=== PATIENT | male | born 1955 | race Caucasian/White ===

== ENCOUNTER 2018-02-22 15:00 | Emergency (ER) | payer SELFPAY ==
[~2018-02-22] VITALS: Ht 175.3 cm; Wt 57.8 kg
[~2018-02-22 15:00] MED LIST: ASPI-320 PO; FLV1 PO; HYDR25TA4 PO; PRVHFAIN INH; THM100 PO
[2018-02-22 15:06] VITALS: TEMP 36.3; Ht 175.3 cm; Wt 57.8 kg
--- NOTE | 2018-02-22 15:23 | EMERGENCY ROOM VISIT NOTE ---
History First contact with patient: 15:10 Chief Complaint: FACIAL PAIN/INJURY Stated Complaint: SWELLING L SIDE OF NECK History of Present Illness The patient is a 62 year old male who presents to the Emergency Room via private vehicle with complaints of "swelling left side of neck". The patient states that about half an hour ago he was at [employer] eating an egg and cheese muffin of which she has had numerous times before and notes sudden onset of swelling in left side of his face just posterior to the left angle of the mandible. He notes it feels like a pressure and not really painful. He notes he has no teeth therefore no problems with dentition. He denies any scratchy throat, trouble breathing, chest pain, shortness of breath, fevers or chills. He denies any numbness or tingling in the head, speech troubles or any neurologic condition. Review of Systems A complete 6-point Review of Systems was discussed with the patient, with pertinent positives and negatives listed in the History of Present Illness. All remaining Review of Systems questions can be considered negative unless otherwise specified. Past Medical/Surgical History Medical Problems: (1) Cachexia (2) Chest pain (3) Elevated LFTs (4) Hepatitis C antibody test positive (5) No pertinent past medical history Surgical Problems: (1) No pertinent past surgical history Family History No pertinent family history Social History Smoking Status: Never Smoker Alcohol Use: occasionally Drug Use: none Marital Status: Housing Status: lives with family Occupation Status: employed Current/Historical Medications Scheduled Amoxicillin & Pot Clavulanate (Augmentin 875-125 mg), 1 TAB PO BID Aspirin (Aspirin EC Low Dose), 81 MG PO QAM Folic Acid (Folic Acid), 1 MG PO QAM Hydrochlorothiazide (Hctz), 1 TAB PO DAILY Thiamine HCl (Vitamin B-1), 100 MG PO QAM Scheduled PRN Albuterol (Ventolin Hfa), 2 PUFFS INH Q4H PRN for SOB/Wheezing Physical Exam Vital Signs Date Time Temp Pulse Resp B/P (MAP) Pulse Ox O2 Delivery O2 Flow Rate FiO2 02/22/18 18:34 58 20 134/85 98 02/22/18 17:27 62 18 129/72 98 Room Air 02/22/18 15:06 36.3 76 20 136/75 94 Room Air Physical Exam VITAL SIGNS - Vital signs and nursing notes were reviewed. Stable. GENERAL -62-year-old male appearing his stated age who is in no acute distress. Communicates well with provider and answers questions appropriately. SKIN - Without rashes. No meningeal or petechial rash. There is edema noted and tenderness just posterior to the angle of the mandible in the soft tissues of the neck. HEAD - NC/AT. EYES - PERRL with EOMI bilaterally. Sclera anicteric. EARS - No deformities of external structures noted on gross examination bilaterally. NOSE - Midline and without cyanosis. No epistaxis or purulent drainage noted. MOUTH/OROPHARYNX - Without perioral cyanosis. Intraoral examination is unremarkable. There are no teeth. No evidence of infection. No swelling NECK - Neck with FROM. Supple to palpation. No lymphadenopathy noted. No nuchal rigidity. Palpable abnormality just posterior to the left angle of the mandible that is raised approximately 2 cm in diameter raised 2 cm. Minimal tenderness to this region. LUNGS - Chest wall symmetric without accessory muscle use, intercostals retractions, or central cyanosis. Normal vesicular breath sounds CTA B/L. No wheezes, rales, or rhonchi appreciated. CARDIAC - RRR with S1/S2. No murmur, rubs, or gallops appreciated. EXTREMITIES - No clubbing or peripheral cyanosis. No pretibial edema present. +5 /5 strength noted in UE/LE bilaterally. NEUROLOGIC - Cranial nerves II through XII grossly intact. Sensory intact to light touch throughout. PSYCH - A&O, and cooperates fully with examiner. Pt is very pleasant and interacts well with examiner. Medical Decision & Procedures ER Provider Diagnostic Interpretation: LEFT NECK/PAROTID ULTRASOUND CLINICAL HISTORY: Left neck edema COMPARISON STUDY: No previous studies for comparison. FINDINGS: No pathologic masses are visualized. There is subtle left parotid hyperemia. This may indicate a parotiditis. No focal parotid masses are visualized. IMPRESSION: 1. No focal masses identified 2. Subtle left parotid edema and hyperemia. This may indicate a parotiditis. Clinical follow-up is advocated Electronically signed by: Malcom Mccann M.D. 02/22/2018 3:56 PM Dictated Date/Time: 02/22/2018 3:53 PM SOFT TISSUE NECK WITH HISTORY: 62 years-old Male L parotid gland edema, tenderness acute left facial pain and edema, most pronounced within the region of the parotid gland. COMPARISON: None available TECHNIQUE: Multiple axial CT images of the soft tissues of the neck were obtained following the intravenous ministration of 95 mL Optiray 320 IV contrast. A dose lowering technique was used consistent with the principals of DANYEL. FINDINGS: There is asymmetric enlargement with interstitial and surrounding edema involving the left parotid gland. Mildly increased enhancement is also noted. No parotid ductal dilation or sialolith identified. Mild subcutaneous trace edema tracks along the platysma musculature on the left. No enhancing mass lesion or drainable fluid collection. The right parotid, bilateral submandibular and sublingual glands appear unremarkable. Note is made of disconjugate gaze. No pathologic adenopathy about the neck identified. Thyroid is homogeneous. Airway is patent. The glottis is unremarkable. Pleural parenchymal scarring of the lung apices with blebs and bulla formation. Atherosclerosis of the bilateral carotid bulbs, right greater than left results in 70% stenosis on the right. No acute process of the imaged intracranial structures. Bones appear intact. Multilevel facet arthrosis and spondylitic spurring about the cervical spine. Mild to moderate ethmoid sinus disease. Mild maxillary sinus disease also noted. IMPRESSION: 1. Asymmetric enlargement with interstitial and surrounding edema about the left parotid gland suggests acute parotiditis without associated ductal dilation or sialolith identified. 2. No pathologic adenopathy, drainable fluid collection or enhancing mass identified. 3. Additional findings as above including atherosclerotic plaquing of the bilateral carotid bulbs resulting in 70% luminal narrowing of the proximal right internal carotid artery. The above report was generated using voice recognition software. It may contain grammatical, syntax or spelling errors. Electronically signed by: Larry Dixon M.D. 02/22/2018 5:11 PM Dictated Date/Time: 02/22/2018 5:05 PM Laboratory Results 02/22/18 15:36 Red Blood Count 3.82, Mean Corpuscular Volume 100.8, Mean Corpuscular Hemoglobin 34.8, Mean Corpuscular Hemoglobin Concent 34.5, Mean Platelet Volume 9.4, Neutrophils (%) (Auto) 56.5, Lymphocytes (%) (Auto) 31.9, Monocytes (%) ( Auto) 8.8, Eosinophils (%) (Auto) 2.4, Basophils (%) (Auto) 0.4, Neutrophils # ( Auto) 1.42, Lymphocytes # (Auto) 0.80, Monocytes # (Auto) 0.22, Eosinophils # ( Auto) 0.06, Basophils # (Auto) 0.01 02/22/18 15:36 Test 02/22/18 15:36 02/22/18 17:13 White Blood Count 2.51 K/uL (4.8-10.8) Red Blood Count 3.82 M/uL (4.7-6.1) Hemoglobin 13.3 g/dL (14.0-18.0) Hematocrit 38.5 % (42-52) Mean Corpuscular Volume 100.8 fL (80-100) Mean Corpuscular Hemoglobin 34.8 pg (25-34) Mean Corpuscular Hemoglobin Concent 34.5 g/dl (32-36) Platelet Count 74 K/uL (130-400) Mean Platelet Volume 9.4 fL (7.4-10.4) Neutrophils (%) (Auto) 56.5 % Lymphocytes (%) (Auto) 31.9 % Monocytes (%) (Auto) 8.8 % Eosinophils (%) (Auto) 2.4 % Basophils (%) (Auto) 0.4 % Neutrophils # (Auto) 1.42 K/uL (1.4-6.5) Lymphocytes # (Auto) 0.80 K/uL (1.2-3.4) Monocytes # (Auto) 0.22 K/uL (0.11-0.59) Eosinophils # (Auto) 0.06 K/uL (0-0.5) Basophils # (Auto) 0.01 K/uL (0-0.2) RDW Standard Deviation 54.2 fL (36.4-46.3) RDW Coefficient of Variation 14.7 % (11.5-14.5) Immature Granulocyte % (Auto) 0.0 % Immature Granulocyte # (Auto) 0.00 K/uL (0.00-0.02) Platelet Estimate DECREASED Macrocytosis PRESENT Prothrombin Time 11.7 SECONDS (9.0-12.0) Prothromb Time International Ratio 1.1 (0.9-1.1) Activated Partial Thromboplast Time 27.7 SECONDS (21.0-31.0) Partial Thromboplastin Ratio 1.1 Anion Gap 5.0 mmol/L (3-11) Est Creatinine Clear Calc Drug Dose 89.2 ml/min Estimated GFR () 117.5 Estimated GFR (Non- 101.4 BUN/Creatinine Ratio 9.7 (10-20) Calcium Level 8.4 mg/dl (8.5-10.1) Lactic Acid Level 1.5 mmol/L (0.4-2.0) Medications Administered Medications (Trade) Dose Ordered Sig/Selvin Route Start Time Stop Time Status Last Admin Dose Admin Prednisone (PredniSONE TAB) 40 mg NOW STAT PO 02/22/18 15:17 02/22/18 15:21 DC 02/22/18 15:30 40 MG Cefazolin Sodium 1000 mg/Dextrose 57.5 ml @ 100 mls/hr NOW STAT IV 02/22/18 17:34 02/22/18 18:08 DC 02/22/18 17:34 100 MLS/HR Amoxicillin/ Clavulanate Potassium (Augmentin 875MG Home Pack) 1 homepack UD STAT PO 02/22/18 18:20 02/22/18 18:21 DC 02/22/18 18:20 1 HOMEPACK Medical Decision Patient was seen and evaluated as above in room D3. Review was performed of nursing notes and vital signs. After obtaining a thorough history and physical examination the above work up was performed. He presents to us today with unilateral neck swelling status post eating at [employer]. No other signs of reaction. CBC does reveal decreased white blood cell count and low platelet count. Metabolic panel reveals hypocalcemia. Ultrasound reveals parotitis. He has no other symptoms to suggest mumps. I did elect to obtain cultures, lactic and peripheral smear. He is nontoxic in appearance. The case was discussed with the attending physician. CT scan was obtained. Parotitis noted. No other emergent process. He was educated upon importance of follow- up. I did speak with Dr. Mooney, of infectious disease to discuss potential outpatient follow-up with Dr. Daigle. This appears to be reasonable. He will be given Ancef here and discharged with Augmentin. Again his only symptom is that of left-sided neck swelling and he is nontoxic, afebrile, and is well- appearing. He is also to follow with [facility]. The patient was educated upon management, had questions answered prior to discharge, and was discharged home in good condition. Case was discussed with the attending physician. I attest that I have personally reviewed the patient medication list. I attest that I have reviewed the patient's blood pressure and it was found to be elevated likely secondary to situation. In the evaluation and treatment of this patient the following differential diagnoses were entertained: Parotitis, sialoadenitis, mumps, viral process, bacterial etiology, sepsis, among others. Impression Primary Impression: Parotitis, acute Additional Impression: Anemia Departure Information Dispostion Home / Self-Care Condition GOOD Prescriptions Amoxicillin & Pot Clavulanate (Augmentin 875-125 mg) 1 Tab Tab 1 TAB PO BID for 10 Days, #20 TAB Prov: Edmar Jennings PA-C 02/22/18 Referrals [facility] (PCP) Lucas Daigle MD, Sean B., MD Patient Instructions My [facility] Additional Instructions You have been treated in the Emergency Department for left-sided neck swelling which is believed to be parotitis. CT scan of your neck also reveals some narrowing of your carotid arteries. Please follow with [facility] for this. For the parotitis/infection on the left side of her neck I do recommend following with Dr. Daigle. If you do not hear from his office tomorrow please give them a call. Please recommend follow-up as soon as possible. For the neck infection I recommend Augmentin, 1 tablet every 12 hours for 10 days. This is an antibiotic. All antibiotics have the potential to cause diarrhea. Stop this medication and contact a medical provider if you were to develop any significant adverse side effects including: wheezing, shortness of breath, passing out, vomiting, or a diffuse rash. Always take antibiotics as directed and COMPLETE the ENTIRE course regardless of the improvement of your symptoms. For your low platelet and white blood cell count I recommend follow up with Dr. Nobles. Please call his office as soon as possible to arrange follow up. For pain control, you can use the following [id number] medicines (if >12 yo): - Regular strength (325mg/tab) Tylenol (acetaminophen) 2 tabs every 4-6 hours as needed. Do not exceed 12 tablets in a 24 hour period. Avoid taking more than 3 grams (3000 mg) of Tylenol per day. This includes any other sources of acetaminophen you may take on a regular basis. - Regular strength (200 mg/tab) Advil (ibuprofen) 1-2 tabs every 4-6 hours as needed. Do not exceed a dose of 3200 mg per day. Please return with any new/concerning symptoms. Return to the emergency department if you develop the following symptoms despite treatment course outlined above: fever, intractable pain, increased redness, swelling, or purulent discharge. Problem Qualifiers
[2018-02-22 15:56] LABS: INR 1.1 (0.9-1.1); PTT PATIENT 27.7 SECONDS (21.0-31.0)
--- NOTE | 2018-02-22 15:57 | DIAGNOSTIC IMAGING REPORT ---
LEFT NECK/PAROTID ULTRASOUND CLINICAL HISTORY: Left neck edema COMPARISON STUDY: No previous studies for comparison. FINDINGS: No pathologic masses are visualized. There is subtle left parotid hyperemia. This may indicate a parotiditis. No focal parotid masses are visualized. IMPRESSION: 1. No focal masses identified 2. Subtle left parotid edema and hyperemia. This may indicate a parotiditis. Clinical follow-up is advocated Electronically signed by: Malcom Mccann M.D. 02/22/2018 3:56 PM Dictated Date/Time: 02/22/2018 3:53 PM
[2018-02-22 16:15] LABS: HEMATOCRIT 38.5 % (42-52); HEMOGLOBIN 13.3 g/dL (14.0-18.0); MEAN CELL VOLUME 100.8 fL (80-100); MEAN CORPUSCULAR HEMOGLOBIN 34.8 pg (25-34); MEAN CORPUSCULAR HGB CONC 34.5 g/dl (32-36); MEAN PLATELET VOLUME 9.4 fL (7.4-10.4); PLATELET COUNT 74 K/uL (130-400); RED CELL DISTRIBUTION WIDTH CV 14.7 % (11.5-14.5); RED CELL DISTRIBUTION WIDTH SD 54.2 fL (36.4-46.3); WHITE BLOOD COUNT 2.51 K/uL (4.8-10.8)
[2018-02-22 16:16] LABS: BASO % 0.4 %; BASO ABS # 0.01 K/uL (0-0.2); EOS % 2.4 %; EOS ABS # 0.06 K/uL (0-0.5); LYMPH % 31.9 %; MONO % 8.8 %; MONO ABS # 0.22 K/uL (0.11-0.59); NEUT % 56.5 %; NEUT ABS # 1.42 K/uL (1.4-6.5)
[2018-02-22 16:20] LABS: CALCIUM 8.4 mg/dl (8.5-10.1); CREATININE 0.72 mg/dl (0.60-1.40); POTASSIUM 3.6 mmol/L (3.5-5.1)
[2018-02-22] MEDS ORDERED: OPTIRAY 320 IV PRN (16:30)
--- NOTE | 2018-02-22 17:13 | DIAGNOSTIC IMAGING REPORT ---
SOFT TISSUE NECK WITH HISTORY: 62 years-old Male L parotid gland edema, tenderness acute left facial pain and edema, most pronounced within the region of the parotid gland. COMPARISON: None available TECHNIQUE: Multiple axial CT images of the soft tissues of the neck were obtained following the intravenous ministration of 95 mL Optiray 320 IV contrast. A dose lowering technique was used consistent with the principals of ALARA. FINDINGS: There is asymmetric enlargement with interstitial and surrounding edema involving the left parotid gland. Mildly increased enhancement is also noted. No parotid ductal dilation or sialolith identified. Mild subcutaneous trace edema tracks along the platysma musculature on the left. No enhancing mass lesion or drainable fluid collection. The right parotid, bilateral submandibular and sublingual glands appear unremarkable. Note is made of disconjugate gaze. No pathologic adenopathy about the neck identified. Thyroid is homogeneous. Airway is patent. The glottis is unremarkable. Pleural parenchymal scarring of the lung apices with blebs and bulla formation. Atherosclerosis of the bilateral carotid bulbs, right greater than left results in 70% stenosis on the right. No acute process of the imaged intracranial structures. Bones appear intact. Multilevel facet arthrosis and spondylitic spurring about the cervical spine. Mild to moderate ethmoid sinus disease. Mild maxillary sinus disease also noted. IMPRESSION: 1. Asymmetric enlargement with interstitial and surrounding edema about the left parotid gland suggests acute parotiditis without associated ductal dilation or sialolith identified. 2. No pathologic adenopathy, drainable fluid collection or enhancing mass identified. 3. Additional findings as above including atherosclerotic plaquing of the bilateral carotid bulbs resulting in 70% luminal narrowing of the proximal right internal carotid artery. The above report was generated using voice recognition software. It may contain grammatical, syntax or spelling errors. Electronically signed by: Larry Dixon M.D. 02/22/2018 5:11 PM Dictated Date/Time: 02/22/2018 5:05 PM
[2018-02-22] MEDS ORDERED: CEFAZOLIN IV 1,000 MG in DEXTROSE 5% 50ML 50 ML IV STA (17:34)
[2018-02-22] MEDS ORDERED: CEFAZOLIN SOD 1000MG/7.5 ML IV PUSH ONE (17:52)
[2018-02-22] MEDS ORDERED: AMOX875T PO (17:52)
[2018-02-22] MEDS ORDERED: AMOXICIL/CLAVU 875MG HOME PACK PO STA (18:20)
[2018-02-22 18:34] VITALS: BP 134/85; PULSE 58; O2SAT 98
== END 2018-02-22 18:35 | disposition home or self-care (01) ==
LOC: C.EDB 15:01 → C.EDD 18:35
DX: K11.21 Acute sialoadenitis (principal); D64.9 Anemia, unspecified; Z79.82 Long term (current) use of aspirin; Z79.899 Other long term (current) drug therapy

== ENCOUNTER 2018-12-20 19:32 | Inpatient (IN) ==
[2018-12-20] MEDS ORDERED: PANTOPRAZOLE BOLUS/DRIP 1 EA IV STA (19:56)
[2018-12-20] MEDS ORDERED: FAMOTIDINE 20MG/5ML IV PUSH IV STA (19:56)
[2018-12-20] MEDS ORDERED: PANTOprazole 80 MG in DEXTROSE 5% 100 ML IV ONE (19:56)
[2018-12-20] MEDS ORDERED: OCTREOTIDE ACETATE 500 MCG in 0.9 % SODIUM CHLORIDE 100 ML IV SCH (20:00)
[2018-12-20] MEDS ORDERED: SODIUM CHLORIDE 0.9% 1000ML 1,000 ML IV SCH ×2 (20:00→23:45)
[2018-12-20] MEDS ORDERED: PANTOprazole 40 MG in DEXTROSE 5% 100 ML IV SCH (20:00)
[2018-12-20] MEDS ORDERED: ONDANSETRON INJ 2 MG/ML 2 ML VIAL IV STA (20:02)
[2018-12-20 20:13] LABS: Hematocrit (blood only) 28.7 % (42-52); Hemoglobin 9.8 g/dL (14.0-18.0); Mean Corpuscular Hgb Conc 34.1 g/dL (32-36); Mean Corpuscular Volume 101.8 fL (80-100); RDW Standard Deviation 52.6 fL (36.4-46.3); Red Blood Count 2.82 M/uL (4.7-6.1); White Blood Count 5.11 K/uL (4.8-10.8)
[2018-12-20 20:26] LABS: INR 1.3 (0.9-1.1); Partial Thromboplastin Ratio 0.9; Partial Thromboplastin Time 24.7 Seconds (21.0-31.0)
--- NOTE | 2018-12-20 20:32 | Emergency Department Note ---
Entered by Geo Orourke acting as a scribe for History of Present Illness General Chief complaint: GI Assessment Stated complaint: BLOOD IN STOOL AND THROWING UP BLOOD Time Seen by Provider: 12/20/18 19:50 Source: patient History of Present Illness Provider complaint: GI assessment Onset (ago): hour(s) (This morning) Location: abdomen Pain Consistency: + intermittent Quality: + other (lightheaded) Associated symptoms: + nausea/vomiting and + other (Lightheadedness, dizzy, no abdominal pain) The patient is a 63 year old male who presents to the Emergency Room with complaints of episodic hematemesis that occurred today. The patient was here in the ED earlier today for lightheadedness and weakness after he thought he was g oing to lose consciousness at work. This episode of hematemesis occurred right after being discharged. The patient does drink about 4 beers per night since he was 16 years ago. He also smokes and has been taking 2 Naproxen when needed for pain. He currently does not have any abdominal pain. Home Medications Home Medications Medication Instructions Recorded Confirmed Type albuterol sulfate 2 puff INHALATION Q4H PRN 06/15/18 12/20/18 History aspirin 81 mg PO DAILY 06/15/18 12/20/18 History folic acid 1 mg PO DAILY 06/15/18 12/20/18 History hydrochlorothiazide 25 mg PO DAILY 06/15/18 12/20/18 History thiamine HCl (vitamin B1) 100 mg PO DAILY 06/15/18 12/20/18 History Allergies Allergy/AdvReac Type Severity Reaction Status Date / Time codeine Allergy Unknown Verified 09/11/18 17:50 Past Med/Surg History Medical History Parotiditis Alcohol abuse Hypertension Alcoholism (Acute) Hepatitis C antibody test positive Family History Other No significant family history Social History Preferred Language: French Beliefs That Will Affect Care: None Current Living Situation: Spouse Other Information That Helps Us Care for You: No Feels Safe at Home: Yes Safety Concerns: Feels Safe At This Time Smoking Status: Current every day smoker Hx Alcohol Use: Yes Hx Substance Use: No Review of Systems See HPI for pertinent positives & negatives. and A total of 10 systems reviewed and were otherwise negative Physical Exam Vital Signs Vital Signs - 24 hr 12/20/18 19:44 12/20/18 19:58 12/20/18 20:00 Temperature 36.7 C Temperature Source Oral Sepsis Recent Fever Within 48 Hours No Sepsis New/Unexplained Change in Mental Status No Sepsis Action Taken by Nursing No Action Required Pulse Rate 113 H 111 H 105 H Pulse Rate [Right Finger] Pulse Rate from SpO2 Sensor 109 H 105 H Respiratory Rate 20 20 17 Respiratory Effort / Characteristics Non-Labored Respiratory Depth Normal Respiratory Pattern Regular Blood Pressure 118/72 112/67 Blood Pressure [Right Arm] Blood Pressure Mean 87 82 Blood Pressure Mean [Right Arm] Blood Pressure Position [Right Arm] Pulse Oximetry 99 96 99 Oxygen Delivery Method 12/20/18 20:10 12/20/18 20:20 12/20/18 20:30 Temperature Temperature Source Sepsis Recent Fever Within 48 Hours Sepsis New/Unexplained Change in Mental Status Sepsis Action Taken by Nursing Pulse Rate 102 H 97 H 84 Pulse Rate [Right Finger] Pulse Rate from SpO2 Sensor 101 H 97 H 87 Respiratory Rate 15 15 16 Respiratory Effort / Characteristics Respiratory Depth Respiratory Pattern Blood Pressure Blood Pressure [Right Arm] Blood Pressure Mean Blood Pressure Mean [Right Arm] Blood Pressure Position [Right Arm] Pulse Oximetry 97 95 95 Oxygen Delivery Method 12/20/18 20:40 12/20/18 20:50 12/20/18 21:00 Temperature Temperature Source Sepsis Recent Fever Within 48 Hours Sepsis New/Unexplained Change in Mental Status Sepsis Action Taken by Nursing Pulse Rate 79 81 Pulse Rate [Right Finger] Pulse Rate from SpO2 Sensor 77 80 98 H Respiratory Rate 13 11 L 15 Respiratory Effort / Characteristics Respiratory Depth Respiratory Pattern Blood Pressure Blood Pressure [Right Arm] Blood Pressure Mean Blood Pressure Mean [Right Arm] Blood Pressure Position [Right Arm] Pulse Oximetry 95 97 95 Oxygen Delivery Method 12/20/18 21:10 12/20/18 21:20 12/20/18 21:30 Temperature Temperature Source Sepsis Recent Fever Within 48 Hours Sepsis New/Unexplained Change in Mental Status Sepsis Action Taken by Nursing Pulse Rate 93 H 93 H Pulse Rate [Right Finger] Pulse Rate from SpO2 Sensor 87 86 94 H Respiratory Rate 40 H 7 L 19 Respiratory Effort / Characteristics Respiratory Depth Respiratory Pattern Blood Pressure Blood Pressure [Right Arm] Blood Pressure Mean Blood Pressure Mean [Right Arm] Blood Pressure Position [Right Arm] Pulse Oximetry 97 100 98 Oxygen Delivery Method 12/20/18 21:40 12/20/18 21:51 12/20/18 22:50 Temperature 36.9 C Temperature Source Oral Sepsis Recent Fever Within 48 Hours Sepsis New/Unexplained Change in Mental Status Sepsis Action Taken by Nursing Pulse Rate 92 H Pulse Rate [Right Finger] 90 Pulse Rate from SpO2 Sensor 92 H 89 Respiratory Rate 14 18 Respiratory Effort / Characteristics Respiratory Depth Respiratory Pattern Blood Pressure Blood Pressure [Right Arm] 101/65 Blood Pressure Mean Blood Pressure Mean [Right Arm] 77 Blood Pressure Position [Right Arm] Lying Pulse Oximetry 100 100 96 Oxygen Delivery Method Room Air 12/20/18 23:30 Temperature 36.9 C Temperature Source Oral Sepsis Recent Fever Within 48 Hours Sepsis New/Unexplained Change in Mental Status Sepsis Action Taken by Nursing Pulse Rate Pulse Rate [Right Finger] 90 Pulse Rate from SpO2 Sensor Respiratory Rate 18 Respiratory Effort / Characteristics Non-Labored Respiratory Depth Normal Respiratory Pattern Regular Blood Pressure Blood Pressure [Right Arm] 101/65 Blood Pressure Mean Blood Pressure Mean [Right Arm] 77 Blood Pressure Position [Right Arm] Lying Pulse Oximetry 96 Oxygen Delivery Method Room Air GENERAL: The patient is awake and alert. He is pale and anxious appearing. EYES: The conjunctivae are clear. The pupils are round and reactive. EARS, NOSE, MOUTH AND THROAT: The nose is without any evidence of any deformity. Mucous membranes are moist tongue is midline. There is clotted blood noted around mouth. NECK: The neck is nontender and supple. RESPIRATORY: Diminished breath sounds were noted throughout. Scattered rhonchi were noted throughout. CARDIOVASCULAR: Tachycardic rate with regular rhythm was noted. There is no definite murmur. GASTROINTESTINAL: The abdomen is mildly distended but soft. There is no guarding or rigidity noted. Stable. No tenderness to palpation is noted. BACK: No midline tenderness or or step-off noted range of motion in flexion extension as well as rotation no signs of muscle spasm noted MUSCULOSKELETAL/EXTREMITIES: There is no evidence of gross deformity full range of motion is noted in the hips and shoulders SKIN: There is no obvious evidence of any rash. Skin is cool and mottled. Ther e is no significant pedal edema noted. NEUROLOGIC: Patient is awake alert and oriented x3. Course 3: Past medical records reviewed. The patient was evaluated in room C09, and a complete history and physical examination were performed. 2030: I spoke to Dr. Dusty [facility] Hospitalist about the patient's case and she is going to accept the patient for further evaluation. Consultations Consultation #1: I spoke to Dr. Dusty Bernard [facility] Hospitalist about the patient's case and she is going to accept the patient for further evaluation. Time: 20:30 Administered Medications Sodium Chloride (Nss 1000ml) 1,000 mls @ 80 mls/hr IV .[id number] JOCELYNN Stop: 12/21/18 12:14 Last Admin: 12/21/18 00:05 Dose: 80 mls/hr Documented by: [id number] Pantoprazole Sodium 40 mg/ (Dextrose) 100 mls @ 20 mls/hr IV Q5H JOCELYNN Stop: 01/20/19 01:29 Last Admin: 12/21/18 00:23 Dose: 8 mg/hr, 20 mls/hr Documented by: [id number] Discontinued Medications Famotidine (Pepcid 20mg Iv Push) 20 mg IV ONE STA Stop: 12/20/18 19:57 Last Admin: 12/20/18 20:27 Dose: 20 mg Documented by: [id number] Octreotide Acetate 500 mcg/ (Sodium Chloride) 105 mls @ 10.5 mls/hr IV .Q10H JOCELYNN Stop: 01/19/19 19:59 Last Admin: 12/20/18 20:27 Dose: 50 mcg/hr, 10.5 mls/hr Documented by: [id number] Pantoprazole Sodium (Protonix Bolus/Drip) 0 mls @ 1 mls/hr IV ONE STA Stop: 12/20/18 19:57 Last Admin: 12/20/18 20:27 Dose: 1 mls/hr Documented by: [id number] Pantoprazole Sodium 40 mg/ (Dextrose) 100 mls @ 20 mls/hr IV Q5H JOCELYNN Stop: 01/19/19 19:59 Last Admin: 12/20/18 20:51 Dose: 20 mls/hr Documented by: [id number] Sodium Chloride (Nss 1000ml) 1,000 mls @ 999 mls/hr IV .Q1H1M JOCELYNN Stop: 12/20/18 21:00 Last Infusion: 12/20/18 21:30 Dose: 0 mls/hr Documented by: [id number] Admin: 12/20/18 20:27 Dose: 999 mls/hr Documented by: [id number] Pantoprazole Sodium 80 mg/ (Dextrose) 120 mls @ 400 mls/hr IV NOW ONE Stop: 12/20/18 20:13 Last Infusion: 12/20/18 21:06 Dose: 0 mls/hr Documented by: [id number] Admin: 12/20/18 20:49 Dose: 400 mls/hr Documented by: [id number] Ondansetron HCl (Zofran) 4 mg IV NOW STA Stop: 12/20/18 20:03 Last Admin: 12/20/18 20:27 Dose: 4 mg Documented by: [id number] Medical Decision Making Differential Diagnosis Differential: Diverticulitis, AVM, Coagulopathy, Colitis, Malignancy, Upper GI bleed, Fissure, Hemorrhoids, amongst other pathologies entertained. Medical Records Attestation: I reviewed the patient's medical records. Home Medications Current Medication List: was personally reviewed by me Laboratory Data Attestation: I reviewed the patient's lab results. Result diagrams: 12/20/18 23:23 12/20/18 20:01 Lab Results 12/20/18 12/20/18 12/20/18 Range/Units 20:01 20:01 20:01 WBC 5.11 (4.8-10.8) K/uL RBC 2.82 L (4.7-6.1) M/uL Hgb 9.8 L (14.0-18.0) g/dL Hct 28.7 L (42-52) % MCV 101.8 H (80-100) fL MCH 34.8 H (25-34) pg MCHC 34.1 (32-36) g/dL RDW Std Deviation 52.6 H (36.4-46.3) fL RDW Coeff of Gaby 14.0 (11.5-14.5) % Plt Count 77 L (130-400) K/uL MPV 9.8 (7.4-10.4) fL Immature Gran % (Auto) 0.4 % Neut % (Auto) 70.1 % Lymph % (Auto) 21.7 % Runnels % (Auto) 7.2 % Eos % (Auto) 0.2 % Baso % (Auto) 0.4 % Immature Gran # (Auto) 0.02 (0.00-0.02) K/uL Neut # (Auto) 3.58 (1.4-6.5) K/uL Lymph # (Auto) 1.11 L (1.2-3.4) K/uL Runnels # (Auto) 0.37 (0.11-0.59) K/uL Eos # (Auto) 0.01 (0-0.5) K/uL Baso # (Auto) 0.02 (0-0.2) K/uL Platelet Estimate Decreased (Normal) Giant Platelets PT 13.0 H (9.0-12.0) Seconds INR 1.3 H (0.9-1.1) APTT 24.7 (21.0-31.0) Seconds PTT Ratio 0.9 Sodium 139 (136-145) mmol/L Potassium 4.7 (3.5-5.1) mmol/L Chloride 108 H (98-107) mmol/L Carbon Dioxide 27 (21-32) mmol/L Anion Gap 4.0 (3-11) BUN 29 H (7-18) mg/dl Creatinine 0.72 (0.6-1.4) mg/dl Est Cr Clr Drug Dosing 92.8 ml/min Est GFR ( Amer) 116.7 Est GFR (Non-Af Amer) 100.7 BUN/Creatinine Ratio 40.1 H (10-20) Glucose 149 H (70-99) mg/dl Calcium 7.8 L (8.5-10.1) mg/dl Phosphorus (2.5-4.9) mg/dl Magnesium (1.8-2.4) mg/dl Total Bilirubin 0.8 (0.2-1) mg/dl AST 99 H (15-37) U/L ALT 80 H (12-78) U/L Alkaline Phosphatase 100 (45-117) U/L Troponin I 0.018 (0-0.045) ng/ml Total Protein 6.0 L (6.4-8.2) gm/dl Albumin 2.3 L (3.4-5.0) gm/dl Globulin 3.7 (2.5-4.0) gm/dl Albumin/Globulin Ratio 0.6 L (0.9-2) Lipase 289 (73-393) U/L Urine Color Urine Appearance (Clear) Urine pH (4.5-7.5) Ur Specific [place] (1.000-1.030) Urine Protein (Negative) Urine Glucose (UA) (Negative) Urine Ketones (Negative) Urine Blood (Negative) Urine Nitrite (Negative) Urine Bilirubin (Negative) Urine Urobilinogen (Negative) Ur Leukocyte Esterase (Negative) Blood Type Antibody Screen 12/20/18 12/20/18 12/20/18 Range/Units 20:14 21:54 23:23 WBC (4.8-10.8) K/uL RBC (4.7-6.1) M/uL Hgb (14.0-18.0) g/dL Hct (42-52) % MCV (80-100) fL MCH (25-34) pg MCHC (32-36) g/dL RDW Std Deviation (36.4-46.3) fL RDW Coeff of Gaby (11.5-14.5) % Plt Count (130-400) K/uL MPV (7.4-10.4) fL Immature Gran % (Auto) % Neut % (Auto) % Lymph % (Auto) % Runnels % (Auto) % Eos % (Auto) % Baso % (Auto) % Immature Gran # (Auto) (0.00-0.02) K/uL Neut # (Auto) (1.4-6.5) K/uL Lymph # (Auto) (1.2-3.4) K/uL Runnels # (Auto) (0.11-0.59) K/uL Eos # (Auto) (0-0.5) K/uL Baso # (Auto) (0-0.2) K/uL Platelet Estimate (Normal) Giant Platelets PT (9.0-12.0) Seconds INR (0.9-1.1) APTT (21.0-31.0) Seconds PTT Ratio Sodium (136-145) mmol/L Potassium (3.5-5.1) mmol/L Chloride (98-107) mmol/L Carbon Dioxide (21-32) mmol/L Anion Gap (3-11) BUN (7-18) mg/dl Creatinine (0.6-1.4) mg/dl Est Cr Clr Drug Dosing ml/min Est GFR ( Amer) Est GFR (Non-Af Amer) BUN/Creatinine Ratio (10-20) Glucose (70-99) mg/dl Calcium (8.5-10.1) mg/dl Phosphorus 3.0 (2.5-4.9) mg/dl Magnesium 1.7 L (1.8-2.4) mg/dl Total Bilirubin (0.2-1) mg/dl AST (15-37) U/L ALT (12-78) U/L Alkaline Phosphatase (45-117) U/L Troponin I (0-0.045) ng/ml Total Protein (6.4-8.2) gm/dl Albumin (3.4-5.0) gm/dl Globulin (2.5-4.0) gm/dl Albumin/Globulin Ratio (0.9-2) Lipase (73-393) U/L Urine Color Yellow Urine Appearance Clear (Clear) Urine pH 5.5 (4.5-7.5) Ur Specific [place] 1.018 (1.000-1.030) Urine Protein Negative (Negative) Urine Glucose (UA) Negative (Negative) Urine Ketones Negative (Negative) Urine Blood Negative (Negative) Urine Nitrite Negative (Negative) Urine Bilirubin Negative (Negative) Urine Urobilinogen Negative (Negative) Ur Leukocyte Esterase Negative (Negative) Blood Type O Positive Antibody Screen NEGATIVE 12/20/18 Range/Units 23:23 WBC 4.00 L (4.8-10.8) K/uL RBC 2.54 L (4.7-6.1) M/uL Hgb 8.9 L (14.0-18.0) g/dL Hct 25.8 L (42-52) % MCV 101.6 H (80-100) fL MCH 35.0 H (25-34) pg MCHC 34.5 (32-36) g/dL RDW Std Deviation 51.2 H (36.4-46.3) fL RDW Coeff of Gaby 13.8 (11.5-14.5) % Plt Count 61 L (130-400) K/uL MPV 9.6 (7.4-10.4) fL Immature Gran % (Auto) 0.3 % Neut % (Auto) 71.7 % Lymph % (Auto) 22.5 % Runnels % (Auto) 5.0 % Eos % (Auto) 0.0 % Baso % (Auto) 0.5 % Immature Gran # (Auto) 0.01 (0.00-0.02) K/uL Neut # (Auto) 2.87 (1.4-6.5) K/uL Lymph # (Auto) 0.90 L (1.2-3.4) K/uL Runnels # (Auto) 0.20 (0.11-0.59) K/uL Eos # (Auto) 0.00 (0-0.5) K/uL Baso # (Auto) 0.02 (0-0.2) K/uL Platelet Estimate (Normal) Giant Platelets 1+ PT (9.0-12.0) Seconds INR (0.9-1.1) APTT (21.0-31.0) Seconds PTT Ratio Sodium (136-145) mmol/L Potassium (3.5-5.1) mmol/L Chloride (98-107) mmol/L Carbon Dioxide (21-32) mmol/L Anion Gap (3-11) BUN (7-18) mg/dl Creatinine (0.6-1.4) mg/dl Est Cr Clr Drug Dosing ml/min Est GFR ( Amer) Est GFR (Non-Af Amer) BUN/Creatinine Ratio (10-20) Glucose (70-99) mg/dl Calcium (8.5-10.1) mg/dl Phosphorus (2.5-4.9) mg/dl Magnesium (1.8-2.4) mg/dl Total Bilirubin (0.2-1) mg/dl AST (15-37) U/L ALT (12-78) U/L Alkaline Phosphatase (45-117) U/L Troponin I (0-0.045) ng/ml Total Protein (6.4-8.2) gm/dl Albumin (3.4-5.0) gm/dl Globulin (2.5-4.0) gm/dl Albumin/Globulin Ratio (0.9-2) Lipase (73-393) U/L Urine Color Urine Appearance (Clear) Urine pH (4.5-7.5) Ur Specific [place] (1.000-1.030) Urine Protein (Negative) Urine Glucose (UA) (Negative) Urine Ketones (Negative) Urine Blood (Negative) Urine Nitrite (Negative) Urine Bilirubin (Negative) Urine Urobilinogen (Negative) Ur Leukocyte Esterase (Negative) Blood Type Antibody Screen Imaging Data Radiologist's Impression: Radiology results as stated below per my review and the radiologist's interpretation: XR chest 1V portable CLINICAL HISTORY: 63 years-old Male presenting with GIB. TECHNIQUE: Portable upright AP view of the chest was obtained. COMPARISON: 12/20/2018 at 2:45 PM. FINDINGS: Atherosclerosis of the aortic arch. Cardiac silhouette normal in size. No focal opacity. No large effusion or pneumothorax. Osseous structures normal. Upper abdomen normal. IMPRESSION: 1. No acute cardiopulmonary disease. Electronically signed by: Arden Adrian M.D. 12/20/2018 8:34 PM XR KUB CLINICAL HISTORY: 63 years-old Male presenting with GIB. TECHNIQUE: Single supine view of the abdomen was obtained. COMPARISON: None. FINDINGS: Paucity of small bowel gas, nonspecific. Nonobstructive bowel gas pattern. No gross pneumoperitoneum allowing for supine technique. Allowing for bowel gas and stool, no calcifications to suggest nephrolithiasis. Atherosclerotic calcifications noted. Degenerative changes of the spine. Lung bases clear. IMPRESSION: 1. No acute intra-abdominal pathology. Electronically signed by: Arden Adrian M.D. 12/20/2018 8:39 PM ECG Data Attestation: I personally reviewed and interpreted this ECG as follows: Indication: weakness Rate (beats per minute): 102 Rhythm: sinus tachycardia Findings: no nonspecific-ST abn, no PAC and no PVC Comparison ECG Date: from (07/06/16) Change: no significant change Blood Pressure Blood Pressure Findings: Normal blood pressure Blood Pressure Disposition: further management by hospitalist ANT Lugo The patient is a 63-year-old male who presented to the emergency department for nausea and vomiting. The patient has a history of alcohol use. He was seen in our facility recently for a near syncopal episode. At that time he did not appear to have any acute abnormality but when he got home he started having emesis with coffee grounds. The patient does have a history of alcohol use. He was scoped in the past and found to have signs of gastritis but there is no definite mention of esophageal varices according to the patient. The patient was treated with IV fluids as well as IV Protonix drip as well as octreotide drip. He was also given Pepcid. He was further treated with Zofran. I discussed the patient's laboratory and radiographic studies with him. He was found to have a baseline anemia which appears to be changed from laboratory studies from last spring. I discussed this case with the on-call [facility] hospitalist group. They have agreed to evaluate patient in the emergency department for further management and disposition. Impression & Plan Acute upper gastrointestinal bleeding, Anemia Critical Care Time I have personally spent greater than 60 minutes of critical care time in the direct management of this patient. This includes bedside care, interpretation of diagnostic studies, and testing, discussion with consultants, patient, and family members, and other required patient management activities. This 60 minutes is in excess of all separately billable procedures. Critical Care Time: Yes Total Critical Care Time: 60 Discharge Plan Visit Data *Final* Discharge Date/Time: 12/20/18 22:28 Chief Complaint: GI Assessment Stated Complaint: BLOOD IN STOOL AND THROWING UP BLOOD ED Provider: David Moran Discharge Problem: Acute upper gastrointestinal bleeding, Anemia Patient Disposition: Admitted As Inpatient Discharge Instructions Interventions: ED Discharge Assessment Last Done: 12/20/18 22:28 Discharge Problem: Anemia Qualifiers: Anemia type: unspecified type Qualified Code(s): D64.9 - Anemia, unspecified The scribe's documentation has been prepared under my direction and personally reviewed by me in its entirety. I confirm that the note above accurately reflects all work, treatment, procedures, and medical decision making performed by me.
[2018-12-20 20:33] LABS: Albumin Globulin Ratio 0.6 (0.9-2); Albumin Level 2.3 gm/dl (3.4-5.0); BUN Creatinine Ratio 40.1 (10-20); Bilirubin,Total 0.8 mg/dl (0.2-1); Calcium 7.8 mg/dl (8.5-10.1); Creatinine Clr Calc Pharmacy 92.8 ml/min; Est GFR (African American) 116.7; Est GFR (Non-African American) 100.7; Globulin 3.7 gm/dl (2.5-4.0); Potassium 4.7 mmol/L (3.5-5.1)
[2018-12-20 20:34] LABS: Basophils # (auto) 0.02 K/uL (0-0.2); Basophils % (auto) 0.4 %; Eosinophils # (auto) 0.01 K/uL (0-0.5); Eosinophils % (auto) 0.2 %; Immature Granulocytes # (auto) 0.02 K/uL (0.00-0.02); Immature Granulocytes % (auto) 0.4 %; Lymphocytes # (auto) 1.11 K/uL (1.2-3.4); Lymphocytes % (auto) 21.7 %; Mean Platelet Volume 9.8 fL (7.4-10.4); Monocytes # (auto) 0.37 K/uL (0.11-0.59); Monocytes % (auto) 7.2 %; Neutrophils # (auto) 3.58 K/uL (1.4-6.5); Neutrophils % (auto) 70.1 %; Platelet Count 77 K/uL (130-400); Platelet Estimate Decreased (Normal)
--- NOTE | 2018-12-20 20:36 | XRay Report ---
XR chest 1V portable CLINICAL HISTORY: 63 years-old Male presenting with GIB. TECHNIQUE: Portable upright AP view of the chest was obtained. COMPARISON: 12/20/2018 at 2:45 PM. FINDINGS: Atherosclerosis of the aortic arch. Cardiac silhouette normal in size. No focal opacity. No large eff usion or pneumothorax. Osseous structures normal. Upper abdomen normal. IMPRESSION: 1. No acute cardiopulmonary disease. Electronically signed by: Ardne Adrian M.D. 12/20/2018 8:34 PM
[2018-12-20 20:38] LABS: Troponin I 0.018 ng/ml (0-0.045)
--- NOTE | 2018-12-20 20:41 | XRay Report ---
XR KUB CLINICAL HISTORY: 63 years-old Male presenting with GIB. TECHNIQUE: Single supine view of the abdomen was obtained. COMPARISON: None. FINDINGS: Paucity of small bowel gas, nonspecific. Nonobstructive bowel gas pattern. No gross pneumoperitoneum allowing for supine technique. Allowing for bowel gas and stool, no calcifications to suggest nephrolithiasis. Atherosclerotic calci fications noted. Degenerative changes of the spine. Lung bases clear. IMPRESSION: 1. No acute intra-abdominal pathology. Electronically signed by: Arden Adrian M.D. 12/20/2018 8:39 PM
[2018-12-20 22:11] LABS: Appearance Urine Clear (Clear); Bilirubin Urine Negative (Negative); Blood Urine Negative (Negative); Color Urine Yellow; Glucose Urine UA Negative (Negative); Ketones Urine Negative (Negative); Leukocyte Esterase Urine Negative (Negative); Nitrite Urine Negative (Negative); Protein Urine Negative (Negative); Specific Gravity Urine 1.018 (1.000-1.030); Urobilinogen Urine Negative (Negative); pH Urine 5.5 (4.5-7.5)
[2018-12-20] MEDS ORDERED: ALBUTEROL HFA 8 GM INHALER INH PRN (23:17)
[2018-12-20 23:39] LABS: Hematocrit (blood only) 25.8 % (42-52); Hemoglobin 8.9 g/dL (14.0-18.0); Mean Corpuscular Hgb Conc 34.5 g/dL (32-36); Mean Corpuscular Volume 101.6 fL (80-100); RDW Coefficient of Variation 13.8 % (11.5-14.5); RDW Standard Deviation 51.2 fL (36.4-46.3); Red Blood Count 2.54 M/uL (4.7-6.1)
[2018-12-20 23:42] LABS: Mean Platelet Volume 9.6 fL (7.4-10.4); Platelet Count 61 K/uL (130-400)
[2018-12-20 23:57] LABS: Magnesium 1.7 mg/dl (1.8-2.4)
[2018-12-21] MEDS: PANTOprazole 40 MG in DEXTROSE 5% 100 ML IV SCH ×5 (00:23→20:25)
[2018-12-21 00:41] LABS: Basophils # (auto) 0.02 K/uL (0-0.2); Basophils % (auto) 0.5 %; Giant Platelets 1+; Immature Granulocytes # (auto) 0.01 K/uL (0.00-0.02); Immature Granulocytes % (auto) 0.3 %; Lymphocytes % (auto) 22.5 %; Neutrophils # (auto) 2.87 K/uL (1.4-6.5); Neutrophils % (auto) 71.7 %
[2018-12-21] MEDS: MAGNESIUM SULFATE / D5W 1 GM/100 ML BAG IV SCH ×2 (02:35→05:40)
--- NOTE | 2018-12-21 03:06 | History & Physical Report ---
Date of Service December 20, 2018 Assessment & Plan (1) Acute upper gastrointestinal bleeding: Patient with three episodes of coffe ground emesis as well as dizziness/presyncope. Decrease in Hg from baseline of 13.3 to 8.9 now. Patient presently with no abdominal pain, nausea, no further CGE since arrival. He is hemodynamically stable. Two PIVs in place. Ddx to include esophagitis/gastritis, ulcer, ?presence of varices in patient with HCV and EtOH abuse. His laboratory results suggest possible cirrhosis with thromobocytopenia and elevated INR. -Admit to PCU -NPO -Maintain two large bore PIVs -Monitor CBC q 8hours, transfuse if active bleeding, symptomatic anemia or Hg < 7 -Protonix gtt -Octreotide gtt -GI consult - appreciate assistance with this case -Hold ASA, caution patient against use of NSAIDS (2) Hepatitis C antibody test positive: Patient is to see Dr. Daigle to discuss treatment options. -Will check RUQUS (3) Alcohol abuse: Patient with longstanding history of EtOH use. Presently reports drinking 4-6 beers/day. No history of withdrawal. He is on folic acid and thiamine at home. -[facility] protocol for EtOH withdrawal -Thiamine 100mg IV daily (4) Hypertension: Blood pressure presentlly stable -Hold HCTZ in setting of acute UGIB -Continue to monitor BP (5) Anemia: Patient with history of macrocytic anemia. Has history of EtOH abuse and liver disease. -Check B12 and Folate with AM labs -Continue to monitor CBC as above F/E/N- NSS at 100mL/hr x 1 liter, monitor electrolytes and replete as needed, NPO for now, Nicotine patch PPX - SCDs to bilateral LE Code - Full per discussion with patient Dispo - To PCU History of Present Illness Chief Complaint: UGIB Primary Care Provider: [facility] In Medicine Mr. Blackwood is a 63yo male with history of EtOH abuse, HCV presenting with UBIB. Patient had an episode of dizziness, weakness and presyncope which occurred earlier today while the patient was at work. The episode lasted a pproximately 10-15 minutes then resolved. He was seen in the ER with that complaint. Found to be anemic. He was discharged home. Upon return home he became nauseated and had 3 episodes of coffee ground emesis. He took some Pepto Bismol with improvement in nausea. He has no abdominal pain, no nausea at present, no diarrhea. Patient recently learned of his HCV status. Uncertain how he contracted HCV. He is scheduled to see Dr. Daigle to discuss treatment options. He drinks EtOH daily, approximately 4-6 beers/day. Last drink was 12/19/18 around 21:00. No history of withdrawal symptoms or seizures. He smokes cigarettes. Takes Naproxen occasionally for pain, typically 1-2 times per week. Has possible history of GIB when he was younger, details unclear. ER Course: Pepcid, Protonix bolus and gtt, octreotide gtt, Zofran Allergies Allergy/AdvReac Type Severity Reaction Status Date / Time codeine Allergy Unknown Verified 09/11/18 17:50 Home Medications Home Medications Medication Instructions Recorded Confirmed Type albuterol sulfate 2 puff INHALATION Q4H PRN 06/15/18 12/20/18 History aspirin 81 mg PO DAILY 06/15/18 12/20/18 History folic acid 1 mg PO DAILY 06/15/18 12/20/18 History hydrochlorothiazide 25 mg PO DAILY 06/15/18 12/20/18 History thiamine HCl (vitamin B1) 100 mg PO DAILY 06/15/18 12/20/18 History Past Med/Surg History Medical History Parotiditis Alcohol abuse Hypertension Alcoholism (Acute) Hepatitis C antibody test positive No significant past surgical history Family History Other Diabetes Hypertension Social History Preferred Language: Y[place] Beliefs That Will Affect Care: None Current Living Situation: Spouse Other Information That Helps Us Care for You: No Feels Safe at Home: Yes Safety Concerns: Feels Safe At This Time Smoking Status: Current every day smoker Hx Alcohol Use: Yes Hx Substance Use: No Review of Systems All systems reviewed & are unremarkable except as noted in HPI & below Physical Exam Vital Signs (Past 24 Hours): Last Vital Signs Temp 36.9 C 12/20/18 23:30 Pulse 90 12/20/18 23:30 Resp 18 12/20/18 23:30 BP 101/65 12/20/18 23:30 Pulse Ox 96 12/20/18 23:30 Physical Exam: General: patient resting comfortably, NAD, non-toxic in appearance, AA&O x 4, thin Skin: warm, dry, intact, no rashes or lesions, no jaundice HEENT: NC/AT, PERRL, EOMI, anicteric sclera, conjunctiva without injection, external ear normal to inspection and nontender, nares patent, moist mucus membranes, adentulous, no oropharyngeal lesions, neck supple, trachea midline, no LAD, no thyromegaly, no JVD, dried blood present in posterior pharynx Heart: +S1/S2, regular, no m/r/g Lungs: equal air entry bilaterally, no rales/rhonchi/wheezes Abd: +BS, soft, NT/ND, no masses/organomegaly/ascites Ext: warm, 2+ pulses in UE/LE bilaterally, no clubbing/cyanosis or edema Neuro: nonfocal, patient AA&O x 4, speech intact, no facial droop, moving all extremities on command with equal strength 5/5 Results & Data Laboratory Results Lab Results 12/20/18 12/20/18 12/20/18 Range/Units 20:01 20:01 20:01 WBC 5.11 (4.8-10.8) K/uL RBC 2.82 L (4.7-6.1) M/uL Hgb 9.8 L (14.0-18.0) g/dL Hct 28.7 L (42-52) % MCV 101.8 H (80-100) fL MCH 34.8 H (25-34) pg MCHC 34.1 (32-36) g/dL RDW Std Deviation 52.6 H (36.4-46.3) fL RDW Coeff of Gaby 14.0 (11.5-14.5) % Plt Count 77 L (130-400) K/uL MPV 9.8 (7.4-10.4) fL Immature Gran % (Auto) 0.4 % Neut % (Auto) 70.1 % Lymph % (Auto) 21.7 % [place] % (Auto) 7.2 % Eos % (Auto) 0.2 % Baso % (Auto) 0.4 % Immature Gran # (Auto) 0.02 (0.00-0.02) K/uL Neut # (Auto) 3.58 (1.4-6.5) K/uL Lymph # (Auto) 1.11 L (1.2-3.4) K/uL [place] # (Auto) 0.37 (0.11-0.59) K/uL Eos # (Auto) 0.01 (0-0.5) K/uL Baso # (Auto) 0.02 (0-0.2) K/uL Platelet Estimate Decreased (Normal) Giant Platelets PT 13.0 H (9.0-12.0) Seconds INR 1.3 H (0.9-1.1) APTT 24.7 (21.0-31.0) Seconds PTT Ratio 0.9 Sodium 139 (136-145) mmol/L Potassium 4.7 (3.5-5.1) mmol/L Chloride 108 H (98-107) mmol/L Carbon Dioxide 27 (21-32) mmol/L Anion Gap 4.0 (3-11) BUN 29 H (7-18) mg/dl Creatinine 0.72 (0.6-1.4) mg/dl Est Cr Clr Drug Dosing 92.8 ml/min Est GFR ( Amer) 116.7 Est GFR (Non-Af Amer) 100.7 BUN/Creatinine Ratio 40.1 H (10-20) Glucose 149 H (70-99) mg/dl Calcium 7.8 L (8.5-10.1) mg/dl Phosphorus (2.5-4.9) mg/dl Magnesium (1.8-2.4) mg/dl Total Bilirubin 0.8 (0.2-1) mg/dl AST 99 H (15-37) U/L ALT 80 H (12-78) U/L Alkaline Phosphatase 100 (45-117) U/L Troponin I 0.018 (0-0.045) ng/ml Total Protein 6.0 L (6.4-8.2) gm/dl Albumin 2.3 L (3.4-5.0) gm/dl Globulin 3.7 (2.5-4.0) gm/dl Albumin/Globulin Ratio 0.6 L (0.9-2) Lipase 289 (73-393) U/L Urine Color Urine Appearance (Clear) Urine pH (4.5-7.5) Ur Specific [place] (1.000-1.030) Urine Protein (Negative) Urine Glucose (UA) (Negative) Urine Ketones (Negative) Urine Blood (Negative) Urine Nitrite (Negative) Urine Bilirubin (Negative) Urine Urobilinogen (Negative) Ur Leukocyte Esterase (Negative) Blood Type Antibody Screen 12/20/18 12/20/18 12/20/18 Range/Units 20:14 21:54 23:23 WBC (4.8-10.8) K/uL RBC (4.7-6.1) M/uL Hgb (14.0-18.0) g/dL Hct (42-52) % MCV (80-100) fL MCH (25-34) pg MCHC (32-36) g/dL RDW Std Deviation (36.4-46.3) fL RDW Coeff of Gaby (11.5-14.5) % Plt Count (130-400) K/uL MPV (7.4-10.4) fL Immature Gran % (Auto) % Neut % (Auto) % Lymph % (Auto) % [place] % (Auto) % Eos % (Auto) % Baso % (Auto) % Immature Gran # (Auto) (0.00-0.02) K/uL Neut # (Auto) (1.4-6.5) K/uL Lymph # (Auto) (1.2-3.4) K/uL [place] # (Auto) (0.11-0.59) K/uL Eos # (Auto) (0-0.5) K/uL Baso # (Auto) (0-0.2) K/uL Platelet Estimate (Normal) Giant Platelets PT (9.0-12.0) Seconds INR (0.9-1.1) APTT (21.0-31.0) Seconds PTT Ratio Sodium (136-145) mmol/L Potassium (3.5-5.1) mmol/L Chloride (98-107) mmol/L Carbon Dioxide (21-32) mmol/L Anion Gap (3-11) BUN (7-18) mg/dl Creatinine (0.6-1.4) mg/dl Est Cr Clr Drug Dosing ml/min Est GFR ( Amer) Est GFR (Non-Af Amer) BUN/Creatinine Ratio (10-20) Glucose (70-99) mg/dl Calcium (8.5-10.1) mg/dl Phosphorus 3.0 (2.5-4.9) mg/dl Magnesium 1.7 L (1.8-2.4) mg/dl Total Bilirubin (0.2-1) mg/dl AST (15-37) U/L ALT (12-78) U/L Alkaline Phosphatase (45-117) U/L Troponin I (0-0.045) ng/ml Total Protein (6.4-8.2) gm/dl Albumin (3.4-5.0) gm/dl Globulin (2.5-4.0) gm/dl Albumin/Globulin Ratio (0.9-2) Lipase (73-393) U/L Urine Color Yellow Urine Appearance Clear (Clear) Urine pH 5.5 (4.5-7.5) Ur Specific [place] 1.018 (1.000-1.030) Urine Protein Negative (Negative) Urine Glucose (UA) Negative (Negative) Urine Ketones Negative (Negative) Urine Blood Negative (Negative) Urine Nitrite Negative (Negative) Urine Bilirubin Negative (Negative) Urine Urobilinogen Negative (Negative) Ur Leukocyte Esterase Negative (Negative) Blood Type O Positive Antibody Screen NEGATIVE 12/20/18 Range/Units 23:23 WBC 4.00 L (4.8-10.8) K/uL RBC 2.54 L (4.7-6.1) M/uL Hgb 8.9 L (14.0-18.0) g/dL Hct 25.8 L (42-52) % MCV 101.6 H (80-100) fL MCH 35.0 H (25-34) pg MCHC 34.5 (32-36) g/dL RDW Std Deviation 51.2 H (36.4-46.3) fL RDW Coeff of Gaby 13.8 (11.5-14.5) % Plt Count 61 L (130-400) K/uL MPV 9.6 (7.4-10.4) fL Immature Gran % (Auto) 0.3 % Neut % (Auto) 71.7 % Lymph % (Auto) 22.5 % [place] % (Auto) 5.0 % Eos % (Auto) 0.0 % Baso % (Auto) 0.5 % Immature Gran # (Auto) 0.01 (0.00-0.02) K/uL Neut # (Auto) 2.87 (1.4-6.5) K/uL Lymph # (Auto) 0.90 L (1.2-3.4) K/uL [place] # (Auto) 0.20 (0.11-0.59) K/uL Eos # (Auto) 0.00 (0-0.5) K/uL Baso # (Auto) 0.02 (0-0.2) K/uL Platelet Estimate (Normal) Giant Platelets 1+ PT (9.0-12.0) Seconds INR (0.9-1.1) APTT (21.0-31.0) Seconds PTT Ratio Sodium (136-145) mmol/L Potassium (3.5-5.1) mmol/L Chloride (98-107) mmol/L Carbon Dioxide (21-32) mmol/L Anion Gap (3-11) BUN (7-18) mg/dl Creatinine (0.6-1.4) mg/dl Est Cr Clr Drug Dosing ml/min Est GFR ( Amer) Est GFR (Non-Af Amer) BUN/Creatinine Ratio (10-20) Glucose (70-99) mg/dl Calcium (8.5-10.1) mg/dl Phosphorus (2.5-4.9) mg/dl Magnesium (1.8-2.4) mg/dl Total Bilirubin (0.2-1) mg/dl AST (15-37) U/L ALT (12-78) U/L Alkaline Phosphatase (45-117) U/L Troponin I (0-0.045) ng/ml Total Protein (6.4-8.2) gm/dl Albumin (3.4-5.0) gm/dl Globulin (2.5-4.0) gm/dl Albumin/Globulin Ratio (0.9-2) Lipase (73-393) U/L Urine Color Urine Appearance (Clear) Urine pH (4.5-7.5) Ur Specific [place] (1.000-1.030) Urine Protein (Negative) Urine Glucose (UA) (Negative) Urine Ketones (Negative) Urine Blood (Negative) Urine Nitrite (Negative) Urine Bilirubin (Negative) Urine Urobilinogen (Negative) Ur Leukocyte Esterase (Negative) Blood Type Antibody Screen Diagnostic Findings XR KUB CLINICAL HISTORY: 63 years-old Male presenting with GIB. TECHNIQUE: Single supine view of the abdomen was obtained. COMPARISON: None. FINDINGS: Paucity of small bowel gas, nonspecific. Nonobstructive bowel gas pattern. No gross pneumoperitoneum allowing for supine technique. Allowing for bowel gas and stool, no calcifications to suggest nephrolithiasis. Atherosclerotic calcifications noted. Degenerative changes of the spine. Lung bases clear. IMPRESSION: 1. No acute intra-abdominal pathology. Electronically signed by: Arden Adrian M.D. 12/20/2018 8:39 PM Dictated: 12/20/182037 Transcribed: 12/20/182037 -------- XR chest 1V portable CLINICAL HISTORY: 63 years-old Male presenting with GIB. TECHNIQUE: Portable upright AP view of the chest was obtained. COMPARISON: 12/20/2018 at 2:45 PM. FINDINGS: Atherosclerosis of the aortic arch. Cardiac silhouette normal in size. No focal opacity. No large effusion or pneumothorax. Osseous structures normal. Upper abdomen normal. IMPRESSION: 1. No acute cardiopulmonary disease. Electronically signed by: Arden Adrian M.D. 12/20/2018 8:34 PM Dictated: 12/20/182032 Transcribed: 12/20/182032 ECG Additional Comments: NSR at 89bpm, normal axis and intervals, no ischemic changes Code Status & VTE Plan Code Status FULL VTE Prophylaxis Plan VTE Prophylaxis will be ordered: Yes Critical Care Time Critical Care Time: No (1) Hypertension Hypertension type: essential hypertension Qualified Code(s): I10 - Essential (primary) hypertension (2) Anemia Anemia type: unspecified type Qualified Code(s): D64.9 - Anemia, unspecified
[2018-12-21] MEDS ORDERED: LORazepam 1 MG/2 ML VIAL IV PRN (03:29)
[2018-12-21] MEDS: OCTREOTIDE ACETATE 500 MCG in 0.9 % SODIUM CHLORIDE 100 ML IV SCH ×2 (05:41→15:41)
[2018-12-21 07:31] LABS: Hematocrit (blood only) 24.5 % (42-52); Hemoglobin 8.5 g/dL (14.0-18.0); Mean Corpuscular Hgb Conc 34.7 g/dL (32-36); Mean Corpuscular Volume 101.7 fL (80-100); RDW Standard Deviation 51.7 fL (36.4-46.3); Red Blood Count 2.41 M/uL (4.7-6.1); White Blood Count 6.71 K/uL (4.8-10.8)
[2018-12-21 07:40] LABS: BUN Creatinine Ratio 42.6 (10-20); Calcium 7.8 mg/dl (8.5-10.1); Creatinine Clr Calc Pharmacy 99.1 ml/min; Est GFR (African American) 120.2; Est GFR (Non-African American) 103.7; Potassium 4.2 mmol/L (3.5-5.1)
[2018-12-21 07:52] LABS: Mean Platelet Volume 10.1 fL (7.4-10.4); Platelet Count 68 K/uL (130-400)
[2018-12-21 07:53] LABS: Basophils # (auto) 0.03 K/uL (0-0.2); Basophils % (auto) 0.4 %; Eosinophils # (auto) 0.08 K/uL (0-0.5); Eosinophils % (auto) 1.2 %; Immature Granulocytes # (auto) 0.02 K/uL (0.00-0.02); Immature Granulocytes % (auto) 0.3 %; Lymphocytes # (auto) 1.88 K/uL (1.2-3.4); Monocytes # (auto) 0.59 K/uL (0.11-0.59); Monocytes % (auto) 8.8 %; Neutrophils # (auto) 4.11 K/uL (1.4-6.5); Neutrophils % (auto) 61.3 %; RBC Morphology Unremarkable
--- NOTE | 2018-12-21 08:09 | Ultrasound Report ---
ABDOMINAL ULTRASOUND, RIGHT UPPER QUADRANT HISTORY: ?cirrhosis. COMPARISON: Abdominal ultrasound 07/07/2016. FINDINGS: Pancreas: The pancreatic tail is obscured by overlying bowel gas. The remaining portions of the pancr eas are within normal limits. Liver: The liver is echogenic consistent with fatty change. Slight nodular contour to the liver consi stent with cirrhosis. A 1.2 cm hypoechoic area within the left hepatic lobe. This is indeterminate bu t may represent focal fatty sparing. Gallbladder: No gallstones. Small amount of sludge. Diffuse gallbladder wall thickening/edema with anaya rrounding pericholecystic fluid. The gallbladder wall measures up to 4 mm in thickness. The technolog ist reported a negative sonographic Campos's sign. CBD: 7 mm, unchanged. Right kidney: No hydronephrosis. IMPRESSION: 1. Nodular contour to the liver consistent with cirrhosis. 2. Mild hepatic steatosis. A 1.2 cm hypoechoic focus within the left hepatic lobe. This is indetermin ate but may represent focal fatty sparing. 3. Diffuse gallbladder wall thickening/edema with a small amount of pericholecystic fluid. There is a small amount of gallbladder sludge. No gallstones. This is indeterminate but could be due to the pat ient's underlying cirrhosis. Acute cholecystitis is considered less likely but not entirely excluded. Electronically signed by: Alvin Ramirez M.D. 12/21/2018 8:07 AM
[2018-12-21 08:10] LABS: Folate (Folic Acid) 13.04 ng/ml (>5.38)
--- NOTE | 2018-12-21 09:15 | Family Medicine Progress Note ---
Date of Service December 21, 2018 Assessment & Plan (1) Acute upper gastrointestinal bleedinyo gentleman with Hx of HCV and alcohol abuse presenting with dizziness, presyncope and bloody emesis. Acute GI Bleed -Currently no signs of active bleeding. Baseline Hgb of 13.3. Currently 8.5 with out tachycardia or symptoms of dizziness or syncope especially when up ambulating. -Continue Protonix and octreotide drip -q8h CBC checks -GI consult- EGD done. Showed grade 1 esophageal varices that are not bleeding, nonbleeding gastric ulcers, no active bleeding elsewhere. HCV+ -f/u with Dr. Daigle -RUQ abdominal US- showed evidence of hepatic steatosis, cirrhosis and sludge in gallbladder with no evidence of cholecystitis. Alcohol Abuse -Currently doing well with no signs of withdrawal. Last drink 3 days ago. -On CIWA protocol. -Vit B12 and folate levels normal. HTN -BP adequately controlled currently. -cont to hold HCTZ in setting of GI bleed -will continue to monitor. Anemia -Likely combination of acute blood loss and macrocytic anemia from alcohol abuse (has history of it) -Folate and B12 levels adequate currently. -will continue to monitor F/E/N -On IV fluids -Electrolytes within normal limits -NPO until GI Endoscopy, heart healthy diet afterwards DVT Proph: SCDs Code: Full Dispo: Discharge pending bleeding resolution. Supervising Physician Co-Signing Physician Notes Resident Physician Supervision Note: I independently interviewed and examined the patient and verified the dunn history and physical, reviewed labs and image studies, discussed the case with the resident Dr. Blanco and agree with the findings and care plan. Subjective Mr. Blackwood states he has had no additional episodes of coffee ground emesis, no N/V, dizziness or syncope. States he is just hungry and would like to eat. States his last drink was 3 days ago and that he typically drinks 4 drinks a day. Denies feeling anxious, palpitations. Review of Systems All systems reviewed & are unremarkable except as noted in HPI & below Physical Exam Vital Signs (Past 24 Hours): Last Vital Signs Temp 36.6 C 12/21/18 07:28 Pulse 88 12/21/18 07:28 Resp 18 12/21/18 07:28 BP 135/83 12/21/18 07:28 Pulse Ox 97 12/21/18 07:28 General: Resting comfortably in bed. Thin, gaunt. HEENT: NC/AT, Sclera anicteric, PERRLA, EOMI, oropharynx moist with missing teeth. Chest: Nontender to palpation. CV: RRR, Normal s1, s2. No murmurs appreciated Resp: Breath sounds clear bilaterally, no increased effort of breathing. Abdomen: BS+. Soft, nontender, nondistended. No guarding. No spider angiomata noted. Extremities: No edema. Results & Data Laboratory Results Laboratory Results - last 24 hr 12/20/18 12/20/18 12/20/18 20:01 20:01 20:01 WBC 5.11 RBC 2.82 L Hgb 9.8 L Hct 28.7 L MCV 101.8 H MCH 34.8 H MCHC 34.1 RDW Std Deviation 52.6 H RDW Coeff of Gaby 14.0 Plt Count 77 L MPV 9.8 Immature Gran % (Auto) 0.4 Neut % (Auto) 70.1 Lymph % (Auto) 21.7 [place] % (Auto) 7.2 Eos % (Auto) 0.2 Baso % (Auto) 0.4 Immature Gran # (Auto) 0.02 Neut # (Auto) 3.58 Lymph # (Auto) 1.11 L [place] # (Auto) 0.37 Eos # (Auto) 0.01 Baso # (Auto) 0.02 Platelet Estimate Decreased Giant Platelets RBC Morphology PT 13.0 H INR 1.3 H APTT 24.7 PTT Ratio 0.9 Sodium 139 Potassium 4.7 Chloride 108 H Carbon Dioxide 27 Anion Gap 4.0 BUN 29 H Creatinine 0.72 Est Cr Clr Drug Dosing 92.8 Est GFR ( Amer) 116.7 Est GFR (Non-Af Amer) 100.7 BUN/Creatinine Ratio 40.1 H Glucose 149 H Calcium 7.8 L Phosphorus Magnesium Total Bilirubin 0.8 AST 99 H ALT 80 H Alkaline Phosphatase 100 Troponin I 0.018 Total Protein 6.0 L Albumin 2.3 L Globulin 3.7 Albumin/Globulin Ratio 0.6 L Lipase 289 Vitamin B12 Folate Urine Color Urine Appearance Urine pH Ur Specific [place] Urine Protein Urine Glucose (UA) Urine Ketones Urine Blood Urine Nitrite Urine Bilirubin Urine Urobilinogen Ur Leukocyte Esterase Blood Type Antibody Screen 03/13/19 03/13/19 03/13/19 20:14 21:54 23:23 WBC RBC Hgb Hct MCV MCH MCHC RDW Std Deviation RDW Coeff of Gaby Plt Count MPV Immature Gran % (Auto) Neut % (Auto) Lymph % (Auto) [place] % (Auto) Eos % (Auto) Baso % (Auto) Immature Gran # (Auto) Neut # (Auto) Lymph # (Auto) [place] # (Auto) Eos # (Auto) Baso # (Auto) Platelet Estimate Giant Platelets RBC Morphology PT INR APTT PTT Ratio Sodium Potassium Chloride Carbon Dioxide Anion Gap BUN Creatinine Est Cr Clr Drug Dosing Est GFR ( Amer) Est GFR (Non-Af Amer) BUN/Creatinine Ratio Glucose Calcium Phosphorus 3.0 Magnesium 1.7 L Total Bilirubin AST ALT Alkaline Phosphatase Troponin I Total Protein Albumin Globulin Albumin/Globulin Ratio Lipase Vitamin B12 Folate Urine Color Yellow Urine Appearance Clear Urine pH 5.5 Ur Specific [place] 1.018 Urine Protein Negative Urine Glucose (UA) Negative Urine Ketones Negative Urine Blood Negative Urine Nitrite Negative Urine Bilirubin Negative Urine Urobilinogen Negative Ur Leukocyte Esterase Negative Blood Type O Positive Antibody Screen NEGATIVE 12/20/18 12/21/18 12/21/18 23:23 07:09 07:09 WBC 4.00 L 6.71 RBC 2.54 L 2.41 L Hgb 8.9 L 8.5 L Hct 25.8 L 24.5 L MCV 101.6 H 101.7 H MCH 35.0 H 35.3 H MCHC 34.5 34.7 RDW Std Deviation 51.2 H 51.7 H RDW Coeff of Gaby 13.8 14.0 Plt Count 61 L 68 L MPV 9.6 10.1 Immature Gran % (Auto) 0.3 0.3 Neut % (Auto) 71.7 61.3 Lymph % (Auto) 22.5 28.0 [place] % (Auto) 5.0 8.8 Eos % (Auto) 0.0 1.2 Baso % (Auto) 0.5 0.4 Immature Gran # (Auto) 0.01 0.02 Neut # (Auto) 2.87 4.11 Lymph # (Auto) 0.90 L 1.88 [place] # (Auto) 0.20 0.59 Eos # (Auto) 0.00 0.08 Baso # (Auto) 0.02 0.03 Platelet Estimate Giant Platelets 1+ RBC Morphology Unremarkable PT INR APTT PTT Ratio Sodium 143 Potassium 4.2 Chloride 112 H Carbon Dioxide 26 Anion Gap 5.0 BUN 28 H Creatinine 0.67 Est Cr Clr Drug Dosing 99.1 Est GFR ( Amer) 120.2 Est GFR (Non-Af Amer) 103.7 BUN/Creatinine Ratio 42.6 H Glucose 116 H Calcium 7.8 L Phosphorus Magnesium Total Bilirubin AST ALT Alkaline Phosphatase Troponin I Total Protein Albumin Globulin Albumin/Globulin Ratio Lipase Vitamin B12 Folate Urine Color Urine Appearance Urine pH Ur Specific [place] Urine Protein Urine Glucose (UA) Urine Ketones Urine Blood Urine Nitrite Urine Bilirubin Urine Urobilinogen Ur Leukocyte Esterase Blood Type Antibody Screen 12/21/18 07:09 WBC RBC Hgb Hct MCV MCH MCHC RDW Std Deviation RDW Coeff of Gaby Plt Count MPV Immature Gran % (Auto) Neut % (Auto) Lymph % (Auto) [place] % (Auto) Eos % (Auto) Baso % (Auto) Immature Gran # (Auto) Neut # (Auto) Lymph # (Auto) [place] # (Auto) Eos # (Auto) Baso # (Auto) Platelet Estimate Giant Platelets RBC Morphology PT INR APTT PTT Ratio Sodium Potassium Chloride Carbon Dioxide Anion Gap BUN Creatinine Est Cr Clr Drug Dosing Est GFR ( Amer) Est GFR (Non-Af Amer) BUN/Creatinine Ratio Glucose Calcium Phosphorus Magnesium Total Bilirubin AST ALT Alkaline Phosphatase Troponin I Total Protein Albumin Globulin Albumin/Globulin Ratio Lipase Vitamin B12 455 Folate 13.04 Urine Color Urine Appearance Urine pH Ur Specific [place] Urine Protein Urine Glucose (UA) Urine Ketones Urine Blood Urine Nitrite Urine Bilirubin Urine Urobilinogen Ur Leukocyte Esterase Blood Type Antibody Screen Medications Administered Home Medications albuterol sulfate 2 puff INHALATION Q4H PRN 06/15/18 [History Confirmed 12/20/18] aspirin 81 mg PO DAILY 06/15/18 [History Confirmed 12/20/18] folic acid 1 mg PO DAILY 06/15/18 [History Confirmed 12/20/18] hydrochlorothiazide 25 mg PO DAILY 06/15/18 [History Confirmed 12/20/18] thiamine HCl (vitamin B1) 100 mg PO DAILY 06/15/18 [History Confirmed 12/20/18] Active Medications Albuterol (Ventolin Hfa) 2 puffs INH Q4H PRN PRN Reason: Wheezing Stop: 01/19/19 23:16 Sodium Chloride (Nss 1000ml) 1,000 mls @ 80 mls/hr IV .[id number] JOCELYNN Stop: 12/21/18 12:14 Last Infusion: 12/21/18 07:40 Dose: 80 mls/hr Documented by: Octreotide Acetate 500 mcg/ (Sodium Chloride) 105 mls @ 10.5 mls/hr IV .Q10H JOCELYNN Stop: 01/20/19 06:14 Last Admin: 12/21/18 05:41 Dose: 50 mcg/hr, 10.5 mls/hr Documented by: Pantoprazole Sodium 40 mg/ (Dextrose) 100 mls @ 20 mls/hr IV Q5H JOCELYNN Stop: 01/20/19 01:29 Last Admin: 12/21/18 05:41 Dose: 8 mg/hr, 20 mls/hr Documented by: Lorazepam (Ativan) 1 mg in 2 mls @ 2 mls/min IV ONE PRN; Protocol PRN Reason: EtoH Withdrawal AWSS 6-10 Stop: 01/20/19 03:28 Thiamine HCl 100 mg/ Syringe 10 mls @ 2 mls/hr IV DAILY JOCELYNN Stop: 01/20/19 08:59 Miscellaneous (Remove Nicoderm Patch) 1 ea N/A HS JOCELYNN Stop: 01/20/19 20:59 Nicotine (Nicoderm Cq) 21 mg TD QAM JOCELYNN Stop: 01/20/19 08:59
[2018-12-21] MEDS: THIAMINE HCL 100 MG in SYRINGE 9 ML IV SCH (10:09)
[2018-12-21] MEDS: NICOTINE 21 MG/24 HR TDSY TD SCH ×2 (10:09→10:23)
--- NOTE | 2018-12-21 10:38 | Gastrointestinal Consultation ---
Date of Consultation December 21, 2018 Assessment & Plan (1) Coffee ground emesis: Pt is a 63 y/o male admitted w symptomatic anemia, coffee ground emesis. He has hx of ETOH abuse, HCV, cirrhosis. Follows w [facility], and already referred to see Dr. Daigle ([place]) for HCV management. Hx of EGDs in 2009, 2014 for food boluses, found to have esophagitis. No signs of varices in the past. He has been taking Aleve for back pain. Suspect may have PUD. - Keep PPI gtt - NPO for EGD eval today; GI will give further recs after EGD is completed - May DC Octreotide if no signs of variceal bleed (less likely) - He should have f/u for his cirrhosis and HCV managements w [facility] and can be referred to our clinic if needed - ETOH cessation; NSAIDs avoidance advised. (2) Anemia: (3) Hepatitis C antibody test positive: (4) Cirrhosis of liver: Supervising Physician Co-Signing Physician Notes I have personally seen and examined the patient with JORGE Polk. Her note reflects my exam and findings. I agree with her impression and plan. Given his presentation and ETOH history, an upper endoscopy will look for high risk bleed source. Cont to follow H/H. Ravinder Rodriguez M.D. History of Present Illness Reason for Consultation: UGI bleed Requesting Physician: Dr. Marcy Montano Attending Physician: Dr. Ravinder Rodriguez History of Present Illness Pt is a 63 y/o male w hx of ETOH abuse (last intake 4 days ago), HCV, who presented to ED w c/o dizziness, weakness, presyncope while a work. He also c/o N/V, and reported 3 episodes of coffee round emesis. Denies any dark or tarry stools. He was found to be anemic on prsentation. Hgb usually mid teens, now 9- >8. He isn't on any anticoagulant, INR 1.3. He does smoke tobacco, denies any illicit drugs. He admits to take Aleve for back pain. Overnight he's been started on PPI bolus and gtt, Octreotide gtt (for possible variceal bleed), made NPO. He hasn't had any more N/V, or BMs overnight. Regarding his HCV, cirrhosis, he follows w [facility] ([facility]). Going to see Dr. Daigle ([place]) to discuss HCV treatment. KUB, CXR unremarkable. He does have liver u/s: 1. Nodular contour to the liver consistent with cirrhosis. 2. Mild hepatic steatosis. A 1.2 cm hypoechoic focus within the left hepatic lobe. This is indeterminate but may represent focal fatty sparing. 3. Diffuse gallbladder wall thickening/edema with a small amount of pericholecystic fluid. There is a small amount of gallbladder sludge. No gallstones. This is indeterminate but could be due to the patient's underlying cirrhosis. Acute cholecystitis is considered less likely but not entirely excluded. Hx of EGDs in 2009, 2014 for food bolus removal, + esophagitis. Allergies Allergy/AdvReac Type Severity Reaction Status Date / Time codeine Allergy Unknown Verified 09/11/18 17:50 Home Medications Home Medications Medication Instructions Recorded Confirmed Type albuterol sulfate 2 puff INHALATION Q4H PRN 06/15/18 12/20/18 History aspirin 81 mg PO DAILY 06/15/18 12/20/18 History folic acid 1 mg PO DAILY 06/15/18 12/20/18 History hydrochlorothiazide 25 mg PO DAILY 06/15/18 12/20/18 History thiamine HCl (vitamin B1) 100 mg PO DAILY 06/15/18 12/20/18 History Patient History Medical History Coffee ground emesis Cirrhosis of liver Anemia (Acute) Parotiditis Alcohol abuse Hypertension Alcoholism (Acute) Hepatitis C antibody test positive No significant past surgical history Surgical History H/O endoscopy Loss of teeth due to extraction Family History Other Diabetes Hypertension Social History Communication Ability: Effective Beliefs That Will Affect Care: None Current Living Situation: Spouse Other Information That Helps Us Care for You: No Feels Safe at Home: Yes Safety Concerns: Feels Safe At This Time Smoking Status: Current every day smoker Hx Alcohol Use: Yes Hx Substance Use: No Review of Systems Respiratory: + cough; no dyspnea on exertion Cardiovascular: no chest pain Gastrointestinal: as per Subjective / HPI Physical Exam Vital Signs (Past 24 Hours): Last Vital Signs Temp 36.6 C 12/21/18 07:28 Pulse 88 12/21/18 07:28 Resp 18 03/14/19 07:28 BP 135/83 12/21/18 07:28 Pulse Ox 97 12/21/18 07:28 Constitutional: + thin, + disheveled, cooperative and comfortable Eyes: PERRL, conjunctivae normal, anicteric sclerae ENMT: external ear and nose normal, oropharynx normal Respiratory: normal respiratory effort, lungs clear to auscultation Cardiovascular: RRR, no murmur, no edema Gastrointestinal (Abdomen): Inspection/Auscultation: + abdomen distended (mild) and normal bowel sounds Percussion/Palpation: abdomen nontender and no guarding Skin: no rashes, warm and dry no jaundice Neurologic: Motor/Sensory: no asterixis Psychiatric: A+Ox3, euthymic affect Lymphatic: no lymphedema Results & Data Laboratory Results Laboratory Results - last 72 hr 12/20/18 12/20/18 12/20/18 20:01 20:01 20:01 WBC 5.11 RBC 2.82 L Hgb 9.8 L Hct 28.7 L MCV 101.8 H MCH 34.8 H MCHC 34.1 RDW Std Deviation 52.6 H RDW Coeff of Gaby 14.0 Plt Count 77 L MPV 9.8 Immature Gran % (Auto) 0.4 Neut % (Auto) 70.1 Lymph % (Auto) 21.7 [place] % (Auto) 7.2 Eos % (Auto) 0.2 Baso % (Auto) 0.4 Immature Gran # (Auto) 0.02 Neut # (Auto) 3.58 Lymph # (Auto) 1.11 L [place] # (Auto) 0.37 Eos # (Auto) 0.01 Baso # (Auto) 0.02 Platelet Estimate Decreased Giant Platelets RBC Morphology PT 13.0 H INR 1.3 H APTT 24.7 PTT Ratio 0.9 Sodium 139 Potassium 4.7 Chloride 108 H Carbon Dioxide 27 Anion Gap 4.0 BUN 29 H Creatinine 0.72 Est Cr Clr Drug Dosing 92.8 Est GFR ( Amer) 116.7 Est GFR (Non-Af Amer) 100.7 BUN/Creatinine Ratio 40.1 H Glucose 149 H Calcium 7.8 L Phosphorus Magnesium Total Bilirubin 0.8 AST 99 H ALT 80 H Alkaline Phosphatase 100 Troponin I 0.018 Total Protein 6.0 L Albumin 2.3 L Globulin 3.7 Albumin/Globulin Ratio 0.6 L Lipase 289 Vitamin B12 Folate Urine Color Urine Appearance Urine pH Ur Specific [place] Urine Protein Urine Glucose (UA) Urine Ketones Urine Blood Urine Nitrite Urine Bilirubin Urine Urobilinogen Ur Leukocyte Esterase Blood Type Antibody Screen 12/20/18 12/20/18 12/20/18 20:14 21:54 23:23 WBC RBC Hgb Hct MCV MCH MCHC RDW Std Deviation RDW Coeff of Gaby Plt Count MPV Immature Gran % (Auto) Neut % (Auto) Lymph % (Auto) [place] % (Auto) Eos % (Auto) Baso % (Auto) Immature Gran # (Auto) Neut # (Auto) Lymph # (Auto) [place] # (Auto) Eos # (Auto) Baso # (Auto) Platelet Estimate Giant Platelets RBC Morphology PT INR APTT PTT Ratio Sodium Potassium Chloride Carbon Dioxide Anion Gap BUN Creatinine Est Cr Clr Drug Dosing Est GFR ( Amer) Est GFR (Non-Af Amer) BUN/Creatinine Ratio Glucose Calcium Phosphorus 3.0 Magnesium 1.7 L Total Bilirubin AST ALT Alkaline Phosphatase Troponin I Total Protein Albumin Globulin Albumin/Globulin Ratio Lipase Vitamin B12 Folate Urine Color Yellow Urine Appearance Clear Urine pH 5.5 Ur Specific [place] 1.018 Urine Protein Negative Urine Glucose (UA) Negative Urine Ketones Negative Urine Blood Negative Urine Nitrite Negative Urine Bilirubin Negative Urine Urobilinogen Negative Ur Leukocyte Esterase Negative Blood Type O Positive Antibody Screen NEGATIVE 12/20/18 12/21/18 12/21/18 23:23 07:09 07:09 WBC 4.00 L 6.71 RBC 2.54 L 2.41 L Hgb 8.9 L 8.5 L Hct 25.8 L 24.5 L MCV 101.6 H 101.7 H MCH 35.0 H 35.3 H MCHC 34.5 34.7 RDW Std Deviation 51.2 H 51.7 H RDW Coeff of Gaby 13.8 14.0 Plt Count 61 L 68 L MPV 9.6 10.1 Immature Gran % (Auto) 0.3 0.3 Neut % (Auto) 71.7 61.3 Lymph % (Auto) 22.5 28.0 [place] % (Auto) 5.0 8.8 Eos % (Auto) 0.0 1.2 Baso % (Auto) 0.5 0.4 Immature Gran # (Auto) 0.01 0.02 Neut # (Auto) 2.87 4.11 Lymph # (Auto) 0.90 L 1.88 [place] # (Auto) 0.20 0.59 Eos # (Auto) 0.00 0.08 Baso # (Auto) 0.02 0.03 Platelet Estimate Giant Platelets 1+ RBC Morphology Unremarkable PT INR APTT PTT Ratio Sodium 143 Potassium 4.2 Chloride 112 H Carbon Dioxide 26 Anion Gap 5.0 BUN 28 H Creatinine 0.67 Est Cr Clr Drug Dosing 99.1 Est GFR ( Amer) 120.2 Est GFR (Non-Af Amer) 103.7 BUN/Creatinine Ratio 42.6 H Glucose 116 H Calcium 7.8 L Phosphorus Magnesium Total Bilirubin AST ALT Alkaline Phosphatase Troponin I Total Protein Albumin Globulin Albumin/Globulin Ratio Lipase Vitamin B12 Folate Urine Color Urine Appearance Urine pH Ur Specific [place] Urine Protein Urine Glucose (UA) Urine Ketones Urine Blood Urine Nitrite Urine Bilirubin Urine Urobilinogen Ur Leukocyte Esterase Blood Type Antibody Screen 12/21/18 07:09 WBC RBC Hgb Hct MCV MCH MCHC RDW Std Deviation RDW Coeff of Gaby Plt Count MPV Immature Gran % (Auto) Neut % (Auto) Lymph % (Auto) [place] % (Auto) Eos % (Auto) Baso % (Auto) Immature Gran # (Auto) Neut # (Auto) Lymph # (Auto) [place] # (Auto) Eos # (Auto) Baso # (Auto) Platelet Estimate Giant Platelets RBC Morphology PT INR APTT PTT Ratio Sodium Potassium Chloride Carbon Dioxide Anion Gap BUN Creatinine Est Cr Clr Drug Dosing Est GFR ( Amer) Est GFR (Non-Af Amer) BUN/Creatinine Ratio Glucose Calcium Phosphorus Magnesium Total Bilirubin AST ALT Alkaline Phosphatase Troponin I Total Protein Albumin Globulin Albumin/Globulin Ratio Lipase Vitamin B12 455 Folate 13.04 Urine Color Urine Appearance Urine pH Ur Specific [place] Urine Protein Urine Glucose (UA) Urine Ketones Urine Blood Urine Nitrite Urine Bilirubin Urine Urobilinogen Ur Leukocyte Esterase Blood Type Antibody Screen (1) Anemia Anemia type: unspecified type Qualified Code(s): D64.9 - Anemia, unspecified
--- NOTE | 2018-12-21 10:59 | Anesthesiology Consultation ---
Date of Service December 21, 2018 Assessment & Plan (1) Encounter for pre-operative examination: Chart Review Chart Review: Acceptable Risk for Surgery and Patient NOT seen in Pre Admission Testing Consults Requested none ASA ASA4 Proposed Anesthesia Anesthesia Type: MAC Risk / Benefits Reviewed With: PT / POA / Parent / Guardian, Accepts Plan and Informed Consent Obtained NPO Date Last Intake of Fluids: 12/20/18 Last Intake of Fluids Comment: Prior to mn Date Last Intake of Solids: 12/20/18 Last Intake of Solids Comment: Prior to mn History Surgery Operation Date: 12/21/18 10:00 Proposed Procedures p Esophagogastroduodenoscopy Dr Michael Rodriguez Height/Weight Height: 5 ft 9.5 in Weight: 60.5 kg Allergies Allergy/AdvReac Type Severity Reaction Status Date / Time codeine Allergy Unknown Verified 09/11/18 17:50 Medications Home Medications Medication Instructions Recorded Confirmed Last Taken albuterol sulfate 2 puff INHALATION Q4H PRN 06/15/18 12/20/18 09/11/18 aspirin 81 mg PO DAILY 06/15/18 12/20/18 06/15/18 folic acid 1 mg PO DAILY 06/15/18 12/20/18 09/11/18 hydrochlorothiazide 25 mg PO DAILY 06/15/18 12/20/18 09/11/18 thiamine HCl (vitamin B1) 100 mg PO DAILY 06/15/18 12/20/18 09/11/18 Active Medications Generic Name Dose Route Start Last Admin Trade Name Freq PRN Reason Stop Dose Admin Sodium Chloride 1,000 mls @ 80 mls/hr 12/20/18 23:45 12/21/18 07:40 Nss 1000ml IV 12/21/18 12:14 80 mls/hr .[id number] JOCELYNN Infusion Octreotide Acetate 500 mcg/ 105 mls @ 10.5 mls/hr 12/21/18 06:15 12/21/18 05:41 Sodium Chloride IV 01/20/19 06:14 50 mcg/hr .Q10H JOCELYNN 10.5 mls/hr Administration 50 MCG/HR Pantoprazole Sodium 40 mg/ 100 mls @ 20 mls/hr 12/21/18 01:30 12/21/18 10:22 Dextrose IV 01/20/19 01:29 8 mg/hr Q5H JOCELYNN 20 mls/hr Administration 8 MG/HR Thiamine HCl 100 mg/ Syringe 10 mls @ 2 mls/hr 12/21/18 09:00 12/21/18 10:09 IV 01/20/19 08:59 2 mls/hr DAILY JOCELYNN Administration Nicotine 21 mg 12/21/18 09:00 12/21/18 10:23 Nicoderm Cq TD 01/20/19 08:59 21 mg QAM JOCELYNN Administration Past Medical History Medical History Coffee ground emesis Cirrhosis of liver Anemia (Acute) Parotiditis Alcohol abuse Hypertension Alcoholism (Acute) Hepatitis C antibody test positive No significant past surgical history Past Family History Family History Other Diabetes Hypertension Past Surgical History Surgical History H/O endoscopy Loss of teeth due to extraction Past Anesthesia History No Hx of Anesthesia Complications History of PONV No Motion Sickness Screening History of Motion Sickness: No Social History Smoking Status: Current every day smoker tobacco type: cigarettes Smoking cigarettes per day: 1/2 ppd Do You Dip or Chew Tobacco: No Hx Alcohol Use: Yes Alcohol type: beer alcohol intake frequency: 3 or more drinks per day Alcohol Intake Frequency Comment: 4 beers per day Hx Substance Use: No substance use type: does not use Exercise / Class Metabolic Activity III < 4 Walking/Shop/Light housework Negative for chest pain or shortness of breath. Patient denies active symptoms of GERD. Physical Exam Vital Signs Last Vital Signs Temp 36.6 C 12/21/18 07:28 Pulse 88 12/21/18 07:28 Resp 18 12/21/18 07:28 BP 135/83 12/21/18 07:28 Pulse Ox 97 12/21/18 07:28 Constitutional not obese ENMT Mouth: + edentulous; no TMJ abnormality and oral opening not small Thyromental Distance: < 3.5 Finger Breadths Mallampati Class: II Neck normal visual inspection; neck extension not limited Respiratory normal respiratory effort Auscultation: lungs clear to auscultation bilaterally Cardiovascular Rate/Rhythm: regular rate and regular rhythm Heart Sounds: no murmur Psychiatric A+Ox3, euthymic affect Orientation: alert and oriented x 3 Testing Electrocardiogram Date: 12/20/18 Findings: + NSR @ (89) Normal ECG. When compared with ECG of 06-JUL-2016 09:34, T wave amplitude has decreased in Lateral leads Laboratory Results 12/21/18 07:09 12/21/18 07:09 Blood Type O Positive 12/20/18 20:14 Antibody Screen NEGATIVE 12/20/18 20:14 PT 13.0 Seconds (9.0-12.0) H 12/20/18 20:01 INR 1.3 (0.9-1.1) H 12/20/18 20:01 APTT 24.7 Seconds (21.0-31.0) 12/20/18 20:01 Urine Color Yellow 12/20/18 21:54 Urine Appearance Clear (Clear) 12/20/18 21:54 Urine pH 5.5 (4.5-7.5) 12/20/18 21:54 Ur Specific [place] 1.018 (1.000-1.030) 12/20/18 21:54 Urine Protein Negative (Negative) 12/20/18 21:54 Urine Glucose (UA) Negative (Negative) 12/20/18 21:54 Urine Ketones Negative (Negative) 12/20/18 21:54 Urine Nitrite Negative (Negative) 12/20/18 21:54 Ur Leukocyte Esterase Negative (Negative) 12/20/18 21:54
[2018-12-21] MEDS ORDERED: fentaNYL citrate 100 MCG/2 ML VIAL ONE (11:49)
--- NOTE | 2018-12-21 12:09 | History & Physical Report ---
Date of Service December 21, 2018 History of Present Illness Chief Complaint: anemia and GI bleed Primary Care Provider: [facility] pt with post GI bleed anemia for EGD Allergies Allergy/AdvReac Type Severity Reaction Status Date / Time codeine Allergy Unknown Verified 09/11/18 17:50 Home Medications Home Medications Medication Instructions Recorded Confirmed Type albuterol sulfate 2 puff INHALATION Q4H PRN 06/15/18 12/20/18 History aspirin 81 mg PO DAILY 06/15/18 12/20/18 History folic acid 1 mg PO DAILY 06/15/18 12/20/18 History hydrochlorothiazide 25 mg PO DAILY 06/15/18 12/20/18 History thiamine HCl (vitamin B1) 100 mg PO DAILY 06/15/18 12/20/18 History Past Med/Surg History Medical History Coffee ground emesis Cirrhosis of liver Anemia (Acute) Parotiditis Alcohol abuse Hypertension Alcoholism (Acute) Hepatitis C antibody test positive No significant past surgical history Surgical History H/O endoscopy Loss of teeth due to extraction Family History Other Diabetes Hypertension Social History Preferred Language: Greenlandic Beliefs That Will Affect Care: None Current Living Situation: Spouse Other Information That Helps Us Care for You: No Feels Safe at Home: Yes Safety Concerns: Feels Safe At This Time Smoking Status: Current every day smoker Hx Alcohol Use: Yes Hx Substance Use: No Physical Exam Vital Signs (Past 24 Hours): Last Vital Signs Temp 36.9 C 12/21/18 11:39 Pulse 81 12/21/18 11:39 Resp 20 12/21/18 11:39 BP 110/73 12/21/18 11:39 Pulse Ox 97 12/21/18 11:39 Constitutional: WD/WN, vitals as above Respiratory: normal respiratory effort, lungs clear to auscultation Cardiovascular: RRR, no murmur, no edema Gastrointestinal (Abdomen): normal bowel sounds, soft, nontender, no hepatosplenomegaly Code Status & VTE Plan VTE Prophylaxis Plan VTE Prophylaxis will be ordered: Yes
[2018-12-21] MEDS ORDERED: KETAMINE HCL INJ 50 MG/ML 10 ML VIAL ONE (12:15)
[2018-12-21] MEDS ORDERED: LIDOCAINE HCL 2% 2 ML VIAL/AMP(20MG/ML) INFIL ONE (12:24)
[2018-12-21] MEDS ORDERED: PROPOFOL IV EMULSION 10 MG/ML 20 ML VIAL IV ONE (12:24)
--- NOTE | 2018-12-21 13:03 | GI REPORT ---
Patient Name: Brent Blackwood Procedure Date: 12/21/2018 12:12 PM Date of : 1955 Admit Type: Inpatient Age: 63 Gender: Male Attending MD: Ravinder Rodriguez MD Procedure: Upper GI endoscopy Providers: Ravinder Rodriguez MD Referring MD: Kayy Becerra Indications: Acute post hemorrhagic anemia, Melena Medicines: See the Anesthesia note for documentation of the administered medications Complications: No immediate complications. Estimated Blood Loss: Estimated blood loss: none. Procedure: Pre-Anesthesia Assessment: - Prior to the procedure, a History and Physical was performed, and patient medications, allergies and sensitivities were reviewed. The patient's tolerance of previous anesthesia was reviewed. - The risks and benefits of the procedure and the sedation options and risks were discussed with the patient. All questions were answered and informed consent was obtained. - Patient identification and proposed procedure were verified prior to the procedure by the physician and the nurse. The procedure was verified in the pre-procedure area. - Pre-procedure physical examination revealed no contraindications to sedation. - After reviewing the risks and benefits, the patient was deemed in satisfactory condition to undergo the procedure. After obtaining informed consent, the endoscope was passed under direct vision. Throughout the procedure, the patient's blood pressure, pulse, and oxygen saturations were monitored continuously. The Endoscope was introduced through the mouth, and advanced to the third part of duodenum. The upper GI endoscopy was accomplished without difficulty. The patient tolerated the procedure well. Findings: Grade I varices were found in the lower third of the esophagus. Many non-bleeding linear gastric ulcers with no stigmata of bleeding were found in the gastric antrum. The examined duodenum was normal. The cardia and gastric fundus were normal on retroflexion. Impression: - Grade I esophageal varices. - Non-bleeding gastric ulcers with no stigmata of bleeding. - No active bleeding. - Normal examined duodenum. - No specimens collected. Recommendation: - [facility]. - Cont IV PPI and Octreotide. Ravinder Rodriguez M.D. Ravinder Rodriguez MD 12/21/2018 1:02:35 PM This report has been signed electronically. Note Initiated On: 12/21/2018 12:12 PM Number of Addenda: 0 I attest to the content of the Intraoperative Record and orders documented therein, exceptions below {[id number]}
--- NOTE | 2018-12-21 13:16 | Anesthesiology Progress Note ---
Date of Service December 21, 2018 Anesthesia Post Procedure Vital Signs Vital Signs: Temp Pulse Pulse Resp BP BP BP 12/21/18 12:57 79 16 130/69 12/21/18 12:42 84 16 125/70 12/21/18 12:27 114 H 16 133/86 12/21/18 11:39 36.9 C 81 20 110/73 12/21/18 07:28 36.6 C 88 18 135/83 12/21/18 07:15 68 12/21/18 03:00 36.8 C 99 H 18 105/76 12/20/18 23:30 36.9 C 90 18 101/65 12/20/18 22:50 36.9 C 90 18 101/65 12/20/18 21:51 12/20/18 21:40 92 H 14 12/20/18 21:30 93 H 19 12/20/18 21:20 93 H 7 L 12/20/18 21:10 40 H 12/20/18 21:00 15 12/20/18 20:50 81 11 L 12/20/18 20:40 79 13 12/20/18 20:30 84 16 12/20/18 20:20 97 H 15 12/20/18 20:10 102 H 15 12/20/18 20:00 105 H 17 12/20/18 19:58 111 H 20 112/67 12/20/18 19:44 36.7 C 113 H 20 118/72 Pulse Ox 12/21/18 12:57 99 12/21/18 12:42 98 12/21/18 12:27 98 12/21/18 11:39 97 12/21/18 07:28 97 12/21/18 07:15 12/21/18 03:00 96 12/20/18 23:30 96 12/20/18 22:50 96 12/20/18 21:51 100 12/20/18 21:40 100 12/20/18 21:30 98 12/20/18 21:20 100 12/20/18 21:10 97 12/20/18 21:00 95 12/20/18 20:50 97 12/20/18 20:40 95 12/20/18 20:30 95 12/20/18 20:20 95 12/20/18 20:10 97 03/13/19 20:00 99 12/20/18 19:58 96 12/20/18 19:44 99 Notes Mental Status: alert / awake / arousable and participated in evaluation Nausea / Vomiting: adequately controlled Pain: adequately controlled Airway Patency, RR, SpO2: stable & adequate BP & HR: stable & adequate Hydration State: stable & adequate Anesthetic Complications: no major complications apparent and Pt Satisfied with anesthetic care
[2018-12-21 15:44] LABS: Hematocrit (blood only) 24.7 % (42-52); Hemoglobin 8.5 g/dL (14.0-18.0); Mean Corpuscular Hgb Conc 34.4 g/dL (32-36); Mean Corpuscular Volume 101.6 fL (80-100); RDW Coefficient of Variation 14.3 % (11.5-14.5); RDW Standard Deviation 53.1 fL (36.4-46.3); Red Blood Count 2.43 M/uL (4.7-6.1); White Blood Count 5.09 K/uL (4.8-10.8)
[2018-12-21 15:51] LABS: Mean Platelet Volume 9.6 fL (7.4-10.4); Platelet Count 68 K/uL (130-400)
[2018-12-21 16:11] LABS: Basophils # (auto) 0.03 K/uL (0-0.2); Basophils % (auto) 0.6 %; Eosinophils # (auto) 0.08 K/uL (0-0.5); Eosinophils % (auto) 1.6 %; Immature Granulocytes # (auto) 0.01 K/uL (0.00-0.02); Immature Granulocytes % (auto) 0.2 %; Lymphocytes # (auto) 1.39 K/uL (1.2-3.4); Lymphocytes % (auto) 27.3 %; Monocytes # (auto) 0.38 K/uL (0.11-0.59); Monocytes % (auto) 7.5 %; Neutrophils % (auto) 62.8 %
[2018-12-21 23:08] LABS: Hematocrit (blood only) 23.9 % (42-52); Hemoglobin 8.1 g/dL (14.0-18.0); Mean Corpuscular Hgb Conc 33.9 g/dL (32-36); Mean Corpuscular Volume 101.7 fL (80-100); RDW Coefficient of Variation 14.6 % (11.5-14.5); RDW Standard Deviation 53.6 fL (36.4-46.3); Red Blood Count 2.35 M/uL (4.7-6.1)
[2018-12-21 23:09] LABS: Mean Platelet Volume 9.9 fL (7.4-10.4); Platelet Count 66 K/uL (130-400)
[2018-12-21 23:46] LABS: Basophils # (auto) 0.02 K/uL (0-0.2); Basophils % (auto) 0.4 %; Eosinophils % (auto) 1.9 %; Immature Granulocytes # (auto) 0.01 K/uL (0.00-0.02); Immature Granulocytes % (auto) 0.2 %; Lymphocytes # (auto) 1.11 K/uL (1.2-3.4); Lymphocytes % (auto) 20.9 %; Monocytes # (auto) 0.36 K/uL (0.11-0.59); Monocytes % (auto) 6.8 %; Neutrophils % (auto) 69.8 %; RBC Morphology Unremarkable
[2018-12-22] MEDS: PANTOprazole 40 MG in DEXTROSE 5% 100 ML IV SCH ×3 (01:34→11:13)
[2018-12-22] MEDS: OCTREOTIDE ACETATE 500 MCG in 0.9 % SODIUM CHLORIDE 100 ML IV SCH ×2 (02:04→11:13)
[2018-12-22 07:01] LABS: Hematocrit (blood only) 23.9 % (42-52); Hemoglobin 8.3 g/dL (14.0-18.0); Mean Corpuscular Hgb Conc 34.7 g/dL (32-36); Mean Corpuscular Volume 101.3 fL (80-100); RDW Coefficient of Variation 14.6 % (11.5-14.5); Red Blood Count 2.36 M/uL (4.7-6.1); White Blood Count 4.95 K/uL (4.8-10.8)
[2018-12-22 07:07] LABS: Platelet Count 74 K/uL (130-400)
[2018-12-22 07:29] LABS: Albumin Level 2.2 gm/dl (3.4-5.0); BUN Creatinine Ratio 25.4 (10-20); Calcium 7.6 mg/dl (8.5-10.1); Creatinine Clr Calc Pharmacy 85.1 ml/min; Est GFR (African American) 113.5; Est GFR (Non-African American) 97.9; Potassium 3.9 mmol/L (3.5-5.1)
[2018-12-22 07:31] LABS: Basophils # (auto) 0.03 K/uL (0-0.2); Basophils % (auto) 0.6 %; Immature Granulocytes # (auto) 0.01 K/uL (0.00-0.02); Immature Granulocytes % (auto) 0.2 %; Lymphocytes # (auto) 1.25 K/uL (1.2-3.4); Lymphocytes % (auto) 25.3 %; Monocytes # (auto) 0.38 K/uL (0.11-0.59); Monocytes % (auto) 7.7 %; Neutrophils # (auto) 3.08 K/uL (1.4-6.5); Neutrophils % (auto) 62.2 %; RBC Morphology Unremarkable
[2018-12-22 07:41] LABS: Albumin Globulin Ratio 0.7 (0.9-2); Bilirubin,Total 1.3 mg/dl (0.2-1); Globulin 3.3 gm/dl (2.5-4.0); Total Protein 5.5 gm/dl (6.4-8.2)
[2018-12-22] MEDS: THIAMINE HCL 100 MG in SYRINGE 9 ML IV SCH (08:11)
[2018-12-22] MEDS: NICOTINE 21 MG/24 HR TDSY TD SCH (08:11)
--- NOTE | 2018-12-22 09:49 | Gastroenterology Progress Note ---
Date of Service December 22, 2018 Assessment & Plan (1) Coffee ground emesis: Pt is a 63 y/o male with HCV/ETOH cirrhosis, admitted w symptomatic anemia, coffee ground emesis. 1. Reviewed ETOH cessation; NSAIDs avoidance advised. 2. Was referred to Dr. Daigle for HCV tx. 3. Consider low dose non cardioselective beta phoenix for prevention of EV bleeding. 4. If abstains from alcohol then will benefit from OP GI f/u for cirrhosis but would defer to [facility] to coordinate/arrange. (2) Anemia: (3) Hepatitis C antibody test positive: (4) Cirrhosis of liver: Supervising Physician Co-Signing Physician Notes I have personally seen and examined the patient with JORGE Lozada. Her note reflects my exam and findings. I agree with her impression and plan. Patient should remain on PPI daily. He needs out patient follow up in GI to consider adding Beta phoenix given portal HTN and varices. Ravinder Rodriguez M.D. Subjective is a 63 yr old male with HCV/ETOH cirrhosis who underwent EGD yesterday for symptomatic anemia, coffee grounds emesis. Hb 9.9 on arrival on 12/20, decreased to 8.1 yesterday today 8.3. EGD with Grade I EV On octreotide and PPI drip. Respiratory: + cough; no dyspnea on exertion Gastrointestinal: as per Subjective / HPI Physical Exam Vital Signs (Past 24 Hours): Last Vital Signs Temp 36.6 C 12/22/18 07:13 Pulse 83 12/22/18 07:13 Resp 18 12/22/18 07:13 BP 118/68 12/22/18 07:13 Pulse Ox 95 12/22/18 07:13 Constitutional: well developed, + ill appearing, + thin and cooperative Eyes: PERRL, conjunctivae normal, anicteric sclerae Respiratory: normal respiratory effort, lungs clear to auscultation normal respiratory effort and able to speak in complete sentences; no respiratory distress, no labored breathing, does not use accessory muscles and no cough Cardiovascular: RRR, no murmur, no edema Gastrointestinal (Abdomen): normal bowel sounds, soft, nontender, no hepatosplenomegaly Inspection/Auscultation: abdomen normal to inspection and normal bowel sounds; abdomen not distended and no abdominal edema Percussion/Palpation: abdomen soft; abdomen nontender (Mild diffuse adbdominal msk tenderness. No signs of acute abdomen.) Skin: no rashes, warm and dry normal turgor and + pallor Neurologic: PERRL, EOMI, accommodation nl, no face palsy, no dysarthria awake; not confused Psychiatric: A+Ox3, euthymic affect Orientation: alert, oriented x 3 and cooperative Lymphatic: no cervical or axillary lymphadenopathy (1) Anemia Anemia type: unspecified type Qualified Code(s): D64.9 - Anemia, unspecified
--- NOTE | 2018-12-22 11:13 | Family Medicine Progress Note ---
Date of Service December 22, 2018 Assessment & Plan (1) Coffee ground emesis: 63yo gentleman with Hx of HCV and alcohol abuse presenting with dizziness, presyncope and bloody emesis, and found to have nonbleeding esophageal varices and stomach ulcers on EGD. Currently on Octreotide and Protonix drips for treatment. Acute GI Bleed -Currently no signs of active bleeding based on results of EGD. - Baseline Hgb of 13.3. Currently stable around 8.3 without tachycardia or symptoms of dizziness or syncope especially when up ambulating. -Continue Protonix and octreotide drip -q8h CBC checks -GI consult- EGD done. Showed grade 1 esophageal varices that are not bleeding, nonbleeding gastric ulcers, no active bleeding elsewhere. Advised to continue protonix drip and stop octreotide if no signs of active bleeding. HCV+ -f/u with Dr. Daigle -RUQ abdominal US- showed evidence of hepatic steatosis, cirrhosis and sludge in gallbladder with no evidence of cholecystitis. Alcohol Abuse -Currently doing well with no signs of withdrawal. Last drink 3 days ago. -On CIWA protocol. -Vit B12 and folate levels normal. HTN -BP adequately controlled currently. -cont to hold HCTZ in setting of GI bleed -will continue to monitor. Anemia-stable -Likely combination of acute blood loss and macrocytic anemia from alcohol abuse (has history of it) -Folate and B12 levels adequate currently. -will continue to monitor F/E/N -On IV fluids -Electrolytes within normal limits -thick liquids diet DVT Proph: SCDs Code: Full Dispo: Discharge pending bleeding resolution. Subjective Pt states that he has no signs of dizziness or SOB with exertion. Would like to eat and go home. Review of Systems All systems reviewed & are unremarkable except as noted in HPI & below Physical Exam 2 Vital Signs (Past 24 Hours): Last Vital Signs Temp 36.6 C 12/22/18 07:13 Pulse 83 12/22/18 07:13 Resp 18 12/22/18 07:13 BP 118/68 12/22/18 07:13 Pulse Ox 95 12/22/18 07:13 General: Resting comfortably in bed. Thin, gaunt. HEENT: NC/AT, Sclera anicteric, PERRLA, EOMI, oropharynx moist with missing teeth. Chest: Nontender to palpation. CV: RRR, Normal s1, s2. No murmurs appreciated Resp: Breath sounds clear bilaterally, no increased effort of breathing. Abdomen: BS+. Soft, nontender, nondistended. No guarding. No spider angiomata noted. Extremities: No edema. Results & Data Laboratory Results Laboratory Results - last 24 hr 12/21/18 12/21/18 12/22/18 15:22 22:55 06:46 WBC 5.09 5.30 4.95 RBC 2.43 L 2.35 L 2.36 L Hgb 8.5 L 8.1 L 8.3 L Hct 24.7 L 23.9 L 23.9 L MCV 101.6 H 101.7 H 101.3 H MCH 35.0 H 34.5 H 35.2 H MCHC 34.4 33.9 34.7 RDW Std Deviation 53.1 H 53.6 H 53.0 H RDW Coeff of Gaby 14.3 14.6 H 14.6 H Plt Count 68 L 66 L 74 L MPV 9.6 9.9 10.0 Immature Gran % (Auto) 0.2 0.2 0.2 Neut % (Auto) 62.8 69.8 62.2 Lymph % (Auto) 27.3 20.9 25.3 Robeson % (Auto) 7.5 6.8 7.7 Eos % (Auto) 1.6 1.9 4.0 Baso % (Auto) 0.6 0.4 0.6 Immature Gran # (Auto) 0.01 0.01 0.01 Neut # (Auto) 3.20 3.70 3.08 Lymph # (Auto) 1.39 1.11 L 1.25 Robeson # (Auto) 0.38 0.36 0.38 Eos # (Auto) 0.08 0.10 0.20 Baso # (Auto) 0.03 0.02 0.03 RBC Morphology Unremarkable Unremarkable Sodium Potassium Chloride Carbon Dioxide Anion Gap BUN Creatinine Est Cr Clr Drug Dosing Est GFR ( Amer) Est GFR (Non-Af Amer) BUN/Creatinine Ratio Glucose Calcium Total Bilirubin AST ALT Alkaline Phosphatase Total Protein Albumin Globulin Albumin/Globulin Ratio 12/22/18 06:46 WBC RBC Hgb Hct MCV MCH MCHC RDW Std Deviation RDW Coeff of Gaby Plt Count MPV Immature Gran % (Auto) Neut % (Auto) Lymph % (Auto) Robeson % (Auto) Eos % (Auto) Baso % (Auto) Immature Gran # (Auto) Neut # (Auto) Lymph # (Auto) Robeson # (Auto) Eos # (Auto) Baso # (Auto) RBC Morphology Sodium 138 Potassium 3.9 Chloride 109 H Carbon Dioxide 25 Anion Gap 4.0 BUN 19 H Creatinine 0.77 Est Cr Clr Drug Dosing 85.1 Est GFR ( Amer) 113.5 Est GFR (Non-Af Amer) 97.9 BUN/Creatinine Ratio 25.4 H Glucose 103 H Calcium 7.6 L Total Bilirubin 1.3 H D AST 118 H ALT 87 H Alkaline Phosphatase 91 Total Protein 5.5 L Albumin 2.2 L Globulin 3.3 Albumin/Globulin Ratio 0.7 L Medications Administered Home Medications albuterol sulfate 2 puff INHALATION Q4H PRN 06/15/18 [History Confirmed 12/20/18] aspirin 81 mg PO DAILY 06/15/18 [History Confirmed 12/20/18] folic acid 1 mg PO DAILY 06/15/18 [History Confirmed 12/20/18] hydrochlorothiazide 25 mg PO DAILY 06/15/18 [History Confirmed 12/20/18] thiamine HCl (vitamin B1) 100 mg PO DAILY 06/15/18 [History Confirmed 12/20/18] Active Medications Albuterol (Ventolin Hfa) 2 puffs INH Q4H PRN PRN Reason: Wheezing Stop: 01/19/19 23:16 Octreotide Acetate 500 mcg/ (Sodium Chloride) 105 mls @ 10.5 mls/hr IV .Q10H JOCELYNN Stop: 01/20/19 06:14 Last Infusion: 12/22/18 11:13 Dose: Infused Documented by: Pantoprazole Sodium 40 mg/ (Dextrose) 100 mls @ 20 mls/hr IV Q5H JOCELYNN Stop: 01/20/19 01:29 Last Infusion: 12/22/18 11:13 Dose: Infused Documented by: Lorazepam (Ativan) 1 mg in 2 mls @ 2 mls/min IV ONE PRN; Protocol PRN Reason: EtoH Withdrawal AWSS 6-10 Stop: 01/20/19 03:28 Thiamine HCl 100 mg/ Syringe 10 mls @ 2 mls/hr IV DAILY JOCELYNN Stop: 01/20/19 08:59 Last Admin: 12/22/18 08:11 Dose: 2 mls/hr Documented by: Miscellaneous (Remove Nicoderm Patch) 1 ea N/A HS [facility] Stop: 01/20/19 20:59 Last Admin: 12/21/18 20:28 Dose: 1 ea Documented by: Nicotine (Nicoderm Cq) 21 mg TD QAM [facility] Stop: 01/20/19 08:59 Last Admin: 12/22/18 08:11 Dose: 21 mg Documented by: Resident Activity Tracking Resident Involvement: Resident Care Provided Care Provided: Adult Hospital Medicine
--- NOTE | 2018-12-22 16:38 | Discharge Summary ---
Date of Service December 22, 2018 Admission HPI Per Admitting Provider Mr. Blackwood is a 63yo male with history of EtOH abuse, HCV presenting with UBIB. Patient had an episode of dizziness, weakness and presyncope which occurred earlier today while the patient was at work. The episode lasted approximately 10-15 minutes then resolved. He was seen in the ER with that complaint. Found to be anemic. He was discharged home. Upon return home he became nauseated and had 3 episodes of coffee ground emesis. He took some Pepto Bismol with improvement in nausea. He has no abdominal pain, no nausea at present, no diarrhea. Patient recently learned of his HCV status. Uncertain how he contracted HCV. He is scheduled to see Dr. Daigle to discuss treatment options. He drinks EtOH daily, approximately 4-6 beers/day. Last drink was 12/19/18 around 21:00. No history of withdrawal symptoms or seizures. He smokes cigarettes. Takes Naproxen occasionally for pain, typically 1-2 times per week. Has possible history of GIB when he was younger, details unclear. ER Course: Pepcid, Protonix bolus and gtt, octreotide gtt, Zofran Admission Exam Per Admitting Provider General: patient resting comfortably, NAD, non-toxic in appearance, AA&O x 4, thin Skin: warm, dry, intact, no rashes or lesions, no jaundice HEENT: NC/AT, PERRL, EOMI, anicteric sclera, conjunctiva without injection, external ear normal to inspection and nontender, nares patent, moist mucus membranes, adentulous, no oropharyngeal lesions, neck supple, trachea midline, no LAD, no thyromegaly, no JVD, dried blood present in posterior pharynx Heart: +S1/S2, regular, no m/r/g Lungs: equal air entry bilaterally, no rales/rhonchi/wheezes Abd: +BS, soft, NT/ND, no masses/organomegaly/ascites Ext: warm, 2+ pulses in UE/LE bilaterally, no clubbing/cyanosis or edema Neuro: nonfocal, patient AA&O x 4, speech intact, no facial droop, moving all extremities on command with equal strength 5/5 Principal Diagnosis Acute upper GI Bleed Discharge Exam General: Resting comfortably in bed. Thin, gaunt. HEENT: NC/AT, Sclera anicteric, PERRLA, EOMI, oropharynx moist with missing teeth. Chest: Nontender to palpation. CV: RRR, Normal s1, s2. No murmurs appreciated Resp: Breath sounds clear bilaterally, no increased effort of breathing. Abdomen: BS+. Soft, nontender, nondistended. No guarding. No spider angiomata noted. Extremities: No edema. Discharge Data Allergies Allergy/AdvReac Type Severity Reaction Status Date / Time codeine Allergy Unknown Verified 09/11/18 17:50 Consultations 12/20/18 23:17 Consult Gastroenterology Routine Procedures Performed Operation Date: 12/21/18 10:00 Actual Procedures p Esophagogastroduodenoscopy - Ravinder Rodriguez Ordered Studies 12/21/18 03:29 US liver Routine Hospital Course (1) Coffee ground emesis: 63yo gentleman with Hx of HCV and alcohol abuse who presented with dizziness, presyncope and bloody emesis. Acute GI Bleed from ?ulcer/varices -treated with Protonix and octreotide drip. -GI consult placed- EGD done. Showed grade 1 esophageal varices that are not bleeding, nonbleeding gastric ulcers, no active bleeding elsewhere particularly in the duodenum. -Baseline Hgb of 13.3. Currently 8.3 on discharge without tachycardia or symptoms of dizziness or syncope especially when up ambulating. -Discharged with Protonix 20mg BID only for 30 days. -ETOH cessation; NSAIDs avoidance advised. -To Consider low dose non cardioselective beta phoenix for prevention of EV bleeding as outpatient. didn't start on discharge since BP was low. HCV+ -f/u with Dr. Daigle upon discharge. -RUQ abdominal US done showed evidence of hepatic steatosis, cirrhosis and sludge in gallbladder with no evidence of cholecystitis. Cirrhosis -Per GI - if abstained from alcohol then will benefit from OP GI f/u for cirrhosis but would defer to [facility] to coordinate/arrange. Alcohol Abuse -Was on CIWA protocol with minimal signs of withdrawal. Last drink 3 days before admission. -Vit B12 and folate levels normal. Treated with multivitamin and thiamine. HTN -BP adequately controlled currently upon discharge after holding HZT. Cont to hold HCTZ in setting of GI bleed even upon discharge. F/U with PCP for reassessment and restart. Anemia - ?acute blood loss -Likely combination of acute blood loss and macrocytic anemia from alcohol abuse (has history of it). Folate and B12 levels adequate currently. Total Time Total Time Spent Total Time Spent (In Minutes): 60 Discharge Plan Discharge Items Patient Disposition: Home - Self-Care Reason For Visit: UGIB Discharge Diagnosis: Upper GI Bleed Discharge Goals: Decrease discomfort, Improve disease control and Improve function Activity: Per 'Additional Instructions' section Non-emergency contact: Primary Care Provider Call non-emergency contact if: your symptoms worsen and you have a fever [facility] - 12/26/18 8:30 am (post hospital follow up with [facility] for possible referral to [facility]) Diet: Heart Healthy Addtl Provider Instructions: You were admitted to the hospital because of a suspected bleed that occurred in your gastrointestinal tract. We placed a scope down your gastrointestinal tract to see where exactly the bleeding was coming from. It was noted that you had esophageal varices and stomach ulcers that were NOT bleeding. You were treated with IV protonix and another medicine called Octreotide that helped to prevent bleeding of your esophageal varices. Your symptoms are related to your chronic use of alcohol. Please cut down on y our alcohol intake as it can have further detrimental effects to your health. Your blood pressure medication was stopped while you were in the hospital. Please STOP taking it until you see your primary care physician for followup. Your blood pressure has been low while off the medication and in the case of a bleed, should you use it again, it can make your blood pressure too low. You are being discharged with a prescription for Protonix and a beta phoenix. Please take those medications as directed as they can help prevent further bleeding in your gastrointestinal tract. Please STOP using medications such as aspirin, advil or motrin or any nonsteroidal antiinflammatory drugs as these can cause you to bleed more. If you need something for pain, you can use tylenol (acetaminophen). Please followup with your primary care provider at [facility] as scheduled. Please go to the nearest emergency room should your symptoms return or you notice that you are vomiting, coughing or pooping blood. Prescriptions: New pantoprazole [Protonix] 20 mg tablet,delayed release (DR/EC) 20 mg PO BID 30 Days Qty: 60 RF: 0 Continued thiamine HCl (vitamin B1) 100 mg Tablet 100 mg PO DAILY RF: 0 folic acid 1 mg Tablet 1 mg PO DAILY RF: 0 albuterol sulfate 90 mcg/actuation Hfa Aerosol Inhaler 2 puff Inhalation Q4H PRN (Reason: Wheezing) RF: 0 Discontinued aspirin 81 mg Tablet,Delayed Release (Dr/Ec) 81 mg PO DAILY RF: 0 hydrochlorothiazide 25 mg Tablet 25 mg PO DAILY RF: 0 Stand-Alone Forms: My [facility], Work/School Release (Inpt) Krames/Other Patient Handouts: Bleeding Gastrointestinal Discharge Orders: Discharge Order (Routine); Ordered 12/22/18 Ordered By: Sadia Blanco Admission Data Admit Date/Time: 12/20/18 21:54 Attending Provider: Kayy Becerra Admit Provider: Marcy Montano Primary Care Provider: [facility] Other Providers: Godfrey Doherty ; Aure Gordillo ; Ivonne Strickland ; Marcy Montano Service: Telemetry Other Interventions: Discharge Summary Assessment (RN) Last Done: 12/22/18 16:01 DC Date/Time DO NOT enter until pt leaves facility: 12/22/18 18:08 Supervising Physician Co-Signing Physician Notes Resident Physician Supervision Note: I independently interviewed and examined the patient and verified the dunn history and physical, reviewed labs and image studies, discussed the case with the resident Dr. Blanco and agree with the findings and care plan. Time spent in discharge 40min Resident Activity Tracking Resident Involvement: Resident Care Provided Care Provided: Adult Hospital Medicine
== END 2018-12-22 18:08 | disposition home or self-care (01) | DRG 378 ==
LOC: ED 19:32 → SUATTDRO 21:54 → 2E 21:54

== ENCOUNTER 2019-03-10 10:33 | Inpatient (IN) ==
[2019-03-10] MEDS ORDERED: HYDROCODONE/ACETAMOPHEN 5/325MG TAB PO STA (11:37)
[2019-03-10] MEDS ORDERED: ACETAMINOPHEN 325 MG TAB PO STA (11:37)
[2019-03-10 12:02] LABS: INR 1.2 (0.9-1.1); Prothrombin Time 11.9 Seconds (9.0-12.0)
[2019-03-10 12:15] LABS: Alanine Aminotransferase 98 U/L (12-78); Albumin Level 2.7 gm/dl (3.4-5.0); Aspartate Aminotransferase 136 U/L (15-37); BUN Creatinine Ratio 8.3 (10-20); Blood Urea Nitrogen 6 mg/dl (7-18); Calcium 9.2 mg/dl (8.5-10.1); Carbon Dioxide 24 mmol/L (21-32); Chloride 106 mmol/L (98-107); Est GFR (African American) 113.5; Est GFR (Non-African American) 97.9; Glucose 155 mg/dl (70-99); Potassium 4.2 mmol/L (3.5-5.1); Sodium 137 mmol/L (136-145)
[2019-03-10 12:18] LABS: Albumin Globulin Ratio 0.5 (0.9-2); Alkaline Phosphatase 218 U/L (45-117); Bilirubin,Total 1.3 mg/dl (0.2-1); Globulin 5.1 gm/dl (2.5-4.0); Total Protein 7.9 gm/dl (6.4-8.2)
--- NOTE | 2019-03-10 12:27 | XRay Report ---
XR hip RT min 2V CLINICAL HISTORY: Right hip pain COMPARISON: None. DISCUSSION: No fractures are visualized. There are no destructive lesions. The joint space appears we ll-preserved for age. There are vascular calcifications. IMPRESSION: 1. No acute fractures 2. No destructive lesions are visualized Electronically signed by: Malcom Mccann M.D. 03/10/2019 12:26 PM
--- NOTE | 2019-03-10 12:27 | XRay Report ---
XR hip LT min 2V CLINICAL HISTORY: Left hip pain COMPARISON: None. DISCUSSION: No acute fractures are visualized. There are no erosive or destructive changes. The joint space appears relatively well preserved for age. IMPRESSION: 1. No fractures identified 2. No destructive lesions are visualized Electronically signed by: Malcom Mccann M.D. 03/10/2019 12:26 PM
[2019-03-10 12:30] LABS: Basophils # (auto) 0.04 K/uL (0-0.2); Basophils % (auto) 5.3 %; Eosinophils # (auto) 0.03 K/uL (0-0.5); Hemoglobin 11.8 g/dL (14.0-18.0); Lymphocytes # (auto) 0.52 K/uL (1.2-3.4); Lymphocytes % (auto) 69.4 %; Mean Corpuscular Hgb Conc 34.7 g/dL (32-36); Mean Corpuscular Volume 85.4 fL (80-100); Mean Platelet Volume 8.6 fL (7.4-10.4); Monocytes # (auto) 0.16 K/uL (0.11-0.59); Monocytes % (auto) 21.3 %; Platelet Count 94 K/uL (130-400); Red Blood Count 3.98 M/uL (4.7-6.1); White Blood Count 0.75 K/uL (4.8-10.8)
--- NOTE | 2019-03-10 12:30 | XRay Report ---
XR chest 2V routine CLINICAL HISTORY: Right-sided pain COMPARISON STUDY: 02/08/2019 FINDINGS: The cardiac and mediastinal contours remain stable. There is no failure. There is no focal pulmonary consolidation. There are no pleural effusions. There is no pneumothorax. 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 Electronically signed by: Malcom Mccann M.D. 03/10/2019 12:28 PM
[2019-03-10 12:52] LABS: Platelet Estimate Decreased (Normal)
[2019-03-10] MEDS ORDERED: PIPERACILLIN/TAZOBACTAM 4.5 GM/120 ML BAG IV ONE (12:54)
[2019-03-10] MEDS ORDERED: PIPERACILL/TAZOBAC CONSULT ACTIVE PRN (12:54)
[2019-03-10] MEDS ORDERED: SODIUM CHLORIDE 0.9% 1000ML 1,000 ML IV ONE (12:55)
[2019-03-10 12:58] LABS: Lyme Ab IgG w/WB Rflx Negative (Negative); Lyme Ab IgM w/WB Rflx Negative (Negative)
[2019-03-10] MEDS ORDERED: IOVERSOL 100ml IV PRN (13:41)
--- NOTE | 2019-03-10 14:00 | CT Scan Report ---
CT abd pelvis IV con only CLINICAL HISTORY: abd distension, fever, neutropenia COMPARISON STUDY: CT scan performed March 2009 TECHNIQUE: The patient was scanned in a dynamic helical fashion during intravenous administration of 94 cc of Optiray 3 A dose lowering technique was utilized adhering to the principles of ALARA. CT DOSE: 483.75 mGy.cm FINDINGS: Lower chest: The heart is normal in size and configuration, without pericardial effusion. The lung ba ses and pleural spaces are clear. Liver: Hepatic cirrhosis is suspected. No focal hepatic masses are visualized. The portal vein appear s patent. 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 There are perigastric varices. Gallbladder: No gallstones are visualized. There is pericholecystic fluid likely secondary to general ized ascites. Spleen: The spleen is mildly enlarged. Pancreas: Unremarkable. Adrenal glands: Unremarkable. Kidneys: There is symmetric renal cortical enhancement. The kidneys are normal in size without hydron ephrosis. Bowel: There are no transition zones indicate bowel obstruction. There is no evidence of acute divert iculitis. There is mild diffuse colonic wall thickening. While this may be secondary to the patient's cirrhotic state, a colitis cannot be excluded. Peritoneum: There is low volume ascites. There is no free intraperitoneal air. Vasculature: The abdominal aorta is normal in course and caliber. Adenopathy: Prominent periportal lymph nodes are likely secondary to hepatocellular disease. There ar e borderline enlarged aortocaval lymph nodes, likely reactive. Pelvic viscera: The bladder, and pelvic viscera are unremarkable. Skeletal structures: No destructive osseous lesions are seen. IMPRESSION: 1. Suspected hepatic cirrhosis with mild splenomegaly, low volume ascites, and perigastric and peries ophageal varices 2. No evidence of bowel obstruction. No evidence of free air 3. Mild colonic wall thickening. While likely secondary to hepatocellular disease, a colitis could ap pear similar 4. Prominent periportal and retroperitoneal lymph nodes, likely reactive Electronically signed by: Malcom Mccann M.D. 03/10/2019 1:58 PM
[2019-03-10 14:28] LABS: Appearance Urine Clear (Clear); Bacteria Urine Automated 2+ (Negative); Bilirubin Urine Negative (Negative); Blood Urine Negative (Negative); Cast Urine Automated 0 /lpf (0-5); Color Urine Yellow; Glucose Urine UA Negative (Negative); Ketones Urine Negative (Negative); Leukocyte Esterase Urine Negative (Negative); Nitrite Urine Positive (Negative); Protein Urine Negative (Negative); RBC Urine Automated 0-4 /hpf (0-4); Specific Gravity Urine 1.033 (1.000-1.030); Urobilinogen Urine Negative (Negative)
[2019-03-10] MEDS ORDERED: VANCOMYCIN HCL 1,500 MG in SODIUM CHLORIDE 0.9% 500 ML IV ONE (14:39)
[2019-03-10] MEDS ORDERED: VANCOMYCIN CONSULT ACTIVE PRN (14:39)
--- NOTE | 2019-03-10 14:59 | Ultrasound Report ---
BILIARY ULTRASOUND CLINICAL HISTORY: cirrhosis, neutropenia, elevated LFT COMPARISON STUDY: CT scan dated 03/10/2019 FINDINGS: The liver has a cirrhotic appearance. No focal masses are visualized. The liver measures 17 .4 cm. There is perihepatic ascites. No gallstones are visualized. There is trace fluid surrounding the gallbladder. The gallbladder wall measures 3 mm. The common bile duct measures 7 mm. No pancreatic masses are visualized. There is no right-sided hydronephrosis IMPRESSION: 1. Suspected hepatic cirrhosis with mild perihepatic ascites 2. No gallstones identified 3. 7 mm common bile duct Electronically signed by: Malcom Mccann M.D. 03/10/2019 2:58 PM
--- NOTE | 2019-03-10 15:13 | Emergency Department Note ---
Entered by Sera Wheatley acting as a scribe for Herlinda Dash MD History of Present Illness General Chief complaint: Pain (Generalized) Stated complaint: NOT SLEEPING,PAIN ALL OVER Source: patient History of Present Illness Provider complaint: generalized pain Onset (ago): month(s) (over the last several months) Location: left and right Maximum Pain Intensity: 10 Quality: + other (pain) Associated symptoms: + cough and + other (knee pain, hip pain, and pain under his right arm) The patient is a 63 year old male who presents to the Emergency Department with complaints of generalized pain over the last several months. He rates his pain at a 10/10 and states that his pain worsened at 0200 this morning. The patient states that he has been unable to sleep secondary to the pain. He reports having knee pain, hip pain, and pain under his right arm. He states that he has had a little bit of a cough but has inhalers. The patient reports a history of 2 ulcers and liver problems. He states that he last drank December 20. The patient states that he smokes 4 cigarettes per day and that he is trying to quit. 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) Neutropenic fever (Acute) Coffee ground emesis Cirrhosis of liver (Chronic) Anemia (Acute) Parotiditis Alcohol abuse (Chronic) Hypertension Alcoholism (Acute) Hepatitis C antibody test positive No significant past surgical history Surgical History H/O endoscopy Loss of teeth due to extraction Family History Other Diabetes Hypertension Social History Preferred Language: [place] Communication Ability: Effective Beliefs That Will Affect Care: None Current Living Situation: Spouse Feels Safe at Home: Yes Safety Concerns: Feels Safe At This Time Smoking Status: Current every day smoker Tobacco Type: cigarettes Cigarettes Per Day: used to smoke 1 1/2ppd now smokes only 1/2 pack a day Tobacco Cessation Education Requested by Patient: No Hx Alcohol Use: Yes Alcohol type: beer Hx Substance Use: No Review of Systems See HPI for pertinent positives & negatives. and A total of 10 systems reviewed and were otherwise negative Physical Exam Vital Signs Vital Signs - 24 hr 03/10/19 10:49 03/10/19 13:22 03/10/19 13:30 Temperature 37.8 C H Temperature Source Oral Sepsis Recent Fever Within 48 Hours No Sepsis New/Unexplained Change in Mental Status No Sepsis Action Taken by Nursing No Action Required Pulse Rate 102 H 97 H 107 H Pulse Rate [Apical] 105 H Pulse Rate from SpO2 Sensor 98 H Respiratory Rate 20 12 Blood Pressure 148/72 H 161/96 H 165/82 H Blood Pressure [Right Arm] 161/96 H Blood Pressure Mean 97 117 109 Blood Pressure Mean [Right Arm] 117 Pulse Oximetry 97 92 Oxygen Delivery Method Room Air Room Air 03/10/19 14:18 03/10/19 14:19 Temperature Temperature Source Sepsis Recent Fever Within 48 Hours Sepsis New/Unexplained Change in Mental Status Sepsis Action Taken by Nursing Pulse Rate Pulse Rate [Apical] Pulse Rate from SpO2 Sensor 115 H Respiratory Rate 13 25 H Blood Pressure 150/90 H Blood Pressure [Right Arm] Blood Pressure Mean 110 Blood Pressure Mean [Right Arm] Pulse Oximetry 90 Oxygen Delivery Method Vital signs reviewed. General: Chronically-ill appearing male, cachectic, in no significant distress. HEENT: No scleral icterus, PERRLA, neck supple. Atraumatic. Cardiovascular: Regular rate and rhythm, no extra sounds. Pulmonary: Clear to auscultation bilaterally, normal work of breathing. Abdomen: Slightly distended abdomen. Mild diffuse tenderness. No rebound or guarding. Musculoskeletal: Atraumatic, no peripheral edema. Neurologic: Patient awake alert and oriented x 3, full strength in all 4 extremities. Cranial nerves 2 through 12 grossly intact. Skin: Warm, dry, no rash Course 1133: The patient was evaluated in room B2. A history and physical were perfo rmed. 1416: I updated the patient who verbalized agreement and understanding of the treatment plan. 1430: I discussed the mariluz's case with Dr. Laura Jordan who will evaluate the patient for further management. Consultations Consultation #1: Dr. Laura Jordan Time: 14:30 Administered Medications Acetaminophen (Tylenol) 650 mg PO Q4H PRN PRN Reason: pain/fever Stop: 04/09/19 16:38 Last Admin: 03/13/19 00:00 Dose: 650 mg Documented by: [id number] Admin: 03/12/19 15:59 Dose: 650 mg Documented by: [id number] Admin: 03/12/19 00:13 Dose: 650 mg Documented by: [id number] Admin: 03/11/19 15:35 Dose: 650 mg Documented by: [id number] Admin: 03/11/19 08:41 Dose: 650 mg Documented by: [id number] Admin: 03/11/19 01:22 Dose: 650 mg Documented by: [id number] Admin: 03/10/19 21:02 Dose: 650 mg Documented by: [id number] Admin: 03/10/19 17:12 Dose: 650 mg Documented by: [id number] Doxycycline Hyclate (Vibramycin) 100 mg PO BID [facility] Stop: 03/21/19 08:59 Last Admin: 03/13/19 09:14 Dose: 100 mg Documented by: [id number] Admin: 03/12/19 20:53 Dose: 100 mg Documented by: [id number] Admin: 03/12/19 08:28 Dose: 100 mg Documented by: [id number] Admin: 03/11/19 20:41 Dose: 100 mg Documented by: [id number] Admin: 03/11/19 08:41 Dose: 100 mg Documented by: [id number] Folic Acid (Folvite) 1 mg PO DAILY [facility] Stop: 04/10/19 08:59 Last Admin: 03/13/19 09:15 Dose: 1 mg Documented by: [id number] Admin: 03/12/19 08:28 Dose: 1 mg Documented by: [id number] Admin: 03/11/19 08:41 Dose: 1 mg Documented by: [id number] Hydromorphone HCl (Dilaudid) 0.5 mg IV Q4 PRN PRN Reason: Pain Stop: 03/25/19 02:07 Last Admin: 03/13/19 02:30 Dose: 0.5 mg Documented by: [id number] Admin: 03/12/19 02:57 Dose: 0.5 mg Documented by: [id number] Admin: 03/11/19 02:22 Dose: 0.5 mg Documented by: [id number] Ioversol (Optiray 320 100ml) 94 ml IV ONCE PRN PRN Reason: Interaction Checking Stop: 03/14/19 13:40 Last Admin: 03/10/19 13:41 Dose: 94 ml Documented by: [id number] Pantoprazole Sodium (Protonix) 40 mg PO BID JOCELYNN; Protocol Stop: 04/09/19 20:59 Last Admin: 03/13/19 09:15 Dose: 40 mg Documented by: [id number] Admin: 03/12/19 20:53 Dose: 40 mg Documented by: [id number] Admin: 03/12/19 08:28 Dose: 40 mg Documented by: [id number] Admin: 03/11/19 20:40 Dose: 40 mg Documented by: [id number] Admin: 03/11/19 08:41 Dose: 40 mg Documented by: [id number] Admin: 03/10/19 21:03 Dose: 40 mg Documented by: [id number] Thiamine HCl (Vitamin B-1) 100 mg PO DAILY JOCELYNN Stop: 04/10/19 08:59 Last Admin: 03/13/19 09:15 Dose: 100 mg Documented by: [id number] Admin: 03/12/19 08:28 Dose: 100 mg Documented by: [id number] Admin: 03/11/19 08:41 Dose: 100 mg Documented by: [id number] Trazodone HCl (Desyrel) 50 mg PO HS JOCELYNN Stop: 04/09/19 20:59 Last Admin: 03/12/19 20:53 Dose: 50 mg Documented by: [id number] Admin: 03/11/19 20:41 Dose: 50 mg Documented by: [id number] Admin: 03/10/19 21:04 Dose: 50 mg Documented by: [id number] Discontinued Medications Acetaminophen (Tylenol) 650 mg PO NOW STA Stop: 03/10/19 11:38 Last Admin: 03/10/19 11:51 Dose: Not Given Documented by: [id number] Hydrocodone Bitart/Acetaminophen ([place] 5/325) 1 tab PO NOW STA Stop: 03/10/19 11:38 Last Admin: 03/10/19 11:51 Dose: 1 tab Documented by: [id number] Hydroxyzine HCl (Vistaril) 25 mg PO NOW STA Stop: 03/10/19 11:35 Last Admin: 03/10/19 11:51 Dose: 25 mg Documented by: [id number] Piperacillin Sod/Tazobactam Sod (Zosyn) 4.5 gm in 120 mls @ 240 mls/hr IV NOW ONE Stop: 03/10/19 13:23 Last Infusion: 03/10/19 14:01 Dose: 0 mls/hr Documented by: [id number] Admin: 03/10/19 13:25 Dose: 240 mls/hr Documented by: [id number] Sodium Chloride (Nss 1000ml) 1,000 mls @ 999 mls/hr IV .Q1H1M ONE Stop: 03/10/19 13:55 Last Infusion: 03/10/19 14:33 Dose: 0 mls/hr Documented by: [id number] Admin: 03/10/19 13:23 Dose: 999 mls/hr Documented by: [id number] Vancomycin HCl 1,500 mg/ (Sodium Chloride) 530 mls @ 200 mls/hr IV NOW ONE; Protocol Stop: 03/10/19 17:17 Last Infusion: 03/10/19 19:27 Dose: 0 mls/hr Documented by: [id number] Admin: 03/10/19 15:17 Dose: 200 mls/hr Documented by: [id number] Cefepime HCl 1,000 mg/ Syringe 11.3 mls @ 5.5 mls/min IV Q8H JOCELYNN; Protocol Stop: 03/17/19 17:29 Last Admin: 03/12/19 08:28 Dose: 5.5 mls/min Documented by: [id number] Admin: 03/12/19 01:36 Dose: 5.5 mls/min Documented by: [id number] Admin: 03/11/19 17:36 Dose: 5.5 mls/min Documented by: [id number] Admin: 03/11/19 08:42 Dose: 5.5 mls/min Documented by: [id number] Admin: 03/11/19 01:22 Dose: 5.5 mls/min Documented by: [id number] Admin: 03/10/19 19:48 Dose: 5.5 mls/min Documented by: [id number] Piperacillin Sod/Tazobactam (Sod 3.375 gm/ Dextrose) 115 mls @ 28.75 mls/hr IV Q8H JOCELYNN; Protocol Stop: 03/12/19 19:14 Last Infusion: 03/11/19 16:03 Dose: 0 mls/hr Documented by: [id number] Admin: 03/11/19 11:31 Dose: 28.8 mls/hr Documented by: [id number] Infusion: 03/11/19 07:34 Dose: 0 mls/hr Documented by: [id number] Admin: 03/11/19 03:34 Dose: 28.8 mls/hr Documented by: [id number] Infusion: 03/11/19 00:00 Dose: 0 mls/hr Documented by: [id number] Admin: 03/10/19 19:49 Dose: 28.8 mls/hr Documented by: [id number] Vancomycin HCl 1,000 mg/ (Sodium Chloride) 270 mls @ 125 mls/hr IV Q12H JOCELYNN; Protocol Stop: 03/25/19 02:59 Last Infusion: 03/12/19 19:12 Dose: 0 mls/hr Documented by: [id number] Admin: 03/12/19 15:40 Dose: 125 mls/hr Documented by: [id number] Infusion: 03/12/19 05:07 Dose: 0 mls/hr Documented by: [id number] Admin: 03/12/19 02:57 Dose: 125 mls/hr Documented by: [id number] Infusion: 03/11/19 16:35 Dose: 0 mls/hr Documented by: [id number] Admin: 03/11/19 14:21 Dose: 125 mls/hr Documented by: [id number] Infusion: 03/11/19 05:56 Dose: 0 mls/hr Documented by: [id number] Admin: 03/11/19 03:33 Dose: 125 mls/hr Documented by: [id number] Vancomycin HCl 1,000 mg/ (Sodium Chloride) 270 mls @ 125 mls/hr IV Q8H JOCELYNN; Protocol Stop: 03/25/19 02:59 Last Admin: 03/13/19 09:14 Dose: 125 mls/hr Documented by: [id number] Infusion: 03/13/19 02:28 Dose: 0 mls/hr Documented by: [id number] Admin: 03/13/19 00:04 Dose: 125 mls/hr Documented by: [id number] Medical Decision Making Differential Diagnosis Etiologies such as metabolic, infection, hypo/hyperglycemia, electrolyte abnormalities, cardiac sources, intracerebral event, toxicologic, neurologic, as well as others were entertained. Medical Records Attestation: I reviewed the patient's medical records. Home Medications Current Medication List: was personally reviewed by wi Laboratory Data Attestation: I reviewed the patient's lab results. Result diagrams: 03/13/19 07:11 03/13/19 07:11 Lab Results 03/10/19 03/10/19 03/10/19 Range/Units 11:47 11:47 11:47 WBC 0.75 L* (4.8-10.8) K/uL RBC 3.98 L (4.7-6.1) M/uL Hgb 11.8 L (14.0-18.0) g/dL Hct 34.0 L (42-52) % MCV 85.4 (80-100) fL MCH 29.6 (25-34) pg MCHC 34.7 (32-36) g/dL RDW Std Deviation 60.0 H (36.4-46.3) fL RDW Coeff of Gaby 19.0 H (11.5-14.5) % Plt Count 94 L (130-400) K/uL MPV 8.6 (7.4-10.4) fL Immature Gran % (Auto) 0.0 % Neut % (Auto) 0.0 % Lymph % (Auto) 69.4 % [place] % (Auto) 21.3 % Eos % (Auto) 4.0 % Baso % (Auto) 5.3 % Immature Gran # (Auto) 0.00 (0.00-0.02) K/uL Neut # (Auto) 0.00 L* (1.4-6.5) K/uL Lymph # (Auto) 0.52 L (1.2-3.4) K/uL [place] # (Auto) 0.16 (0.11-0.59) K/uL Eos # (Auto) 0.03 (0-0.5) K/uL Baso # (Auto) 0.04 (0-0.2) K/uL Platelet Estimate Decreased L (Normal) PT 11.9 (9.0-12.0) Seconds INR 1.2 H (0.9-1.1) Sodium 137 (136-145) mmol/L Potassium 4.2 (3.5-5.1) mmol/L Chloride 106 (98-107) mmol/L Carbon Dioxide 24 (21-32) mmol/L Anion Gap 7.0 (3-11) BUN 6 L (7-18) mg/dl Creatinine 0.77 (0.6-1.4) mg/dl Est Cr Clr Drug Dosing Not Reportable Est GFR ( Amer) 113.5 Est GFR (Non-Af Amer) 97.9 BUN/Creatinine Ratio 8.3 L (10-20) Glucose 155 H (70-99) mg/dl Calcium 9.2 (8.5-10.1) mg/dl Total Bilirubin 1.3 H (0.2-1) mg/dl AST 136 H (15-37) U/L ALT 98 H (12-78) U/L Alkaline Phosphatase 218 H (45-117) U/L Total Protein 7.9 (6.4-8.2) gm/dl Albumin 2.7 L (3.4-5.0) gm/dl Globulin 5.1 H (2.5-4.0) gm/dl Albumin/Globulin Ratio 0.5 L (0.9-2) Lipase 702 H (73-393) U/L Urine Color Urine Appearance (Clear) Urine pH (4.5-7.5) Ur Specific [place] (1.000-1.030) Urine Protein (Negative) Urine Glucose (UA) (Negative) Urine Ketones (Negative) Urine Blood (Negative) Urine Nitrite (Negative) Urine Bilirubin (Negative) Urine Urobilinogen (Negative) Ur Leukocyte Esterase (Negative) Urine WBC (Auto) (0-5) /hpf Urine RBC (Auto) (0-4) /hpf U Hyaline Cast (Auto) (0-5) /lpf U Epithel Cells (Auto) (0-5) /lpf Urine Bacteria (Auto) (Negative) Lyme Disease IgG Ab (Negative) Lyme Disease IgM Ab (Negative) Bld Cult Staph aureus PCR (Negative) Blood Culture MRSA PCR (Negative) 03/10/19 03/10/19 03/10/19 Range/Units 11:47 13:25 14:00 WBC (4.8-10.8) K/uL RBC (4.7-6.1) M/uL Hgb (14.0-18.0) g/dL Hct (42-52) % MCV (80-100) fL MCH (25-34) pg MCHC (32-36) g/dL RDW Std Deviation (36.4-46.3) fL RDW Coeff of Gaby (11.5-14.5) % Plt Count (130-400) K/uL MPV (7.4-10.4) fL Immature Gran % (Auto) % Neut % (Auto) % Lymph % (Auto) % [place] % (Auto) % Eos % (Auto) % Baso % (Auto) % Immature Gran # (Auto) (0.00-0.02) K/uL Neut # (Auto) (1.4-6.5) K/uL Lymph # (Auto) (1.2-3.4) K/uL [place] # (Auto) (0.11-0.59) K/uL Eos # (Auto) (0-0.5) K/uL Baso # (Auto) (0-0.2) K/uL Platelet Estimate (Normal) PT (9.0-12.0) Seconds INR (0.9-1.1) Sodium (136-145) mmol/L Potassium (3.5-5.1) mmol/L Chloride (98-107) mmol/L Carbon Dioxide (21-32) mmol/L Anion Gap (3-11) BUN (7-18) mg/dl Creatinine (0.6-1.4) mg/dl Est Cr Clr Drug Dosing Est GFR ( Amer) Est GFR (Non-Af Amer) BUN/Creatinine Ratio (10-20) Glucose (70-99) mg/dl Calcium (8.5-10.1) mg/dl Total Bilirubin (0.2-1) mg/dl AST (15-37) U/L ALT (12-78) U/L Alkaline Phosphatase (45-117) U/L Total Protein (6.4-8.2) gm/dl Albumin (3.4-5.0) gm/dl Globulin (2.5-4.0) gm/dl Albumin/Globulin Ratio (0.9-2) Lipase (73-393) U/L Urine Color Yellow Urine Appearance Clear (Clear) Urine pH 7.0 (4.5-7.5) Ur Specific [place] 1.033 H (1.000-1.030) Urine Protein Negative (Negative) Urine Glucose (UA) Negative (Negative) Urine Ketones Negative (Negative) Urine Blood Negative (Negative) Urine Nitrite Positive A (Negative) Urine Bilirubin Negative (Negative) Urine Urobilinogen Negative (Negative) Ur Leukocyte Esterase Negative (Negative) Urine WBC (Auto) 1-5 (0-5) /hpf Urine RBC (Auto) 0-4 (0-4) /hpf U Hyaline Cast (Auto) 0 (0-5) /lpf U Epithel Cells (Auto) 10-20 H (0-5) /lpf Urine Bacteria (Auto) 2+ H (Negative) Lyme Disease IgG Ab Negative (Negative) Lyme Disease IgM Ab Negative (Negative) Bld Cult Staph aureus PCR Positive A (Negative) Blood Culture MRSA PCR Positive A (Negative) Imaging Data Radiologist's Impression: Radiology results as stated below per my review and the radiologist's interpretation: XR hip RT min 2V CLINICAL HISTORY: Right hip pain COMPARISON: None. DISCUSSION: No fractures are visualized. There are no destructive lesions. The joint space appears well-preserved for age. There are vascular calcifications. IMPRESSION: 1. No acute fractures 2. No destructive lesions are visualized Electronically signed by: Malcom Mccann M.D. 03/10/2019 12:26 PM XR hip LT min 2V CLINICAL HISTORY: Left hip pain COMPARISON: None. DISCUSSION: No acute fractures are visualized. There are no erosive or destructive changes. The joint space appears relatively well preserved for age. IMPRESSION: 1. No fractures identified 2. No destructive lesions are visualized Electronically signed by: Malcom Mccann M.D. 03/10/2019 12:26 PM XR chest 2V routine CLINICAL HISTORY: Right-sided pain COMPARISON STUDY: 02/08/2019 FINDINGS: The cardiac and mediastinal contours remain stable. There is no failur e. There is no focal pulmonary consolidation. There are no pleural effusions. There is no pneumothorax. There is mild chronic interstitial thickening.[ IMPRESSION: No active disease in the chest. Electronically signed by: Malcom Mccann M.D. 03/10/2019 12:[address] abd pelvis IV con only CLINICAL HISTORY: abd distension, fever, neutropenia COMPARISON STUDY: CT scan performed March 2009 TECHNIQUE: The patient was scanned in a dynamic helical fashion during intravenous administration of 94 cc of Optiray 3 A dose lowering technique was utilized adhering to the principles of ALARA. CT DOSE: 483.75 mGy.cm FINDINGS: Lower chest: The heart is normal in size and configuration, without pericardial effusion. The lung bases and pleural spaces are clear. Liver: Hepatic cirrhosis is suspected. No focal hepatic masses are visualized. The portal vein appears patent. 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 There are perigastric varices. Gallbladder: No gallstones are visualized. There is pericholecystic fluid likely secondary to generalized ascites. Spleen: The spleen is mildly enlarged. Pancreas: Unremarkable. Adrenal glands: Unremarkable. Kidneys: There is symmetric renal cortical enhancement. The kidneys are normal in size without hydronephrosis. Bowel: There are no transition zones indicate bowel obstruction. There is no evidence of acute diverticulitis. There is mild diffuse colonic wall thickening. While this may be secondary to the patient's cirrhotic state, a colitis cannot be excluded. Peritoneum: There is low volume ascites. There is no free intraperitoneal air. Vasculature: The abdominal aorta is normal in course and caliber. Adenopathy: Prominent periportal lymph nodes are likely secondary to hepatocellular disease. There are borderline enlarged aortocaval lymph nodes, likely reactive. Pelvic viscera: The bladder, and pelvic viscera are unremarkable. Skeletal structures: No destructive osseous lesions are seen. IMPRESSION: 1. Suspected hepatic cirrhosis with mild splenomegaly, low volume ascites, and perigastric and periesophageal varices 2. No evidence of bowel obstruction. No evidence of free air 3. Mild colonic wall thickening. While likely secondary to hepatocellular disease, a colitis could appear similar 4. Prominent periportal and retroperitoneal lymph nodes, likely reactive Electronically signed by: Malcom Mccann M.D. 03/10/2019 1:58 PM BILIARY ULTRASOUND CLINICAL HISTORY: cirrhosis, neutropenia, elevated LFT COMPARISON STUDY: CT scan dated 03/10/2019 FINDINGS: The liver has a cirrhotic appearance. No focal masses are visualized. The liver measures 17.4 cm. There is perihepatic ascites. No gallstones are visualized. There is trace fluid surrounding the gallbladder. The gallbladder wall measures 3 mm. The common bile duct measures 7 mm. No pancreatic masses are visualized. There is no right-sided hydronephrosis IMPRESSION: 1. Suspected hepatic cirrhosis with mild perihepatic ascites 2. No gallstones identified 3. 7 mm common bile duct Electronically signed by: Malcom Mccann M.D. 03/10/2019 2:58 PM Blood Pressure Blood Pressure Findings: Elevated blood pressure Blood Pressure Disposition: further management by hospitalist MDM Narrative This pt was evaluated and appeared to be in no distress. PT is complaining of pain in abd. IV access was obtained and lab work was drawn. Pt is found to be febrile. Po tylenol was administered. Blood cultures are pending. Pt was hydrated with NSS. Lab work reveals a leukopenia and neutropenia. CXR is largely clear. CT abd was performed and is as above without clear source for pt's pain or fever. IV zosyn and vanco were given. Given the complexity of the presentation and neutropenia w fever (no chemo history) pt will be evaluated by the hospitalist service. He is aware of the plan and agrees. Impression & Plan Neutropenic fever Discharge Plan Visit Data *Final* Discharge Date/Time: 03/10/19 15:44 Chief Complaint: Pain (Generalized) Stated Complaint: NOT SLEEPING,PAIN ALL OVER ED Provider: Herlinda Dash Discharge Problem: Neutropenic fever Patient Disposition: Admitted As Inpatient Discharge Instructions Interventions: ED Discharge Assessment Last Done: 03/10/19 15:44 The scribe's documentation has been prepared under my direction and personally reviewed by me in its entirety. I confirm that the note above accurately reflects all work, treatment, procedures, and medical decision making performed by me.
[2019-03-10] MEDS ORDERED: ALBUTEROL HFA 8 GM INHALER INH PRN (16:39)
[2019-03-10] MEDS ORDERED: ONDANSETRON INJ 2 MG/ML 2 ML VIAL IV PRN (16:39)
[2019-03-10] MEDS ORDERED: ALUMINUM/MAGNESIUM SUSP 30 ML UDC PO PRN (16:39)
[2019-03-10] MEDS ORDERED: CONSULT PHARMACY STA (16:39)
[2019-03-10] MEDS: ACETAMINOPHEN 325 MG TAB PO PRN ×2 (17:12→21:02)
[2019-03-10] MEDS: CEFEPIME 1,000 MG in SYRINGE 0 ML IV SCH (19:48)
[2019-03-10] MEDS: PIPERACILLIN/TAZOBACTAM 3.375 GM in DEXTROSE 5% 100 ML IV SCH (19:49)
[2019-03-10] MEDS: PANTOprazole 40 MG TAB PO SCH (21:03)
[2019-03-10] MEDS: TRAZODONE HCL 50 MG TAB PO SCH (21:04)
--- NOTE | 2019-03-10 21:29 | History & Physical Report ---
Date of Service March 10, 2019 Assessment & Plan (1) Neutropenic fever: Isolation precautions. Administer intravenous vancomycin and cefepime. Obtain blood cultures. Consult infectious disease. Serial lab tests Present on Admission?: Yes (2) Thrombocytopenia due to hypersplenism: Mild thrombocytopenia probably due to splenomegaly associated with cirrhosis. Will follow Present on Admission?: Yes (3) Cirrhosis of liver: Due to alcoholism. Elevated liver function tests as expected. Will follow Present on Admission?: Yes (4) Alcohol abuse: The patient has not had anything to drink for several months. Withdrawal symptoms are not likely at this time. Will follow History of Present Illness Chief Complaint: Right lateral chest pain, malaise Primary Care Provider: [facility] 63-year-old alcoholic male who is a very poor historian. He presents with right-sided chest discomfort and right flank pain and right hip pain of uncertain duration but probably for several days. He denies falling down. X- rays are negative for fracture. He has a low-grade fever and interestingly he is markedly neutropenic which is new for him. He has mild thrombocytopenia but this probably is related to chronic splenomegaly from his cirrhosis. Liver function tests are mildly elevated and lipase is 702 although he does not have symptoms of acute pancreatitis. Abdominal CT scan revealed cirrhosis with varices and a small amount of ascites. Abdominal ultrasound is negative except for cirrhosis. Blood cultures have been obtained. He was given Zosyn in the ED. He will be admitted with neutropenic fever and started on vancomycin and cefepime. Hematology consultation and infectious disease consultation will be requested. Isolation precautions have been ordered. Allergies Allergy/AdvReac Type Severity Reaction Status Date / Time codeine Allergy Unknown Verified 03/10/19 12:00 Home Medications Home Medications Medication Instructions Recorded Confirmed Type albuterol sulfate 2 puff INHALATION Q4H PRN 06/15/18 03/10/19 History folic acid 1 mg PO DAILY 06/15/18 03/10/19 History thiamine HCl (vitamin B1) 100 mg PO DAILY 06/15/18 03/10/19 History dexlansoprazole [Dexilant] 30 mg PO BID 03/10/19 03/10/19 History tramadol 50 mg PO HS PRN 03/10/19 03/10/19 History trazodone 50 mg PO HS 03/10/19 03/10/19 History Past Med/Surg History Medical History Coffee ground emesis Cirrhosis of liver Anemia (Acute) Parotiditis Alcohol abuse Hypertension Alcoholism (Acute) Hepatitis C antibody test positive No significant past surgical history Surgical History H/O endoscopy Loss of teeth due to extraction Social History Preferred Language: Guinean Communication Ability: Effective Beliefs That Will Affect Care: None Current Living Situation: Spouse Feels Safe at Home: Yes Smoking Status: Current every day smoker Tobacco Type: cigarettes Cigarettes Per Day: 1/2 ppd Hx Alcohol Use: Yes Alcohol type: beer Hx Substance Use: No Review of Systems Review of Systems: Other (Unobtainable due to patient noncompliance) Physical Exam Constitutional: + ill appearing, + thin, + frail appearing and + disheveled Eyes: PERRL, conjunctivae normal, anicteric sclerae ENMT: Mouth: + dry oral mucous membranes Dry oral mucosa Neck: trachea midline, no thyromegaly Respiratory: normal respiratory effort, lungs clear to auscultation Cardiovascular: Rate/Rhythm: regular rhythm and + tachycardic Heart Sounds: normal S1 and normal S2 Gastrointestinal (Abdomen): Inspection/Auscultation: abdomen normal to inspection and normal bowel sounds Percussion/Palpation: abdomen soft; abdomen nontender and no guarding Musculoskeletal: Head/Neck/Chest: + chest tenderness (Right posterior lateral chest wall area) and + localized rib tenderness (Right lateral chest. No palpable rib fractures); no chest wall crepitus Extremities: + abnormal strength (Mild generalized weakness) Skin: no rashes, warm and dry Neurologic: CN's II-XI intact bilaterally and moves all extremities; no focal motor deficits Psychiatric: Orientation: alert Affect: + depressed affect Results & Data Vital Signs (Past 12 Hours) Vital Signs Temp Pulse Pulse Resp BP BP Pulse Ox 03/10/19 15:23 120 H 20 181/98 H 95 03/10/19 14:19 25 H 150/90 H 90 03/10/19 14:18 13 03/10/19 13:30 107 H 165/82 H 03/10/19 13:22 97 H 105 H 12 161/96 H 161/96 H 92 03/10/19 10:49 37.8 C H 102 H 20 148/72 H 97 Laboratory Results 03/10/19 11:47 03/10/19 11:47
[2019-03-11] MEDS: CEFEPIME 1,000 MG in SYRINGE 0 ML IV SCH ×3 (01:22→17:36)
[2019-03-11] MEDS: ACETAMINOPHEN 325 MG TAB PO PRN ×3 (01:22→15:35)
[2019-03-11] MEDS: HYDROmorphone INJ 0.5 MG/0.5 ML SYR IV PRN (02:22)
[2019-03-11] MEDS: VANCOMYCIN HCL 1,000 MG in SODIUM CHLORIDE 0.9% 250 ML IV SCH ×2 (03:33→14:21)
[2019-03-11] MEDS: PIPERACILLIN/TAZOBACTAM 3.375 GM in DEXTROSE 5% 100 ML IV SCH ×2 (03:34→11:31)
--- NOTE | 2019-03-11 07:04 | Infectious Disease Consult ---
Date of Consultation March 11, 2019 Assessment & Plan (1) Neutropenic fever: unclear etiology, continue emperic abx, follow cultures. currently afebrile, suspect LFTs elevated due to cirrhosis, have been elevated in the past will start emperic doxy and check for anaplasma as well. History of Present Illness Attending Physician: Geo Valente MD pt admitted with right side abd pain, has h/o etoh abuse. ultrasound/ct abd revealed cirrhosis but no gallstones. LFTs elevated AST 136, ALT 98, lipase 700, no pancreatitis noted on ct. now resting in bed, moaning, lethargic. had fever of 38.2 overnight. UA negative, CXR negative, found to have wbc of 0.75, no h/o leukopenia. Placed on neutropenic precautions. blood cultures pending. UA negative. denies cough, cp, sob, but states mouth is dry. no n/v/d. Placed on c efepime, zosyn and vanco, tolerating well. Allergies Allergy/AdvReac Type Severity Reaction Status Date / Time codeine Allergy Unknown Verified 03/10/19 12:00 Home Medications Home Medications Medication Instructions Recorded Confirmed Type albuterol sulfate 2 puff INHALATION Q4H PRN 06/15/18 03/10/19 History folic acid 1 mg PO DAILY 06/15/18 03/10/19 History thiamine HCl (vitamin B1) 100 mg PO DAILY 06/15/18 03/10/19 History dexlansoprazole [Dexilant] 30 mg PO BID 03/10/19 03/10/19 History tramadol 50 mg PO HS PRN 03/10/19 03/10/19 History trazodone 50 mg PO HS 03/10/19 03/10/19 History Patient History Medical History 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) Neutropenic fever (Acute) Coffee ground emesis Cirrhosis of liver (Chronic) Anemia (Acute) Parotiditis Alcohol abuse (Chronic) Hypertension Alcoholism (Acute) Hepatitis C antibody test positive No significant past surgical history Surgical History H/O endoscopy Loss of teeth due to extraction Family History Other Diabetes Hypertension Social History Preferred Language: Urdu Communication Ability: Effective Beliefs That Will Affect Care: None Current Living Situation: Spouse Feels Safe at Home: Yes Safety Concerns: Feels Safe At This Time Smoking Status: Current every day smoker Tobacco Type: cigarettes Cigarettes Per Day: used to smoke 1 1/2ppd now smokes only 1/2 pack a day Tobacco Cessation Education Requested by Patient: No Hx Alcohol Use: Yes Alcohol type: beer Hx Substance Use: No Review of Systems Review of Systems: All systems reviewed & are unremarkable except as noted in HPI & below Physical Exam Constitutional: WD/WN, vitals as above ENMT: dry mm Neck: normal visual inspection Respiratory: normal respiratory effort, lungs clear to auscultation Auscultation: + diminished lung sounds Cardiovascular: RRR, no murmur, no edema Gastrointestinal (Abdomen): normal bowel sounds, soft, nontender, no hepatosplenomegaly Musculoskeletal: Head/Neck/Chest: + head abnormal to inspection, normocephalic, head atraumatic and neck supple Skin: no rashes, warm and dry Psychiatric: lethargic but answers questions Results & Data Vital Signs (Past 12 Hours) Vital Signs Temp Pulse Resp BP Pulse Ox 03/11/19 05:55 37.2 C 03/11/19 04:55 37.3 C 96 H 18 127/64 96 03/11/19 00:01 38.2 C H 98 H 18 106/40 L 98 03/10/19 20:16 38.1 C H 103 H 16 131/61 96
--- NOTE | 2019-03-11 07:43 | Hospitalist Progress Note ---
Date of Service March 11, 2019 Assessment & Plan (1) Neutropenic fever: Neutropenic precautions. doxycycline, vancomycin and cefepime. MRSA seen on one of the blood cultures. Consult infectious disease added doxycycline due to concerns for anaplasmosis, appropriate labs sent (2) Thrombocytopenia due to hypersplenism: Mild thrombocytopenia probably due to splenomegaly associated with cirrhosis. could also be from a tic borne illness (3) Cirrhosis of liver: Due to alcoholism. Elevated liver function tests as expected. U/S is seen to have the start of cirrhosis (4) Alcohol abuse: The patient has not had anything to drink for several months. Withdrawal symptoms are not likely at this time. Will follow Subjective pt is generally feeling improved, he is having some variable joint pain. he has no other focal issues, concern for anaplasmosis given constellation of lab results Review of Systems Review of Systems: ROS: well nourished well developed. No double vision blurry vision No problems with speech or swallowing No palpitations, chest pain or pressure No Wheezing or breathing issues No abdominal pain nausea vomiting diarrhea changes in appetite or weight No burning urine urine frequency or changes in color diffuse joint pain, mostly knees and hands No skin rashes or oral lesions No unusual bruising or bleeding No focused back pain or numbness or loss of strength No changes in memory or confusion Physical Exam Physical Exam: The patient appeared well nourished and normally developed. Vital signs as documented. Head exam is unremarkable. normocephalic, atraumatic. oral pharnyx is clear from lesions Neck is without jugular venous distension, thyromegaly, or lymphademopathy Lungs are clear to auscultation and percussion. Cardiac exam reveals Rhythm is regular. First and second heart sounds normal. Abdominal exam reveals normal bowel sounds, no masses, no organomegaly Extremities are nonedematous and joints are not enlarged or inflamed Neurologic exam is A&Ox3, no focal deficits, strength is equal bilateral Psychologically seems neither anxious or depressed Skin is warm Dry without bruises or lesions Results & Data Vital Signs (Past 12 Hours) Vital Signs Temp Pulse Resp BP Pulse Ox 03/11/19 07:26 37.0 C 102 H 18 144/58 H 96 03/11/19 05:55 37.2 C 03/11/19 04:55 37.3 C 96 H 18 127/64 96 03/11/19 00:01 38.2 C H 98 H 18 106/40 L 98 03/10/19 20:16 38.1 C H 103 H 16 131/61 96
[2019-03-11 07:57] LABS: Hematocrit (blood only) 32.5 % (42-52); Hemoglobin 11.3 g/dL (14.0-18.0); Mean Corpuscular Hgb Conc 34.8 g/dL (32-36); Mean Corpuscular Volume 85.3 fL (80-100); Mean Platelet Volume 8.1 fL (7.4-10.4); Platelet Count 78 K/uL (130-400); RDW Coefficient of Variation 19.4 % (11.5-14.5); RDW Standard Deviation 60.9 fL (36.4-46.3); Red Blood Count 3.81 M/uL (4.7-6.1)
[2019-03-11 08:17] LABS: Albumin Level 2.2 gm/dl (3.4-5.0); BUN Creatinine Ratio 14.3 (10-20); Calcium 8.6 mg/dl (8.5-10.1); Creatinine Clr Calc Pharmacy 70.7 ml/min; Est GFR (African American) 97.3; Est GFR (Non-African American) 83.9; Potassium 4.1 mmol/L (3.5-5.1)
[2019-03-11 08:26] LABS: Albumin Globulin Ratio 0.4 (0.9-2); Bilirubin,Total 2.2 mg/dl (0.2-1); Total Protein 7.2 gm/dl (6.4-8.2)
[2019-03-11 08:27] LABS: Giant Platelets 3+
[2019-03-11] MEDS: THIAMINE HCL 100 MG TAB PO SCH (08:41)
[2019-03-11] MEDS: FOLIC ACID 1 MG TAB PO SCH (08:41)
[2019-03-11] MEDS: DOXYCYCLINE HYCLATE 100 MG CAP PO SCH ×2 (08:41→20:41)
[2019-03-11] MEDS: PANTOprazole 40 MG TAB PO SCH ×2 (08:41→20:40)
[2019-03-11 08:43] LABS: ALC (manual) 0.97 K/uL (1.2-3.4); Basophils # (manual) 0.02 K/uL (0-0.2); Basophils % (manual) 1.7 %; Eosinophils # (manual) 0.01 K/uL (0-0.5); Eosinophils % (manual) 0.9 %; Lymphocytes # (manual) 0.97 K/uL (1.2-3.4); Lymphocytes % (manual) 80.9 %; Monocytes # (manual) 0.18 K/uL (0.11-0.59); Monocytes % (manual) 14.8 %; Neutrophils % (manual) 1.7 %
[2019-03-11] MEDS: TRAZODONE HCL 50 MG TAB PO SCH (20:41)
[2019-03-12] MEDS: ACETAMINOPHEN 325 MG TAB PO PRN ×2 (00:13→15:59)
[2019-03-12] MEDS: CEFEPIME 1,000 MG in SYRINGE 0 ML IV SCH ×2 (01:36→08:28)
[2019-03-12] MEDS: HYDROmorphone INJ 0.5 MG/0.5 ML SYR IV PRN (02:57)
[2019-03-12] MEDS: VANCOMYCIN HCL 1,000 MG in SODIUM CHLORIDE 0.9% 250 ML IV SCH ×2 (02:57→15:40)
[2019-03-12 06:04] LABS: Mean Corpuscular Hgb Conc 34.9 g/dL (32-36)
[2019-03-12 06:07] LABS: Hematocrit (blood only) 29.2 % (42-52); Hemoglobin 10.2 g/dL (14.0-18.0); Mean Corpuscular Volume 86.1 fL (80-100); Mean Platelet Volume 8.9 fL (7.4-10.4); Platelet Count 73 K/uL (130-400); RDW Coefficient of Variation 19.4 % (11.5-14.5); RDW Standard Deviation 61.9 fL (36.4-46.3); Red Blood Count 3.39 M/uL (4.7-6.1); White Blood Count 1.26 K/uL (4.8-10.8)
[2019-03-12 06:42] LABS: Albumin Level 1.9 gm/dl (3.4-5.0); BUN Creatinine Ratio 19.7 (10-20); Calcium 8.4 mg/dl (8.5-10.1); Creatinine Clr Calc Pharmacy 96.6 ml/min; Est GFR (African American) 117.4; Est GFR (Non-African American) 101.3
[2019-03-12 06:44] LABS: Albumin Globulin Ratio 0.4 (0.9-2); Bilirubin,Total 1.7 mg/dl (0.2-1); Globulin 4.5 gm/dl (2.5-4.0); Total Protein 6.4 gm/dl (6.4-8.2)
[2019-03-12 07:13] LABS: ALC (manual) 0.89 K/uL (1.2-3.4); Basophils # (manual) 0.08 K/uL (0-0.2); Eosinophils # (manual) 0.03 K/uL (0-0.5); Lymphocytes # (manual) 0.89 K/uL (1.2-3.4); Monocytes # (manual) 0.26 K/uL (0.11-0.59)
[2019-03-12] MEDS: FOLIC ACID 1 MG TAB PO SCH (08:28)
[2019-03-12] MEDS: DOXYCYCLINE HYCLATE 100 MG CAP PO SCH ×2 (08:28→20:53)
[2019-03-12] MEDS: THIAMINE HCL 100 MG TAB PO SCH (08:28)
[2019-03-12] MEDS: PANTOprazole 40 MG TAB PO SCH ×2 (08:28→20:53)
--- NOTE | 2019-03-12 11:32 | Infectious Disease Progress Nt ---
Date of Service March 12, 2019 Assessment & Plan (1) Neutropenic fever: repeat blood cultures continue vanco, will stop cefepime. follow cultures, will repeat. currently afebrile, suspect LFTs elevated due to cirrhosis, have been elevated in the past will start emperic doxy and check for anaplasma as well. needs echo. (2) Gram positive sepsis: Subjective much more awake today, wbc improved >1. fever overnight 38.1, denies f/c. c/o right knee and right rib pain, unsure if he had fall/trauma at home. blood cultures growing staph 2/2 sets, additional data pending, remains on abx, tolerating well. no cp, sob, cough, no n/v/d/abd pian, no gu symptoms. pain mostly with ambulation/movement, no pain with deep inspiration. Review of Systems Review of Systems: All systems reviewed & are unremarkable except as noted in HPI & below Physical Exam Constitutional: WD/WN, vitals as above Eyes: PERRL, conjunctivae normal, anicteric sclerae Neck: normal visual inspection Respiratory: normal respiratory effort, lungs clear to auscultation Auscultation: + diminished lung sounds Cardiovascular: RRR, no murmur, no edema Gastrointestinal (Abdomen): normal bowel sounds, soft, nontender, no hepatosplenomegaly Musculoskeletal: Head/Neck/Chest: + head abnormal to inspection, normocephalic, head atraumatic and neck supple Skin: no rashes, warm and dry right knee without swelling, no warmth, erythema, bruising, tender to deep palpaiton. Psychiatric: A+Ox3, euthymic affect Results & Data Vital Signs (Past 12 Hours) Vital Signs Temp Pulse Resp BP Pulse Ox 03/12/19 08:04 37 C 85 18 137/71 94 03/12/19 04:19 36.4 C L 93 H 18 121/65 94 03/12/19 00:08 38.1 C H 101 H 18 159/72 H 96 Laboratory Results Microbiology 03/10/19 14:00 Urine,Clean Catch Urine Culture - Final More than three types of organisms present, all high counts mixed probable skin olivia - No further identifications or sensitivities to follow. 03/10/19 13:25 Blood Aerobic Blood Culture - Preliminary Staphylococcus aureus 03/10/19 13:25 Blood Anaerobic Blood Culture - Preliminary Staphylococcus aureus 03/10/19 13:24 Blood Aerobic Blood Culture - Preliminary No growth in Aerobic bottle after 24 hours. 03/10/19 13:24 Blood Anaerobic Blood Culture - Preliminary No growth in Anaerobic bottle after 24 hours.
[2019-03-12] MEDS ORDERED: VANCOMYCIN TROUGH ONE (14:30)
[2019-03-12] MEDS: TRAZODONE HCL 50 MG TAB PO SCH (20:53)
--- NOTE | 2019-03-12 21:43 | Hospitalist Progress Note ---
Date of Service March 12, 2019 Assessment & Plan (1) Neutropenic fever: Neutropenic precautions. doxycycline, vancomycin and cefepime. MRSA seen on one of the blood cultures. Consult infectious disease added doxycycline due to concerns for anaplasmosis, appropriate labs sent. Patient will continue on vanc and cefepime, Patient is still having intermittent fevers. 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 could also be from a tick borne illness (3) Cirrhosis of liver: Due to alcoholism. Elevated liver function tests as expected. U/S is seen to have the start of cirrhosis (4) Alcohol abuse: The patient has not had anything to drink for several months. Withdrawal symptoms are not likely at this time. Will follow. Spent 35 minutes in management of patient. Reviewed chart. Subjective Patient reports being more awake. He denies any new complaints today. Review of Systems Review of Systems: ROS: well nourished well developed. No double vision blurry vision No problems with speech or swallowing No palpitations, chest pain or pressure No Wheezing or breathing issues No abdominal pain nausea vomiting diarrhea changes in appetite or weight No burning urine urine frequency or changes in color diffuse joint pain, mostly knees and hands No skin rashes or oral lesions No unusual bruising or bleeding No focused back pain or numbness or loss of strength No changes in memory or confusion Physical Exam Physical Exam: The patient appeared well nourished and normally developed. Vital signs as documented. Head exam is unremarkable. normocephalic, atraumatic. oral pharnyx is clear from lesions Neck is without jugular venous distension, thyromegaly, or lymphademopathy Lungs are clear to auscultation and percussion. Cardiac exam reveals Rhythm is regular. First and second heart sounds normal. Abdominal exam reveals normal bowel sounds, no masses, no organomegaly Extremities are nonedematous and joints are not enlarged or inflamed Neurologic exam is A&Ox3, no focal deficits, strength is equal bilateral Psychologically seems neither anxious or depressed Skin is warm Dry without bruises or lesions Results & Data Vital Signs (Past 12 Hours) Vital Signs Temp Pulse Resp BP BP Pulse Ox 03/12/19 19:38 37.4 C 92 H 16 131/66 96 03/12/19 15:05 38.1 C H 87 16 148/68 H 98 06/03/19 12:03 37.2 C 91 H 20 159/78 H 98
[2019-03-13] MEDS: VANCOMYCIN HCL 1,000 MG in SODIUM CHLORIDE 0.9% 250 ML IV SCH ×2 (00:04→09:14)
[2019-03-13] MEDS: HYDROmorphone INJ 0.5 MG/0.5 ML SYR IV PRN ×2 (02:30→21:42)
[2019-03-13 07:31] LABS: Mean Corpuscular Hgb Conc 34.9 g/dL (32-36)
[2019-03-13 07:45] LABS: Mean Platelet Volume 9.4 fL (7.4-10.4); Platelet Count 92 K/uL (130-400)
[2019-03-13 08:05] LABS: Albumin Level 1.8 gm/dl (3.4-5.0); Calcium 7.9 mg/dl (8.5-10.1); Creatinine Clr Calc Pharmacy 100.2 ml/min; Est GFR (African American) 118.8; Est GFR (Non-African American) 102.5; Potassium 3.7 mmol/L (3.5-5.1)
[2019-03-13 08:08] LABS: Albumin Globulin Ratio 0.4 (0.9-2); Bilirubin,Total 1.3 mg/dl (0.2-1); Globulin 4.6 gm/dl (2.5-4.0); Total Protein 6.4 gm/dl (6.4-8.2)
[2019-03-13 08:18] LABS: Hematocrit (blood only) 28.9 % (42-52); Hemoglobin 10.1 g/dL (14.0-18.0); Mean Corpuscular Volume 85.8 fL (80-100); RDW Coefficient of Variation 19.1 % (11.5-14.5); RDW Standard Deviation 60.3 fL (36.4-46.3); Red Blood Count 3.37 M/uL (4.7-6.1); White Blood Count 1.22 K/uL (4.8-10.8)
[2019-03-13 08:23] LABS: Giant Platelets 1+; Platelet Estimate Decreased (Normal); Smudge Cells Present
[2019-03-13 08:26] LABS: ALC (manual) 0.91 K/uL (1.2-3.4); Basophils # (manual) 0.09 K/uL (0-0.2); Basophils % (manual) 7.1 %; Lymphocytes # (manual) 0.91 K/uL (1.2-3.4); Lymphocytes % (manual) 74.3 %; Monocytes # (manual) 0.13 K/uL (0.11-0.59); Monocytes % (manual) 10.6 %
[2019-03-13] MEDS: DOXYCYCLINE HYCLATE 100 MG CAP PO SCH ×2 (09:14→20:13)
[2019-03-13] MEDS: FOLIC ACID 1 MG TAB PO SCH (09:15)
[2019-03-13] MEDS: THIAMINE HCL 100 MG TAB PO SCH (09:15)
[2019-03-13] MEDS: PANTOprazole 40 MG TAB PO SCH ×2 (09:15→20:13)
[2019-03-13] MEDS ORDERED: DAPTOMYCIN CONSULT ACTIVE PRN (10:19)
--- NOTE | 2019-03-13 13:32 | Infectious Disease Progress Nt ---
Date of Service March 13, 2019 Assessment & Plan (1) Neutropenic fever: repeat blood cultures pending, will follow. continue vanco, currently afebrile, suspect LFTs elevated due to cirrhosis, have been elevated in the past will start emperic doxy and check for anaplasma as well. needs echo. (2) Gram positive sepsis: Subjective pt seen in followup, doing well. oob to chair, eating lunch on my exam. knee and rib pain improved today. remains on IV vanco and po doxy. wbc improved today. tmax 38.1 overnight. currently afebrile. denies cp, sob, cough, no n/v/d/abd pain, eating well. LFTs improving, wbc 1.2 03/10 blood cultures 1/2 sets MRSA, repeat cultures 03/12 pending. Echo pending. Overall states he is feeling much better. Review of Systems Review of Systems: All systems reviewed & are unremarkable except as noted in HPI & below Physical Exam Constitutional: WD/WN, vitals as above Eyes: PERRL, conjunctivae normal, anicteric sclerae Neck: normal visual inspection Respiratory: normal respiratory effort, lungs clear to auscultation Auscultation: + diminished lung sounds Cardiovascular: RRR, no murmur, no edema Gastrointestinal (Abdomen): normal bowel sounds, soft, nontender, no hepatosplenomegaly Musculoskeletal: Head/Neck/Chest: + head abnormal to inspection, normocephalic, head atraumatic and neck supple Skin: no rashes, warm and dry Psychiatric: A+Ox3, euthymic affect Results & Data Vital Signs (Past 12 Hours) Vital Signs Temp Pulse Resp BP Pulse Ox 03/13/19 11:45 37.6 C H 94 H 16 146/75 H 96 03/13/19 07:28 37.3 C 97 H 16 153/71 H 94 03/13/19 04:23 37 C 90 16 133/66 96 Laboratory Results Microbiology 03/12/19 12:15 Blood Aerobic Blood Culture - Preliminary No growth in Aerobic bottle after 24 hours. 03/12/19 12:15 Blood Anaerobic Blood Culture - Preliminary No growth in Anaerobic bottle after 24 hours. 03/12/19 12:05 Blood Aerobic Blood Culture - Preliminary No growth in Aerobic bottle after 24 hours. 03/12/19 12:05 Blood Anaerobic Blood Culture - Preliminary No growth in Anaerobic bottle after 24 hours. 03/10/19 13:25 Blood Aerobic Blood Culture - Final Staph aureus MRSA 03/10/19 13:25 Blood Anaerobic Blood Culture - Final Staph aureus MRSA 03/10/19 13:24 Blood Aerobic Blood Culture - Preliminary No growth in Aerobic bottle after 48 hours. 03/10/19 13:24 Blood Anaerobic Blood Culture - Preliminary No growth in Anaerobic bottle after 48 hours. 03/10/19 14:00 Urine,Clean Catch Urine Culture - Final More than three types of organisms present, all high counts mixed probable skin olivia - No further identifications or sensitivities to follow.
[2019-03-13] MEDS: DAPTOmycin 375 MG in SYRINGE 0 ML IV SCH (14:15)
[2019-03-13] MEDS: ACETAMINOPHEN 325 MG TAB PO PRN ×2 (18:17)
--- NOTE | 2019-03-13 19:49 | Anesthesiology Consultation ---
Date of Service March 13, 2019 Assessment & Plan Chart Review Chart Review: Acceptable Risk for Surgery Consults Requested none History Height/Weight Height: 5 ft 9 in Weight: 63 kg Allergies Allergy/AdvReac Type Severity Reaction Status Date / Time codeine Allergy Unknown Verified 03/10/19 12:00 Medications Home Medications Medication Instructions Recorded Confirmed Last Taken albuterol sulfate 2 puff INHALATION Q4H PRN 06/15/18 03/10/19 09/11/18 folic acid 1 mg PO DAILY 06/15/18 03/10/19 03/10/19 thiamine HCl (vitamin B1) 100 mg PO DAILY 06/15/18 03/10/19 03/10/19 dexlansoprazole [Dexilant] 30 mg PO BID 03/10/19 03/10/19 03/10/19 tramadol 50 mg PO HS PRN 03/10/19 03/10/19 03/09/19 trazodone 50 mg PO HS 03/10/19 03/10/19 03/09/19 Active Medications Generic Name Dose Route Start Last Admin Trade Name Michaelq PRN Reason Stop Dose Admin Acetaminophen 650 mg 03/10/19 16:39 03/13/19 18:17 Tylenol PO 04/09/19 16:38 650 mg Q4H PRN Administration pain/fever Doxycycline Hyclate 100 mg 03/11/19 09:00 03/13/19 09:14 Vibramycin PO 03/21/19 08:59 100 mg BID JOCELYNN Administration Folic Acid 1 mg 03/11/19 09:00 03/13/19 09:15 Folvite PO 04/10/19 08:59 1 mg DAILY JOCELYNN Administration Hydromorphone HCl 0.5 mg 03/11/19 02:08 03/13/19 02:30 Dilaudid IV 03/25/19 02:07 0.5 mg Q4 PRN Administration Pain Daptomycin 375 mg/ Syringe 7.5 mls @ 3.75 mls/min 03/13/19 14:00 03/13/19 14:15 IV 03/24/19 13:59 3.75 mls/min Q24H JOCELYNN Administration Protocol Ioversol 94 ml 03/10/19 13:41 03/10/19 13:41 Optiray 320 100ml IV 03/14/19 13:40 94 ml ONCE PRN Administration Interaction Checking Pantoprazole Sodium 40 mg 03/10/19 21:00 03/13/19 09:15 Protonix PO 04/09/19 20:59 40 mg BID JOCELYNN Administration Protocol Thiamine HCl 100 mg 03/11/19 09:00 03/13/19 09:15 Vitamin B-1 PO 04/10/19 08:59 100 mg DAILY JOCELYNN Administration Trazodone HCl 50 mg 03/10/19 21:00 03/12/19 20:53 Desyrel PO 04/09/19 20:59 50 mg HS JOCELYNN Administration Past Medical History Medical History 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) Neutropenic fever (Acute) Coffee ground emesis Cirrhosis of liver (Chronic) Anemia (Acute) Parotiditis Alcohol abuse (Chronic) Hypertension Alcoholism (Acute) Hepatitis C antibody test positive No significant past surgical history Past Family History Family History Other Diabetes Hypertension Past Surgical History Surgical History H/O endoscopy Loss of teeth due to extraction Social History Smoking Status: Current every day smoker tobacco type: cigarettes Smoking cigarettes per day: used to smoke 1 1/2ppd now smokes only 1/2 pack a day Hx Alcohol Use: Yes Alcohol type: beer alcohol intake frequency: 3 or more drinks per day Alcohol Intake Frequency Comment: quit drinking in december Hx Substance Use: No substance use type: does not use Physical Exam Vital Signs Last Vital Signs Temp 37.8 C H 03/13/19 19:30 Pulse 100 H 03/13/19 19:30 Resp 18 03/13/19 19:30 BP 163/78 H 03/13/19 19:30 Pulse Ox 96 03/13/19 19:30
[2019-03-13] MEDS: TRAZODONE HCL 50 MG TAB PO SCH (20:13)
--- NOTE | 2019-03-13 22:45 | Hospitalist Progress Note ---
Date of Service March 13, 2019 Assessment & Plan (1) Neutropenic fever: Agranulocytosis Neutropenic precautions. doxycycline, vancomycin and cefepime. MRSA seen on one of the blood cultures. Consult infectious disease added doxycycline due to concerns for anaplasmosis, appropriate labs sent. Patient will continue on vanc and cefepime, Patient is still having intermittent fevers. Awaiting input from hem/onc Unsure of cause of agranulocytosis. Concern as bpatient has bacteremia with MRSA. 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 could also be from a tick borne illness (3) Cirrhosis of liver: Due to alcoholism. Elevated liver function tests as expected. U/S is seen to have the start of cirrhosis (4) Alcohol abuse: The patient has not had anything to drink for several months. Withdrawal symptoms are not likely at this time. Will follow. Subjective Patient reports no new symptoms. Patient is a poor historian. Review of Systems Review of Systems: ROS: well nourished well developed. No double vision blurry vision No problems with speech or swallowing No palpitations, chest pain or pressure No Wheezing or breathing issues No abdominal pain nausea vomiting diarrhea changes in appetite or weight No burning urine urine frequency or changes in color diffuse joint pain, mostly knees and hands No skin rashes or oral lesions No unusual bruising or bleeding No focused back pain or numbness or loss of strength No changes in memory or confusion Physical Exam Physical Exam: The patient appeared well nourished and normally developed. Vital signs as documented. Head exam is unremarkable. normocephalic, atraumatic. oral pharnyx is clear from lesions Neck is without jugular venous distension, thyromegaly, or lymphademopathy Lungs are clear to auscultation and percussion. Cardiac exam reveals Rhythm is regular. First and second heart sounds normal. Abdominal exam reveals normal bowel sounds, no masses, no organomegaly Extremities are nonedematous and joints are not enlarged or inflamed Neurologic exam is A&Ox3, no focal deficits, strength is equal bilateral Psychologically seems neither anxious or depressed Skin is warm Dry without bruises or lesions Results & Data Vital Signs (Past 12 Hours) Vital Signs Temp Pulse Resp BP BP Pulse Ox 03/13/19 21:23 37.5 C 03/13/19 19:30 37.8 C H 100 H 18 163/78 H 96 06/04/19 14:52 37.4 C 99 H 16 164/75 H 94 03/13/19 11:45 37.6 C H 94 H 16 146/75 H 96
[2019-03-14] MEDS: ACETAMINOPHEN 325 MG TAB PO PRN ×2 (06:05→19:33)
[2019-03-14] MEDS: HYDROmorphone INJ 0.5 MG/0.5 ML SYR IV PRN ×2 (06:23→21:14)
[2019-03-14] MEDS ORDERED: fentaNYL citrate 100 MCG/2 ML VIAL ONE (08:01)
[2019-03-14] MEDS ORDERED: BENZOCAIN/TETRACA/BUTAM SPRAY 200 APPLN/20 GM SPRY EXT ONE (08:02)
[2019-03-14] MEDS ORDERED: CANNULA ONE (08:02)
[2019-03-14] MEDS ORDERED: MIDAZOLAM HCL 1 MG/ML 2ML VIAL ONE (08:02)
--- NOTE | 2019-03-14 08:15 | Pre Anesthesia Assessment ---
Date of Service March 14, 2019 Pre Sedation Assessment Vital Signs Temp Pulse Pulse Resp BP BP Pulse Ox 03/14/19 07:42 37.1 C 88 20 123/64 93 03/14/19 06:00 37.8 C H 90 22 95 03/14/19 04:37 37.2 C 101 H 18 139/70 94 03/13/19 23:53 37.0 C 96 H 18 157/76 H 95 03/13/19 21:23 37.5 C 03/13/19 19:30 37.8 C H 100 H 18 163/78 H 96 03/13/19 14:52 37.4 C 99 H 16 164/75 H 94 03/13/19 11:45 37.6 C H 94 H 16 146/75 H 96 Cardiovascular + regular rate Respiratory + respiratory effort normal Pre-Sedation Airway Assessment Smoking Status: Current every day smoker Hx Sleep Apnea: No Hx Difficult Intubation: No Short, Thick Neck: No Thyromental Distance: > or= 3.5 Finger Breadths Oral Cavity: + Dentures Mallampati Class: III ASA: ASA3 Procedure Planning Contraindications for Sedation: none Current Medications Reviewed: Yes Notes The planned sedation has been discussed with the patient. Informed Consent was obtained. I have identified the patient, determined the appropriateness of sedation and have assessed the patient immediately prior to the procedure. All medicine(s) and interventions are by my order.
--- NOTE | 2019-03-14 08:39 | Post Operative Brief Note ---
Cardiology Brief Post Op Date of Surgery March 14, 2019 Pre & Post Diagnosis Operation Date: 03/14/19 08:15 <No data on this case meets the specified criteria> Procedure ABBE [employer] aMrgarito Griffith MD Spindle Carver none Estimated Blood Loss 0 Findings See Below No evidence of valvular vegetations No significant valvular heart disease, insufficiency or stenosis No thrombus in left atrial appendage Tricuspid aortic valve Calcification and plaquing involving the aortic root and ascending aorta. Anesthesia Type RN Sedation Complications none Disposition Accompanied Patient To Recovery: No Disposition: PCU Overlapping Procedure I was immediately available: during the entire case.
[2019-03-14] MEDS ORDERED: FILGRASTIM 300 MCG/ML VIAL SQ SCH (09:45)
[2019-03-14] MEDS: PANTOprazole 40 MG TAB PO SCH ×2 (10:16→21:15)
[2019-03-14] MEDS: FOLIC ACID 1 MG TAB PO SCH (10:17)
[2019-03-14] MEDS: THIAMINE HCL 100 MG TAB PO SCH (10:17)
[2019-03-14] MEDS: DOXYCYCLINE HYCLATE 100 MG CAP PO SCH ×2 (10:17→21:15)
[2019-03-14 10:31] LABS: BUN Creatinine Ratio 15.3 (10-20); Calcium 8.1 mg/dl (8.5-10.1); Creatinine Clr Calc Pharmacy 103.6 ml/min; Est GFR (African American) 119.5; Est GFR (Non-African American) 103.1; Potassium 3.7 mmol/L (3.5-5.1)
[2019-03-14 10:35] LABS: Folate (Folic Acid) 19.83 ng/ml (>5.38)
[2019-03-14 10:38] LABS: Hematocrit (blood only) 29.6 % (42-52); Hemoglobin 10.1 g/dL (14.0-18.0); Mean Corpuscular Hgb Conc 34.1 g/dL (32-36); Mean Corpuscular Volume 86.8 fL (80-100); Mean Platelet Volume 9.3 fL (7.4-10.4); Platelet Count 102 K/uL (130-400); RDW Coefficient of Variation 19.4 % (11.5-14.5); RDW Standard Deviation 61.5 fL (36.4-46.3); Red Blood Count 3.41 M/uL (4.7-6.1); White Blood Count 1.44 K/uL (4.8-10.8)
[2019-03-14 10:41] LABS: Basophils # (auto) 0.13 K/uL (0-0.2); Eosinophils # (auto) 0.06 K/uL (0-0.5); Eosinophils % (auto) 4.2 %; Giant Platelets 1+; Lymphocytes # (auto) 0.82 K/uL (1.2-3.4); Lymphocytes % (auto) 56.9 %; Monocytes # (auto) 0.43 K/uL (0.11-0.59); Monocytes % (auto) 29.9 %
--- NOTE | 2019-03-14 10:46 | Consultation Report ---
DATE OF CONSULTATION: 03/14/2019 HEMATOLOGY CONSULTATION REASON FOR CONSULTATION: Pancytopenia. HISTORY OF PRESENT ILLNESS: Mr. Blackwood is a delightful 63-year-old gentleman who was admitted to [facility] with subacute onset right-sided chest and flank pain. The patient himself is not the best of informants and really could not elicit details regarding his admission including his past medical problems. He did, however, admit to alcoholism. Apparently on admission, he presented with low-grade fever and was found to be neutropenic, which is new for him. 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 Abdominal CT scan done on admission revealed cirrhosis with varices and a small amount of ascites. He was subsequently admitted for neutropenic precaution and started on broad spectrum antimicrobials. This gentleman is not known to our service. Again, Mr. Blackwood is not the best of informants, and thus, information is somewhat incomplete. PAST MEDICAL HISTORY: Includes cirrhosis of the liver, proctitis, alcohol abuse, hypertension, alcoholism, hepatitis C positive. PAST SURGICAL HISTORY: Complete extraction of all his teeth and endoscopy. MEDICATIONS: Prior to admission include albuterol sulfate 2 puffs inhaled q.4 hours p.r.n., folic acid 1 mg p.o. daily, thiamine 100 mg p.o. daily, Dexilant 30 mg p.o. b.i.d., tramadol 50 mg p.o. at bedtime p.r.n., trazodone 50 mg p.o. at bedtime. ALLERGIES: CODEINE. SOCIAL HISTORY: The patient is disabled, legally blind. He has a and lives with his stepson. Again, I could not elicit his alcohol intake, and he is a half pack per day cigarette smoker. FAMILY HISTORY: Again unobtainable. REVIEW OF SYSTEMS: Again, not reliable for Mr. Blackwood. He did point out he came in with right-sided pain but again very nonspecific. PHYSICAL EXAMINATION: GENERAL: A pleasant 63-year-old gentleman, awake, alert, and appropriate, in no acute distress. VITAL SIGNS: Temperature 37.1, pulse 88, respiratory rate 20, blood pressure 123/64. SKIN: Without rash or lesion. No petechiae evident. HEENT: Head atraumatic, normocephalic. Eyes: PERRLA, EOMI. Sclerae are nonicteric. Nares are patent without rhinorrhea or discharge. Throat is clear. Tongue midline. No buccal lesions or ulcerations. He is edentulous. NECK: Supple without JVD or thyromegaly. LYMPH: No cervical or supraclavicular palpable nodes. HEART: Regular rate and rhythm. No clicks, rubs, murmurs, or gallops. LUNGS: Clear to auscultation bilaterally. ABDOMEN: Soft, nontender, nondistended. EXTREMITIES: No clubbing, cyanosis, or edema. NEUROLOGIC: He is awake, alert, and oriented. Cranial nerves are intact. LABORATORY DATA: From 03/13/2019, WBC count 12.20, hemoglobin 10.1, platelet count 92,000. He has no neutrophils. Chemistries: Sodium 133, potassium 3.7, chloride 102, carbon dioxide 26, BUN 12, creatinine 0.69. Total bilirubin 1.3, AST 77, alkaline phosphatase 142, albumin 1.8. IMPRESSION: 1. Agranulocytosis, acquired versus drug induced. 2. Pancytopenia, attributable to sequestration, possible nutritional deficiencies. 3. Methicillin-resistant Staphylococcus aureus bacteremia. 4. Hypoalbuminemia. 5. Elevated liver transaminases. 6. Hyponatremia. PLAN: Mr. Blackwood is a pleasant 63-year-old gentleman who originally presented with right flank pain, otherwise unexplained. This gentleman is clearly neutropenic, which is subacute in onset based on prior labs done in early February at which time his neutrophil count was over 2000. Again, with Mr. Blackwood being a poor informant, difficult to determine what may be the underlying cause. This gentleman is somewhat complex, and we may be better served to actually transfer him to [facility]. I am a bit fearful to start him on granulocyte colony stimulating growth factor because of his hypersplenism. One of the side effects of these agents is splenic rupture. Again, agranulocytosis is usually drug induced, antibiotics, perhaps fluoroquinolones. Additionally, with a concomitant viral infection such as hepatitis or possible nutritional deficiency, would spot check his B12 and copper levels. Fortunately, he does not seem to be very ill, and again, it would appear he presented with agranulocytosis and doubt any agents started here are responsible. We will continue to follow him closely throughout his stay. Thank you very much for allowing me to participate in his care. RISSA
--- NOTE | 2019-03-14 10:55 | Infectious Disease Progress Nt ---
Date of Service March 14, 2019 Assessment & Plan (1) Neutropenic fever: repeat blood cultures negative to date, now on dapto, tolerating dapto. currently afebrile, suspect LFTs elevated due to cirrhosis, have been elevated in the past will start emperic doxy and check for anaplasma as well. echo negative, repeat cultures negative. would give 14 days of IV Dapto from first negative culture. anaplasma serologies pending, suggest 14 days emperic doxy. (2) Gram positive sepsis: Subjective pt tolerating po doxy for ? tick borne illness, initial blood cultures MRSA, repeat cultures remain negative, tolerating dapto. ABBE negative for vegetation. isolated fever 37.8 overnight, otherwise afebrile. Results & Data Vital Signs (Past 12 Hours) Vital Signs Temp Pulse Pulse Pulse Pulse Resp BP 03/14/19 09:10 89 18 03/14/19 08:56 91 H 18 03/14/19 08:45 86 18 03/14/19 08:36 88 18 03/14/19 08:35 96 H 18 03/14/19 08:30 93 H 18 03/14/19 08:25 95 H 18 03/14/19 07:42 37.1 C 88 20 123/64 03/14/19 06:00 37.8 C H 90 22 03/14/19 04:37 37.2 C 101 H 18 139/70 03/13/19 23:53 37.0 C 96 H 18 157/76 H BP Pulse Ox 03/14/19 09:10 110/63 94 03/14/19 08:56 105/56 L 93 03/14/19 08:45 103/58 L 98 03/14/19 08:36 104/60 98 03/14/19 08:35 117/68 97 03/14/19 08:30 128/75 95 03/14/19 08:25 146/76 H 98 03/14/19 07:42 93 03/14/19 06:00 95 03/14/19 04:37 94 03/13/19 23:53 95 Laboratory Results Microbiology 03/12/19 12:15 Blood Aerobic Blood Culture - Preliminary No growth in Aerobic bottle after 24 hours. 03/12/19 12:15 Blood Anaerobic Blood Culture - Preliminary No growth in Anaerobic bottle after 24 hours. 03/12/19 12:05 Blood Aerobic Blood Culture - Preliminary No growth in Aerobic bottle after 24 hours. 03/12/19 12:05 Blood Anaerobic Blood Culture - Preliminary No growth in Anaerobic bottle after 24 hours. 03/10/19 13:25 Blood Aerobic Blood Culture - Final Staph aureus MRSA 03/10/19 13:25 Blood Anaerobic Blood Culture - Final Staph aureus MRSA 03/10/19 13:24 Blood Aerobic Blood Culture - Preliminary No growth in Aerobic bottle after 48 hours. 03/10/19 13:24 Blood Anaerobic Blood Culture - Preliminary No growth in Anaerobic bottle after 48 hours. 03/10/19 14:00 Urine,Clean Catch Urine Culture - Final More than three types of organisms present, all high counts mixed probable skin olivia - No further identifications or sensitivities to follow.
[2019-03-14] MEDS: DAPTOmycin 375 MG in SYRINGE 0 ML IV SCH (14:02)
[2019-03-14] MEDS: TRAZODONE HCL 50 MG TAB PO SCH (21:16)
--- NOTE | 2019-03-14 22:22 | Hospitalist Progress Note ---
Date of Service March 14, 2019 Assessment & Plan (1) Neutropenic fever: Agranulocytosis Neutropenic precautions. doxycycline, vancomycin and cefepime. MRSA seen on one of the blood cultures. Consult infectious disease added doxycycline due to concerns for anaplasmosis, appropriate labs sent. Patient will continue on vanc and cefepime, Patient is still having intermittent fevers. Hem/onc followed patient today. Recommends checking for nutritional def. Ok with starting neupogen, if patient however, does not improve may need to transfer him out to [place]. Unsure of cause of agranulocytosis. Concern as patient has bacteremia with MRSA. Patient placed on neupogen one time dose and will monitor Neutrophils. 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 could also be from a tick borne illness (3) Cirrhosis of liver: Due to alcoholism. Elevated liver function tests as expected. U/S is seen to have the start of cirrhosis (4) Alcohol abuse: The patient has not had anything to drink for several months. Withdrawal symptoms are not likely at this time. Will follow. Spent 25 minutes in management of patient. Subjective Patient reports doing well. Patient is a poor historian and denies any new complaints. Review of Systems Review of Systems: ROS: well nourished well developed. No double vision blurry vision No problems with speech or swallowing No palpitations, chest pain or pressure No Wheezing or breathing issues No abdominal pain nausea vomiting diarrhea changes in appetite or weight No burning urine urine frequency or changes in color diffuse joint pain, mostly knees and hands No skin rashes or oral lesions No unusual bruising or bleeding No focused back pain or numbness or loss of strength No changes in memory or confusion Physical Exam Physical Exam: The patient appeared well nourished and normally developed. Vital signs as documented. Head exam is unremarkable. normocephalic, atraumatic. oral pharnyx is clear from lesions Neck is without jugular venous distension, thyromegaly, or lymphademopathy Lungs are clear to auscultation and percussion. Cardiac exam reveals Rhythm is regular. First and second heart sounds normal. Abdominal exam reveals normal bowel sounds, no masses, splenomegaly Extremities are nonedematous and joints are not enlarged or inflamed Neurologic exam is A&Ox3, no focal deficits, strength is equal bilateral Psychologically seems neither anxious or depressed Skin is warm Dry without bruises or lesions Results & Data Vital Signs (Past 12 Hours) Vital Signs Temp Pulse Resp BP Pulse Ox 03/14/19 19:54 38.9 C H 102 H 20 154/72 H 97 03/14/19 19:30 38.3 C H 03/14/19 15:45 37.2 C 100 H 20 159/75 H 95 03/14/19 11:48 35.9 C L 86 18 124/68 94
[2019-03-15] MEDS: DOXYCYCLINE HYCLATE 100 MG CAP PO SCH ×2 (07:39→20:38)
[2019-03-15] MEDS: FOLIC ACID 1 MG TAB PO SCH (07:39)
[2019-03-15] MEDS: PANTOprazole 40 MG TAB PO SCH ×2 (07:40→20:38)
[2019-03-15] MEDS: THIAMINE HCL 100 MG TAB PO SCH (07:40)
[2019-03-15] MEDS: ACETAMINOPHEN 325 MG TAB PO PRN ×2 (07:46→18:08)
[2019-03-15 09:46] LABS: Hematocrit (blood only) 27.8 % (42-52); Hemoglobin 9.6 g/dL (14.0-18.0); Mean Corpuscular Hgb Conc 34.5 g/dL (32-36); Mean Platelet Volume 8.9 fL (7.4-10.4); Platelet Count 93 K/uL (130-400); RDW Coefficient of Variation 19.6 % (11.5-14.5); RDW Standard Deviation 62.5 fL (36.4-46.3); Red Blood Count 3.16 M/uL (4.7-6.1); White Blood Count 1.46 K/uL (4.8-10.8)
[2019-03-15 09:57] LABS: BUN Creatinine Ratio 13.1 (10-20); Calcium 8.3 mg/dl (8.5-10.1); Creatinine Clr Calc Pharmacy 94.6 ml/min; Est GFR (African American) 115.4; Est GFR (Non-African American) 99.6; Potassium 3.6 mmol/L (3.5-5.1)
[2019-03-15 10:02] LABS: Dohle Bodies 1+; Giant Platelets 1+; Polychromasia 1+; Toxic Granulation 1+
[2019-03-15 10:05] LABS: ALC (manual) 0.87 K/uL (1.2-3.4); Basophils # (manual) 0.08 K/uL (0-0.2); Basophils % (manual) 5.3 %; Eosinophils # (manual) 0.09 K/uL (0-0.5); Eosinophils % (manual) 6.1 %; Lymphocytes # (manual) 0.87 K/uL (1.2-3.4); Lymphocytes % (manual) 59.6 %; Monocytes # (manual) 0.36 K/uL (0.11-0.59); Monocytes % (manual) 24.6 %; Neutrophils % (manual) 4.4 %
[2019-03-15] MEDS ORDERED: FILGRASTIM 300 MCG/ML VIAL SQ ONE (12:30)
[2019-03-15] MEDS: DAPTOmycin 375 MG in SYRINGE 0 ML IV SCH (13:22)
--- NOTE | 2019-03-15 14:13 | Progress Note ---
DATE: 03/15/2019 DIAGNOSES: 1. Agranulocytosis. 2. Pancytopenia attributable to sequestration. 3. Methicillin resistant Staphylococcus aureus bacteremia. 4. Hypoalbuminemia. 5. Elevated liver transaminases. SUBJECTIVE: The patient was seen at bedside, actually enjoying his lunch this afternoon. He reports no fevers or symptoms suggestive of the emerging advancing infection. I have recommended the hospitalist to incorporate Neupogen, which was administered yesterday. His neutrophil count has nudged upward slightly, presently at 0.06. We will renew the Neupogen order for today. I had also asked for both copper and vitamin B12 levels to be drawn. B12 was within normal limits. Copper was not ordered and therefore I had the nurse placed an order for me at bedside. Overall, he seems to be doing okay, currently on daptomycin, tolerating well. I would obviously like to see a little bit more improvement in his neutrophils before having him sent home. OBJECTIVE: GENERAL: Very pleasant 63-year-old gentleman in no acute distress. VITAL SIGNS: Temperature 36.9, pulse 89, respiratory rate 20, blood pressure 143/71. SKIN: Without rash or lesion. HEENT: Oral mucosa without evidence of thrush. NECK: Supple. Trachea midline. HEART: Regular rate and rhythm. LUNGS: Clear to auscultation bilaterally. ABDOMEN: Soft, nontender, nondistended. EXTREMITIES: No clubbing, cyanosis or edema. NEUROLOGIC: Grossly intact. LABORATORY DATA: WBC count 1460, hemoglobin 9.6, platelet count 93,000. Sodium 133, potassium 3.6, chloride 101, carbon dioxide 25, creatinine 0.74, BUN 10. IMPRESSION: 1. Agranulocytosis, acquired versus drug induced. 2. Pancytopenia attributable to sequestration, possible nutritional deficiencies. 3. Methicillin resistant Staphylococcus aureus bacteremia. 4. Hypoalbuminemia. 5. Elevated liver transaminases. PLAN: The patient is a pleasant 63-year-old gentleman I recently saw yesterday with unexplained agranulocytosis. Usually agranulocytosis is drug-induced, common in the elderly population post fluoroquinolones. Very difficult to determine what happened to his neutrophil count between 02/08/2019 and admission. Nonetheless cautiously administering daily granulocyte colony-stimulating growth factor. His neutrophil count did bump a little bit, I did added those today. I also took ____ copper level. He continues to feel relatively well as he continues daptomycin for MRSA bacteremia. I will continue to follow him closely. I would like to see his neutrophil count taken little larger step upward before sending him out. The patient was recommended to see me in the office within 1-2 weeks post discharge. Thank you very much for allowing me to participate in his care.
[2019-03-15] MEDS: TRAZODONE HCL 50 MG TAB PO SCH (20:38)
--- NOTE | 2019-03-15 23:07 | Hospitalist Progress Note ---
Date of Service March 15, 2019 Assessment & Plan (1) Neutropenic fever: granulocytosis Neutropenic precautions. doxycycline, vancomycin and cefepime. MRSA seen on one of the blood cultures. Consult infectious disease added doxycycline due to concerns for anaplasmosis, appropriate labs sent. Patient will continue on vanc and cefepime, Patient is still having intermittent fevers. Hem/onc followed patient today. Recommends checking for nutritional def. Ok with starting neupogen, if patient however, does not improve may need to transfer him out to [place]. Patient will receive on dose of neupogen. Unsure of cause of agranulocytosis. Concern as patient has bacteremia with MRSA. Patient placed on neupogen one time dose and will monitor Neutrophils. Nuetrophils mildly increased. Will continue to monitor response. 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 could also be from a tick borne illness (3) Cirrhosis of liver: Due to alcoholism. Elevated liver function tests as expected. U/S is seen to have the start of cirrhosis (4) Alcohol abuse: The patient has not had anything to drink for several months. Withdrawal symptoms are not likely at this time. Will follow. Spent 25 minutes in management of patient. Subjective Patient reports no new symptoms today. Patient reports he does not want to be transferred to a tertiary center. Review of Systems Review of Systems: ROS: well nourished well developed. No double vision blurry vision No problems with speech or swallowing No palpitations, chest pain or pressure No Wheezing or breathing issues No abdominal pain nausea vomiting diarrhea changes in appetite or weight No burning urine urine frequency or changes in color diffuse joint pain, mostly knees and hands No skin rashes or oral lesions No unusual bruising or bleeding No focused back pain or numbness or loss of strength No changes in memory or confusion Physical Exam Physical Exam: The patient appeared well nourished and normally developed. Vital signs as documented. Head exam is unremarkable. normocephalic, atraumatic. oral pharnyx is clear from lesions Neck is without jugular venous distension, thyromegaly, or lymphademopathy Lungs are clear to auscultation and percussion. Cardiac exam reveals Rhythm is regular. First and second heart sounds normal. Abdominal exam reveals normal bowel sounds, no masses, splenomegaly Extremities are nonedematous and joints are not enlarged or inflamed Neurologic exam is A&Ox3, no focal deficits, strength is equal bilateral Psychologically seems neither anxious or depressed Skin is warm Dry without bruises or lesions Results & Data Vital Signs (Past 12 Hours) Vital Signs Temp Pulse Pulse Resp BP BP Pulse Ox 03/15/19 19:23 38.2 C H 20 L 87 147/73 H 97 03/15/19 14:51 37.1 C 93 H 16 142/79 H 96 03/15/19 12:05 36.9 C 89 20 143/71 H 98
[2019-03-16] MEDS: ACETAMINOPHEN 325 MG TAB PO PRN ×3 (00:03→15:51)
[2019-03-16] MEDS: HYDROmorphone INJ 0.5 MG/0.5 ML SYR IV PRN (05:58)
[2019-03-16] MEDS: PANTOprazole 40 MG TAB PO SCH ×2 (07:42→20:07)
[2019-03-16] MEDS: FOLIC ACID 1 MG TAB PO SCH (07:43)
[2019-03-16] MEDS: THIAMINE HCL 100 MG TAB PO SCH (07:43)
[2019-03-16] MEDS: DOXYCYCLINE HYCLATE 100 MG CAP PO SCH ×2 (07:43→20:07)
[2019-03-16 08:15] LABS: Hematocrit (blood only) 28.7 % (42-52); Hemoglobin 9.7 g/dL (14.0-18.0); Mean Corpuscular Hgb Conc 33.8 g/dL (32-36); Mean Corpuscular Volume 88.3 fL (80-100); Mean Platelet Volume 10.1 fL (7.4-10.4); Nucleated RBC # (auto) 0.02 K/uL (0-0); Nucleated RBC % (auto) 0.8 %; Platelet Count 92 K/uL (130-400); RDW Coefficient of Variation 19.8 % (11.5-14.5); RDW Standard Deviation 63.1 fL (36.4-46.3); Red Blood Count 3.25 M/uL (4.7-6.1); White Blood Count 2.59 K/uL (4.8-10.8)
--- NOTE | 2019-03-16 09:13 | Progress Note ---
DATE: 03/16/2019 HEMATOLOGY PROGRESS NOTE DIAGNOSES: 1. Agranulocytosis. 2. Pancytopenia, attributable to sequestration. 3. Methicillin-resistant Staphylococcus aureus bacteremia. 4. Hypoalbuminemia. 5. Elevated liver transaminases. SUBJECTIVE: Brent was seen and examined at bedside. He appears to be the healthiest looking sick person, consuming his breakfast with no difficulty. He really has no specific complaints this morning. He received second dose of Neupogen yesterday. Unfortunately, resulting in no improvement in his absolute neutrophil count. He continues antibiotics for MRSA bacteremia. Nursing reports no overnight difficulties. OBJECTIVE: GENERAL: A very pleasant 63-year-old gentleman in no acute distress. VITAL SIGNS: Temperature 37.3, pulse 84, respiratory rate 18, blood pressure 126/64. SKIN: Without rash or lesion. HEENT: Oral mucosa without erythema or ulceration. The patient is edentulous. NECK: Supple. Trachea midline. HEART: Regular rate and rhythm. LUNGS: Clear to auscultation bilaterally. ABDOMEN: Soft, nontender, nondistended. EXTREMITIES: No clubbing, cyanosis or edema. NEUROLOGIC: He is grossly intact. LABORATORY DATA: WBC count 2590, hemoglobin 9.7, platelet count 92,000. Neutrophil count remains at 0.06, unchanged from yesterday. Sodium 133, potassium 3.6, chloride 101, carbon dioxide 25, creatinine 0.74, and BUN 10. IMPRESSION: 1. Agranulocytosis acquired versus drug induced. 2. Pancytopenia, attributable to sequestration. 3. Methicillin-resistant Staphylococcus aureus bacteremia. 4. Hypoalbuminemia. 5. Elevated liver transaminases. PLAN: Mr. Blackwood was seen and examined at bedside. Unfortunately, despite colony stimulating growth factor, his neutrophil count has not risen nor has it retreated to 0. Would proceed with a third dose today and I would continue 300 mcg dosing in a gentleman with hypersplenism. He continues daptomycin for MRSA bacteremia. Again, fortunately, this gentleman is not terribly sick and I feel comfortable with keeping him here until his neutrophils show evidence of recovery. I will be on over the weekend and will continue to follow Mr. Blackwood with you. The copper level is pending. Thank you again for allowing me to participate in this interesting case. MTDD
[2019-03-16 09:14] LABS: Dohle Bodies 1+; Giant Platelets 2+; Polychromasia 1+; Toxic Granulation 1+
[2019-03-16] MEDS ORDERED: TRAMADOL HCL 50 MG TABLET PO PRN (09:15)
[2019-03-16 09:17] LABS: ALC (manual) 1.55 K/uL (1.2-3.4); Basophils # (manual) 0.09 K/uL (0-0.2); Basophils % (manual) 3.5 %; Eosinophils # (manual) 0.16 K/uL (0-0.5); Eosinophils % (manual) 6.1 %; Lymphocytes # (manual) 1.55 K/uL (1.2-3.4); Monocytes # (manual) 0.43 K/uL (0.11-0.59); Monocytes % (manual) 16.5 %; Neutrophils % (manual) 13.9 %
[2019-03-16] MEDS ORDERED: FILGRASTIM 300 MCG/ML VIAL SQ ONE (11:00)
[2019-03-16] MEDS: DAPTOmycin 375 MG in SYRINGE 0 ML IV SCH (13:01)
--- NOTE | 2019-03-16 14:28 | Infectious Disease Progress Nt ---
Date of Service March 16, 2019 Assessment & Plan (1) Neutropenic fever: repeat blood cultures negative to date, now on dapto, tolerating dapto. currently afebrile, suspect LFTs elevated due to cirrhosis, have been elevated in the past will start emperic doxy and check for anaplasma as well. echo negative, repeat cultures negative. would give 14 days of IV Dapto from first negative culture. anaplasma serologies pending, suggest 14 days emperic doxy. (2) Gram positive sepsis: Subjective heme onc following, remains neutropenic, s/p g csf. isolated fever 38 overnight, tolerating dapto. repeat blood cultures negative, also remains on po doxy as emperic treatment for ? anaplasma, tolerating abx. Results & Data Vital Signs (Past 12 Hours) Vital Signs Temp Pulse Resp BP Pulse Ox 03/16/19 11:00 37.0 C 90 18 118/67 90 03/16/19 07:00 37.3 C 84 18 126/64 96 03/16/19 03:34 37.2 C 104 H 20 152/73 H 95 Laboratory Results Microbiology 03/10/19 13:24 Blood Aerobic Blood Culture - Final No growth in Aerobic bottle after 5 days. 03/10/19 13:24 Blood Anaerobic Blood Culture - Final No growth in Anaerobic bottle after 5 days. 03/12/19 12:15 Blood Aerobic Blood Culture - Preliminary No growth in Aerobic bottle after 48 hours. 03/12/19 12:15 Blood Anaerobic Blood Culture - Preliminary No growth in Anaerobic bottle after 48 hours. 03/12/19 12:05 Blood Aerobic Blood Culture - Preliminary No growth in Aerobic bottle after 48 hours. 03/12/19 12:05 Blood Anaerobic Blood Culture - Preliminary No growth in Anaerobic bottle after 48 hours. 03/10/19 13:25 Blood Aerobic Blood Culture - Final Staph aureus MRSA 03/10/19 13:25 Blood Anaerobic Blood Culture - Final Staph aureus MRSA 03/10/19 14:00 Urine,Clean Catch Urine Culture - Final More than three types of organisms present, all high counts mixed probable skin olivia - No further identifications or sensitivities to follow.
[2019-03-16] MEDS: TRAZODONE HCL 50 MG TAB PO SCH (20:07)
--- NOTE | 2019-03-16 23:04 | Hospitalist Progress Note ---
Date of Service March 16, 2019 Assessment & Plan (1) Neutropenic fever: granulocytosis Neutropenic precautions. doxycycline, vancomycin and cefepime. MRSA seen on one of the blood cultures. Consult infectious disease added doxycycline due to concerns for anaplasmosis, appropriate labs sent. Patient will continue on vanc and cefepime, Patient is still having intermittent fevers. Hem/onc followed patient today. Recommends checking for nutritional def. Ok with starting neupogen, if patient however, does not improve may need to transfer him out to [place]. Patient will receive third dose of neupogen. Unsure of cause of agranulocytosis. Concern as patient has bacteremia with MRSA. Will continue on daptomycin Neutrophils have not improved as much as had hoped. will continue to monitor. Patient will need to set up outpatient infusion center. Patient placed on neupogen one time dose and will monitor Neutrophils. Nuetrophils mildly increased. Will continue to monitor response. 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 could also be from a tick borne illness (3) Cirrhosis of liver: Due to alcoholism. Elevated liver function tests as expected. U/S is seen to have the start of cirrhosis (4) Alcohol abuse: The patient has not had anything to drink for several months. Withdrawal symptoms are not likely at this time. Will follow. Spent 25 minutes in management of patient. Subjective Patient has no new complaints. Patient understands he is here for his low wbc, as well as his blood infection. Review of Systems Review of Systems: ROS: well nourished well developed. No double vision blurry vision No problems with speech or swallowing No palpitations, chest pain or pressure No Wheezing or breathing issues No abdominal pain nausea vomiting diarrhea changes in appetite or weight No burning urine urine frequency or changes in color diffuse joint pain, mostly knees and hands No skin rashes or oral lesions No unusual bruising or bleeding No focused back pain or numbness or loss of strength No changes in memory or confusion Physical Exam Physical Exam: The patient appeared well nourished and normally developed. Vital signs as documented. Head exam is unremarkable. normocephalic, atraumatic. oral pharnyx is clear from lesions Neck is without jugular venous distension, thyromegaly, or lymphademopathy Lungs are clear to auscultation and percussion. Cardiac exam reveals Rhythm is regular. First and second heart sounds normal. Abdominal exam reveals normal bowel sounds, no masses, splenomegaly Extremities are nonedematous and joints are not enlarged or inflamed Neurologic exam is A&Ox3, no focal deficits, strength is equal bilateral Psychologically seems neither anxious or depressed Skin is warm Dry without bruises or lesions Results & Data Vital Signs (Past 12 Hours) Vital Signs Temp Pulse Resp BP Pulse Ox 03/16/19 19:35 37 C 95 H 20 132/68 98 03/16/19 18:27 37.5 C 03/16/19 17:15 39.1 C H 03/16/19 15:51 37.4 C 03/16/19 15:06 37.7 C H 101 H 18 163/73 H 93
[2019-03-17] MEDS: ACETAMINOPHEN 325 MG TAB PO PRN ×2 (04:18→19:56)
[2019-03-17 06:15] LABS: Mean Corpuscular Hgb Conc 33.8 g/dL (32-36); Mean Platelet Volume 9.9 fL (7.4-10.4); Nucleated RBC # (auto) 0.09 K/uL (0-0); Nucleated RBC % (auto) 1.1 %; Platelet Count 133 K/uL (130-400)
[2019-03-17 06:50] LABS: BUN Creatinine Ratio 13.8 (10-20); Calcium 8.4 mg/dl (8.5-10.1); Creatinine Clr Calc Pharmacy 94.1 ml/min; Est GFR (Non-African American) 100.1; Potassium 4.1 mmol/L (3.5-5.1)
[2019-03-17 06:55] LABS: Hematocrit (blood only) 29.9 % (42-52); Hemoglobin 10.1 g/dL (14.0-18.0); Mean Corpuscular Volume 88.5 fL (80-100); RDW Coefficient of Variation 20.3 % (11.5-14.5); RDW Standard Deviation 65.3 fL (36.4-46.3); Red Blood Count 3.38 M/uL (4.7-6.1); White Blood Count 8.15 K/uL (4.8-10.8)
[2019-03-17] MEDS: PANTOprazole 40 MG TAB PO SCH ×2 (07:36→20:00)
[2019-03-17] MEDS: FOLIC ACID 1 MG TAB PO SCH (07:36)
[2019-03-17] MEDS: DOXYCYCLINE HYCLATE 100 MG CAP PO SCH ×2 (07:36→20:00)
[2019-03-17] MEDS: THIAMINE HCL 100 MG TAB PO SCH (07:36)
[2019-03-17 08:10] LABS: ALC (manual) 1.95 K/uL (1.2-3.4); Anisocytosis Present; Basophils # (manual) 0.29 K/uL (0-0.2); Basophils % (manual) 3.5 %; Dohle Bodies 1+; Eosinophils # (manual) 0.22 K/uL (0-0.5); Eosinophils % (manual) 2.7 %; Giant Platelets 1+; Lymphocytes # (manual) 1.95 K/uL (1.2-3.4); Lymphocytes % (manual) 23.9 %; Metamyelocytes # (manual) 0.07 K/uL (0-0); Metamyelocytes % (manual) 0.9 %; Monocytes # (manual) 0.65 K/uL (0.11-0.59); Myelocytes # (manual) 0.36 K/uL (0-0); Myelocytes % (manual) 4.4 %; Neutrophils % (manual) 50.4 %; Promyelocytes # (manual) 0.51 K/uL (0-0); Promyelocytes % (manual) 6.2 %; Toxic Granulation 1+
--- NOTE | 2019-03-17 10:15 | Progress Note ---
DATE: 03/17/2019 HEMATOLOGY PROGRESS NOTE DIAGNOSES: 1. Agranulocytosis. 2. Pancytopenia, attributable to sequestration. 3. Methicillin-resistant Staphylococcus aureus bacteremia. 4. Hypoalbuminemia. 5. Elevated liver transaminases. SUBJECTIVE: Brent was seen and examined at bedside. He again looks quite well today without overnight complaint. He now has received 3 daily doses of Neupogen. His neutrophil count is starting to rise. He continues antibiotics for MRSA bacteremia. This gentleman's absolute neutrophil count is now in excess of 4000. I think we can certainly hold off on further granulocyte colony stimulating growth factor. Informally spoke to the hematopathologist, examined Mr. Blackwood smear. She suggests that we consider a bone marrow biopsy and aspiration as outpatient. Mr. Blackwood himself has absolutely no complaints. PHYSICAL EXAMINATION: GENERAL: A 63-year-old gentleman enjoying his breakfast, answers questions appropriately, in no acute distress. VITAL SIGNS: Temperature 37, pulse 93, respiratory rate 18, blood pressure 116/57. SKIN: Without rash or lesion. HEENT: Oral mucosa without evidence of thrush. NECK: Supple. Trachea midline. HEART: Regular rate and rhythm. LUNGS: Clear to auscultation bilaterally. ABDOMEN: Firm, nontender, nondistended. EXTREMITIES: No clubbing, cyanosis or edema. NEUROLOGIC: Grossly intact. LABORATORY DATA: WBC count 8150, hemoglobin 10.1, platelet count 133,000. Sodium 134, potassium 4.1, chloride 100, carbon dioxide 27, creatinine 0.73, BUN 10. IMPRESSION: 1. Agranulocytosis acquired versus drug induced. 2. Pancytopenia, attributable to sequestration. 3. Methicillin-resistant Staphylococcus aureus bacteremia. 4. Hypoalbuminemia. PLAN: Once again, visited Mr. Blackwood at bedside. His neutrophils are now well within normal range in excess of 4000. At this juncture, unless there are other medical contraindications, proceed towards discharge, once an appropriate antibiotic regimen is formulated. From hematologic standpoint, I request Brent follow up in the office here within the next week or two to spot check peripheral counts moving forward. I will consider bone marrow biopsy and aspiration depending on followup results. Copper level is still pending. If he is discharged in the next 24-48 hours, make sure he is equipped with my office number to arrange followup. Thank you again for allowing me to participate in this very pleasant gentleman's care.
[2019-03-17] MEDS: DAPTOmycin 375 MG in SYRINGE 0 ML IV SCH (13:46)
[2019-03-17] MEDS: TRAZODONE HCL 50 MG TAB PO SCH ×2 (20:00→22:50)
--- NOTE | 2019-03-17 23:50 | Hospitalist Progress Note ---
Date of Service March 17, 2019 Assessment & Plan (1) Neutropenic fever: granulocytosis Neutropenic precautions. doxycycline, vancomycin and cefepime. MRSA seen on one of the blood cultures. Consult infectious disease added doxycycline due to concerns for anaplasmosis, appropriate labs sent. Patient will continue on vanc and cefepime, Patient is still having intermittent fevers. Hem/onc followed patient today. Patient had 3 doses of neupogen, he appears to have reposnded. Nuetrphils are now in normal range.. Unsure of cause of agranulocytosis. Concern as patient has bacteremia with MRSA. Will continue on daptomycin. Working on discharge. Patient will need to set up outpatient infusion center. 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 could also be from a tick borne illness (3) Cirrhosis of liver: Due to alcoholism. Elevated liver function tests as expected. U/S is seen to have the start of cirrhosis (4) Alcohol abuse: The patient has not had anything to drink for several months. Withdrawal symptoms are not likely at this time. Will follow. Spent 35 minutes in management of patient. Subjective Patient reports feeling well. He has no new complaints. Patient wants to be discharged however after extensive discussion patient agreeable to stay while working on discharge. Review of Systems Review of Systems: All systems reviewed & are unremarkable except as noted in HPI & below Physical Exam Physical Exam: The patient appeared well nourished and normally developed. Vital signs as documented. Head exam is unremarkable. normocephalic, atraumatic. oral pharnyx is clear from lesions Neck is without jugular venous distension, thyromegaly, or lymphademopathy Lungs are clear to auscultation and percussion. Cardiac exam reveals Rhythm is regular. First and second heart sounds normal. Abdominal exam reveals normal bowel sounds, no masses, splenomegaly Extremities are nonedematous and joints are not enlarged or inflamed Neurologic exam is A&Ox3, no focal deficits, strength is equal bilateral Psychologically seems neither anxious or depressed Skin is warm Dry without bruises or lesions Results & Data Vital Signs (Past 12 Hours) Vital Signs Temp Pulse Resp BP Pulse Ox 03/17/19 19:19 37.4 C 101 H 20 133/70 96 03/17/19 15:00 36.9 C 101 H 18 131/63 97
[2019-03-18] MEDS: FOLIC ACID 1 MG TAB PO SCH (07:41)
[2019-03-18] MEDS: DOXYCYCLINE HYCLATE 100 MG CAP PO SCH (07:41)
[2019-03-18] MEDS: THIAMINE HCL 100 MG TAB PO SCH (07:41)
[2019-03-18] MEDS: PANTOprazole 40 MG TAB PO SCH (07:41)
[2019-03-18 07:42] LABS: Hematocrit (blood only) 30.5 % (42-52); Hemoglobin 10.1 g/dL (14.0-18.0); Mean Corpuscular Hgb Conc 33.1 g/dL (32-36); Mean Corpuscular Volume 89.7 fL (80-100); Mean Platelet Volume 9.8 fL (7.4-10.4); Nucleated RBC # (auto) 0.03 K/uL (0-0); Nucleated RBC % (auto) 0.4 %; Platelet Count 141 K/uL (130-400); RDW Coefficient of Variation 20.2 % (11.5-14.5); White Blood Count 6.96 K/uL (4.8-10.8)
[2019-03-18 08:07] LABS: BUN Creatinine Ratio 17.5 (10-20); Calcium 8.6 mg/dl (8.5-10.1); Creatinine Clr Calc Pharmacy 107.3 ml/min; Est GFR (African American) 122.5; Est GFR (Non-African American) 105.7; Potassium 4.2 mmol/L (3.5-5.1)
[2019-03-18 08:20] LABS: ALC (manual) 0.67 K/uL (1.2-3.4); Basophils # (manual) 0.24 K/uL (0-0.2); Basophils % (manual) 3.5 %; Dohle Bodies 1+; Eosinophils % (manual) 4.3 %; Lymphocytes # (manual) 0.67 K/uL (1.2-3.4); Lymphocytes % (manual) 9.6 %; Monocytes % (manual) 4.3 %; Myelocytes # (manual) 0.36 K/uL (0-0); Myelocytes % (manual) 5.2 %; Neutrophils % (manual) 59.2 %; Promyelocytes # (manual) 0.06 K/uL (0-0); Promyelocytes % (manual) 0.9 %; Toxic Granulation 1+
[2019-03-18] MEDS: DAPTOmycin 375 MG in SYRINGE 0 ML IV SCH (13:35)
--- NOTE | 2019-03-20 08:26 | Hospitalist Progress Note ---
Date of Service March 20, 2019 Assessment & Plan (1) Fever: Pt was placed on doxycycline but did have drug intolerance, I checked and lyme and anaplasmosis was negative from his [facility], will recommend stopping doxycycline and continuing daptomycin.
--- NOTE | 2019-03-26 07:33 | Discharge Summary ---
Date of Service March 18, 2019 Admission HPI Per Admitting Provider 63-year-old alcoholic male who is a very poor historian. He presents with right-sided chest discomfort and right flank pain and right hip pain of uncertain duration but probably for several days. He denies falling down. X- rays are negative for fracture. He has a low-grade fever and interestingly he is markedly neutropenic which is new for him. He has mild thrombocytopenia but this probably is related to chronic splenomegaly from his cirrhosis. Liver function tests are mildly elevated and lipase is 702 although he does not have symptoms of acute pancreatitis. Abdominal CT scan revealed cirrhosis with varices and a small amount of ascites. Abdominal ultrasound is negative except for cirrhosis. Blood cultures have been obtained. He was given Zosyn in the ED. He will be admitted with neutropenic fever and started on vancomycin and cefepime. Hematology consultation and infectious disease consultation will be requested. Isolation precautions have been ordered. Principal Diagnosis Neutropenic fever Discharge Exam The patient appeared well nourished and normally developed. Vital signs as documented. Head exam is unremarkable. normocephalic, atraumatic. oral pharnyx is clear from lesions Neck is without jugular venous distension, thyromegaly, or lymphademopathy Lungs are clear to auscultation and percussion. Cardiac exam reveals Rhythm is regular. First and second heart sounds normal. Abdominal exam reveals normal bowel sounds, no masses, splenomegaly Extremities are nonedematous and joints are not enlarged or inflamed Neurologic exam is A&Ox3, no focal deficits, strength is equal bilateral Psychologically seems neither anxious or depressed Skin is warm Dry without bruises or lesions Discharge Data Allergies Allergy/AdvReac Type Severity Reaction Status Date / Time doxycycline Allergy Hives Verified 03/25/19 08:12 codeine AdvReac Unknown Gastrointestinal Verified 03/25/19 08:12 Upset Consultations 03/10/19 15:00 ED Decision to Admit Stat 03/10/19 16:39 Consult Hematology Routine Consult Infectious Diseases Routine 03/13/19 15:41 Consult Anesthesiology Routine Procedures Performed Operation Date: 03/14/19 08:15 Actual Procedures p Transesophageal Echo(Not Applicable) - Aron Griffith MD Ordered Studies 03/10/19 12:50 CT abd pelvis IV con only Stat 03/10/19 14:20 US gallbladder Stat Hospital Course (1) Neutropenic fever: granulocytosis Neutropenic precautions. doxycycline, vancomycin and cefepime. MRSA seen on one of the blood cultures. Consult infectious disease added doxycycline due to concerns for anaplasmosis, appropriate labs sent. Patient will continue on vanc and cefepime, Patient is still having intermittent fevers. Hem/onc followed patient today. Patient had 3 doses of neupogen, he appears to have reposnded. Nuetrophils are now in normal range.. Unsure of cause of agranulocytosis. Concern as patient has bacteremia with MRSA. Patient will need to set up outpatient infusion center. Patient will be discharged on daptomycin. ID recommended continuing doxy for a total of 14 days for possible anaplasmosis. 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 could also be from a tick borne illness (3) Cirrhosis of liver: Due to alcoholism. Elevated liver function tests as expected. U/S is seen to have the start of cirrhosis (4) Alcohol abuse: The patient has not had anything to drink for several months. Withdrawal symptoms are not likely at this time. Will follow. Total Time Total Time Spent Total Time Spent (In Minutes): 32 Total Time Includes: Examination of the Patient, Discharge Planning and Medication Reconciliation Discharge Plan Discharge Items Patient Disposition: Home - Self-Care Reason For Visit: NEUTROPENIC FEVER Discharge Diagnosis: Neutropenia Discharge Goals: Decrease discomfort Activity: Resume your previous activity Non-emergency contact: Primary Care Provider Call non-emergency contact if: you have any medication questions Follow-up/Referrals: [facility],Medicine [Primary Care Provider] - Diet: Regular Addtl Provider Instructions: Followup with Dr. Decker's office in 1-2 weeks. Follow up with Dr. Decker in 1-2 weeks. Prescriptions: New daptomycin 350 mg recon soln 375 mg IV DAILY Qty: 6 RF: 0 Continued thiamine HCl (vitamin B1) 100 mg Tablet 100 mg PO DAILY RF: 0 folic acid 1 mg Tablet 1 mg PO DAILY RF: 0 albuterol sulfate 90 mcg/actuation Hfa Aerosol Inhaler 2 puff Inhalation Q4H PRN (Reason: Wheezing) RF: 0 trazodone 50 mg Tablet 50 mg PO HS RF: 0 tramadol 50 mg tablet 50 mg PO HS PRN (Reason: Insomnia) RF: 0 Dexilant 30 mg Capsule,Biphase Delayed Releas 30 mg PO BID RF: 0 No Action Tylenol tablet 500 mg PO DIRECTED RF: 0 Stand-Alone Forms: [facility] Discharge Orders: Discharge Order (Routine); Ordered 03/18/19 Ordered By: Shailesh Meza Admission Data Admit Date/Time: 03/10/19 14:58 Attending Provider: Shailesh Meza Admit Provider: Geo Valente Primary Care Provider: [facility] Other Providers: Johan Decker V ; Stacey Mooney ; Geo Valente ; Amrita Rizvi ; Allegra Henson ; Micaela Jones ; Melony Simeon ; Ashley Shearer ; Pati Apodaca ; Fransico Cummins ; Eric Blackmon ; Rodriguez Gusman ; Alvin Rehman ; Kathy Rehman ; Jose Moon ; Stacey Soto ; Adonay Hawkins ; Johan Guardado ; Jaydon Johnson ; Matt Hyatt ; Miguel Angel Murguia ; Nadia Camp ; Kam Baird ; Cassy Banda ; Nohemi Baird ; Levar Hill ; Lisa Saha ; Nba Hilario ; Yakelin Kaur ; Kerrie Lee ; Ignacio Bryan ; Marcy Dominique ; Yessi Amezcua ; Ita Srinivasan ; Herlinda Whitley ; Brent Whitley V ; Hollis Castro ; Micaela Carcamo ; Amilcar Romero ; Marlene Aranda V ; Rosmery Collins ; Nara De Leon ; Xiao Kenyon ; Veronika Carcamo ; Brent Olivares ; Noé Camp ; Jenna Costello ; Ita Contreras ; Rodriguez Ibarra ; Josefa Fan ; Joseph Murguia ; Misty Ortiz ; Aron Kent Service: Medical Other Interventions: Discharge Summary Assessment (RN) Last Done: 03/18/19 14:39 DC Date/Time DO NOT enter until pt leaves facility: 03/18/19 15:48
== END 2019-03-18 15:48 | disposition home or self-care (01) | DRG 872 ==
LOC: ED 10:33 → SUATTDRO 14:58 → 4E 14:58
PROC: CLS.TEE (2019-03-14 08:15)
DX: Z88.5 Allergy status to narcotic agent; E88.09 Other disorders of plasma-protein metabolism, not elsewhere classified; D69.6 Thrombocytopenia, unspecified; E87.1 Hypo-osmolality and hyponatremia; A41.02 Sepsis due to Methicillin resistant Staphylococcus aureus; R74.0 Nonspecific elevation of levels of transaminase and lactic acid dehydrogenase [LDH]; Z83.3 Family history of diabetes mellitus; F17.210 Nicotine dependence, cigarettes, uncomplicated; D61.818 Other pancytopenia; I10 Essential (primary) hypertension; D70.9 Neutropenia, unspecified; R16.1 Splenomegaly, not elsewhere classified; Z82.49 Family history of ischemic heart disease and other diseases of the circulatory system; F10.10 Alcohol abuse, uncomplicated

== ENCOUNTER 2019-04-15 15:19 | Inpatient (IN) ==
[2019-04-15] MEDS ORDERED: GABAPENTIN 300 MG CAP PO STA (15:44)
[2019-04-15 16:36] LABS: Hematocrit (blood only) 23.5 % (42-52); Mean Corpuscular Volume 93.3 fL (80-100); RDW Coefficient of Variation 17.9 % (11.5-14.5); RDW Standard Deviation 61.2 fL (36.4-46.3); Red Blood Count 2.52 M/uL (4.7-6.1); White Blood Count 3.41 K/uL (4.8-10.8)
[2019-04-15 16:49] LABS: INR 1.2 (0.9-1.1); Partial Thromboplastin Ratio 1.1; Partial Thromboplastin Time 28.5 Seconds (21.0-31.0); Prothrombin Time 11.9 Seconds (9.0-12.0)
[2019-04-15 16:53] LABS: Albumin Level 2.5 gm/dl (3.4-5.0); BUN Creatinine Ratio 18.1 (10-20); Calcium 8.7 mg/dl (8.5-10.1); Creatinine Clr Calc Pharmacy 103.9 ml/min; Est GFR (African American) 119.5; Est GFR (Non-African American) 103.1; Potassium 3.8 mmol/L (3.5-5.1)
[2019-04-15 16:55] LABS: Basophils # (auto) 0.07 K/uL (0-0.2); Basophils % (auto) 2.1 %; Eosinophils # (auto) 0.07 K/uL (0-0.5); Eosinophils % (auto) 2.1 %; Immature Granulocytes # (auto) 0.01 K/uL (0.00-0.02); Immature Granulocytes % (auto) 0.3 %; Lymphocytes # (auto) 0.66 K/uL (1.2-3.4); Lymphocytes % (auto) 19.4 %; Mean Platelet Volume 8.4 fL (7.4-10.4); Monocytes % (auto) 14.7 %; Neutrophils % (auto) 61.4 %; Platelet Count 88 K/uL (130-400); Platelet Estimate Decreased (Normal)
[2019-04-15 16:56] LABS: Albumin Globulin Ratio 0.5 (0.9-2); Bilirubin,Total 0.5 mg/dl (0.2-1); Globulin 4.8 gm/dl (2.5-4.0); Total Protein 7.3 gm/dl (6.4-8.2)
[2019-04-15 17:27] LABS: Lyme Ab IgG w/WB Rflx Negative (Negative); Lyme Ab IgM w/WB Rflx Negative (Negative)
--- NOTE | 2019-04-15 17:48 | Ultrasound Report ---
BILATERAL LOWER EXTREMITY VENOUS DOPPLER HISTORY: Bilateral lower extremity pain and swelling eval for dvt COMPARISON STUDY: None. FINDINGS: There is normal compressibility, flow, and augmentation within the bilateral lower extremit y deep venous systems. A few mildly enlarged inguinal lymph nodes are noted. Dominant lymph node on t he right measures 1.7 x 1.1 cm. IMPRESSION: No DVT within the right or left lower extremity. Mild bilateral inguinal lymphadenopathy. Electronically signed by: Alvin Ramirez M.D. 04/15/2019 5:47 PM
[2019-04-15] MEDS ORDERED: OCTREOTIDE ACETATE 50 MCG in SYRINGE 9.5 ML IV STA (18:11)
[2019-04-15] MEDS ORDERED: PANTOprazole 80 MG in DEXTROSE 5% 100 ML IV ONE (18:30)
[2019-04-15] MEDS: PANTOprazole 40 MG in DEXTROSE 5% 100 ML IV SCH ×2 (19:10→23:19)
--- NOTE | 2019-04-15 20:54 | History & Physical Report ---
Date of Service April 15, 2019 Assessment & Plan (1) Bilateral ankle pain: 63-year-old male was admitted on 15 April 2019 for suspected GI bleed. Bilateral ankle pain: Is patient's actual chief complaint. Patient told ED he had right crampy pain. On H&P, says only had bilateral ankle pain. No known trauma, fevers, weakness, or injuries. Patient is walking about in the ED exam room. No focal findings on exam. - Via ED, BLE venous u/s noted no DVT in the right or left lower extremities but positive bilateral inguinal lymphadenopathy. - Patient notes total resolution of discomfort after gabapentin in ED. - Monitor for now. Suspected GI bleed, anemia, history of alcoholism & GERD: Admitted in December 2018 for upper GI bleed. EGD noted grade 1 esophageal varices and multiple gastric ulcers. Usually is on dexlansoprazole at home. Here noted to have anemia and positive melanotic stool on Hemoccult. Denies abdominal pain but has noted some more shortness of breath in the past couple of days. - In ED, afebrile, not tachycardic or hypertensive, SpO2 91% on room air. Admit Hb 8.0. Baseline around Hb 10. - In ED, given octreotide and started on a pantoprazole drip. - Continue pantoprazole and octreotide IV. Continue home thiamine and folic acid supplementation. Type and screen. Patient agrees to transfusion if needed. Keep n.p.o. LR maintenance IVF. Consult gastroenterology. Transaminitis, chronic splenomegaly, liver cirrhosis, HCV: Admit AST 108 and AP 191, both slight increase over baseline elevation. [id number] biliary ultrasound mentions suspected hepatic cirrhosis. Thrombocytopenia: Admit platelets 88, likely due to splenomegaly associated with cirrhosis versus tickborne illness. 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 - In ED, Lyme testing was negative. Hypoalbuminemia: Admit albumin 2.5. Patient has a thin habitus. Ongoing medical issues: - Hypertension: Not on any home meds for this. - Shortness of breath: Apparently is on as needed albuterol but denies underlying pulmonary disease. - Insomnia: Continue home trazodone. - Various pains: Continue home as needed Tylenol. Code status: Full code. Diet: N.p.o. DVT prophy: SCDs. Chemical prophylaxis held due to suspected GI bleed. PT/OT: Deferred. Disbo: Admit to [facility] with telemetry. 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 He mentioned to the ED that he has had cramping pain in his right leg that worsened yesterday. On H&P, he says it was mostly bilateral ankle pain that worsened yesterday. Symptoms are letter with walking and worse with rest. This did not limit him from being out fishing all morning long today. Possibly some mild swelling in both legs since December as well. No known fevers, injuries, or local rashes. At at the time of this H&P the patient had received gabapentin in the ED and now says his pain is completely resolved. No other patient concerns noted. As part of routine ED lab work, his hemoglobin was noted to be 8. Patient has a history of GI bleed, esophageal varices, and gastric ulcers. Patient says that he has not noticed any melenic or hematochezic stools recently. He denies any abdominal pain as well as N/V/D. He does say over the past couple of days he has had to use his albuterol inhaler more often. He denies any known underlying pulmonary disease, though he does have a history of heavy smoking in the past. He denies any concurrent chest pain. Patient does have a history of alcoholism but says his last drink was on December 08, 2018. - Past medical history includes alcoholism, GERD, esophageal varices, gastric ulcers, GI bleed, transaminitis, chronic splenomegaly, liver cirrhosis, hepatitis C virus, thrombocytopenia, anemia, agranulocytosis, hypoalbuminemia, hypertension, shortness of breath, insomnia. - Past surgical history includes having his teeth removed. - Social history includes previously smoking 3 packs/day but now down to 3 cigarettes/week. Stopped drinking alcohol on December 08, 2018. Lives at home with and son. Allergies Allergy/AdvReac Type Severity Reaction Status Date / Time doxycycline Allergy Hives Verified 03/26/19 08:13 codeine AdvReac Unknown Gastrointestinal Verified 03/26/19 08:13 Upset Home Medications Home Medications Medication Instructions Recorded Confirmed Type albuterol sulfate 2 puff INHALATION Q4H PRN 06/15/18 04/15/19 History folic acid 1 mg PO QAM 06/15/18 04/15/19 History thiamine HCl (vitamin B1) 100 mg PO QAM 06/15/18 04/15/19 History Dexilant 30 mg PO BID 03/10/19 04/15/19 History tramadol 50 mg PO HS PRN 03/10/19 04/15/19 History trazodone 50 mg PO HS 03/10/19 04/15/19 History acetaminophen [Tylenol Extra 500 mg PO Q6H PRN 03/19/19 04/15/19 History Strength] Past Med/Surg History Medical History 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) Neutropenic fever (Acute) Coffee ground emesis Cirrhosis of liver (Chronic) Anemia (Acute) Parotiditis Alcohol abuse (Chronic) Hypertension Alcoholism (Acute) Hepatitis C antibody test positive No significant past surgical history Surgical History H/O endoscopy Loss of teeth due to extraction Family History Other Diabetes Hypertension Social History Preferred Language: Nepali Communication Ability: Effective Beliefs That Will Affect Care: None Current Living Situation: Spouse Feels Safe at Home: Yes Smoking Status: Current every day smoker Tobacco Type: cigarettes Cigarettes Per Day: used to smoke 1 1/2ppd now smokes only 1/2 pack a day Hx Alcohol Use: Yes Alcohol type: beer Hx Substance Use: No Review of Systems Review of Systems: Constitutional: Denies fevers, chills, focal weakness Eyes: Denies any visual loss or diplopia ENT: Denies any ear/nose/throat pain or difficulty speaking or swallowing Respiratory: Positive mild shortness of breath. Denies cough or hemoptysis. Cardiovascular: Denies any chest pain. Question of some edema. Gastrointestinal: Denies any abdominal pain, nausea/vomiting/diarrhea Musculoskeletal: Positive bilateral ankle pain. Skin: Denies any known acute rashes or lesions Neuro: Denies any headache, acute focal weakness or numbness, or difficulties with speech or swallow. Physical Exam Physical Exam: GENERAL: Awake, alert, well-appearing and pleasantly conversational in full sentences, in no acute distress. Thin habitus. HENT: Normocephalic, atraumatic. Oropharynx unremarkable. EYES: Normal conjunctiva. Sclera non-icteric. NECK: Inspection normal. Non-tender. Supple and full ROM. CARDIAC: +S1S2 RRR, no murmurs. RESPIRATORY: Clear to auscultation. No wheezes or rales. Normal respiratory effort. GI: +BS, soft, non-distended. No tenderness to palpation. No rebound or guarding. EXTREMITIES: No pedal edema or calf tenderness. Moving all extremities naturally and easily. No gross difficulty with ankle range of motion bilaterally. No ankle tenderness to palpation. He is ambulating easily around the room. NEURO: No gross neuro deficits. Results & Data Vital Signs (Past 12 Hours) Vital Signs Temp Pulse Pulse Resp BP BP Pulse Ox 04/15/19 19:40 76 18 115/72 98 04/15/19 17:24 95 H 18 118/65 91 04/15/19 15:22 36.7 C 97 H 20 121/62 98 Laboratory Results 04/15/19 04/15/19 04/15/19 Range/Units 16:29 16:29 16:29 WBC 3.41 L (4.8-10.8) K/uL RBC 2.52 L (4.7-6.1) M/uL Hgb 8.0 L (14.0-18.0) g/dL Hct 23.5 L (42-52) % MCV 93.3 (80-100) fL MCH 31.7 (25-34) pg MCHC 34.0 (32-36) g/dL RDW Std Deviation 61.2 H (36.4-46.3) fL RDW Coeff of Gaby 17.9 H (11.5-14.5) % Plt Count 88 L (130-400) K/uL MPV 8.4 (7.4-10.4) fL Immature Gran % (Auto) 0.3 % Neut % (Auto) 61.4 % Lymph % (Auto) 19.4 % [place] % (Auto) 14.7 % Eos % (Auto) 2.1 % Baso % (Auto) 2.1 % Immature Gran # (Auto) 0.01 (0.00-0.02) K/uL Neut # (Auto) 2.10 (1.4-6.5) K/uL Lymph # (Auto) 0.66 L (1.2-3.4) K/uL [place] # (Auto) 0.50 (0.11-0.59) K/uL Eos # (Auto) 0.07 (0-0.5) K/uL Baso # (Auto) 0.07 (0-0.2) K/uL Platelet Estimate Decreased L (Normal) PT 11.9 (9.0-12.0) Seconds INR 1.2 H (0.9-1.1) APTT 28.5 (21.0-31.0) Seconds PTT Ratio 1.1 Sodium (136-145) mmol/L Potassium (3.5-5.1) mmol/L Chloride (98-107) mmol/L Carbon Dioxide (21-32) mmol/L Anion Gap (3-11) BUN (7-18) mg/dl Creatinine (0.6-1.4) mg/dl Est Cr Clr Drug Dosing ml/min Est GFR ( Amer) Est GFR (Non-Af Amer) BUN/Creatinine Ratio (10-20) Glucose (70-99) mg/dl Calcium (8.5-10.1) mg/dl Total Bilirubin (0.2-1) mg/dl AST (15-37) U/L ALT (12-78) U/L Alkaline Phosphatase (45-117) U/L Total Protein (6.4-8.2) gm/dl Albumin (3.4-5.0) gm/dl Globulin (2.5-4.0) gm/dl Albumin/Globulin Ratio (0.9-2) Lyme Disease IgG Ab Negative (Negative) Lyme Disease IgM Ab Negative (Negative) 04/15/19 Range/Units 16:29 WBC (4.8-10.8) K/uL RBC (4.7-6.1) M/uL Hgb (14.0-18.0) g/dL Hct (42-52) % MCV (80-100) fL MCH (25-34) pg MCHC (32-36) g/dL RDW Std Deviation (36.4-46.3) fL RDW Coeff of Gaby (11.5-14.5) % Plt Count (130-400) K/uL MPV (7.4-10.4) fL Immature Gran % (Auto) % Neut % (Auto) % Lymph % (Auto) % [place] % (Auto) % Eos % (Auto) % Baso % (Auto) % Immature Gran # (Auto) (0.00-0.02) K/uL Neut # (Auto) (1.4-6.5) K/uL Lymph # (Auto) (1.2-3.4) K/uL [place] # (Auto) (0.11-0.59) K/uL Eos # (Auto) (0-0.5) K/uL Baso # (Auto) (0-0.2) K/uL Platelet Estimate (Normal) PT (9.0-12.0) Seconds INR (0.9-1.1) APTT (21.0-31.0) Seconds PTT Ratio Sodium 135 L (136-145) mmol/L Potassium 3.8 (3.5-5.1) mmol/L Chloride 103 (98-107) mmol/L Carbon Dioxide 26 (21-32) mmol/L Anion Gap 6.0 (3-11) BUN 12 (7-18) mg/dl Creatinine 0.68 (0.6-1.4) mg/dl Est Cr Clr Drug Dosing 103.9 ml/min Est GFR ( Amer) 119.5 Est GFR (Non-Af Amer) 103.1 BUN/Creatinine Ratio 18.1 (10-20) Glucose 98 (70-99) mg/dl Calcium 8.7 (8.5-10.1) mg/dl Total Bilirubin 0.5 (0.2-1) mg/dl AST 108 H (15-37) U/L ALT 57 (12-78) U/L Alkaline Phosphatase 191 H (45-117) U/L Total Protein 7.3 (6.4-8.2) gm/dl Albumin 2.5 L (3.4-5.0) gm/dl Globulin 4.8 H (2.5-4.0) gm/dl Albumin/Globulin Ratio 0.5 L (0.9-2) Lyme Disease IgG Ab (Negative) Lyme Disease IgM Ab (Negative) Medications Administered Pantoprazole Sodium 40 mg/ (Dextrose) 100 mls @ 20 mls/hr IV Q5H JOCELYNN Stop: 04/15/19 23:29 Last Admin: 04/15/19 19:10 Dose: 20 mls/hr Documented by: [id number] Discontinued Medications Gabapentin (Neurontin) 300 mg PO ONE STA Stop: 04/15/19 15:45 Last Admin: 04/15/19 16:00 Dose: 300 mg Documented by: [id number] Octreotide Acetate 50 mcg/ (Syringe) 10 mls @ 3 mls/min IV ONE STA Stop: 04/15/19 18:14 Last Admin: 04/15/19 18:48 Dose: 3 mls/min Documented by: [id number] Pantoprazole Sodium 80 mg/ (Dextrose) 120 mls @ 480 mls/hr IV ONE ONE Stop: 04/15/19 18:44 Last Infusion: 04/15/19 19:10 Dose: 0 mls/hr Documented by: [id number] Admin: 04/15/19 18:52 Dose: 480 mls/hr Documented by: [id number] Code Status & VTE Plan Code Status Full code VTE Prophylaxis Plan VTE Prophylaxis will be ordered: Yes Supervising Physician Co-Signing Physician Notes Brent Blackwood is a 63yo C male with history of liver cirrhosis from former EtOH abuse, HTN and anemia presenting with BL LE pain resolved with Neurontin. ER labs reveal anemia, rectal exam with melena. Patient with history of GERD, Grade I esophageal varices and gastric ulcers - last admitted for UGIB in december 2018. Since then he has quit drinking EtOH and has cut back on his smoking. He denies CP/SOB/dizziness. Denies bowel changes/melena/hematochezia On exam his is afebrile, hemodynamically stable, NAD HEENT: MMM, adentulous Heart: +S1/S2 with ectopy, no m/r/g Lungs: CTA Abd: +BS, soft, NT, mildly distended, no masses/organomegaly Ext: +edema Labs and images reviewed. B12 from March = 438 Assessment/Plan: Suspect UGIB most likely secondary to gastritis or ulcers, patient also with history of varices -Patient commended for his positive lifestyle changes - quitting EtOH and cutti ng back on smoking -Protonix and octreotide gtt -Monitor CBC, transfuse if active bleeding, symptomatic anemia or Hg < 7 -Remainder of plan as above PG Care Time/CCT Total # of Minutes Spent Total Time Spent with Patient: Total time spent is greater than 50% in coordination of care (as documented) at patient's floor/unit and/or counseling patient: Resident Activity Tracking Resident Involvement: Resident Care Provided Care Provided: Adult Hospital Medicine (1) Anemia Anemia type: unspecified type Qualified Code(s): D64.9 - Anemia, unspecified (2) Esophageal varices Esophageal varices type: unspecified type (3) Hypertension Hypertension type: essential hypertension Qualified Code(s): I10 - Essential (primary) hypertension
--- NOTE | 2019-04-15 21:09 | Emergency Department Note ---
Entered by Geo Orourke acting as a scribe for Jesus Hdez MD History of Present Illness General Chief complaint: Foot Injury/Pain Stated complaint: CRAMPED FEET, HIGH PAIN Source: patient History of Present Illness Provider complaint: Leg pain Onset (ago): week(s) 2 Location: lower extremity and right Pain Consistency: + constant and + intermittent Maximum Pain Intensity: 8 Quality: + other (Cramping) Relieved By: + movement Exacerbated By: + rest Associated symptoms: no chest pain, no fever/chills and no shortness of breath The patient is a 63 year old male who presents to the Emergency Room with complaints of intermittent cramping right leg pain that has been present for about 2 weeks, but started to worsen yesterday. The patient states the pain is mostly localized to his right ankle, knee, and thigh. The patient notes that the pain is better when he is walking and worse after just a few minutes of sitting still or lying down. The patient also mentioned that he has some lower extremity swelling that has been present since December when he was hospitalized for a GI bleed. However, he notes that the swelling has been worse before. The patient denies any fevers, chest pain, or shortness of breath, as well as any history of pulmonary emboli. His adds that the patient seems to get short of breath with any exertion especially in the humidity. Home Medications Home Medications Medication Instructions Recorded Confirmed Type albuterol sulfate 2 puff INHALATION Q4H PRN 06/15/18 04/15/19 History folic acid 1 mg PO QAM 06/15/18 04/15/19 History thiamine HCl (vitamin B1) 100 mg PO QAM 06/15/18 04/15/19 History Dexilant 30 mg PO BID 03/10/19 04/15/19 History tramadol 50 mg PO HS PRN 03/10/19 04/15/19 History trazodone 50 mg PO HS 03/10/19 04/15/19 History acetaminophen [Tylenol Extra 500 mg PO Q6H PRN 03/19/19 04/15/19 History Strength] Allergies Allergy/AdvReac Type Severity Reaction Status Date / Time doxycycline Allergy Hives Verified 03/26/19 08:13 codeine AdvReac Unknown Gastrointestinal Verified 03/26/19 08:13 Upset Past Med/Surg History Medical History 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) Neutropenic fever (Acute) Coffee ground emesis Cirrhosis of liver (Chronic) Anemia (Acute) Parotiditis Alcohol abuse (Chronic) Hypertension Alcoholism (Acute) Hepatitis C antibody test positive No significant past surgical history Surgical History H/O endoscopy Loss of teeth due to extraction Family History Other Diabetes Hypertension Social History Preferred Language: Luxembourgish Communication Ability: Effective Beliefs That Will Affect Care: None Current Living Situation: Spouse Feels Safe at Home: Yes Smoking Status: Current every day smoker Tobacco Type: cigarettes Cigarettes Per Day: used to smoke 1 1/2ppd now smokes only 1/2 pack a day Hx Alcohol Use: Yes Alcohol type: beer Hx Substance Use: No Review of Systems See HPI for pertinent positives & negatives. and A total of 10 systems reviewed and were otherwise negative Physical Exam Vital Signs Vital Signs - 24 hr 04/15/19 15:22 04/15/19 17:24 04/15/19 19:40 Temperature 36.7 C Temperature Source Oral Sepsis Recent Fever Within 48 Hours No Sepsis New/Unexplained Change in Mental Status No Sepsis Action Taken by Nursing No Action Required Pulse Rate 97 H Pulse Rate [Right Finger] 95 H 76 Pulse Rhythm [Right Finger] Regular Regular Pulse Strength [Right Finger] Normal Normal Respiratory Rate 20 18 18 Respiratory Effort / Characteristics Non-Labored Spontaneous Non-Labored Respiratory Depth Normal Normal Respiratory Pattern Regular Regular Blood Pressure 121/62 Blood Pressure [Right Arm] 118/65 115/72 Blood Pressure Mean 81 Blood Pressure Mean [Right Arm] 82 86 Blood Pressure Position [Right Arm] Sitting Pulse Oximetry 98 91 98 Oxygen Delivery Method Room Air Room Air Constitutional: Vital signs reviewed. Eyes: Pupils are equal round reactive to light. Conjunctiva are noninjected. ENT: Pharynx is clear without erythema or exudate. Mucous membranes are moist. Neck supple without meningeal signs. Respiratory: Clear to auscultation bilaterally. Breath sounds are equal bilaterally. Cardiovascular: Regular rate and rhythm. No rubs or gallops. GI: Soft, nondistended and nontender. Bowel sounds are present. Rectal: Strongly guaiac positive. Dark brown stool noted. Musculoskeletal: Swelling to the ankles bilaterally. No joint erythema or tenderness to the ankles or knees. Normal distal pulses. No cellulitis. Integumentary: No cyanosis. Neurological: The patient is awake and alert. No focal deficits. Psychiatric: Normal affect. Course 1537: Past medical records reviewed. The patient was evaluated in room A11B, and a complete history and physical examination were performed. 1655: I reevaluated the patient and he is feeling much better stating he no longer has pain in his legs. I also performed a rectal exam. 1707: I discussed the treatment plan with the patient and his . He was upset that he has to stay in the hospital, but is agreeable to the plan. 1713: I spoke to Dr. Trejo [facility] Hospitalist about the patient's case and he is going to accept him for further evaluation. 1830: I explained to the patient why he could not eat due to his upper GI bleed. I ordered protonics and Octreotide. Reevaluation(s) Reevaluation #1: I spoke to Dr. Trejo [facility] Hospitalist about the patient's case and he is going to accept him for further evaluation. Time: 17:13 Administered Medications Pantoprazole Sodium 40 mg/ (Dextrose) 100 mls @ 20 mls/hr IV Q5H JOCELYNN Stop: 04/15/19 23:29 Last Admin: 04/15/19 19:10 Dose: 20 mls/hr Documented by: [id number] Discontinued Medications Gabapentin (Neurontin) 300 mg PO ONE STA Stop: 04/15/19 15:45 Last Admin: 04/15/19 16:00 Dose: 300 mg Documented by: [id number] Octreotide Acetate 50 mcg/ (Syringe) 10 mls @ 3 mls/min IV ONE STA Stop: 04/15/19 18:14 Last Admin: 04/15/19 18:48 Dose: 3 mls/min Documented by: [id number] Pantoprazole Sodium 80 mg/ (Dextrose) 120 mls @ 480 mls/hr IV ONE ONE Stop: 04/15/19 18:44 Last Infusion: 04/15/19 19:10 Dose: 0 mls/hr Documented by: [id number] Admin: 04/15/19 18:52 Dose: 480 mls/hr Documented by: [id number] Medical Decision Making Differential Diagnosis Differential Diagnosis includes: DVT, arthritis, restless leg syndrome, metabolic derangement, and claudication, MSK pain amongst others. Medical Records Attestation: I reviewed the patient's medical records. I did perform a limited focused review of portions of the patient's old chart on the electronic medical record. The patient was admitted here in March for neutropenic fever. Home Medications Current Medication List: was personally reviewed by me Laboratory Data Attestation: I reviewed the patient's lab results. Result diagrams: 04/15/19 16:29 04/15/19 16:29 Lab Results 04/15/19 04/15/19 04/15/19 Range/Units 16:29 16:29 16:29 WBC 3.41 L (4.8-10.8) K/uL RBC 2.52 L (4.7-6.1) M/uL Hgb 8.0 L (14.0-18.0) g/dL Hct 23.5 L (42-52) % MCV 93.3 (80-100) fL MCH 31.7 (25-34) pg MCHC 34.0 (32-36) g/dL RDW Std Deviation 61.2 H (36.4-46.3) fL RDW Coeff of Gaby 17.9 H (11.5-14.5) % Plt Count 88 L (130-400) K/uL MPV 8.4 (7.4-10.4) fL Immature Gran % (Auto) 0.3 % Neut % (Auto) 61.4 % Lymph % (Auto) 19.4 % [place] % (Auto) 14.7 % Eos % (Auto) 2.1 % Baso % (Auto) 2.1 % Immature Gran # (Auto) 0.01 (0.00-0.02) K/uL Neut # (Auto) 2.10 (1.4-6.5) K/uL Lymph # (Auto) 0.66 L (1.2-3.4) K/uL [place] # (Auto) 0.50 (0.11-0.59) K/uL Eos # (Auto) 0.07 (0-0.5) K/uL Baso # (Auto) 0.07 (0-0.2) K/uL Platelet Estimate Decreased L (Normal) PT 11.9 (9.0-12.0) Seconds INR 1.2 H (0.9-1.1) APTT 28.5 (21.0-31.0) Seconds PTT Ratio 1.1 Sodium 135 L (136-145) mmol/L Potassium 3.8 (3.5-5.1) mmol/L Chloride 103 (98-107) mmol/L Carbon Dioxide 26 (21-32) mmol/L Anion Gap 6.0 (3-11) BUN 12 (7-18) mg/dl Creatinine 0.68 (0.6-1.4) mg/dl Est Cr Clr Drug Dosing 103.9 ml/min Est GFR ( Amer) 119.5 Est GFR (Non-Af Amer) 103.1 BUN/Creatinine Ratio 18.1 (10-20) Glucose 98 (70-99) mg/dl Calcium 8.7 (8.5-10.1) mg/dl Total Bilirubin 0.5 (0.2-1) mg/dl AST 108 H (15-37) U/L ALT 57 (12-78) U/L Alkaline Phosphatase 191 H (45-117) U/L Total Protein 7.3 (6.4-8.2) gm/dl Albumin 2.5 L (3.4-5.0) gm/dl Globulin 4.8 H (2.5-4.0) gm/dl Albumin/Globulin Ratio 0.5 L (0.9-2) Lyme Disease IgG Ab (Negative) Lyme Disease IgM Ab (Negative) 04/15/19 Range/Units 16:29 WBC (4.8-10.8) K/uL RBC (4.7-6.1) M/uL Hgb (14.0-18.0) g/dL Hct (42-52) % MCV (80-100) fL MCH (25-34) pg MCHC (32-36) g/dL RDW Std Deviation (36.4-46.3) fL RDW Coeff of Gaby (11.5-14.5) % Plt Count (130-400) K/uL MPV (7.4-10.4) fL Immature Gran % (Auto) % Neut % (Auto) % Lymph % (Auto) % [place] % (Auto) % Eos % (Auto) % Baso % (Auto) % Immature Gran # (Auto) (0.00-0.02) K/uL Neut # (Auto) (1.4-6.5) K/uL Lymph # (Auto) (1.2-3.4) K/uL [place] # (Auto) (0.11-0.59) K/uL Eos # (Auto) (0-0.5) K/uL Baso # (Auto) (0-0.2) K/uL Platelet Estimate (Normal) PT (9.0-12.0) Seconds INR (0.9-1.1) APTT (21.0-31.0) Seconds PTT Ratio Sodium (136-145) mmol/L Potassium (3.5-5.1) mmol/L Chloride (98-107) mmol/L Carbon Dioxide (21-32) mmol/L Anion Gap (3-11) BUN (7-18) mg/dl Creatinine (0.6-1.4) mg/dl Est Cr Clr Drug Dosing ml/min Est GFR ( Amer) Est GFR (Non-Af Amer) BUN/Creatinine Ratio (10-20) Glucose (70-99) mg/dl Calcium (8.5-10.1) mg/dl Total Bilirubin (0.2-1) mg/dl AST (15-37) U/L ALT (12-78) U/L Alkaline Phosphatase (45-117) U/L Total Protein (6.4-8.2) gm/dl Albumin (3.4-5.0) gm/dl Globulin (2.5-4.0) gm/dl Albumin/Globulin Ratio (0.9-2) Lyme Disease IgG Ab Negative (Negative) Lyme Disease IgM Ab Negative (Negative) Imaging Data Radiologist's Impression: Radiology results as stated below per my review and the radiologist's interpretation: BILATERAL LOWER EXTREMITY VENOUS DOPPLER HISTORY: Bilateral lower extremity pain and swelling eval for dvt COMPARISON STUDY: None. FINDINGS: There is normal compressibility, flow, and augmentation within the bilateral lower extremity deep venous systems. A few mildly enlarged inguinal ly mph nodes are noted. Dominant lymph node on the right measures 1.7 x 1.1 cm. IMPRESSION: No DVT within the right or left lower extremity. Mild bilateral inguinal lymphadenopathy. Electronically signed by: Alvin Ramirez M.D. 04/15/2019 5:47 PM Blood Pressure Blood Pressure Findings: Normal blood pressure MDM Narrative I did evaluate the patient as noted above. Patient is presenting with bilateral leg pain and swelling. He states his pain is a crampy sensation which is worse when he lies down and better when he walks around. He has normal distal pulses and shows no signs of arterial insufficiency or claudication. He does have edema to both of his ankles. I was concerned about possible DVT. IV access was established. I did order and review the patient's blood work as noted in the electronic medical record. The patient has a hemoglobin of 8. He is thrombocytopenic and leukopenic as well. Electrolytes are unremarkable other than a sodium of 1. Lyme testing is negative. Because of his low hemoglobin and history of esophageal varices I did perform a rectal examination on him. He has very dark stools which are grossly guaiac positive. No gross blood was noted. I did treat the patient with IV octreotide. He was also started on a Protonix drip. I did order Doppler ultrasound of lower extremities. I did review the images myself as well as the radiology report as described above. There is no evidence of DVT. I did recommend admission to the hospital due to his GI bleed. I did discuss the case with the hospitalist and community case manager. Impression & Plan Upper GI bleed, Anemia, Bilateral lower extremity edema, Leg pain, Esophageal varices, Thrombocytopenia Discharge Plan Visit Data Chief Complaint: Foot Injury/Pain Stated Complaint: CRAMPED FEET, HIGH PAIN ED Provider: Jesus Hdez Discharge Problem: Upper GI bleed, Anemia, Bilateral lower extremity edema, Leg pain, Esophageal varices, Thrombocytopenia Patient Disposition: Being Evaluated by Hospitalist Forms Stand Alone Forms: My [facility] [employer] Prescriptions Prescriptions: No Action thiamine HCl (vitamin B1) 100 mg Tablet 100 mg PO QAM RF: 0 folic acid 1 mg Tablet 1 mg PO QAM RF: 0 albuterol sulfate 90 mcg/actuation Hfa Aerosol Inhaler 2 puff Inhalation Q4H PRN (Reason: Wheezing) RF: 0 trazodone 50 mg Tablet 50 mg PO HS RF: 0 tramadol 50 mg tablet 50 mg PO HS PRN (Reason: Insomnia) RF: 0 Dexilant 30 mg Capsule,Biphase Delayed Releas 30 mg PO BID RF: 0 acetaminophen [Tylenol Extra Strength] 500 mg Tablet 500 mg PO Q6H PRN (Reason: pain/ headache) RF: 0 Referrals Referrals: [facility],Medicine [Primary Care Provider] - Discharge Problem: Anemia Qualifiers: Anemia type: unspecified type Qualified Code(s): D64.9 - Anemia, unspecified Leg pain Qualifiers: Laterality: right Qualified Code(s): M79.604 - Pain in right leg Esophageal varices Qualifiers: Esophageal varices type: unspecified type The scribe's documentation has been prepared under my direction and personally reviewed by me in its entirety. I confirm that the note above accurately reflects all work, treatment, procedures, and medical decision making performed by me.
[2019-04-15] MEDS ORDERED: ALBUTEROL 0.083% NEBU SOLN 3 ML VIAL NEB PRN (21:24)
[2019-04-15] MEDS ORDERED: ALBUTEROL HFA 8 GM INHALER INH PRN (21:24)
[2019-04-15] MEDS: LACTATED RINGER'S 1,000 ML IV SCH (22:24)
[2019-04-15] MEDS: TRAZODONE HCL 50 MG TAB PO SCH (22:25)
[2019-04-15] MEDS: OCTREOTIDE ACETATE 500 MCG in 0.9 % SODIUM CHLORIDE 100 ML IV SCH (22:49)
[2019-04-15 23:20] LABS: Hematocrit (blood only) 24.7 % (42-52); Hemoglobin 8.2 g/dL (14.0-18.0)
[2019-04-16] MEDS: ACETAMINOPHEN 500 MG TAB PO PRN ×2 (01:52→16:06)
[2019-04-16] MEDS: PANTOprazole 40 MG in DEXTROSE 5% 100 ML IV SCH ×2 (04:29→11:23)
[2019-04-16 06:16] LABS: Hematocrit (blood only) 23.7 % (42-52); Hemoglobin 7.9 g/dL (14.0-18.0); Mean Corpuscular Hgb Conc 33.3 g/dL (32-36); RDW Coefficient of Variation 17.8 % (11.5-14.5); RDW Standard Deviation 61.5 fL (36.4-46.3); Red Blood Count 2.47 M/uL (4.7-6.1); White Blood Count 3.18 K/uL (4.8-10.8)
[2019-04-16 06:17] LABS: Mean Platelet Volume 8.5 fL (7.4-10.4); Platelet Count 86 K/uL (130-400)
[2019-04-16 06:39] LABS: Basophils # (auto) 0.07 K/uL (0-0.2); Basophils % (auto) 2.2 %; Eosinophils # (auto) 0.15 K/uL (0-0.5); Eosinophils % (auto) 4.7 %; Giant Platelets 1+; Lymphocytes # (auto) 0.68 K/uL (1.2-3.4); Lymphocytes % (auto) 21.4 %; Monocytes # (auto) 0.56 K/uL (0.11-0.59); Monocytes % (auto) 17.6 %; Neutrophils # (auto) 1.72 K/uL (1.4-6.5); Neutrophils % (auto) 54.1 %; Polychromasia 1+
[2019-04-16 06:51] LABS: Albumin Level 2.2 gm/dl (3.4-5.0); BUN Creatinine Ratio 18.9 (10-20); Calcium 8.6 mg/dl (8.5-10.1); Creatinine Clr Calc Pharmacy 102.4 ml/min; Est GFR (African American) 120.9; Est GFR (Non-African American) 104.3
[2019-04-16 06:54] LABS: Albumin Globulin Ratio 0.5 (0.9-2); Globulin 4.3 gm/dl (2.5-4.0); Total Protein 6.5 gm/dl (6.4-8.2)
[2019-04-16] MEDS: FOLIC ACID 1 MG TAB PO SCH (07:55)
[2019-04-16] MEDS: THIAMINE HCL 100 MG TAB PO SCH (07:55)
[2019-04-16] MEDS: OCTREOTIDE ACETATE 500 MCG in 0.9 % SODIUM CHLORIDE 100 ML IV SCH (08:49)
--- NOTE | 2019-04-16 08:53 | Gastrointestinal Consultation ---
Date of Consultation April 16, 2019 Assessment & Plan (1) Thrombocytopenia: (2) Cirrhosis of liver: (3) Anemia: (4) Fecal occult blood test positive: Pt is a 63 y/o male w ETOH, HCV cirrhosis, seen for anemia, noted to have hemoccult + stool in ED. Hx of gastric ulcer, grade 1 varices seen in EGD 12/26. His last ETOH intake was in December 2018. MELD 8 - Keep him NPO for EGD eval today by Dr. Priest - PPI gtt - GI to give further recs after EGD is completed. Supervising Physician Co-Signing Physician Notes Attending attestation I have seen, examined this patient, and agree with the findings and above by our mid-level provider Ms.Leonie Novak, with the following additions Admission with bilateral lower leg pain no overt signs of GI bleeding. Anemia. Had linear gastric ulcers and very small varices on last EGD in December. We will plan on EGD this morning to rule out active bleeding or bleeding lesions that need or require intervention. History of Present Illness Reason for Consultation: Anemia, GI bleed Requesting Physician: Dr. Shadi Lee Attending Physician: Dr. Neel Priest History of Present Illness Pt is a 63 y/o male w hx of ETOH abuse, HCV cirrhosis, gastric ulcer, Grade 1 esophageal varices found during EGD 12/21/18 who presented w bilateral ankle pain. It was noted during his admission labs that he's anemic w H/H 06/01, baseline 9-10. INR 1.2, Plt 86. He denies any abd pain, n/v, hematemesis, dark tarry stools or rectal bleeding. He did have positive melanotic stool on Hemoccult per admission note. He is a CVIM pt, faizan't really had any f/u on cirrhosis care. Other complaints that brought him to the ER where bilateral ankle pain and swelling, has not had any alcohol since the beginning of December per Allergies Allergy/AdvReac Type Severity Reaction Status Date / Time doxycycline Allergy Hives Verified 03/26/19 08:13 codeine AdvReac Unknown Gastrointestinal Verified 03/26/19 08:13 Upset Home Medications Home Medications Medication Instructions Recorded Confirmed Type albuterol sulfate 2 puff INHALATION Q4H PRN 06/15/18 04/15/19 History folic acid 1 mg PO QAM 06/15/18 04/15/19 History thiamine HCl (vitamin B1) 100 mg PO QAM 06/15/18 04/15/19 History Dexilant 30 mg PO BID 03/10/19 04/15/19 History tramadol 50 mg PO HS PRN 03/10/19 04/15/19 History trazodone 50 mg PO HS 03/10/19 04/15/19 History acetaminophen [Tylenol Extra 500 mg PO Q6H PRN 03/19/19 04/15/19 History Strength] Patient History Medical History 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) Neutropenic fever (Acute) Coffee ground emesis Cirrhosis of liver (Chronic) Anemia (Acute) Parotiditis Alcohol abuse (Chronic) Hypertension Alcoholism (Acute) Hepatitis C antibody test positive No significant past surgical history Surgical History H/O endoscopy Loss of teeth due to extraction Family History Other Diabetes Hypertension Social History Preferred Language: Senegalese Communication Ability: Effective Flue Gas Analyst Required: No Beliefs That Will Affect Care: None Current Living Situation: Spouse Feels Safe at Home: Yes Safety Concerns: Feels Safe At This Time Smoking Status: Current every day smoker Tobacco Type: cigarettes Cigarettes Per Day: 20-30 Hx Alcohol Use: No Hx Substance Use: No Review of Systems Review of Systems: All systems reviewed & are unremarkable except as noted in HPI & below Physical Exam Constitutional: WD/WN, vitals as above well groomed, cooperative and comfortable Eyes: PERRL, conjunctivae normal, anicteric sclerae ENMT: external ear and nose normal, oropharynx normal Respiratory: normal respiratory effort, lungs clear to auscultation Cardiovascular: RRR, no murmur, no edema Gastrointestinal (Abdomen): normal bowel sounds, soft, nontender, no hepatosplenomegaly Skin: no rashes, warm and dry no jaundice Neurologic: Motor/Sensory: no asterixis Psychiatric: A+Ox3, euthymic affect Lymphatic: bilateral LE w +1 pitting edema Results & Data Vital Signs (Past 12 Hours) Vital Signs Temp Pulse Pulse Resp BP Pulse Ox 07/08/19 07:05 36.7 C 81 19 123/71 96 04/16/19 04:00 36.3 C L 81 19 107/46 L 94 04/16/19 00:00 36.6 C 99 H 19 118/68 95 04/15/19 22:43 36.6 C 91 H 16 133/70 97 04/15/19 21:24 102 H 04/15/19 21:10 76 18 115/72 98 (1) Anemia Anemia type: unspecified type Qualified Code(s): D64.9 - Anemia, unspecified
--- NOTE | 2019-04-16 09:53 | Anesthesiology Consultation ---
Date of Service April 16, 2019 Pancytopenia Smoker Alcoholic Cirrhosis Hypersplenism Varices Assessment & Plan (1) Encounter for pre-operative examination: Chart Review Chart Review: Acceptable Risk for Surgery and Patient NOT seen in Pre Admission Testing Consults Requested none ASA ASA3 Proposed Anesthesia Anesthesia Type: MAC Risk / Benefits Reviewed With: PT / POA / Parent / Guardian, Accepts Plan and Informed Consent Obtained History Surgery Operation Date: 04/16/19 08:30 Proposed Procedures p Esophagogastroduodenoscopy Dr Cem Priest Height/Weight Height: 5 ft 9.5 in Weight: 61.6 kg Allergies Allergy/AdvReac Type Severity Reaction Status Date / Time doxycycline Allergy Hives Verified 03/26/19 08:13 codeine AdvReac Unknown Gastrointestinal Verified 03/26/19 08:13 Upset Medications Home Medications Medication Instructions Recorded Confirmed Last Taken albuterol sulfate 2 puff INHALATION Q4H PRN 06/15/18 04/15/19 04/15/19 folic acid 1 mg PO QAM 06/15/18 04/15/19 04/15/19 thiamine HCl (vitamin B1) 100 mg PO QAM 06/15/18 04/15/19 04/15/19 Dexilant 30 mg PO BID 03/10/19 04/15/19 04/15/19 tramadol 50 mg PO HS PRN 03/10/19 04/15/19 04/15/19 100mg trazodone 50 mg PO HS 03/10/19 04/15/19 04/15/19 acetaminophen [Tylenol Extra 500 mg PO Q6H PRN 03/19/19 04/15/19 04/15/19 Strength] 100mg Active Medications Generic Name Dose Route Start Last Admin Trade Name Freq PRN Reason Stop Dose Admin Acetaminophen 500 mg 04/15/19 21:24 04/16/19 01:52 Tylenol PO 05/15/19 21:23 500 mg Q6H PRN Administration pain/ headache Diphenhydramine HCl 25 mg 04/15/19 23:06 04/15/19 23:18 Benadryl Capsule PO 05/15/19 23:05 25 mg QPM PRN Administration Insomnia Folic Acid 1 mg 04/16/19 09:00 04/16/19 07:55 Folvite PO 08/07/19 08:59 1 mg QAM JOCELYNN Administration Pantoprazole Sodium 40 mg/ 100 mls @ 20 mls/hr 04/15/19 18:30 04/16/19 09:23 Dextrose IV 05/15/19 18:29 0 mls/hr Q5H JOCELYNN Infusion Lactated Ringer's 1,000 mls @ 80 mls/hr 04/15/19 21:24 04/16/19 09:23 Lr IV 05/15/19 21:23 0 mls/hr .[id number] JOCELYNN Infusion Octreotide Acetate 500 mcg/ 105 mls @ 10.5 mls/hr 04/15/19 21:45 04/16/19 09:23 Sodium Chloride IV 05/15/19 21:44 0 mcg/hr .Q10H JOCELYNN 0 mls/hr Infusion 50 MCG/HR Thiamine HCl 100 mg 04/16/19 09:00 04/16/19 07:55 Vitamin B-1 PO 05/16/19 08:59 100 mg QAM JOCELYNN Administration Trazodone HCl 50 mg 04/15/19 21:24 04/15/19 22:25 Desyrel PO 05/15/19 21:23 Not Given HS JOCELYNN NPO Date Last Intake of Fluids: 04/16/19 Time Last Intake of Fluids: 07:30 Date Last Intake of Solids: 04/15/19 Time Last Intake of Solids: 23:30 Past Medical History Medical History 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) Neutropenic fever (Acute) Coffee ground emesis Cirrhosis of liver (Chronic) Anemia (Acute) Parotiditis Alcohol abuse (Chronic) Hypertension Alcoholism (Acute) Hepatitis C antibody test positive No significant past surgical history Exercise / Class Metabolic Activity II 4-5 Yardwork/Stairs/Walk up hill Past Family History Family History Other Diabetes Hypertension Past Surgical History Surgical History H/O endoscopy Loss of teeth due to extraction Past Anesthesia History No Hx of Anesthesia Complications and No Family Hx of Anesthesia Complications History of PONV No Hx of PONV and No Hx of Motion Sickness Social History Smoking Status: Current every day smoker tobacco type: cigarettes Smoking cigarettes per day: 20-30 Hx Alcohol Use: No Alcohol type: beer alcohol intake frequency: 3 or more drinks per day Hx Substance Use: No substance use type: does not use Physical Exam Vital Signs Last Vital Signs Temp 36.6 C 04/16/19 09:29 Pulse 95 H 04/16/19 09:29 Resp 20 04/16/19 09:29 BP 128/63 04/16/19 09:29 Pulse Ox 94 04/16/19 09:29 ENMT Mouth: + edentulous Thyromental Distance: > or= 3.5 Finger Breadths Mallampati Class: II Neck normal visual inspection Respiratory normal respiratory effort Auscultation: lungs clear to auscultation bilaterally Cardiovascular Rate/Rhythm: regular rate and regular rhythm Psychiatric Orientation: alert Testing Laboratory Results 04/16/19 05:58 04/16/19 05:58 PT 11.9 Seconds (9.0-12.0) 04/15/19 16:29 INR 1.2 (0.9-1.1) H 04/15/19 16:29 APTT 28.5 Seconds (21.0-31.0) 04/15/19 16:29 Blood Type O Positive 04/15/19 21:40 Antibody Screen NEGATIVE 04/15/19 21:40
--- NOTE | 2019-04-16 10:29 | GI REPORT ---
Patient Name: Brent Blackwood Procedure Date: 04/16/2019 9:48 AM Date of : 1955 Admit Type: Inpatient Age: 63 Gender: Male Attending MD: Neel Priest MD Procedure: Upper GI endoscopy Providers: Neel Priest MD Referring MD: Shadi Lee Indications: Anemia Medicines: Monitored Anesthesia Care Complications: No immediate complications. Estimated blood loss: None. Estimated Blood Loss: Estimated blood loss: none. Procedure: Pre-Anesthesia Assessment: - Pre-Anesthesia Assessment: - Prior to the procedure, a History and Physical was performed, and patient medications, allergies and sensitivities were reviewed. The patient's tolerance of previous anesthesia was reviewed. Please see [employer] for complete details. - The risks and benefits of the procedure and the sedation options and risks were discussed with the patient. All questions were answered and informed consent was obtained. - Patient identification and proposed procedure were verified prior to the procedure by the physician and the nurse. The procedure was verified in the pre-procedure area in the procedure room. After obtaining informed consent, the endoscope was passed carefully and meticuously under direct vision and only advanced when the lumen was clearly identified, C02 insuflation was utilized throughout the entirity of the procedure. Throughout the procedure, the patient's blood pressure, pulse, and oxygen saturations were monitored continuously. After obtaining informed consent, the endoscope was passed under direct vision. Throughout the procedure, the patient's blood pressure, pulse, and oxygen saturations were monitored continuously. The scope was introduced through the mouth, and advanced to the second part of duodenum. The upper GI endoscopy was accomplished without difficulty. The patient tolerated the procedure well. Findings: Large (> 5 mm) varices were found in the middle third of the esophagus and in the lower third of the esophagus. No Stigmata of bleeding Portal hypertensive gastropathy was found in the entire examined stomach. Likely small gastric varices were noted. The examined duodenum was normal. No blood visualized in entire examination. Impression: - Large (> 5 mm) esophageal varices. - Likely Gastric varices - Portal hypertensive gastropathy. - Normal examined duodenum. - No specimens collected. Recommendation: - [facility]. - Initiation of non-selective beta phoenix with propranolol or nadalol and titrate for a pulse goal of 55-65 BPM. - Will need f/u with Hepatology - contact worker lithography consult for evaluation of potential Medicaid coverage - Strict Alcohol Avoidance Neel Priest MD 04/16/2019 10:29:08 AM This report has been signed electronically. Note Initiated On: 04/16/2019 9:48 AM Number of Addenda: 0 I attest to the content of the Intraoperative Record and orders documented therein, exceptions below {[id number]}
[2019-04-16] MEDS ORDERED: PROPOFOL IV EMULSION 10 MG/ML 20 ML VIAL IV ONE (10:32)
[2019-04-16] MEDS ORDERED: LIDOCAINE HCL 2% 2 ML VIAL/AMP(20MG/ML) INFIL ONE (10:32)
[2019-04-16] MEDS: LACTATED RINGER'S 1,000 ML IV SCH (11:09)
--- NOTE | 2019-04-16 11:53 | Anesthesiology Progress Note ---
Date of Service April 16, 2019 Anesthesia Post Procedure Vital Signs Vital Signs: Temp Pulse Pulse Resp BP BP Pulse Ox 04/16/19 11:39 36.5 C 79 16 112/66 96 04/16/19 11:00 95 H 20 124/71 95 04/16/19 10:45 97 H 20 126/85 95 04/16/19 10:29 36 C L 92 H 16 103/47 L 98 04/16/19 09:29 36.6 C 95 H 20 128/63 94 04/16/19 07:05 36.7 C 81 19 123/71 96 04/16/19 04:00 36.3 C L 81 19 107/46 L 94 04/16/19 00:00 36.6 C 99 H 19 118/68 95 04/15/19 22:43 36.6 C 91 H 16 133/70 97 04/15/19 21:24 102 H 04/15/19 21:10 76 18 115/72 98 04/15/19 19:40 76 18 115/72 98 04/15/19 17:24 95 H 18 118/65 91 04/15/19 15:22 36.7 C 97 H 20 121/62 98 Transfer of Care Handoff Completed per policy Notes Mental Status: alert / awake / arousable Patient Amnestic to Procedure: Yes Nausea / Vomiting: adequately controlled Pain: adequately controlled Airway Patency, RR, SpO2: stable & adequate BP & HR: stable & adequate Hydration State: stable & adequate Anesthetic Complications: no major complications apparent
[2019-04-16] MEDS: NADOLOL 40 MG TAB PO SCH (12:07)
[2019-04-16 14:24] LABS: Hematocrit (blood only) 23.6 % (42-52); Hemoglobin 7.8 g/dL (14.0-18.0)
--- NOTE | 2019-04-16 15:21 | Hospitalist Progress Note ---
Date of Service April 16, 2019 Assessment & Plan (1) GI bleed: no signs of active bleeding he was FOBT positive in the ED and Hb is down to 7.8 this afternoon will repeat tomorrow stop Octreotide drip, stop Protonix drip change to Protonix PO BID allow patient to eat a regular diet (2) Anemia: see above, thought to be due to recent blood loss but also likely a component of chronic disease Hb down to 7.8, vitals stable no need for transfusion repeat H/H in the morning (3) Bilateral ankle pain: resolved spontaneously no DVT in either leg (4) History of alcohol abuse: counseled on stopping alcohol (5) GERD (gastroesophageal reflux disease): change Protonix back to PO BID (6) Esophageal varices: larger today than last time, up to 5mm start on Nadolol 40mg PO daily, target HR of 60 no need for prophylactic banding at this time per Dr. Priest (7) Gastric ulcer: h/o this, no ulcers seen on EGD today (8) Transaminitis: due to alcohol use and HCV stable (9) Splenomegaly: due to cirrhosis (10) Cirrhosis of liver: needs set up outpatient with hepatology [facility] working on this (11) Hepatitis C antibody test positive: again, needs follow up with liver specialist (12) Thrombocytopenia due to hypersplenism: stable (13) Hypoalbuminemia: (14) Hypertension: (15) Shortness of breath: resolved (16) Insomnia: Subjective patient had EGD today, showed large 5mm varices and some small gastric varices no signs of active or even recent bleeding, there was no blood in the stomach discussed with Dr. Priest, recommended starting Corgard as well as setting up follow up with director quality systems Hb this morning was 7.9, down slightly, repeated in afternoon and it was 7.8 discussed repeating Hb in the morning, he was okay with this plan denied any other issues Review of Systems Review of Systems: All systems reviewed & are unremarkable except as noted in HPI & below Constitutional: + fatigue; no fever, no chills, no sweats and no weakness Respiratory: no cough and no dyspnea Cardiovascular: no chest pain and no edema Gastrointestinal: no abdominal pain, no nausea, no vomiting, no constipation and no diarrhea/loose stools Musculoskeletal: no back pain and no joint pain Physical Exam Constitutional: WD/WN, vitals as above Eyes: PERRL, conjunctivae normal, anicteric sclerae ENMT: external ear and nose normal, oropharynx normal Neck: trachea midline, no thyromegaly Respiratory: normal respiratory effort, lungs clear to auscultation Cardiovascular: RRR, no murmur, no edema Gastrointestinal (Abdomen): normal bowel sounds, soft, nontender, no hepatosplenomegaly Musculoskeletal: no cyanosis or clubbing, extremities motor strength 5/5 Skin: no rashes, warm and dry Neurologic: patellar DTR's 2+ bilat, sensation intact and PERRL, EOMI, accommodation nl, no face palsy, no dysarthria Psychiatric: A+Ox3, euthymic affect Lymphatic: no cervical or axillary lymphadenopathy Results & Data Vital Signs (Past 12 Hours) Vital Signs Temp Pulse Resp BP Pulse Ox 04/16/19 11:39 36.5 C 79 16 112/66 96 04/16/19 11:00 95 H 20 124/71 95 04/16/19 10:45 97 H 20 126/85 95 04/16/19 10:29 36 C L 92 H 16 103/47 L 98 04/16/19 09:29 36.6 C 95 H 20 128/63 94 04/16/19 07:05 36.7 C 81 19 123/71 96 04/16/19 04:00 36.3 C L 81 19 107/46 L 94 Laboratory Results Laboratory Results - last 24 hr 04/15/19 04/15/19 04/15/19 16:29 16:29 16:29 WBC 3.41 L RBC 2.52 L Hgb 8.0 L Hct 23.5 L MCV 93.3 MCH 31.7 MCHC 34.0 RDW Std Deviation 61.2 H RDW Coeff of Gaby 17.9 H Plt Count 88 L MPV 8.4 Immature Gran % (Auto) 0.3 Neut % (Auto) 61.4 Lymph % (Auto) 19.4 Clinton % (Auto) 14.7 Eos % (Auto) 2.1 Baso % (Auto) 2.1 Immature Gran # (Auto) 0.01 Neut # (Auto) 2.10 Lymph # (Auto) 0.66 L Clinton # (Auto) 0.50 Eos # (Auto) 0.07 Baso # (Auto) 0.07 Platelet Estimate Decreased L Giant Platelets Polychromasia PT 11.9 INR 1.2 H APTT 28.5 PTT Ratio 1.1 Sodium 135 L Potassium 3.8 Chloride 103 Carbon Dioxide 26 Anion Gap 6.0 BUN 12 Creatinine 0.68 Est Cr Clr Drug Dosing 103.9 Est GFR ( Amer) 119.5 Est GFR (Non-Af Amer) 103.1 BUN/Creatinine Ratio 18.1 Glucose 98 Calcium 8.7 Total Bilirubin 0.5 AST 108 H ALT 57 Alkaline Phosphatase 191 H Total Protein 7.3 Albumin 2.5 L Globulin 4.8 H Albumin/Globulin Ratio 0.5 L Lyme Disease IgG Ab Lyme Disease IgM Ab Blood Type Antibody Screen 04/15/19 04/15/19 04/15/19 16:29 21:40 23:04 WBC RBC Hgb 8.2 L Hct 24.7 L MCV MCH MCHC RDW Std Deviation RDW Coeff of Gaby Plt Count MPV Immature Gran % (Auto) Neut % (Auto) Lymph % (Auto) Clinton % (Auto) Eos % (Auto) Baso % (Auto) Immature Gran # (Auto) Neut # (Auto) Lymph # (Auto) Clinton # (Auto) Eos # (Auto) Baso # (Auto) Platelet Estimate Giant Platelets Polychromasia PT INR APTT PTT Ratio Sodium Potassium Chloride Carbon Dioxide Anion Gap BUN Creatinine Est Cr Clr Drug Dosing Est GFR ( Amer) Est GFR (Non-Af Amer) BUN/Creatinine Ratio Glucose Calcium Total Bilirubin AST ALT Alkaline Phosphatase Total Protein Albumin Globulin Albumin/Globulin Ratio Lyme Disease IgG Ab Negative Lyme Disease IgM Ab Negative Blood Type O Positive Antibody Screen NEGATIVE 04/16/19 04/16/19 04/16/19 05:58 05:58 14:05 WBC 3.18 L RBC 2.47 L Hgb 7.9 L 7.8 L Hct 23.7 L 23.6 L MCV 96.0 MCH 32.0 MCHC 33.3 RDW Std Deviation 61.5 H RDW Coeff of Gaby 17.8 H Plt Count 86 L MPV 8.5 Immature Gran % (Auto) 0.0 Neut % (Auto) 54.1 Lymph % (Auto) 21.4 Clinton % (Auto) 17.6 Eos % (Auto) 4.7 Baso % (Auto) 2.2 Immature Gran # (Auto) 0.00 Neut # (Auto) 1.72 Lymph # (Auto) 0.68 L Clinton # (Auto) 0.56 Eos # (Auto) 0.15 Baso # (Auto) 0.07 Platelet Estimate Giant Platelets 1+ Polychromasia 1+ PT INR APTT PTT Ratio Sodium 140 Potassium 4.0 Chloride 107 Carbon Dioxide 28 Anion Gap 5.0 BUN 13 Creatinine 0.66 Est Cr Clr Drug Dosing 102.4 Est GFR ( Amer) 120.9 Est GFR (Non-Af Amer) 104.3 BUN/Creatinine Ratio 18.9 Glucose 85 Calcium 8.6 Total Bilirubin 1.0 D AST 118 H ALT 58 Alkaline Phosphatase 161 H Total Protein 6.5 Albumin 2.2 L Globulin 4.3 H Albumin/Globulin Ratio 0.5 L Lyme Disease IgG Ab Lyme Disease IgM Ab Blood Type Antibody Screen Medications Administered Current Inpatient Medications Acetaminophen (Tylenol) 500 mg PO Q6H PRN PRN Reason: pain/ headache Stop: 05/15/19 21:23 Last Admin: 04/16/19 01:52 Dose: 500 mg Documented by: Albuterol (Ventolin Hfa) 2 puffs INH Q4H PRN PRN Reason: Wheezing Stop: 05/15/19 21:23 Albuterol (Ventolin 0.083% 2.5mg/3ml) 2.5 mg NEB Q4H PRN PRN Reason: Shortness Of Breath Stop: 05/15/19 21:23 Diphenhydramine HCl (Benadryl Capsule) 25 mg PO QPM PRN PRN Reason: Insomnia Stop: 05/15/19 23:05 Last Admin: 04/15/19 23:18 Dose: 25 mg Documented by: Folic Acid (Folvite) [facility] [place]: 05/16/19 08:59 Last Admin: 04/16/19 07:55 Dose: 1 mg Documented by: Nadolol (Corgard) 40 mg PO QAM [facility] Stop: 05/16/19 11:14 Last Admin: 04/16/19 12:07 Dose: 40 mg Documented by: Pantoprazole Sodium (Protonix) 40 mg PO BID [facility] Stop: 05/16/19 20:59 Thiamine HCl (Vitamin B-1) 100 [facility] [place]: 05/16/19 08:59 Last Admin: 04/16/19 07:55 Dose: 100 mg Documented by: Trazodone HCl (Desyrel) 50 mg PO HS JOCELYNN Stop: 05/15/19 21:23 Last Admin: 04/15/19 22:25 Dose: Not Given Documented by: PG Care Time/CCT Total # of Minutes Spent Total Time Spent with Patient: Total time spent is greater than 50% in coordination of care (as documented) at patient's floor/unit and/or counseling patient: (1) Anemia Anemia type: unspecified type Qualified Code(s): D64.9 - Anemia, unspecified (2) Esophageal varices Esophageal varices type: unspecified type (3) Hypertension Hypertension type: essential hypertension Qualified Code(s): I10 - Essential (primary) hypertension
[2019-04-16] MEDS ORDERED: MoRPHine SULFATE 2 MG/ML CARP IV PRN (16:32)
[2019-04-16] MEDS ORDERED: ONDANSETRON INJ 2 MG/ML 2 ML VIAL IV PRN (16:39)
[2019-04-16] MEDS ORDERED: KETOROLAC 30 MG/ML VIAL IV STA (16:41)
[2019-04-16] MEDS: TRAZODONE HCL 50 MG TAB PO SCH (21:11)
[2019-04-16] MEDS: PANTOprazole 40 MG TAB PO SCH (21:11)
[2019-04-17] MEDS: THIAMINE HCL 100 MG TAB PO SCH (07:16)
[2019-04-17] MEDS: PANTOprazole 40 MG TAB PO SCH (07:17)
[2019-04-17] MEDS: FOLIC ACID 1 MG TAB PO SCH (07:17)
[2019-04-17] MEDS: NADOLOL 40 MG TAB PO SCH (07:17)
[2019-04-17 07:22] LABS: Hematocrit (blood only) 24.1 % (42-52); Hemoglobin 7.9 g/dL (14.0-18.0)
--- NOTE | 2019-04-17 07:51 | Anesthesiology Progress Note ---
Date of Service April 17, 2019 Anesthesia Post Procedure Vital Signs Vital Signs: Temp Pulse Resp BP BP Pulse Ox 04/17/19 07:19 36.8 C 79 20 121/69 93 04/17/19 04:00 36.8 C 77 19 105/65 94 04/17/19 00:16 36.7 C 67 18 100/60 96 04/16/19 19:40 37.0 C 68 20 96/62 L 96 04/16/19 11:39 36.5 C 79 16 112/66 96 04/16/19 11:00 95 H 20 124/71 95 04/16/19 10:45 97 H 20 126/85 95 04/16/19 10:29 36 C L 92 H 16 103/47 L 98 04/16/19 09:29 36.6 C 95 H 20 128/63 94 Notes Mental Status: alert / awake / arousable and participated in evaluation Patient Amnestic to Procedure: Yes Nausea / Vomiting: adequately controlled Pain: adequately controlled Airway Patency, RR, SpO2: stable & adequate BP & HR: stable & adequate Hydration State: stable & adequate Anesthetic Complications: no major complications apparent and Pt Satisfied with anesthetic care
--- NOTE | 2019-04-17 11:41 | Gastroenterology Progress Note ---
Date of Service April 17, 2019 Assessment & Plan (1) Thrombocytopenia: (2) Cirrhosis of liver: (3) Anemia: (4) Fecal occult blood test positive: Pt is a 63 y/o male w ETOH, HCV cirrhosis, seen for anemia, noted to have hemoccult + stool in ED. Hx of gastric ulcer, grade 1 varices seen in EGD 12/26. His last ETOH intake was in December 2018. MELD 8 EGD on 04/17 showed large esophageal varices, likely gastric varices, portal HTN, normal duodenum, no specimen collected. No more s/s of GI bleeding. - No contraindication for DC from GI standpoint - Corgard 40mg daily, goal HR 55-65 - Protonix 40mg BID - ETOH cessation, 2g Na diet - He follows w [facility] We can offer him f/u in GI clinic for cirrhosis care but likely needs approval from [facility] first. Subjective Pt feels well, denies any n/v, BMs yesterday w/o signs of dark tarry stools, rectal bleeding. Review of Systems Review of Systems: All systems reviewed & are unremarkable except as noted in HPI & below Physical Exam Constitutional: + thin, well groomed, cooperative and comfortable Eyes: PERRL, conjunctivae normal, anicteric sclerae ENMT: external ear and nose normal, oropharynx normal Respiratory: normal respiratory effort, lungs clear to auscultation Cardiovascular: RRR, no murmur, no edema Gastrointestinal (Abdomen): normal bowel sounds, soft, nontender, no hepatosplenomegaly Skin: no rashes, warm and dry no jaundice Neurologic: Motor/Sensory: no asterixis Psychiatric: A+Ox3, euthymic affect Results & Data Vital Signs (Past 12 Hours) Vital Signs Temp Pulse Resp BP BP Pulse Ox 04/17/19 10:44 36.8 C 79 20 121/69 105/65 93 04/17/19 07:19 36.8 C 79 20 121/69 93 04/17/19 04:00 36.8 C 77 19 105/65 94 04/17/19 00:16 36.7 C 67 18 100/60 96 (1) Anemia Anemia type: unspecified type Qualified Code(s): D64.9 - Anemia, unspecified
--- NOTE | 2019-04-17 14:08 | Discharge Summary ---
Date of Service April 17, 2019 Admission HPI Per Admitting Provider 63-year-old male presents the emergency department complaining of leg/ankle symptoms for about 2 weeks. He mentioned to the ED that he has had cramping pain in his right leg that worsened yesterday. On H&P, he says it was mostly bilateral ankle pain that worsened yesterday. Symptoms are letter with walking and worse with rest. This did not limit him from being out fishing all morning long today. Possibly some mild swelling in both legs since December as well. No known fevers, injuries, or local rashes. At at the time of this H&P the patient had received gabapentin in the ED and now says his pain is completely resolved. No other patient concerns noted. As part of routine ED lab work, his hemoglobin was noted to be 8. Patient has a history of GI bleed, esophageal varices, and gastric ulcers. Patient says that he has not noticed any melenic or hematochezic stools recently. He denies any abdominal pain as well as N/V/D. He does say over the past couple of days he has had to use his albuterol inhaler more often. He denies any known underlying pulmonary disease, though he does have a history of heavy smoking in the past. He denies any concurrent chest pain. Patient does have a history of alcoholism but says his last drink was on December 08, 2018. - Past medical history includes alcoholism, GERD, esophageal varices, gastric ulcers, GI bleed, transaminitis, chronic splenomegaly, liver cirrhosis, hepatitis C virus, thrombocytopenia, anemia, agranulocytosis, hypoalbuminemia, hypertension, shortness of breath, insomnia. - Past surgical history includes having his teeth removed. - Social history includes previously smoking 3 packs/day but now down to 3 cigarettes/week. Stopped drinking alcohol on December 08, 2018. Lives at home with and son. Principal Diagnosis Anemia, gastric and esophageal varices Discharge Exam Constitutional WD/WN, vitals as above Eyes PERRL, conjunctivae normal, anicteric sclerae ENMT external ear and nose normal, oropharynx normal Neck trachea midline, no thyromegaly Respiratory normal respiratory effort, lungs clear to auscultation Cardiovascular RRR, no murmur, no edema Gastrointestinal (Abdomen) normal bowel sounds, soft, nontender, no hepatosplenomegaly Musculoskeletal no cyanosis or clubbing, extremities motor strength 5/5 Skin no rashes, warm and dry Neurologic patellar DTR's 2+ bilat, sensation intact and PERRL, EOMI, accommodation nl, no face palsy, no dysarthria Psychiatric A+Ox3, euthymic affect Lymphatic no cervical or axillary lymphadenopathy Discharge Data Allergies Allergy/AdvReac Type Severity Reaction Status Date / Time doxycycline Allergy Hives Verified 03/26/19 08:13 codeine AdvReac Unknown Gastrointestinal Verified 03/26/19 08:13 Upset Consultations 04/15/19 17:28 ED Decision to Admit Stat 04/16/19 07:43 Consult Gastroenterology Routine Procedures Performed Operation Date: 04/16/19 08:30 Actual Procedures p Esophagogastroduodenoscopy - Neel Priest Ordered Studies 04/15/19 15:43 US venous doppler LE Stat Hospital Course (1) GI bleed: no signs of active bleeding he was FOBT positive in the ED and Hb is low at 7.9 but stable over 36 hours his Hb was 7.9-8.3 stop Octreotide drip, stop Protonix drip change to Protonix PO BID allow patient to eat a regular diet (2) Anemia: see above, thought to be due to recent blood loss but also likely a component of chronic disease Hb stable at 7.9 no need for transfusion will follow up with [facility] as well as Dr. Decker, hematology (3) Bilateral ankle pain: resolved spontaneously no DVT in either leg (4) History of alcohol abuse: counseled on stopping alcohol (5) GERD (gastroesophageal reflux disease): change Protonix back to PO BID resume Dexilant on discharge (6) Esophageal varices: larger on 04/16 than last time, up to 5mm started on Nadolol 40mg PO daily, target HR of 60 blood pressure 121/69, HR in the 70's on discharge no need for prophylactic banding at this time per Dr. Priest (7) Gastric ulcer: h/o this, no ulcers seen on EGD on 04/16 (8) Transaminitis: due to alcohol use and HCV stable (9) Splenomegaly: due to cirrhosis (10) Cirrhosis of liver: needs [facility] will go through approval from [facility] (11) Hepatitis C antibody test positive: again, needs follow up with liver specialist (12) Thrombocytopenia due to hypersplenism: stable (13) Hypoalbuminemia: (14) Hypertension: (15) Shortness of breath: resolved (16) Insomnia: Total Time Total Time Spent Total Time Spent (In Minutes): 32 minutes Total Time Includes: Examination of the Patient, Discharge Planning, Medication Reconciliation and Communication With Other Providers ([facility]) Discharge Plan Discharge Items Patient Disposition: Home - Self-Care Reason For Visit: GI BLEED Discharge Diagnosis: Anemia Cirrhosis with esophageal varices and gastric varices Alcohol abuse Condition: Good Discharge Goals: Improve disease control and Improve function Activity: Resume your previous activity Non-emergency contact: Primary Care Provider and Car And Yard Supervisor Call non-emergency contact if: you have any medication questions, your symptoms worsen, your pain is not controlled and you have a fever [facility] 04/20/19 10:30 am (Please, follow up with [facility] on TuesdayApril 20 at 10:30 am. *If you need to change this appointment, call the office at [phone].) Diet: Regular Addtl Provider Instructions: Medications: - NADOLOL: started per recommendation of gastroenterology, this is to lower blood pressure, lower heart rate and prevent esophageal variceal bleeding Anemia with fecal occult blood testing positive no signs of bleeding on EGD yesterday, there were some esophageal and gastric varices Hb is low but stable at 7.9 Cirrhosis due to alcohol abuse and hepatitis C you need to follow up with hepatology, [facility] gastroenterology will help arrange this appointment you need to continue to abstain from all alcohol started on Nadolol to help lower pressure and heart rate, lowers the stress on the esophageal varices FOLLOW UP - [facility]: in one week - [facility] gastroenterology: 2-3 weeks, referral to liver specialist Prescriptions: New nadolol 40 mg Tablet 40 mg PO QAM 30 Days Qty: 30 RF: 3 Continued thiamine HCl (vitamin B1) 100 mg Tablet 100 mg PO QAM RF: 0 folic acid 1 mg Tablet 1 mg PO QAM RF: 0 albuterol sulfate 90 mcg/actuation Hfa Aerosol Inhaler 2 puff Inhalation Q4H PRN (Reason: Wheezing) RF: 0 trazodone 50 mg Tablet 50 mg PO HS RF: 0 tramadol 50 mg tablet 50 mg PO HS PRN (Reason: Insomnia) RF: 0 Dexilant 30 mg Capsule,Biphase Delayed Releas 30 mg PO BID RF: 0 acetaminophen [Tylenol Extra Strength] 500 mg Tablet 500 mg PO Q6H PRN (Reason: pain/ headache) RF: 0 Stand-Alone Forms: [facility] Discharge Orders: Discharge Order (Routine); Ordered 04/17/19 Ordered By: Shadi Lee Admission Data Admit Date/Time: 04/15/19 20:49 Attending Provider: Shadi Lee Admit Provider: Larry Robles Primary Care Provider: [facility] Other Providers: Primitivo Trejo ; Zelalem Lee ; Santi Borjas ; Mery Pagan ; Neel Priest ; Alex Ramon ; Fabio Meléndez ; Danni Arango ; David Lee ; Ravinder Rodriguez ; Darcy Gallegos ; Loren Kimble ; Augusta Novak ; Laura Green ; Lang Rojas Service: Telemetry Medical Other Interventions: Discharge Summary Assessment (RN) Last Done: 04/17/19 10:44 DC Date/Time DO NOT enter until pt leaves facility: 04/17/19 13:22
--- NOTE | 2019-04-19 08:16 | Coding Query ---
CODING QUERY To promote full compliance with coding requirements relating to patient care, provider participation is requested in all cases of auto glass worker uncertainty. Please assist us with the question(s) below: Coding Question(s): Patient FOBT positive in ED. HB 7.9, DS=anemia may be due to recent blood loss, likely a component of chronic disease. Large varices in esophagus and stomach with no stigmata of bleeding. Please document the etiology of the blood loss, if known or suspected. Thanks for your help! Fredo Dick ADMINISTRATIVE SERVICES ASSISTANT [facility] Physician's Response(s): blood loss likely a component of varices, however, no active bleeding at the time of exam Principal Diagnosis: "that condition established after study, to be chiefly responsible for occasioning the admission of the patient to the hospital for care." Co-Existing Principal Diagnosis: "when two or more diagnoses equally meet the criteria for principal diagnosis as determined by the circumstances of admission, diagnostic work up, and/or therapy provided, and the Alphabetic Index, Tabular List, or another coding guideline does not provide sequencing direction, any one of the diagnoses may be sequenced first." "When the physician has documented what appears to be a current diagnosis in the body of the record, but has not included the diagnosis in the final diagnostic statement, the physician should be asked whether the diagnosis should be added." (Source Coding Clinic 2 QTR90. p3-4) RISSA
== END 2019-04-17 13:22 | disposition home or self-care (01) | DRG 433 ==
LOC: ED 15:19 → SUATTDRO 20:49 → 2N 20:49
DX: D69.59 Other secondary thrombocytopenia; B19.20 Unspecified viral hepatitis C without hepatic coma; R19.5 Other fecal abnormalities; F10.21 Alcohol dependence, in remission; Z87.891 Personal history of nicotine dependence; K31.89 Other diseases of stomach and duodenum; M79.604 Pain in right leg; M79.605 Pain in left leg; Z82.49 Family history of ischemic heart disease and other diseases of the circulatory system; Z83.3 Family history of diabetes mellitus; I85.10 Secondary esophageal varices without bleeding; I86.4 Gastric varices; R60.0 Localized edema; D63.8 Anemia in other chronic diseases classified elsewhere; R74.0 Nonspecific elevation of levels of transaminase and lactic acid dehydrogenase [LDH]; K74.69 Other cirrhosis of liver; K21.9 Gastro-esophageal reflux disease without esophagitis; Z88.5 Allergy status to narcotic agent

== ENCOUNTER 2019-04-23 04:04 | Inpatient (IN) ==
[2019-04-23] MEDS ORDERED: SODIUM CHLORIDE 0.9% 500 ML IV SCH (04:30)
[2019-04-23 04:40] LABS: Basophils # (auto) 0.05 K/uL (0-0.2); Basophils % (auto) 1.4 %; Eosinophils # (auto) 0.16 K/uL (0-0.5); Eosinophils % (auto) 4.4 %; Hematocrit (blood only) 24.7 % (42-52); Hemoglobin 8.2 g/dL (14.0-18.0); Immature Granulocytes # (auto) 0.01 K/uL (0.00-0.02); Immature Granulocytes % (auto) 0.3 %; Lymphocytes # (auto) 0.69 K/uL (1.2-3.4); Lymphocytes % (auto) 19.1 %; Mean Corpuscular Hgb Conc 33.2 g/dL (32-36); Mean Corpuscular Volume 95.7 fL (80-100); Mean Platelet Volume 8.6 fL (7.4-10.4); Monocytes # (auto) 0.65 K/uL (0.11-0.59); Neutrophils # (auto) 2.06 K/uL (1.4-6.5); Neutrophils % (auto) 56.8 %; Platelet Count 101 K/uL (130-400); RDW Coefficient of Variation 17.6 % (11.5-14.5); Red Blood Count 2.58 M/uL (4.7-6.1); White Blood Count 3.62 K/uL (4.8-10.8)
[2019-04-23 04:43] LABS: Appearance Urine Clear (Clear); Bilirubin Urine Negative (Negative); Blood Urine Negative (Negative); Color Urine Yellow; Glucose Urine UA Negative (Negative); Ketones Urine Negative (Negative); Leukocyte Esterase Urine Negative (Negative); Nitrite Urine Negative (Negative); Protein Urine Negative (Negative); Specific Gravity Urine 1.008 (1.000-1.030); Urobilinogen Urine Negative (Negative); pH Urine 6.5 (4.5-7.5)
[2019-04-23 04:49] LABS: INR 1.2 (0.9-1.1); Prothrombin Time 12.4 Seconds (9.0-12.0)
[2019-04-23 04:59] LABS: Calcium 7.9 mg/dl (8.5-10.1); Carbon Dioxide 24 mmol/L (21-32); Chloride 109 mmol/L (98-107); Potassium 3.7 mmol/L (3.5-5.1); Sodium 139 mmol/L (136-145)
[2019-04-23 05:00] LABS: Alanine Aminotransferase 63 U/L (12-78); Albumin Level 2.3 gm/dl (3.4-5.0); Aspartate Aminotransferase 91 U/L (15-37); BUN Creatinine Ratio 9.8 (10-20); Blood Urea Nitrogen 8 mg/dl (7-18); Creatinine Clr Calc Pharmacy 93.9 ml/min; Est GFR (African American) 112.3; Est GFR (Non-African American) 96.9; Glucose 276 mg/dl (70-99)
[2019-04-23 05:02] LABS: Albumin Globulin Ratio 0.5 (0.9-2); Alkaline Phosphatase 186 U/L (45-117); Bilirubin,Total 0.6 mg/dl (0.2-1); Globulin 4.4 gm/dl (2.5-4.0); Total Protein 6.7 gm/dl (6.4-8.2); Troponin I < 0.015 ng/ml (0-0.045)
[2019-04-23] MEDS ORDERED: LORazepam 1 MG/2 ML VIAL IV STA ×2 (05:07→05:20)
[2019-04-23 05:22] LABS: RBC Morphology Unremarkable
[2019-04-23] MEDS: IOVERSOL 100ml IV PRN ×2 (05:45→05:46)
--- NOTE | 2019-04-23 06:29 | CT Scan Report ---
CT head/brain wo con CLINICAL HISTORY: Acute change in mental status COMPARISON STUDY: No previous studies for comparison. TECHNIQUE: Axial CT of the brain is performed from the vertex to the skull base. IV contrast was not administered for this examination. A dose lowering technique was utilized adhering to the principles of ALARA. CT DOSE: FINDINGS: No intra or extra-axial mass lesions are visualized. There is no CT evidence of acute cortical infarc tion. There is no evidence of midline shift. There is no acute hemorrhage. No calvarial fractures ar e visualized. There are patchy white matter hypodensities likely on a small vessel basis. There is small lacunar in farcts in the right centrum semiovale. There is no evidence of pathologic ventricular dilatation. There is no evidence of acute sinusitis IMPRESSION: No acute intracranial findings Electronically signed by: Malcom Mccann M.D. 04/23/2019 6:28 AM
--- NOTE | 2019-04-23 06:38 | Emergency Department Note ---
Entered by Geo Orourke acting as a scribe for History of Present Illness General Chief complaint: Urinary Symptoms Stated complaint: URINARY RETNETION/NEURO SYMPTOMS Time Seen by Provider: 04/23/19 04:09 Source: patient History of Present Illness Provider complaint: Unable to void Onset (ago): hour(s) 4 Location: abdomen Pain Consistency: + constant Relieved By: + none Exacerbated By: + none Associated symptoms: + confusion and + other (Positive abdominal pain; Positive slurred speech ) The patient is a 63 year old male who presents to the Emergency Room with complaints of the constant inability to void and altered mental status that started about 4 hours ago, per EMS. The patient states that he has abdominal pain due to not being able to void. Per the patient's , he has been able to void since she found him altered at midnight. She states that the patient was getting frustrated this evening about his health condition and was not acting like himself. She noticed he was slurring his speech and he could not see a wall that was just inches in front of him. Per the , the patient also has swelling in his legs that has been worsening over the past week. The patient was in the hospital yesterday to have fluid removed from his leg. The patient has a history of bleeding ulcers in his abdomen. His notes that the patient has not been right since he had a bleeding incident from the aforementioned ulcers in December 2018. The patient is also a former alcoholic having quit drinking 4 months ago, however he has a history of Cirrhosis and Hepatitis C. The patient also smoked cigarettes daily but per his , is trying to cut back. Home Medications Home Medications Medication Instructions Recorded Confirmed Type albuterol sulfate 2 puff INHALATION Q4H PRN 06/15/18 04/21/19 History folic acid 1 mg PO QAM 06/15/18 04/21/19 History thiamine HCl (vitamin B1) 100 mg PO QAM 06/15/18 04/21/19 History Dexilant 30 mg PO BID 03/10/19 04/21/19 History tramadol 50 mg PO HS PRN 03/10/19 04/21/19 History trazodone 50 mg PO HS 03/10/19 04/21/19 History acetaminophen [Tylenol Extra 500 mg PO Q6H PRN 03/19/19 04/21/19 History Strength] nadolol 40 mg PO QAM 30 Days #30 tab 04/17/19 04/21/19 Rx gabapentin 300 mg PO HS 30 Days #30 cap 04/21/19 Rx Allergies Allergy/AdvReac Type Severity Reaction Status Date / Time doxycycline Allergy Hives Verified 04/21/19 08:49 codeine AdvReac Unknown Gastrointestinal Verified 04/21/19 08:49 Upset Past Med/Surg History Medical History 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) Neutropenic fever (Acute) Coffee ground emesis Cirrhosis of liver (Chronic) Anemia (Acute) Parotiditis Alcohol abuse (Chronic) Hypertension Alcoholism (Acute) Hepatitis C antibody test positive No significant past surgical history Surgical History H/O endoscopy Loss of teeth due to extraction Family History Other Diabetes Hypertension Social History Preferred Language: Croatian Communication Ability: Effective Beliefs That Will Affect Care: None Current Living Situation: Spouse Feels Safe at Home: Yes Smoking Status: Unknown if ever smoked Hx Alcohol Use: No Hx Substance Use: No Review of Systems See HPI for pertinent positives & negatives. and A total of 10 systems reviewed and were otherwise negative Physical Exam Vital Signs Vital Signs - 24 hr 04/23/19 04:01 04/23/19 04:21 04/23/19 05:25 Temperature 36.6 C Temperature Source Oral Sepsis Recent Fever Within 48 Hours No Sepsis New/Unexplained Change in Mental Status No Sepsis Action Taken by Nursing No Action Required Pulse Rate 126 H Pulse Rate [Apical] 148 H Pulse Rhythm [Apical] Pulse Strength [Apical] Respiratory Rate 18 18 Respiratory Effort / Characteristics Non-Labored Respiratory Depth Normal Respiratory Pattern Regular Blood Pressure 165/100 H Blood Pressure [Left Arm] 160/100 H Blood Pressure Mean 121 Blood Pressure Mean [Left Arm] 120 Pulse Oximetry 99 99 Oxygen Delivery Method Room Air Room Air Room Air 04/23/19 05:44 Temperature Temperature Source Sepsis Recent Fever Within 48 Hours Sepsis New/Unexplained Change in Mental Status Sepsis Action Taken by Nursing Pulse Rate Pulse Rate [Apical] 119 H Pulse Rhythm [Apical] Regular Pulse Strength [Apical] Normal Respiratory Rate 18 Respiratory Effort / Characteristics Non-Labored Respiratory Depth Normal Respiratory Pattern Regular Blood Pressure Blood Pressure [Left Arm] 143/120 H Blood Pressure Mean Blood Pressure Mean [Left Arm] 127 Pulse Oximetry 95 Oxygen Delivery Method Room Air HEENT: Head - normocephalic and atraumatic Pupils are equal, round, and reactive to light. Extraocular eye muscles are intact, and sclera are anicteric. Nose - moist nasal mucosa without discharge. Mouth - dry buccal mucosa. Oropharynx is nonerythematous and there is no tonsillar exudate or klaudia a noted. Neck: Supple; no JVD, nuchal rigidity, cervical lymphadenopathy. Heart: Tachycardic rate and regular rhythm. There is a normal S1 and S2 with no murmurs, clicks, or gallops appreciated. Lungs: Diminished breath sounds in all lung connor. Clear to auscultation bilaterally with no wheezes, rales, or rhonchi. Abdomen: Extremely distended abdomen that is exquisitely diffusely tender, with good bowel sounds. There are no palpable pulsatile masses or hepatosplenomegaly. There is no guarding, rigidity, or rebound noted. Extremities: No evidence of cyanosis or clubbing. There are easily palpable peripheral pulses. 4+ edema bilaterally. Skin: warm and dry with good turgor and no rashes. Neuro: Intermittently able to follow commands, slurred speech, difficult to understand. Course 0410: Past medical records reviewed. The patient was evaluated in room B07, and a complete history and physical examination were performed. Laboratory studies were drawn as above. The patient was observed on a hospital monitor and pulse oximeter. A twelve-lead EKG was obtained. 0507: Patient was given 1 mg of IV Ativan ration for CT scan. 0519: I reevaluated the patient and he is still agitated. He will receive another dose of Ativan before going to CT. His O2 saturation is 98% and his heart rate is 140. 0535: I spoke to Dr. Petersen [facility] Hospitalist about the patient's case and he is going to be accepting him for further evaluation. 0546: I checked on the patient and he is resting more comfortably. His heart rate has come down since last evaluation. His family has gone home. Consultations Consultation #1: I spoke to Dr. Petersen [facility] Hospitalist about the patient's case and he is going to be accepting him for further evaluation. Time: 05:35 Administered Medications Ioversol (Optiray 320 100ml) 100 ml IV ONCE PRN PRN Reason: Interaction Checking Stop: 04/27/19 05:44 Last Admin: 04/23/19 05:46 Dose: 100 ml Documented by: [id number] Admin: 04/23/19 05:45 Dose: 93 ml Documented by: [id number] Discontinued Medications Sodium Chloride (Nss) 500 mls @ 999 mls/hr IV .Q31M JOCELYNN Stop: 04/23/19 05:00 Last Infusion: 04/23/19 04:54 Dose: 0 mls/hr Documented by: [id number] Admin: 04/23/19 04:39 Dose: 999 mls/hr Documented by: [id number] Lorazepam (Ativan) 1 mg in 2 mls @ 2 mls/min IV NOW STA Stop: 04/23/19 05:08 Last Admin: 04/23/19 05:22 Dose: 2 mls/min Documented by: [id number] Lorazepam (Ativan) 1 mg in 2 mls @ 2 mls/min IV NOW STA Stop: 04/23/19 05:21 Last Admin: 04/23/19 05:46 Dose: 2 mls/min Documented by: [id number] Medical Decision Making Differential Diagnosis The patient is a 63 year old male who presents to the Emergency Room with complaints of the constant inability to void and altered mental status that sta rted about 4 hours ago, per EMS. Differential diagnosis includes UTI, Hepatic encephalopathy, Urinary retention, CHF, Ascites, and Worsening liver failure, amongst others. Medical Records Attestation: I reviewed the patient's medical records. Home Medications Current Medication List: was personally reviewed by me Laboratory Data Attestation: I reviewed the patient's lab results. Result diagrams: 04/23/19 04:21 04/23/19 04:21 Lab Results 04/23/19 04/23/19 04/23/19 Range/Units 04:15 04:21 04:21 WBC 3.62 L (4.8-10.8) K/uL RBC 2.58 L (4.7-6.1) M/uL Hgb 8.2 L (14.0-18.0) g/dL Hct 24.7 L (42-52) % MCV 95.7 (80-100) fL MCH 31.8 (25-34) pg MCHC 33.2 (32-36) g/dL RDW Std Deviation 62.0 H (36.4-46.3) fL RDW Coeff of Gaby 17.6 H (11.5-14.5) % Plt Count 101 L (130-400) K/uL MPV 8.6 (7.4-10.4) fL Immature Gran % (Auto) 0.3 % Neut % (Auto) 56.8 % Lymph % (Auto) 19.1 % [place] % (Auto) 18.0 % Eos % (Auto) 4.4 % Baso % (Auto) 1.4 % Immature Gran # (Auto) 0.01 (0.00-0.02) K/uL Neut # (Auto) 2.06 (1.4-6.5) K/uL Lymph # (Auto) 0.69 L (1.2-3.4) K/uL [place] # (Auto) 0.65 H (0.11-0.59) K/uL Eos # (Auto) 0.16 (0-0.5) K/uL Baso # (Auto) 0.05 (0-0.2) K/uL RBC Morphology Unremarkable PT 12.4 H (9.0-12.0) Seconds INR 1.2 H (0.9-1.1) Sodium (136-145) mmol/L Potassium (3.5-5.1) mmol/L Chloride (98-107) mmol/L Carbon Dioxide (21-32) mmol/L Anion Gap (3-11) BUN (7-18) mg/dl Creatinine (0.6-1.4) mg/dl Est Cr Clr Drug Dosing ml/min Est GFR ( Amer) Est GFR (Non-Af Amer) BUN/Creatinine Ratio (10-20) Glucose (70-99) mg/dl Lactate (0.4-2.0) mmol/L Calcium (8.5-10.1) mg/dl Total Bilirubin (0.2-1) mg/dl AST (15-37) U/L ALT (12-78) U/L Alkaline Phosphatase (45-117) U/L Ammonia (11-32) umol/L Troponin I (0-0.045) ng/ml Total Protein (6.4-8.2) gm/dl Albumin (3.4-5.0) gm/dl Globulin (2.5-4.0) gm/dl Albumin/Globulin Ratio (0.9-2) Lipase (73-393) U/L Urine Color Yellow Urine Appearance Clear (Clear) Urine pH 6.5 (4.5-7.5) Ur Specific Tibbie 1.008 (1.000-1.030) Urine Protein Negative (Negative) Urine Glucose (UA) Negative (Negative) Urine Ketones Negative (Negative) Urine Blood Negative (Negative) Urine Nitrite Negative (Negative) Urine Bilirubin Negative (Negative) Urine Urobilinogen Negative (Negative) Ur Leukocyte Esterase Negative (Negative) 04/23/19 04/23/19 04/23/19 Range/Units 04:21 04:48 04:48 WBC (4.8-10.8) K/uL RBC (4.7-6.1) M/uL Hgb (14.0-18.0) g/dL Hct (42-52) % MCV (80-100) fL MCH (25-34) pg MCHC (32-36) g/dL RDW Std Deviation (36.4-46.3) fL RDW Coeff of Gaby (11.5-14.5) % Plt Count (130-400) K/uL MPV (7.4-10.4) fL Immature Gran % (Auto) % Neut % (Auto) % Lymph % (Auto) % [place] % (Auto) % Eos % (Auto) % Baso % (Auto) % Immature Gran # (Auto) (0.00-0.02) K/uL Neut # (Auto) (1.4-6.5) K/uL Lymph # (Auto) (1.2-3.4) K/uL [place] # (Auto) (0.11-0.59) K/uL Eos # (Auto) (0-0.5) K/uL Baso # (Auto) (0-0.2) K/uL RBC Morphology PT (9.0-12.0) Seconds INR (0.9-1.1) Sodium 139 (136-145) mmol/L Potassium 3.7 (3.5-5.1) mmol/L Chloride 109 H (98-107) mmol/L Carbon Dioxide 24 (21-32) mmol/L Anion Gap 6.0 (3-11) BUN 8 (7-18) mg/dl Creatinine 0.79 (0.6-1.4) mg/dl Est Cr Clr Drug Dosing 93.9 ml/min Est GFR ( Amer) 112.3 Est GFR (Non-Af Amer) 96.9 BUN/Creatinine Ratio 9.8 L (10-20) Glucose 276 H (70-99) mg/dl Lactate 1.9 (0.4-2.0) mmol/L Calcium 7.9 L (8.5-10.1) mg/dl Total Bilirubin 0.6 (0.2-1) mg/dl AST 91 H (15-37) U/L ALT 63 (12-78) U/L Alkaline Phosphatase 186 H (45-117) U/L Ammonia 79.0 H (11-32) umol/L Troponin I < 0.015 (0-0.045) ng/ml Total Protein 6.7 (6.4-8.2) gm/dl Albumin 2.3 L (3.4-5.0) gm/dl Globulin 4.4 H (2.5-4.0) gm/dl Albumin/Globulin Ratio 0.5 L (0.9-2) Lipase 557 H (73-393) U/L Urine Color Urine Appearance (Clear) Urine pH (4.5-7.5) Ur Specific Tibbie (1.000-1.030) Urine Protein (Negative) Urine Glucose (UA) (Negative) Urine Ketones (Negative) Urine Blood (Negative) Urine Nitrite (Negative) Urine Bilirubin (Negative) Urine Urobilinogen (Negative) Ur Leukocyte Esterase (Negative) Imaging Data Radiologist's Impression: Radiology results as stated below per my review and the radiologist's interpretation: CT HEAD No priors There is some artifact on this exam limiting evaluation. No acute intracranial findings. Suspected chronic ischemic changes and old white matter infarcts, example right narvaez radiata. Radiologist: Margarito Davis M.D. Study ready at 05:43 and initial results transmitted at 06:05 CT ABDOMEN & PELVIS With Contrast Comparison March 10. Again noted are findings compatible with cirrhosis and portal hypertension with cirrhotic morphology to liver, splenomegaly varices and ascites. Increased asc ites compared to the prior. Bowel wall thickening seen diffusely. Findings are nonspecific given liver disease. Cannot exclude gastritis, enteritis or colitis. Ascites limits evaluation for localized inflammatory process. Diverticulosis. Pericolonic fluid is nonspecific given diffuse ascites. Cannot exclude diverticulitis. Caliber of multiple small bowel segments prominent though this is more related to bowel wall thickening than intraluminal distention. No obstruction is suspected. There is some nonspecific gastric distention. Visualized appendix unremarkable, example image 324/3. There is motion at lung bases limiting evaluation. Suspected atelectasis. Esophageal varices along with more diffuse varices, as above. Adenopathy example region of gastrohepatic ligament, jimbo hepatis and port acaval stations as well as retroperitoneum. Bladder catheterized. Radiologist: Margarito Davis M.D. Study ready at 05:49 and initial results transmitted at 06:21 ECG Data Attestation: I personally reviewed and interpreted this ECG as follows: Indication: altered mental status Rate (beats per minute): 123 Rhythm: sinus tachycardia Findings: no PAC, no PVC and no acute ischemic change Blood Pressure Blood Pressure Findings: Elevated blood pressure Blood Pressure Disposition: further management by hospitalist ANT Narrative The patient is a 63 year old male who presents to the Emergency Room with complaints of the constant inability to void and altered mental status that started about 4 hours ago, per EMS. The patient has a history of alcoholic cirrhosis. He quit drinking alcohol approximately 4 months ago. The patient's explains that he was complaining of significant abdominal pain and being unable to void tonight. She noted that his mental status seemed more altered than usual. On physical exam, the patient had a significantly distended abdomen. A bladder scan was performed which showed only 350-400 cc of urine noted. A Morales catheter was placed. Labs were drawn and the patient was noted to have an elevated ammonia level. CT scan of the brain was unremarkable. CT scan of the abdomen/pelvis shows an increased amount of ascites which goes along with the abdominal distention. On physical exam, the patient appeared to be significantly dehydrated. He was tachycardic. The patient's heart rate responded nicely to the Ativan. Impression & Plan Encephalopathy, hepatic, Acute urinary retention, Pancytopenia, Hyperglycemia, Ascites Discharge Plan Visit Data Chief Complaint: Urinary Symptoms Stated Complaint: URINARY RETNETION/NEURO SYMPTOMS Other Complaint: Neuro Symptoms/Deficit ED Provider: Sushila Ratliff Discharge Problem: Encephalopathy, hepatic, Acute urinary retention, Pancytopenia, Hyperglycemia, Ascites Patient Disposition: Being Evaluated by Hospitalist Forms Stand Alone Forms: My [facility] Prescriptions Prescriptions: No Action thiamine HCl (vitamin B1) 100 mg Tablet 100 mg PO QAM RF: 0 folic acid 1 mg Tablet 1 mg PO QAM RF: 0 albuterol sulfate 90 mcg/actuation Hfa Aerosol Inhaler 2 puff Inhalation Q4H PRN (Reason: Wheezing) RF: 0 trazodone 50 mg Tablet 50 mg PO HS RF: 0 tramadol 50 mg tablet 50 mg PO HS PRN (Reason: Insomnia) RF: 0 Dexilant 30 mg Capsule,Biphase Delayed Releas 30 mg PO BID RF: 0 acetaminophen [Tylenol Extra Strength] 500 mg Tablet 500 mg PO Q6H PRN (Reason: pain/ headache) RF: 0 nadolol 40 mg Tablet 40 mg PO QAM 30 Days Qty: 30 RF: 3 gabapentin 300 mg capsule 300 mg PO HS 30 Days Qty: 30 RF: 3 Referrals Referrals: PCP,NO [Primary Care Provider] - Discharge Problem: Ascites Qualifiers: Ascites type: due to alcoholic cirrhosis Qualified Code(s): K70.31 - Alcoholic cirrhosis of liver with ascites The scribe's documentation has been prepared under my direction and personally reviewed by me in its entirety. I confirm that the note above accurately reflects all work, treatment, procedures, and medical decision making performed by me.
[2019-04-23] MEDS ORDERED: FUROSEMIDE 40 MG/4 ML VIAL IV ONE (06:52)
--- NOTE | 2019-04-23 06:55 | CT Scan Report ---
CT abd pelvis IV con only CT DOSE: HISTORY: Pain diffuse abdominal pain TECHNIQUE: Multiaxial CT images of the abdomen and pelvis were performed following the use of intrave nous contrast. A dose lowering technique was utilized adhering to the principles of ALARA. COMPARISON STUDY: 03/10/2018 FINDINGS: Progressive changes as compared to the prior study. Mild bibasilar dependent atelectasis. Findings of hepatic cirrhosis unchanged. Progressive abdominal and pelvic ascites. Fixed hiatal herni a unchanged. Upper abdominal varices unaltered. Reactive mesenteric adenopathy similar to slightly progressive. Bowel pattern demonstrates progressive wall thickening of the small bowel as well as colon. Morales cat heter is noted within the bladder. Several inguinal nodes slightly increased in prominence from the p rior study. IMPRESSION: 1. Progressive abdominal and pelvic ascites compared to the prior study. 2. Progressive wall thickening of the small bowel as well as colon diffusely presumably on a nonobstr uctive basis. 3. Unchanged findings of hepatic cirrhosis, upper abdominal varices, as well as hiatal hernia and par aesophageal varices. The above report was generated using voice recognition software. It may contain grammatical, syntax or spelling errors. Electronically signed by: Kam Baldwin M.D. 04/23/2019 6:53 AM
--- NOTE | 2019-04-23 07:03 | XRay Report ---
XR chest 1V portable CLINICAL HISTORY: SOB dyspnea COMPARISON STUDY: 03/10/2019 FINDINGS: The bones soft tissues and hemidiaphragms are normal. The cardiomediastinal silhouette is n ormal. The lungs are clear. The pulmonary vasculature is normal. IMPRESSION: Negative chest. The above report was generated using voice recognition software. It may contain grammatical, syntax or spelling errors. Electronically signed by: Kam Baldwin M.D. 04/23/2019 7:01 AM
--- NOTE | 2019-04-23 07:38 | History & Physical Report ---
Date of Service April 23, 2019 Assessment & Plan (1) Encephalopathy, hepatic: Likely cause of presenting confusion. Hepatic encephalopathy 2nd to HepC / alcoholic cirrhosis. Due to significantly altered MS/lethargy will give lactulose enema x 1 now. Avoid sedatives. Supportive care. Place on telemetry. Present on Admission?: Yes (2) Acute respiratory failure with hypoxia: Developed such while in ER. Exam notable for wheezing only. I ordered repeat cxr - again no infiltrates seen. Cannot rule out a pneumonia process that simply can't be seen on imaging yet. Cannot rule out underlying bronchitis. Duonebs q4h. BIPAP for now. VBG now. Consider steroids and/or abx. Blood cultures x 2 sets sent. Present on Admission?: No (3) Cirrhosis of liver: 2nd to Hep C and alcohol abuse based on records. Advanced based on exam findings, labs, and recent EGD showing esophageal varies and gastric varices. Needs paracentesis - diagnostic and therapeutic - to r/o SBP, etc. Resume beta phoenix when able to take PO. Present on Admission?: Yes (4) Ascites: Needs paracentesis. As above. Will order u/s guided paracentesis by radiology when he is more stable. Present on Admission?: Yes (5) Hyperglycemia: Uncertain if he is a type 1 or type 2 diabetic. Check BSGs q6h and institute insulin as necessary. Check hemoglobin a1c as well. (6) Pancytopenia: 2nd to cirrhosis. Has seen heme/onc in recent past. Needs TSH while here. Recent b12/folate wnl. Counts overall stable relative to last week. (7) Wheezing: underlying bronchitis/COPD? does he smoke? will speak with about smoking history. duonebs q4h. (8) Esophageal varices: Needs beta phoenix resumed when able to take PO. Needs IV H2 phoenix or PPI while NPO. H/H stable relative to last week. Present on Admission?: Yes (9) Hepatitis C: noted INR noted to be stable LFTs high but stable Present on Admission?: Yes (10) DVT prophylaxis: SCDs for now History of Present Illness Chief Complaint: altered mental status Primary Care Provider: NO PCP 63yo male with cirrhosis 2nd to chronic hepatitis C and alcoholism - recently admitted to [facility] for concern for upper GI bleeding (found to have esophageal varices and gastric varices) - who presents from his home due to altered mental status. The patient was quite lethargic during my assessment and no family was available for interview; thus, all information was taken from the medical record. According to ER attending documentation he developed confusion several hours prior to arrival. He also complained of vague abdominal pain and inability to void. While in the ER he received several doses of IV ativan for agitation along with 500cc bolus of NS. Shortly after he was hypoxic in the 80s and needed to go on BIPAP for such. There was concern for pulmonary edema and thus was given lasix 40mg IV x 1. During my admission assessment he was unable to provide any history due to altered mental status. Allergies Allergy/AdvReac Type Severity Reaction Status Date / Time doxycycline Allergy Hives Verified 04/21/19 08:49 codeine AdvReac Unknown Gastrointestinal Verified 04/21/19 08:49 Upset Home Medications Home Medications Medication Instructions Recorded Confirmed Type albuterol sulfate 2 puff INHALATION Q4H PRN 06/15/18 04/23/19 History folic acid 1 mg PO QAM 06/15/18 04/23/19 History thiamine HCl (vitamin B1) 100 mg PO QAM 06/15/18 04/23/19 History Dexilant 30 mg PO BID 03/10/19 04/23/19 History tramadol 50 mg PO HS PRN 03/10/19 04/23/19 History trazodone 50 mg PO HS 03/10/19 04/23/19 History acetaminophen [Tylenol Extra 500 mg PO Q6H PRN 03/19/19 04/23/19 History Strength] nadolol 40 mg PO QAM 30 Days #30 tab 04/17/19 04/23/19 Rx gabapentin 300 mg PO HS 30 Days #30 cap 04/21/19 04/23/19 Rx Past Med/Surg History Medical History 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) Neutropenic fever (Acute) Coffee ground emesis Cirrhosis of liver (Chronic) Anemia (Acute) Parotiditis Alcohol abuse (Chronic) Hypertension Alcoholism (Acute) Hepatitis C antibody test positive Esophageal varices No significant past surgical history Surgical History H/O endoscopy Loss of teeth due to extraction Family History Other Diabetes Hypertension Social History Preferred Language: Mont[place]grin Communication Ability: Effective Beliefs That Will Affect Care: None marital status: Current Living Situation: Spouse Feels Safe at Home: Yes Smoking Status: Unknown if ever smoked Hx Alcohol Use: Yes Alcohol type: beer Alcohol Intake Frequency Comment: heavy etoh use in the past; quit 2019 Hx Substance Use: No Review of Systems Review of Systems: Unobtainable due to cognitive status Physical Exam Constitutional: + thin, + altered mental status, + disheveled and + lethargic; + not well developed, + not well nourished and no acute distress Eyes: PERRL (eyes deviated medially ) ENMT: Ears: + unable to visualize TM (due to cerumen impaction) Mouth: + dry oral mucous membranes and + poor dentition Neck: trachea midline, no thyromegaly Respiratory: no respiratory distress Auscultation: + diminished lung sounds and + wheezes; no crackles Cardiovascular: Rate/Rhythm: regular rate and regular rhythm Heart Sounds: normal S1 and normal S2; no murmur Vessels: posterior tibial pulses present and dorsalis pedis pulses present; no JVD Extremities: no edema Gastrointestinal (Abdomen): Inspection/Auscultation: + abdomen distended (tense) Percussion/Palpation: + ascites; abdomen nontender and no hepatomegaly Skin: feet discolored; no generalized rash Neurologic: +babinski's bilaterally; unable to assess motor strength but tone normal; DTRs arms 2+, patellar 1+ b/l; no facial droop Psychiatric: Orientation: + not alert and + not oriented x 3 Lymphatic: no cervical lymphadenopathy Results & Data Vital Signs (Past 12 Hours) Vital Signs Temp Pulse Pulse Resp BP BP Pulse Ox 04/23/19 07:08 99 H 16 92 04/23/19 06:55 112 H 20 112/71 85 L 04/23/19 05:44 119 H 18 143/120 H 95 04/23/19 05:25 148 H 18 160/100 H 99 04/23/19 04:01 36.6 C 126 H 18 165/100 H 99 Laboratory Results Laboratory Results - last 24 hr 04/23/19 04/23/19 04/23/19 04:15 04:21 04:21 WBC 3.62 L RBC 2.58 L Hgb 8.2 L Hct 24.7 L MCV 95.7 MCH 31.8 MCHC 33.2 RDW Std Deviation 62.0 H RDW Coeff of Gaby 17.6 H Plt Count 101 L MPV 8.6 Immature Gran % (Auto) 0.3 Neut % (Auto) 56.8 Lymph % (Auto) 19.1 Sully % (Auto) 18.0 Eos % (Auto) 4.4 Baso % (Auto) 1.4 Immature Gran # (Auto) 0.01 Neut # (Auto) 2.06 Lymph # (Auto) 0.69 L Sully # (Auto) 0.65 H Eos # (Auto) 0.16 Baso # (Auto) 0.05 RBC Morphology Unremarkable PT 12.4 H INR 1.2 H VBG pH VBG pCO2 VBG pO2 VBG HCO3 VBG O2 Saturation VBG Base Excess Barometric Pressure Sodium Potassium Chloride Carbon Dioxide Anion Gap BUN Creatinine Est Cr Clr Drug Dosing Est GFR ( Amer) Est GFR (Non-Af Amer) BUN/Creatinine Ratio Glucose Lactate Calcium Total Bilirubin AST ALT Alkaline Phosphatase Ammonia Troponin I Total Protein Albumin Globulin Albumin/Globulin Ratio Lipase Urine Color Yellow Urine Appearance Clear Urine pH 6.5 Ur Specific Beauty 1.008 Urine Protein Negative Urine Glucose (UA) Negative Urine Ketones Negative Urine Blood Negative Urine Nitrite Negative Urine Bilirubin Negative Urine Urobilinogen Negative Ur Leukocyte Esterase Negative Blood Type Antibody Screen 04/23/19 04/23/19 04/23/19 04:21 04:48 04:48 WBC RBC Hgb Hct MCV MCH MCHC RDW Std Deviation RDW Coeff of Gaby Plt Count MPV Immature Gran % (Auto) Neut % (Auto) Lymph % (Auto) Sully % (Auto) Eos % (Auto) Baso % (Auto) Immature Gran # (Auto) Neut # (Auto) Lymph # (Auto) Sully # (Auto) Eos # (Auto) Baso # (Auto) RBC Morphology PT INR VBG pH VBG pCO2 VBG pO2 VBG HCO3 VBG O2 Saturation VBG Base Excess Barometric Pressure Sodium 139 Potassium 3.7 Chloride 109 H Carbon Dioxide 24 Anion Gap 6.0 BUN 8 Creatinine 0.79 Est Cr Clr Drug Dosing 93.9 Est GFR ( Amer) 112.3 Est GFR (Non-Af Amer) 96.9 BUN/Creatinine Ratio 9.8 L Glucose 276 H Lactate 1.9 Calcium 7.9 L Total Bilirubin 0.6 AST 91 H ALT 63 Alkaline Phosphatase 186 H Ammonia 79.0 H Troponin I < 0.015 Total Protein 6.7 Albumin 2.3 L Globulin 4.4 H Albumin/Globulin Ratio 0.5 L Lipase 557 H Urine Color Urine Appearance Urine pH Ur Specific Beauty Urine Protein Urine Glucose (UA) Urine Ketones Urine Blood Urine Nitrite Urine Bilirubin Urine Urobilinogen Ur Leukocyte Esterase Blood Type Antibody Screen 04/23/19 04/23/19 04:48 08:29 WBC RBC Hgb Hct MCV MCH MCHC RDW Std Deviation RDW Coeff of Gaby Plt Count MPV Immature Gran % (Auto) Neut % (Auto) Lymph % (Auto) Sully % (Auto) Eos % (Auto) Baso % (Auto) Immature Gran # (Auto) Neut # (Auto) Lymph # (Auto) Sully # (Auto) Eos # (Auto) Baso # (Auto) RBC Morphology PT INR VBG pH 7.36 VBG pCO2 42 VBG pO2 58 VBG HCO3 23 VBG O2 Saturation 86.5 VBG Base Excess -2.2 Barometric Pressure 736.0 Sodium Potassium Chloride Carbon Dioxide Anion Gap BUN Creatinine Est Cr Clr Drug Dosing Est GFR ( Amer) Est GFR (Non-Af Amer) BUN/Creatinine Ratio Glucose Lactate Calcium Total Bilirubin AST ALT Alkaline Phosphatase Ammonia Troponin I Total Protein Albumin Globulin Albumin/Globulin Ratio Lipase Urine Color Urine Appearance Urine pH Ur Specific Beauty Urine Protein Urine Glucose (UA) Urine Ketones Urine Blood Urine Nitrite Urine Bilirubin Urine Urobilinogen Ur Leukocyte Esterase Blood Type O Positive Antibody Screen NEGATIVE Diagnostic Findings 1. CT abd/pelvis - IMPRESSION: 1. Progressive abdominal and pelvic ascites compared to the prior study. 2. Progressive wall thickening of the small bowel as well as colon diffusely presumably on a nonobstructive basis. 3. Unchanged findings of hepatic cirrhosis, upper abdominal varices, as well as hiatal hernia and paraesophageal varices. 2. cxr - no acute findings. 3. CT head - no acute findings. 4. EKG - my reading - sinus tach, ST depressions anterior leads Code Status & VTE Plan Code Status unknown VTE Prophylaxis Plan VTE Prophylaxis will be ordered: Yes PG Care Time/CCT Total # of Minutes Spent Total Time Spent with Patient: Total time spent is greater than 50% in coordination of care (as documented) at patient's floor/unit and/or counseling patient: (1) Cirrhosis of liver Hepatic cirrhosis type: other cirrhosis Qualified Code(s): K74.69 - Other cirrhosis of liver (2) Ascites Ascites type: due to alcoholic cirrhosis Qualified Code(s): K70.31 - Alcoholic cirrhosis of liver with ascites (3) Esophageal varices Esophageal varices type: unspecified type Esophageal varices bleeding: without bleeding Qualified Code(s): I85.00 - Esophageal varices without bleeding (4) Hepatitis C Viral hepatitis chronicity: chronic Hepatic coma status: with hepatic coma Qualified Code(s): B18.2 - Chronic viral hepatitis C
[2019-04-23] MEDS ORDERED: LACTULOSE 200 GM, WATER, STERILE IRRIG 700 ML, BARCODE IDENTIFIER 0 EA PR STA (08:05)
--- NOTE | 2019-04-23 08:15 | XRay Report ---
XR chest 1V portable CLINICAL HISTORY: resp failure, pulm edema? aspiration? COMPARISON STUDY: 04/23/2019 FINDINGS: The bones soft tissues and hemidiaphragms are normal. The cardiomediastinal silhouette is n ormal. The lungs are clear. The pulmonary vasculature is normal. IMPRESSION: Negative chest. The above report was generated using voice recognition software. It may contain grammatical, syntax or spelling errors. Electronically signed by: Kam Baldwin M.D. 04/23/2019 8:14 AM
[2019-04-23 08:41] LABS: Base Excess VBG -2.2 mEq/L; Oxygen Saturation VBG 86.5 %; pH VBG 7.36 (7.36-7.41)
[2019-04-23] MEDS ORDERED: LACTULOSE 200 GM, WATER, STERILE IRRIG 700 ML, BARCODE IDENTIFIER 1 EA PR SCH (09:00)
[2019-04-23] MEDS ORDERED: ONDANSETRON INJ 2 MG/ML 2 ML VIAL IV PRN (09:15)
[2019-04-23] MEDS: ALBUT/IPRATROP 3MG/0.5MG NEB 3 ML VIAL NEB SCH ×4 (09:21→19:04)
[2019-04-23] MEDS: FOLIC ACID 1 MG in SYRINGE 9.8 ML IV SCH (10:23)
[2019-04-23] MEDS: THIAMINE HCL 200 MG in SODIUM CHLORIDE 0.9% 50 ML IV SCH ×2 (10:24→20:57)
[2019-04-23] MEDS: cefTRIAXone SODIUM 2,000 MG in DEXTROSE 5% 50 ML IV SCH (13:28)
[2019-04-23] MEDS: methylPREDNISolone 40 MG in SYRINGE 0 ML IV SCH ×2 (14:03→22:36)
[2019-04-23] MEDS: metroNIDAZOLE 500 MG/100 ML BAG IV SCH ×2 (14:03→21:32)
[2019-04-23] MEDS ORDERED: ACETAMINOPHEN 1,000 MG/100 ML VIAL IV STA (16:47)
[2019-04-23] MEDS ORDERED: HALOPERIDOL LACTATE 5 MG/ML 1 ML VIAL IM PRN (19:12)
[2019-04-23] MEDS ORDERED: LACTULOSE 200 GM, WATER, STERILE IRRIG 700 ML, BARCODE IDENTIFIER 1 EA PR ONE (20:00)
[2019-04-23] MEDS: NICOTINE 21 MG/24 HR TDSY TD SCH (20:49)
--- NOTE | 2019-04-23 21:49 | History & Physical Bridge Note ---
Date of Service April 23, 2019 Spoke with patient's , Jennifer, at bedside late today. Her phone had at home and thus couldn't be reached today. The best # for her is [phone]. She confirmed that at baseline he has intermittent episodes of mild confusion - "some days are better than others." He apparently has severe night-time leg cramps/restless legs. His confusion had gotten considerably worse yesterday evening. She mentioned again that he "couldn't see 4 inches in front of him." He had spent much of yesterday walking around the house and their property. They even had visitors to their home and he spent a lot of time with those folks. She confirms he has had NO ALCOHOL since December 2018. There is NO etoh at the house. He does NOT drive. He cannot walk to a bar/tavern. He does continue to smoke about 1 ppd of cigarettes. He previously smoked 2 PPD. She confirms a dx of COPD. [place] and there are [place]. No obvious tick bites per , however. He DID complain to his last night that he was mildly short of breath. He did have a cough as well. Nahum Nicole MD
[2019-04-24] MEDS ORDERED: CARBOHYDRATES FOR HYPOGLYCEMIA PO PRN (00:36)
[2019-04-24] MEDS ORDERED: GLUCOSE 10 TABS/TUBE PO PRN (00:36)
[2019-04-24] MEDS ORDERED: GLUCOSE 40% GEL 15 GM TUBE PO PRN (00:36)
[2019-04-24] MEDS ORDERED: GLUCAGON FOR INJ 1 MG VIAL SQ PRN (00:36)
[2019-04-24] MEDS ORDERED: DEXTROSE 50% 50 ML SYRINGE IV PRN (00:36)
[2019-04-24] MEDS: ALBUT/IPRATROP 3MG/0.5MG NEB 3 ML VIAL NEB SCH ×4 (01:24→19:27)
[2019-04-24] MEDS: INSULIN ASPART 100 UNITS/ML 3 ML PEN SC SCH ×5 (01:52→21:12)
[2019-04-24] MEDS: metroNIDAZOLE 500 MG/100 ML BAG IV SCH ×2 (05:39→15:30)
[2019-04-24] MEDS: methylPREDNISolone 40 MG in SYRINGE 0 ML IV SCH (05:52)
[2019-04-24 06:33] LABS: Hematocrit (blood only) 23.6 % (42-52); Hemoglobin 7.8 g/dL (14.0-18.0); Mean Corpuscular Hgb Conc 33.1 g/dL (32-36); Mean Corpuscular Volume 96.7 fL (80-100); RDW Standard Deviation 63.5 fL (36.4-46.3); Red Blood Count 2.44 M/uL (4.7-6.1); White Blood Count 8.37 K/uL (4.8-10.8)
[2019-04-24 06:38] LABS: Platelet Count 92 K/uL (130-400)
[2019-04-24 07:00] LABS: Immature Granulocytes # (auto) 0.02 K/uL (0.00-0.02); Immature Granulocytes % (auto) 0.2 %; Lymphocytes # (auto) 0.49 K/uL (1.2-3.4); Lymphocytes % (auto) 5.9 %; Monocytes # (auto) 0.32 K/uL (0.11-0.59); Monocytes % (auto) 3.8 %; Neutrophils # (auto) 7.54 K/uL (1.4-6.5); Neutrophils % (auto) 90.1 %; Platelet Estimate Decreased (Normal)
[2019-04-24 07:00] LABS: Albumin Level 2.1 gm/dl (3.4-5.0); BUN Creatinine Ratio 16.7 (10-20); Creatinine Clr Calc Pharmacy 90.3 ml/min; Est GFR (African American) 109.5; Est GFR (Non-African American) 94.5; Potassium 3.9 mmol/L (3.5-5.1)
[2019-04-24 07:04] LABS: Albumin Globulin Ratio 0.5 (0.9-2); Bilirubin,Total 0.7 mg/dl (0.2-1); Globulin 4.1 gm/dl (2.5-4.0); Total Protein 6.2 gm/dl (6.4-8.2)
[2019-04-24 07:20] LABS: Lyme Ab IgG w/WB Rflx Negative (Negative); Lyme Ab IgM w/WB Rflx Negative (Negative)
[2019-04-24 07:47] LABS: Estimated Average Glucose 94 mg/dl; Hemoglobin A1C 4.9 % (4.5-5.6)
[2019-04-24] MEDS: NICOTINE 21 MG/24 HR TDSY TD SCH (08:23)
[2019-04-24] MEDS: THIAMINE HCL 200 MG in SODIUM CHLORIDE 0.9% 50 ML IV SCH ×2 (08:24→21:03)
[2019-04-24] MEDS: FOLIC ACID 1 MG in SYRINGE 9.8 ML IV SCH (09:15)
--- NOTE | 2019-04-24 14:07 | Ultrasound Report ---
US abdomen ltd ascites CLINICAL HISTORY: Ascites. COMPARISON STUDY: CT of the abdomen pelvis April 23, 2019. FINDINGS: The patient presented today for possible paracentesis. However, the amount of fluid was ins ufficient for paracentesis and therefore no paracentesis was performed. This was discussed with the miguel patino and Dr. Nicole at the time of study. IMPRESSION: Small amount of ascites, insufficient for paracentesis. Electronically signed by: Rafiq Mari M.D. 04/24/2019 2:05 PM
[2019-04-24] MEDS ORDERED: LACTULOSE SYRUP 30 GM/45 ML UDP PO SCH (15:00)
[2019-04-24] MEDS: INSULIN GLARGINE SOLOSTAR 100 UNITS/ML 3 ML PEN SC SCH (15:30)
[2019-04-24] MEDS: cefTRIAXone SODIUM 2,000 MG in DEXTROSE 5% 50 ML IV SCH (16:34)
[2019-04-24] MEDS: methylPREDNISolone 30 MG in SYRINGE 0 ML IV SCH (17:59)
--- NOTE | 2019-04-24 22:43 | Hospitalist Progress Note ---
Date of Service April 24, 2019 Assessment & Plan (1) Encephalopathy, hepatic: Likely cause of presenting confusion. Hepatic encephalopathy 2nd to HepC / alcoholic cirrhosis. Clinically and biochemically improved today. s/p lactulose enema x 2 yesterday. s/p IV flagyl. STOP IV flagyl now that he is taking PO. Start daily lactulose 30gm by mouth. Titrate 2-3 BMs/day. (2) SIRS (systemic inflammatory response syndrome): Had developed fever yesterday afternoon. source?? suspect pulmonary in light of COPD flare. lyme's negative. covering for SBP but no abdominal symptoms to suggest such and only mild ascites on abd u/s today. urine did not appear infected at time of admission yesterday. continue rocephin for now. follow blood cx's. at discharge, if cultures are negative, could likely narrow PO abx to just cover lungs (3) COPD with exacerbation: Wean steroids to 30mg IV q12h. Anticipate being able to stop IV tomorrow and starting prednisone taper. Leave rocephin for now while awaiting final blood cultures. Pulmonary toilet, nebs, etc. Present on Admission?: Yes (4) Acute respiratory failure with hypoxia: IMPROVED. Likely due to COPD exacerbation. wean IV steroids. cont nebs. antibiotics. wean O2 off. pulmonary toilet. (5) Cirrhosis of liver: 2nd to Hep C and alcohol abuse based on records. Advanced based on exam findings, labs, and recent EGD showing esophageal varies and gastric varices. Attempted paracentesis today under u/s guidance - I spoke with radiologist and there was only mild ascites with not enough of a large, safe pocket to tap. No clinical signs/symptoms of SBP although had fever yesterday. Resume beta phoenix when able to take PO. Consider daily lasix at d/c due to worsening of ascites over time. Needs liver specialist f/u after discharge. (6) Ascites: See discussion above in "cirrhosis of liver". (7) Hyperglycemia: BSGs c/w DM, but a1c very low. This is likely falsely low in setting of significant anemia. I do believe he is a diabetic. All serum glucose levels going back to earlier this year have been high. Add lantus. Cont novolog. Sugars should improve as we wean steroids. DM diet. (8) Pancytopenia: 2nd to cirrhosis. Has seen heme/onc in recent past. Needs TSH while here. Recent b12/folate wnl. Counts overall stable relative to last week. In light of restless legs will obtain iron studies. (9) Esophageal varices: Needs beta phoenix resumed when able to take PO. STOP IV zantac; change to twice daily oral PPI starting AM. H/H stable relative to last week. (10) Hepatitis C: noted INR noted to be stable LFTs high but stable (11) DVT prophylaxis: SCDs for now likely d/c angel soon wean o2 off PT evaluation overall improving Subjective tele stable overnight with improved heart rates (NSR). he is very awake, alert, and oriented today. knows he "lost a day" and that he is in the hospital. denies significant cough, congestion. denies dyspnea. BIPAP weaned off. good UOP via angel. has appetite - wishes to eat. denies ANY abdominal pain. no further fever. Review of Systems Constitutional: no fever, no chills, no fatigue and no anorexia Respiratory: + change in sputum; no cough, no chest congestion and no wheezing Cardiovascular: no chest pain Gastrointestinal: no abdominal pain, no nausea and no vomiting Neurologic: restless legs symptoms and cramps Physical Exam Constitutional: + thin; + not well nourished and no acute distress much more awake/alert today; looks overall much better today Eyes: + EOM not intact (left eye medially deviated - chronic since childhood per patient) ENMT: Mouth: + poor dentition Neck: trachea midline, no thyromegaly Respiratory: no respiratory distress Auscultation: + diminished lung sounds; no crackles and no wheezes Cardiovascular: Rate/Rhythm: regular rate and regular rhythm Heart Sounds: normal S1 and normal S2; no murmur Vessels: posterior tibial pulses present and dorsalis pedis pulses present; no JVD Extremities: no edema Gastrointestinal (Abdomen): Inspection/Auscultation: + abdomen distended (but improved today) Percussion/Palpation: abdomen soft and + ascites (likely ); abdomen nontender and no hepatomegaly Neurologic: Motor/Sensory: + asterixis (minimal) Psychiatric: A+Ox3, euthymic affect Results & Data Vital Signs (Past 12 Hours) Vital Signs Temp Pulse Pulse Resp BP Pulse Ox 04/24/19 20:13 36.7 C 82 20 112/65 97 07/16/19 19:27 78 16 94 04/24/19 16:08 36.6 C 76 16 109/61 94 04/24/19 14:07 73 14 95 04/24/19 11:51 37.0 C 79 16 106/53 L 94 Laboratory Results Laboratory Results - last 24 hr 04/24/19 04/24/19 04/24/19 00:05 01:45 05:37 WBC RBC Hgb Hct MCV MCH MCHC RDW Std Deviation RDW Coeff of Gaby Plt Count MPV Immature Gran % (Auto) Neut % (Auto) Lymph % (Auto) Schuyler % (Auto) Eos % (Auto) Baso % (Auto) Immature Gran # (Auto) Neut # (Auto) Lymph # (Auto) Schuyler # (Auto) Eos # (Auto) Baso # (Auto) Platelet Estimate Sodium Potassium Chloride Carbon Dioxide Anion Gap BUN Creatinine Est Cr Clr Drug Dosing Est GFR ( Amer) Est GFR (Non-Af Amer) BUN/Creatinine Ratio Glucose POC Glucose 206 H 210 H 210 H Estimat Average Glucose Hemoglobin A1c Calcium Total Bilirubin AST ALT Alkaline Phosphatase Ammonia Total Protein Albumin Globulin Albumin/Globulin Ratio Lyme Disease IgG Ab Lyme Disease IgM Ab 04/24/19 04/24/19 04/24/19 06:23 06:23 06:23 WBC 8.37 RBC 2.44 L Hgb 7.8 L Hct 23.6 L MCV 96.7 MCH 32.0 MCHC 33.1 RDW Std Deviation 63.5 H RDW Coeff of Gaby 18.0 H Plt Count 92 L MPV 9.0 Immature Gran % (Auto) 0.2 Neut % (Auto) 90.1 Lymph % (Auto) 5.9 Schuyler % (Auto) 3.8 Eos % (Auto) 0.0 Baso % (Auto) 0.0 Immature Gran # (Auto) 0.02 Neut # (Auto) 7.54 H Lymph # (Auto) 0.49 L Schuyler # (Auto) 0.32 Eos # (Auto) 0.00 Baso # (Auto) 0.00 Platelet Estimate Decreased L Sodium Potassium Chloride Carbon Dioxide Anion Gap BUN Creatinine Est Cr Clr Drug Dosing Est GFR ( Amer) Est GFR (Non-Af Amer) BUN/Creatinine Ratio Glucose POC Glucose Estimat Average Glucose 94 Hemoglobin A1c 4.9 Calcium Total Bilirubin AST ALT Alkaline Phosphatase Ammonia 55.0 H Total Protein Albumin Globulin Albumin/Globulin Ratio Lyme Disease IgG Ab Lyme Disease IgM Ab 04/24/19 04/24/19 04/24/19 06:24 06:24 12:06 WBC RBC Hgb Hct MCV MCH MCHC RDW Std Deviation RDW Coeff of Gaby Plt Count MPV Immature Gran % (Auto) Neut % (Auto) Lymph % (Auto) Schuyler % (Auto) Eos % (Auto) Baso % (Auto) Immature Gran # (Auto) Neut # (Auto) Lymph # (Auto) Schuyler # (Auto) Eos # (Auto) Baso # (Auto) Platelet Estimate Sodium 143 Potassium 3.9 Chloride 111 H Carbon Dioxide 26 Anion Gap 6.0 BUN 14 D Creatinine 0.84 Est Cr Clr Drug Dosing 90.3 Est GFR ( Amer) 109.5 Est GFR (Non-Af Amer) 94.5 BUN/Creatinine Ratio 16.7 Glucose 194 H POC Glucose 301 H* Estimat Average Glucose Hemoglobin A1c Calcium 8.0 L Total Bilirubin 0.7 AST 154 H ALT 71 Alkaline Phosphatase 147 H Ammonia Total Protein 6.2 L Albumin 2.1 L Globulin 4.1 H Albumin/Globulin Ratio 0.5 L Lyme Disease IgG Ab Negative Lyme Disease IgM Ab Negative 04/24/19 04/24/19 04/24/19 12:07 16:42 21:09 WBC RBC Hgb Hct MCV MCH MCHC RDW Std Deviation RDW Coeff of Gaby Plt Count MPV Immature Gran % (Auto) Neut % (Auto) Lymph % (Auto) Schuyler % (Auto) Eos % (Auto) Baso % (Auto) Immature Gran # (Auto) Neut # (Auto) Lymph # (Auto) Schuyler # (Auto) Eos # (Auto) Baso # (Auto) Platelet Estimate Sodium Potassium Chloride Carbon Dioxide Anion Gap BUN Creatinine Est Cr Clr Drug Dosing Est GFR ( Amer) Est GFR (Non-Af Amer) BUN/Creatinine Ratio Glucose POC Glucose 302 H* 224 H 232 H Estimat Average Glucose Hemoglobin A1c Calcium Total Bilirubin AST ALT Alkaline Phosphatase Ammonia Total Protein Albumin Globulin Albumin/Globulin Ratio Lyme Disease IgG Ab Lyme Disease IgM Ab PG Care Time/CCT Total # of Minutes Spent Total Time Spent with Patient: Total time spent is greater than 50% in coordination of care (as documented) at patient's floor/unit and/or counseling patient: (1) Ascites Ascites type: due to alcoholic cirrhosis Qualified Code(s): K70.31 - Alcoholic cirrhosis of liver with ascites (2) Esophageal varices Esophageal varices bleeding: without bleeding Esophageal varices type: unspecified type Qualified Code(s): I85.00 - Esophageal varices without bleeding (3) Cirrhosis of liver Hepatic cirrhosis type: other cirrhosis Qualified Code(s): K74.69 - Other cirrhosis of liver (4) Hepatitis C Hepatic coma status: with hepatic coma Viral hepatitis chronicity: chronic Qualified Code(s): B18.2 - Chronic viral hepatitis C
[2019-04-25] MEDS: ALBUT/IPRATROP 3MG/0.5MG NEB 3 ML VIAL NEB SCH ×4 (02:04→19:07)
[2019-04-25 06:01] LABS: Hematocrit (blood only) 25.6 % (42-52); Hemoglobin 8.2 g/dL (14.0-18.0); RDW Coefficient of Variation 18.1 % (11.5-14.5); RDW Standard Deviation 64.5 fL (36.4-46.3); Red Blood Count 2.64 M/uL (4.7-6.1); White Blood Count 11.96 K/uL (4.8-10.8)
[2019-04-25 06:02] LABS: Mean Platelet Volume 8.7 fL (7.4-10.4); Platelet Count 93 K/uL (130-400)
[2019-04-25] MEDS: methylPREDNISolone 30 MG in SYRINGE 0 ML IV SCH (06:17)
[2019-04-25 06:37] LABS: BUN Creatinine Ratio 25.5 (10-20); Calcium 8.5 mg/dl (8.5-10.1); Creatinine Clr Calc Pharmacy 111.3 ml/min; Est GFR (African American) 119.5; Est GFR (Non-African American) 103.1
[2019-04-25 06:47] LABS: Ferritin 34.4 ng/ml (8-388)
[2019-04-25] MEDS: PANTOprazole 40 MG TAB PO SCH ×2 (08:55→21:47)
[2019-04-25] MEDS: THIAMINE HCL 100 MG TAB PO SCH ×2 (08:55→21:47)
[2019-04-25] MEDS: INSULIN GLARGINE SOLOSTAR 100 UNITS/ML 3 ML PEN SC SCH (08:56)
[2019-04-25] MEDS: NICOTINE 21 MG/24 HR TDSY TD SCH (08:56)
[2019-04-25] MEDS: FOLIC ACID 1 MG TAB PO SCH (08:56)
[2019-04-25] MEDS: FERROUS SULFATE 325 MG TAB PO SCH ×2 (08:56→21:51)
[2019-04-25] MEDS: INSULIN ASPART 100 UNITS/ML 3 ML PEN SC SCH ×4 (08:57→21:47)
[2019-04-25] MEDS: POTASSIUM CHLORIDE 10 MEQ TABCR PO SCH (14:17)
[2019-04-25] MEDS: FUROSEMIDE 20 MG TAB PO SCH (14:18)
[2019-04-25] MEDS ORDERED: LACTULOSE SYRUP 10 GM/15 ML BTL 473 ML PO SCH (15:00)
[2019-04-25] MEDS: LACTULOSE SYRUP 10 GM/15 ML BTL 473 ML PO SCH (15:48)
--- NOTE | 2019-04-25 21:03 | Hospitalist Progress Note ---
Date of Service April 25, 2019 Assessment & Plan (1) Encephalopathy, hepatic: RESOLVED. Was likely cause of presenting confusion. Hepatic encephalopathy 2nd to HepC / alcoholic cirrhosis. Cont lactulose but lower dose to 15gm daily (had 5 BMs with 30gm dose). Would cont lactulose on discharge. (2) SIRS (systemic inflammatory response syndrome): RESOLVED. suspect pulmonary source in light of COPD flare. lyme's negative. blood cx's negative. u/a was normal. SBP unlikely in light of NO GI symptoms during this admission. stop rocephin. change to omnicef 300mg BID and treat for another 5 days then stop. (3) COPD with exacerbation: Resolving. O2 weaned off. STOP IV steroids. Change to PO prednisone 40mg daily starting tomorrow. Pulmonary toilet, nebs, etc. Omnicef 300mg BID x 5 more days. Quit smoking. (4) Acute respiratory failure with hypoxia: RESOLVED. Due to COPD exacerbation. wean steroids. cont nebs. antibiotics. pulmonary toilet. (5) Cirrhosis of liver: 2nd to Hep C and alcohol abuse based on records. Advanced based on exam findings, labs, and recent EGD showing esophageal varies and gastric varices. Attempted paracentesis 04/24/19 under u/s guidance - radiologist reported there was only mild ascites with not enough of a large, safe pocket to tap. No clinical signs/symptoms of SBP during this stay. Fever was likely due to respiratory source. Resume beta phoenix at d/c. Start daily lasix 20mg due to worsening of ascites over last few weeks. Needs liver specialist f/u after discharge. (6) Ascites: See discussion above in "cirrhosis of liver". (7) Hyperglycemia: BSGs c/w DM, but a1c very low. This is likely falsely low in setting of significant anemia. I do believe he is a diabetic. All serum glucose levels going back to earlier this year have been high. Send fructosamine level. Added lantus. Cont novolog - adjust correction and carb ratio. Sugars should cont to improve as we wean steroids. DM diet. Needs DM education. (8) Pancytopenia: 2nd to cirrhosis. Has seen heme/onc in recent past. TSH wnl. Recent b12/folate wnl. Counts overall stable relative to last week. Pt has Fe deficiency - replace. (9) Esophageal varices: Needs beta phoenix resumed when able to take PO. Cont PPI bid. H/H stable relative to last week. (10) Hepatitis C: noted INR noted to be stable LFTs high but stable (11) DVT prophylaxis: SCDs and ambulation chemical means - defer due to low platelets cleared by PT for home left message for - 04/25/19 home tomorrow if sugars are better Subjective patient feels "very good" today. eating well. scant cough. no dyspnea. no abd pain. no nausea. he told me today he is committed to quitting smoking. alert/oriented. tele - NSR. during my visit - o2 sats 95% in room air. Review of Systems Constitutional: no fever and no chills Respiratory: + cough; no dyspnea, no hemoptysis and no sputum production Cardiovascular: no chest pain Gastrointestinal: no abdominal pain, no nausea and no vomiting Physical Exam Constitutional: + thin; no acute distress ENMT: Mouth: + poor dentition Respiratory: no respiratory distress Auscultation: + wheezes (minimal - bases); no crackles Cardiovascular: Rate/Rhythm: regular rate and regular rhythm Heart Sounds: normal S1 and normal S2; no murmur Vessels: posterior tibial pulses present and dorsalis pedis pulses present; no JVD Extremities: no edema Gastrointestinal (Abdomen): Inspection/Auscultation: + abdomen distended (mild) Percussion/Palpation: abdomen soft and + ascites (mild); abdomen nontender and no hepatomegaly Neurologic: Motor/Sensory: no asterixis Psychiatric: A+Ox3, euthymic affect Orientation: + not oriented x 3 Results & Data Vital Signs (Past 12 Hours) Vital Signs Temp Pulse Pulse Pulse Resp BP Pulse Ox 04/25/19 19:31 37.0 C 99 H 20 133/72 95 04/25/19 19:08 91 H 16 96 04/25/19 16:00 90 04/25/19 15:19 36.9 C 96 H 18 133/66 94 04/25/19 14:06 89 18 95 04/25/19 11:12 37.0 C 78 14 135/70 95 Laboratory Results Laboratory Results - last 24 hr 04/24/19 04/25/19 04/25/19 21:09 05:46 05:46 WBC 11.96 H RBC 2.64 L Hgb 8.2 L Hct 25.6 L MCV 97.0 MCH 31.1 MCHC 32.0 RDW Std Deviation 64.5 H RDW Coeff of Gaby 18.1 H Plt Count 93 L MPV 8.7 Sodium 141 Potassium 4.0 Chloride 109 H Carbon Dioxide 27 Anion Gap 5.0 BUN 17 Creatinine 0.68 Est Cr Clr Drug Dosing 111.3 Est GFR ( Amer) 119.5 Est GFR (Non-Af Amer) 103.1 BUN/Creatinine Ratio 25.5 H Glucose 160 H POC Glucose 232 H Calcium 8.5 Iron 12 L Transferrin 300 Transferrin % Sat 3 L Ferritin 34.4 TSH 0.780 04/25/19 04/25/19 04/25/19 07:14 11:15 16:26 WBC RBC Hgb Hct MCV MCH MCHC RDW Std Deviation RDW Coeff of Gaby Plt Count MPV Sodium Potassium Chloride Carbon Dioxide Anion Gap BUN Creatinine Est Cr Clr Drug Dosing Est GFR ( Amer) Est GFR (Non-Af Amer) BUN/Creatinine Ratio Glucose POC Glucose 152 H 303 H* 181 H Calcium Iron Transferrin Transferrin % Sat Ferritin TSH PG Care Time/CCT Total # of Minutes Spent Total Time Spent with Patient: Total time spent is greater than 50% in coordination of care (as documented) at patient's floor/unit and/or counseling patient: (1) Ascites Ascites type: due to alcoholic cirrhosis Qualified Code(s): K70.31 - Alcoholic cirrhosis of liver with ascites (2) Esophageal varices Esophageal varices bleeding: without bleeding Esophageal varices type: unspecified type Qualified Code(s): I85.00 - Esophageal varices without bleeding (3) Cirrhosis of liver Hepatic cirrhosis type: other cirrhosis Qualified Code(s): K74.69 - Other cirrhosis of liver (4) Hepatitis C Hepatic coma status: with hepatic coma Viral hepatitis chronicity: chronic Qualified Code(s): B18.2 - Chronic viral hepatitis C
[2019-04-25] MEDS: CEFDINIR 300 MG CAP PO SCH (21:47)
[2019-04-26] MEDS: ALBUT/IPRATROP 3MG/0.5MG NEB 3 ML VIAL NEB SCH ×3 (02:05→14:24)
[2019-04-26 06:29] LABS: Hematocrit (blood only) 26.1 % (42-52); Hemoglobin 8.4 g/dL (14.0-18.0); Mean Corpuscular Hgb Conc 32.2 g/dL (32-36); Mean Platelet Volume 8.8 fL (7.4-10.4); Platelet Count 104 K/uL (130-400); RDW Standard Deviation 63.2 fL (36.4-46.3); Red Blood Count 2.69 M/uL (4.7-6.1); White Blood Count 11.32 K/uL (4.8-10.8)
[2019-04-26 07:14] LABS: BUN Creatinine Ratio 21.8 (10-20); Calcium 8.6 mg/dl (8.5-10.1); Creatinine Clr Calc Pharmacy 100.7 ml/min; Est GFR (African American) 114.8; Magnesium 1.9 mg/dl (1.8-2.4)
[2019-04-26] MEDS: PANTOprazole 40 MG TAB PO SCH (08:50)
[2019-04-26] MEDS: NICOTINE 21 MG/24 HR TDSY TD SCH (08:50)
[2019-04-26] MEDS: CEFDINIR 300 MG CAP PO SCH (08:51)
[2019-04-26] MEDS: THIAMINE HCL 100 MG TAB PO SCH (08:51)
[2019-04-26] MEDS: FOLIC ACID 1 MG TAB PO SCH (08:51)
[2019-04-26] MEDS: FUROSEMIDE 20 MG TAB PO SCH (08:51)
[2019-04-26] MEDS: FERROUS SULFATE 325 MG TAB PO SCH (08:51)
[2019-04-26] MEDS: POTASSIUM CHLORIDE 10 MEQ TABCR PO SCH (08:52)
[2019-04-26] MEDS: INSULIN ASPART 100 UNITS/ML 3 ML PEN SC SCH ×3 (08:52→17:32)
[2019-04-26] MEDS: INSULIN GLARGINE SOLOSTAR 100 UNITS/ML 3 ML PEN SC SCH (08:54)
[2019-04-26] MEDS ORDERED: predniSONE 20 MG TAB PO SCH (09:00)
[2019-04-26] MEDS: LACTULOSE SYRUP 10 GM/15 ML BTL 473 ML PO SCH (16:24)
--- NOTE | 2019-05-01 00:46 | Discharge Summary ---
Date of Service date of admission - April 23, 2019 date of discharge - April 26, 2019 Admission HPI Per Admitting Provider 63yo male with cirrhosis 2nd to chronic hepatitis C and alcoholism - recently admitted to [facility] for concern for upper GI bleeding (found to have esophageal varices and gastric varices) - who presents from his home due to altered mental status. The patient was quite lethargic during my assessment and no family was available for interview; thus, all information was taken from the medical record. According to ER attending documentation he developed confusion several hours prior to arrival. He also complained of vague abdominal pain and inability to void. While in the ER he received several doses of IV ativan for agitation along with 500cc bolus of NS. Shortly after he was hypoxic in the 80s and needed to go on BIPAP for such. There was concern for pulmonary edema and thus was given lasix 40mg IV x 1. During my admission assessment he was unable to provide any history due to altered mental status. 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) ENMT Mouth: + poor dentition Neck trachea midline, no thyromegaly Respiratory no respiratory distress Auscultation: + wheezes (minimal -bases); no crackles Cardiovascular Rate/Rhythm: regular rate and regular rhythm Heart Sounds: normal S1 and normal S2; no murmur Vessels: posterior tibial pulses present and dorsalis pedis pulses present; no JVD Extremities: no edema Gastrointestinal (Abdomen) Inspection/Auscultation: + abdomen distended (mild) Percussion/Palpation: abdomen soft and + ascites (mild); abdomen nontender and no hepatomegaly Neurologic Motor/Sensory: no asterixis Psychiatric A+Ox3, euthymic affect Discharge Data Allergies Allergy/AdvReac Type Severity Reaction Status Date / Time doxycycline Allergy Intermediate Hives Verified 04/30/19 08:53 codeine AdvReac Mild Gastrointestinal Verified 04/30/19 08:53 Upset Consultations 1. PT 2. fire prevention forester 3. para educator Ordered Studies 1. CT head/brain - no acute process. 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 2. CT abd pelvis - IMPRESSION: 1. Progressive abdominal and pelvic ascites compared to the prior study. 2. Progressive wall thickening of the small bowel as well as colon diffusely presumably on a nonobstructive basis. 3. Unchanged findings of hepatic cirrhosis, upper abdominal varices, as well as hiatal hernia and paraesophageal varices. 3. US abdomen for ascites - FINDINGS: The patient presented today for possible paracentesis. However, the amount of fluid was insufficient for paracentesis and therefore no paracentesis was performed. Hospital Course (1) Encephalopathy, hepatic: RESOLVED. Was likely cause of presenting confusion. Hepatic encephalopathy 2nd to HepC / alcoholic cirrhosis. Received combination of lactulose enemas and oral lactulose while here. Recommended lactulose on discharge for prophylaxis. Peak ammonia level was 79. (2) SIRS (systemic inflammatory response syndrome): RESOLVED. On hospital day #1 he developed high fever. Blood cultures were dispatched and ultimately remained negative. U/a was normal. Lyme's testing was negative. I suspect that his fever was due to a pulmonary source in light of COPD exacerbation. SBP was felt to be unlikely since he had NO GI symptoms during the admission. He received empiric rocephin while awaiting blood cultures. He was then transitioned to oral amoxicillin twice daily to cover for COPD exacerbation. (3) COPD with exacerbation: Resolved nicely with standard measures including BIPAP, O2, IV steroids, nebs, and antibiotics. On hospital day #1 he required BIPAP, then was transitioned to NC O2, and finally the O2 was weaned off later in the stay. He will complete a steroid/prednisone taper and oral amoxicillin course after discharge. Needs to quit smoking. (4) Acute respiratory failure with hypoxia: RESOLVED. Due to COPD exacerbation. Required BIPAP for his entire first day of the hospitalization. BIPAP was weaned off on hospital day #2. He remained on NC for 1-2 days then this was stopped. O2 sats on day of discharge were normal in room air. (5) Cirrhosis of liver: 2nd to Hep C and alcohol abuse based on records. Advanced based on exam findings, labs, and recent EGD showing esophageal varies and gastric varices. Attempted paracentesis 04/24/19 under u/s guidance - radiologist reported there was only mild ascites with not enough of a large, safe pocket to tap. No clinical signs/symptoms of SBP during this stay. Fever was likely due to respiratory source. Resume beta phoenix (nadalol) at d/c. Started daily lasix 20mg due to worsening of ascites over last few weeks. Needs liver specialist f/u after discharge. (6) Ascites: See discussion above in "cirrhosis of liver". (7) Hyperglycemia: BSGs were highly suggestive of DM, but a1c very low (4.9%). Some random BSGs were about 300. Suspect his hemoglobin a1c was falsely low in the setting of significant anemia. I do believe he is a diabetic. All serum glucose levels going back to earlier this year have been high. Sent fructosamine level and this was pending at discharge. Required lantus/novolog while here due to IV steroids. Sugars did improve as we weaned his steroids. Seen by the fire prevention forester and para educator. A free glucometer was given. He was asked to check blood sugars at least daily. While awaiting the fructosamine level I recommended once daily metformin 500mg with breakfast to maintain euglycemia. (8) Pancytopenia: 2nd to cirrhosis. Has seen heme/onc in recent past for this. TSH wnl. Recent b12/folate wnl. Counts overall stable relative to previous CBCs. Pt has iron deficiency - replace such with ferrous sulfate 325mg BID x 3 months. (9) Esophageal varices: Cont nadalol. Cont PPI. H/H stable relative to last admissions's CBCs. (10) Hepatitis C: INR and LFTs noted to be stable while here. Treated for hepatic encephalopathy with lactulose and will take standing dose of lactulose post-discharge. Total Time Total Time Spent Total Time Spent (In Minutes): 45 Total Time Includes: Examination of the Patient, Discharge Planning and Medication Reconciliation Discharge Plan Discharge Items Patient Disposition: Home - Self-Care Reason For Visit: confusion Discharge Diagnosis: 1. hepatic encephalopathy (elevated ammonia levels) - resolved. This contributed to your confusion. 2. COPD exacerbation - improved. 3. suspected type 2 diabetes. 4. iron deficiency. 5. cirrhosis of the liver. Discharge Goals: Diagnostic testing and Therapeutic intervention Activity: Resume your previous activity Non-emergency contact: Primary Care Provider and Insurance Claims Representative Call non-emergency contact if: you have any medication questions, your symptoms worsen and your temperature is above 100.5 Follow-up/Referrals: [facility],Medicine [Primary Care Provider] - 05/01/19 10:00 am (Please, follow up at [facility] in Medicine with Dr. Ruperto Schwab on TuesdayMay 01 at 10:00 am. *If you need to change or cancel this appointment, call the office at [phone].) Darcy Gallegos [Nurse Practitioner] - 05/15/19 8:45 am (Please, follow up at the [facility] Office with Darcy PATEL on TuesdayMay 15 at 8:45 am. *The office is located in the [facility] at [address] in [place]. If you have any questions, call the office at [phone].) Diet: Carb Consistent or DM2 and Low Sodium (2gm) Fluids: 1800ml (7 cups) Addtl Provider Instructions: You were treated for confusion and COPD exacerbation. You also had fever while hospitalized - suspected to be from a respiratory infection. The confusion was likely due to hepatic encephalopathy and the respiratory infection combined. Hepatic encephalopathy is a condition seen in individuals with cirrhosis when the ammonia levels rise. When ammonia levels go up it can cause confusion. To keep the ammonia levels in check please take lactulose 20ml once daily. This is a laxative. Aim for 2-3 bowel movements each day. For your COPD exacerbation please take the following - * amoxicillin 875mg twice daily for 4 more days, first dose tonight * prednisone taper for 7 days starting tomorrow on 04/27/19 * use your albuterol inhaler 4 times a day scheduled for the next 2-3 days; after you can go to as needed use for shortness of breath, cough, or wheezing You were found to have iron deficiency. This is likely giving you restless legs and leg cramps. Take oqgk-cbo-kdvkvic iron (ferrous sulfate) 325mg twice a day for 2-3 months. The iron may cause constipation; it can also make your stools look dark. For the fluid build-up in your abdomen please take a water pill called "furosemide." Take furosemide 20mg once daily in the morning. When you see [facility] and the GI (liver) doctors they can determine if you should stay on the furosemide long-term. Also take a potassium supplement with it. I am only giving you 14 days of the diuretic/water pill and the potassium. During the stay your blood sugars were all elevated. We are concerned that you may have type 2 diabetes. We are waiting on confirmatory testing for the diabetes. This should return next week. In the meantime I would recommend the following - * take metformin 500mg once daily with your breakfast * check your blood sugars once daily; on some days check it when you wake up; on other days check it before dinner; and still other days check it at bedtime * ideal blood sugars when you wake up -- LESS THAN 125 * ideal blood sugars before meals and at bedtime -- LESS THAN 150 Please stop the gabapenin, tramadol, and trazodone as these medications can also cause confusion. Follow-up -- see separate section. Return to [facility] if -- * you have fevers over 100.5 degrees * you suffer from confusion * you have worsening abdominal pain, worsening abdominal bloating/distension/swelling, or vomiting * you vomit bright red blood * you see black, tarry stools when you have a bowel movement * you have worsening shortness of breath * any other concerns Prescriptions: New furosemide 20 mg Tablet 20 mg PO QAM Qty: 14 RF: 1 ferrous sulfate 325 mg (65 mg iron) Tablet,Delayed Release (Dr/Ec) 325 mg PO BID Qty: 60 RF: 2 prednisone 10 mg tablet 10 mg PO DIRECTED Qty: 15 RF: 0 Continued thiamine HCl (vitamin B1) 100 mg Tablet 100 mg PO QAM RF: 0 albuterol sulfate 90 mcg/actuation Hfa Aerosol Inhaler 2 puff Inhalation Q4H PRN (Reason: Wheezing) RF: 0 Dexilant 30 mg Capsule,Biphase Delayed Releas 30 mg PO BID RF: 0 acetaminophen [Tylenol Extra Strength] 500 mg Tablet 500 mg PO Q6H PRN (Reason: pain/ headache) RF: 0 nadolol 40 mg Tablet 40 mg PO QAM 30 Days Qty: 30 RF: 3 Discontinued trazodone 50 mg Tablet 50 mg PO HS RF: 0 tramadol 50 mg tablet 50 mg PO HS PRN (Reason: Insomnia) RF: 0 gabapentin 300 mg capsule 300 mg PO HS 30 Days Qty: 30 RF: 3 No Action folic acid 800 mcg Tablet 0.8 mg PO QAM RF: 0 amoxicillin 875 mg tablet 875 mg PO BID RF: 0 metformin 500 mg tablet 500 mg PO QDB RF: 0 potassium chloride [Klor-Con M10] 10 mEq tablet,ER particles/crystals 10 meq PO QAM RF: 0 lactulose 20 gram/30 mL solution 20 ml PO DAILY RF: 0 Stand-Alone Forms: My YouGoDo/Other Patient Handouts: Diabetes Skilled Nursing Complications, Hypoglycemia, Diabetes Type 2 Coping, Diabetes Healthy Meals, Diabetes Carbs, Cirrhosis, Diabetes Exercise Benefits, Diabetes Exercise Get Started, Diabetes Activity Tips Discharge Orders: Discharge Order (Routine); Ordered 04/26/19 Ordered By: Nahum Nicole Admission Data Admit Date/Time: 04/23/19 08:05 Attending Provider: Nahum Nicole Admit Provider: Nahum Nicole Primary Care Provider: Galina Alfaro,Medicine Other Providers: Ajith Petersen Service: Telemetry Other Interventions: Discharge Summary Assessment (RN) Last Done: 04/26/19 18:21 Pending Studies at Discharge: Yes Studies:: confirmatory diabetes testing DC Date/Time DO NOT enter until pt leaves facility: 04/26/19 19:34
== END 2019-04-26 19:34 | disposition home or self-care (01) | DRG 441 ==
LOC: ED 04:04 → 2S 08:05 → 2E 08:54
DX: J44.1 Chronic obstructive pulmonary disease with (acute) exacerbation; I85.00 Esophageal varices without bleeding; E11.65 Type 2 diabetes mellitus with hyperglycemia; F17.210 Nicotine dependence, cigarettes, uncomplicated; B19.20 Unspecified viral hepatitis C without hepatic coma; Z82.49 Family history of ischemic heart disease and other diseases of the circulatory system; K70.31 Alcoholic cirrhosis of liver with ascites; Z83.3 Family history of diabetes mellitus; J96.01 Acute respiratory failure with hypoxia; K72.90 Hepatic failure, unspecified without coma; D61.818 Other pancytopenia

== ENCOUNTER 2019-04-30 08:14 | Inpatient (IN) ==
--- NOTE | 2019-04-30 09:27 | Emergency Department Note ---
ED Provider Note Name: Brent Blackwood Age: 63 M Arrives Via: POV Informant: Pt CC: left arm weakness HPI: 63 male arrives for evaluation of left arm weakness. Pt with history of DMII, Cirrhosis, Alcoholism (last etoh december 2018), thrombocytopenia, Smoker, COPD, GI bleed. Arrives after awakening this morning with left arm weakness. he thinks he woke up at 6am. He admits he slept soundly on his left arm last night, but that is how he always sleeps. He did hit left forearm off the bed when he tried getting up causing slight abrasion without pain. No actual falls nor other injuries. He denies headache, tingling, other weakness, falls, cp, sob, nausea, vomiting, black/bloody stools, fevers, chills, abdominal pain, back pain, rashes nor other symptoms. Nothing makes better nor worse. No medications prior to arrival. ROS: See above HPI for pertinent positives & negatives. A total of 10 systems reviewed and were otherwise negative. Past Medical History: DMII, Cirrhosis, Alcoholism (last etoh december 2018), thrombocytopenia, Smoker, COPD, GI bleed Past Surgical History: Dental, Endoscopy Family History: Sister with CVA at 50yrs old Social History: Smokers, quit etoh december 2018, lives with , retired. Home Medications: See Below Allergies Doxy, Codeine Physical: Vitals: BP 129/68, P 75, R 18, T 36.8, O2 96% Exam: GENERAL: Patient is well appearing and in mild/anxious distress. EYES: No scleral icterus, unremarkable pupils. ENT: Mucous membranes moist, no nasal congestion. NECK: No masses appreciated, no meningismus, trachea is midline. RESPIRATORY: No dyspnea. Mild diffuse wheezing. Equal bilaterally. No rhonchi. CARDIOVASCULAR: Regular rate and rhythm. No murmurs, rubs, gallops appreciated. GASTROINTESTINAL: Mild distended abdomen with slight fluid wave, othewrise abdomen soft, non-tender, no peritonitis. Bowel sounds positive. No masses appreciated. BACK: No midline tenderness, no CVA tenderness EXTREMITIES: Normal motion all extremities, no cyanosis, no edema. NEUROLOGIC: Left medial eye deviation, Alert and oriented, no acute sensory deficits, cranial nerves grossly intact. There is weakness of flexor/extensor left forearm at elbow, weakness of extention wrist and weakness 1,2,3 digits left hand with difficulty flexing and extending these digits. SKIN: No rash, no jaundice, no diaphoresis. ED Course: Prior Medical Record, Triage/Nursing Notes, Medications, Allergies reviewed by Me Vital Signs: reviewed and remarkable for wnl Labs: Reviewed and remarkable for wnl Interventions: Saline Lock. ASA held given GI Bleed history Imaging: Rad Radiologist interpretation reviewed by me: CT HEAD wo con no acute findings EKG: Per My Interpretation: Indication Weakness: NSR 71 bpm without ectopy nor ischmiea qtc 439. Similar to ekg 04/23/19 Course: Stable, with continued left arm weakness Blood pressure: Normal. No Referral necessary Disposition: Hospitalization Differentials: Stroke, Tumor, Nerve injury, compartment syndrome, electrolyte abnormality amongst other pathologies. Medical Decision Makin yr old male with complex PMH and recent admission arrives for evaluation of left arm weakness. Isolated from elbow to wrist with 1/2/3 fingers involved. No other stroke symptoms and sensation apparently intact. He awoke with this and given bleeding history would not be TPA candidate and he would not be intervention candidate based on minimal symptoms. He has no headache, neck pain, and CT Head is negative. He does have significant bleeding history and I am a bit anxious to start anticoag/antiplatelet on a patient with this without proving this is CVA. Furthermore, he admits he may have slept on his left side they entire night last night thus it may be a palsy from laying on arm. There is no compartment syndrome by exam fortunately. I discussed case with hospitalist who will bring patient in for further evaluation and work-up. 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) Neutropenic fever (Acute) Coffee ground emesis Cirrhosis of liver (Chronic) Anemia (Acute) Parotiditis Alcohol abuse (Chronic) Hypertension Alcoholism (Acute) Hepatitis C antibody test positive Esophageal varices No significant past surgical history Surgical History H/O endoscopy Loss of teeth due to extraction Social History Preferred Language: Bahamian Communication Ability: Effective Amphibian Crewmember Required: No Beliefs That Will Affect Care: None marital status: Current Living Situation: Family Current Living Situation Comment: , nephew current occupational status: employed Other Information That Helps Us Care for You: No Feels Safe at Home: Yes Safety Concerns: Feels Safe At This Time Smoking Status: Light tobacco smoker Tobacco Type: cigarettes Cigarettes Per Day: 2 Do You Dip or Chew Tobacco: No Second Hand Exposure: Yes Tobacco Cessation Education Requested by Patient: No Hx Alcohol Use: No Hx Substance Use: No Results & Data Vital Signs Vital Signs - 24 hr 04/30/19 08:18 04/30/19 09:50 04/30/19 12:52 Temperature 36.8 C Temperature Source Oral Sepsis Recent Fever Within 48 Hours No Sepsis New/Unexplained Change in Mental Status No Sepsis Action Taken by Nursing No Action Required Pulse Rate 75 Pulse Rate [Apical] 67 80 Respiratory Rate 18 16 Respiratory Effort / Characteristics Non-Labored Respiratory Depth Normal Blood Pressure 129/68 Blood Pressure [Right Arm] 117/57 L 134/74 Blood Pressure Mean 88 Blood Pressure Mean [Right Arm] 77 94 Pulse Oximetry 96 97 Oxygen Delivery Method Room Air Laboratory Data Result diagrams: 04/30/19 11:08 04/30/19 11:08 Lab Results 04/30/19 04/30/19 04/30/19 Range/Units 11:08 11:08 11:08 WBC 6.09 (4.8-10.8) K/uL RBC 3.04 L (4.7-6.1) M/uL Hgb 9.4 L (14.0-18.0) g/dL Hct 29.3 L (42-52) % MCV 96.4 (80-100) fL MCH 30.9 (25-34) pg MCHC 32.1 (32-36) g/dL RDW Std Deviation 63.0 H (36.4-46.3) fL RDW Coeff of Gaby 18.5 H (11.5-14.5) % Plt Count 105 L (130-400) K/uL MPV 9.6 (7.4-10.4) fL Immature Gran % (Auto) 0.7 % Neut % (Auto) 75.1 % Lymph % (Auto) 11.3 % [place] % (Auto) 10.7 % Eos % (Auto) 2.0 % Baso % (Auto) 0.2 % Immature Gran # (Auto) 0.04 H (0.00-0.02) K/uL Neut # (Auto) 4.58 (1.4-6.5) K/uL Lymph # (Auto) 0.69 L (1.2-3.4) K/uL [place] # (Auto) 0.65 H (0.11-0.59) K/uL Eos # (Auto) 0.12 (0-0.5) K/uL Baso # (Auto) 0.01 (0-0.2) K/uL PT 12.0 (9.0-12.0) Seconds INR 1.2 H (0.9-1.1) APTT 25.5 (21.0-31.0) Seconds PTT Ratio 0.9 Sodium 139 (136-145) mmol/L Potassium 3.8 (3.5-5.1) mmol/L Chloride 105 (98-107) mmol/L Carbon Dioxide 27 (21-32) mmol/L Anion Gap 7.0 (3-11) BUN 14 (7-18) mg/dl Creatinine 0.67 (0.6-1.4) mg/dl Est Cr Clr Drug Dosing Not Reportable Est GFR ( Amer) 120.2 Est GFR (Non-Af Amer) 103.7 BUN/Creatinine Ratio 21.2 H (10-20) Glucose 119 H (70-99) mg/dl Calcium 8.5 (8.5-10.1) mg/dl Magnesium 1.8 (1.8-2.4) mg/dl Total Bilirubin 0.7 (0.2-1) mg/dl Direct Bilirubin 0.3 H (0-0.2) mg/dl AST 99 H (15-37) U/L ALT 84 H (12-78) U/L Alkaline Phosphatase 142 H (45-117) U/L Troponin I < 0.015 (0-0.045) ng/ml Total Protein 6.7 (6.4-8.2) gm/dl Albumin 2.3 L (3.4-5.0) gm/dl Administered Medications Prednisone (Prednisone) 20 mg PO TODAY@1600 JOCELYNN; Taper Stop: 05/04/19 15:59 Last Admin: 04/30/19 16:32 Dose: 20 mg Documented by: [id number] Discharge Plan Visit Data *Final* Discharge Date/Time: 04/30/19 14:25 Chief Complaint: Arm Pain Stated Complaint: WEAK LEFT ARM, LEGS SWEATING ED Provider: Bipin Paul Discharge Problem: Left arm weakness Patient Disposition: Admitted As Inpatient Discharge Instructions Interventions: ED Discharge Assessment Last Done: 04/30/19 14:25
--- NOTE | 2019-04-30 10:32 | CT Scan Report ---
CT head/brain wo con CLINICAL HISTORY: Left arm weakness. Possible stroke. COMPARISON STUDY: 04/23/2019 TECHNIQUE: Axial CT of the brain is performed from the vertex to the skull base. IV contrast was not administered for this examination. A dose lowering technique was utilized adhering to the principles of ALARA. CT DOSE: 537.48 mGy.cm FINDINGS: No intra or extra-axial mass lesions are visualized. There is no CT evidence of acute cortical infarc tion. There is no evidence of midline shift. There is no acute hemorrhage. No calvarial fractures ar e visualized. There are patchy white matter hypodensities likely on a small vessel basis. There is scattered lacuna r infarcts unchanged from the prior study There is no evidence of pathologic ventricular dilatation. There is no evidence of acute sinusitis IMPRESSION: No acute intracranial findings Electronically signed by: Malcom Mccann M.D. 04/30/2019 10:31 AM
--- NOTE | 2019-04-30 10:46 | XRay Report ---
XR chest 1V portable CLINICAL HISTORY: Left arm weakness COMPARISON STUDY: 04/23/2019 FINDINGS: The cardiac and mediastinal contours remain stable. There is interstitial thickening and anaya btle patchy bilateral airspace opacities. This could be secondary to volume overload or an infectious /inflammatory process.. Clinical and radiographic follow-up is recommended. There are no cervical ple ural effusions[ IMPRESSION: 1. Diffuse interstitial thickening with subtle bilateral airspace opacities. The findings could be se condary to either volume overload or an infectious/inflammatory process. Clinical and radiographic fo llow-up is recommended. Electronically signed by: Malcom Mccann M.D. 04/30/2019 10:45 AM
[2019-04-30 11:17] LABS: Basophils # (auto) 0.01 K/uL (0-0.2); Basophils % (auto) 0.2 %; Eosinophils # (auto) 0.12 K/uL (0-0.5); Hematocrit (blood only) 29.3 % (42-52); Hemoglobin 9.4 g/dL (14.0-18.0); Immature Granulocytes # (auto) 0.04 K/uL (0.00-0.02); Immature Granulocytes % (auto) 0.7 %; Lymphocytes # (auto) 0.69 K/uL (1.2-3.4); Lymphocytes % (auto) 11.3 %; Mean Corpuscular Hgb Conc 32.1 g/dL (32-36); Mean Corpuscular Volume 96.4 fL (80-100); Mean Platelet Volume 9.6 fL (7.4-10.4); Monocytes # (auto) 0.65 K/uL (0.11-0.59); Monocytes % (auto) 10.7 %; Neutrophils # (auto) 4.58 K/uL (1.4-6.5); Neutrophils % (auto) 75.1 %; Platelet Count 105 K/uL (130-400); RDW Coefficient of Variation 18.5 % (11.5-14.5); Red Blood Count 3.04 M/uL (4.7-6.1); White Blood Count 6.09 K/uL (4.8-10.8)
[2019-04-30 11:34] LABS: Alanine Aminotransferase 84 U/L (12-78); Albumin Level 2.3 gm/dl (3.4-5.0); Aspartate Aminotransferase 99 U/L (15-37); BUN Creatinine Ratio 21.2 (10-20); Bilirubin Direct 0.3 mg/dl (0-0.2); Blood Urea Nitrogen 14 mg/dl (7-18); Calcium 8.5 mg/dl (8.5-10.1); Carbon Dioxide 27 mmol/L (21-32); Chloride 105 mmol/L (98-107); Est GFR (African American) 120.2; Est GFR (Non-African American) 103.7; Glucose 119 mg/dl (70-99); Magnesium 1.8 mg/dl (1.8-2.4); Potassium 3.8 mmol/L (3.5-5.1); Sodium 139 mmol/L (136-145)
[2019-04-30 11:36] LABS: INR 1.2 (0.9-1.1); Partial Thromboplastin Ratio 0.9; Partial Thromboplastin Time 25.5 Seconds (21.0-31.0)
[2019-04-30 11:39] LABS: Alkaline Phosphatase 142 U/L (45-117); Bilirubin,Total 0.7 mg/dl (0.2-1); Total Protein 6.7 gm/dl (6.4-8.2); Troponin I < 0.015 ng/ml (0-0.045)
--- NOTE | 2019-04-30 13:33 | History & Physical Report ---
Date of Service April 30, 2019 Assessment & Plan (1) Left arm weakness: Possibly compression neuropathy from sleeping on his left side. Head CT scan negative. Obtain brain MRI scan and neurological consultation. Avoid anticoagulants at this time due to other medical problems Present on Admission?: Yes (2) Cirrhosis of liver: With esophageal varices and chronic ascites. Currently stable. Continue medical management (3) COPD (chronic obstructive pulmonary disease): Currently stable. Continue inhaler therapy as needed (4) Peptic ulcer disease: Currently stable. Continue PPI therapy (5) DVT prophylaxis: Early ambulation History of Present Illness Chief Complaint: Awoke with left arm weakness Primary Care Provider: [facility] 63-year-old male who was recently hospitalized with hepatic encephalopathy due to underlying cirrhosis. He states that he sleeps on his left side and he awoke this morning with left upper extremity weakness from the elbow to the hand. He had no other associated deficits. He was unable to effectively utilize his left hand hardly at all. At the time of my examination in the ED he has improved but he continues to have left hand weakness and he does have evidence of a pronator drift of the left arm. No other apparent deficits. Again, he sleeps on his left side and he feels as if he just slept on his left arm overnight which caused the current problems. Head CT scan is negative. He will be placed in observation for further assessment. Brain MRI scan and neurological consultation will be requested. Will avoid anticoagulants at this time due to his history of cirrhosis with varices and recent peptic ulcer disease diagnosis with GI bleeding. 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 Platelet count 105,000. Hemoglobin 9.4. Allergies Allergy/AdvReac Type Severity Reaction Status Date / Time doxycycline Allergy Intermediate Hives Verified 04/30/19 08:53 codeine AdvReac Mild Gastrointestinal Verified 04/30/19 08:53 Upset Home Medications Home Medications Medication Instructions Recorded Confirmed Type albuterol sulfate 2 puff INHALATION Q4H PRN 06/15/18 04/30/19 History thiamine HCl (vitamin B1) 100 mg PO QAM 06/15/18 04/30/19 History Dexilant 30 mg PO BID 03/10/19 04/30/19 History acetaminophen [Tylenol Extra 500 mg PO Q6H PRN 03/19/19 04/30/19 History Strength] nadolol 40 mg PO QAM 30 Days #30 tab 04/17/19 04/30/19 Rx ferrous sulfate 325 mg PO BID #60 tab 04/26/19 04/30/19 Rx furosemide 20 mg PO QAM #14 tab 04/26/19 04/30/19 Rx prednisone 10 mg PO DIRECTED #15 tab 04/26/19 04/30/19 Rx amoxicillin 875 mg PO BID 04/30/19 04/30/19 History folic acid 0.8 mg PO QAM 04/30/19 04/30/19 History lactulose 20 ml PO DAILY 04/30/19 04/30/19 History metformin 500 mg PO QDB 04/30/19 04/30/19 History potassium chloride [Klor-Con M10] 10 meq PO QAM 04/30/19 04/30/19 History Past Med/Surg History Social History Preferred Language: Lao Communication Ability: Effective Beliefs That Will Affect Care: None marital status: Current Living Situation: Spouse Current Living Situation Comment: lives home with current occupational status: employed Feels Safe at Home: Yes Smoking Status: Current every day smoker Tobacco Type: cigarettes Cigarettes Per Day: 20-30 Hx Alcohol Use: Yes Alcohol type: beer Alcohol Intake Frequency Comment: heavy etoh use in the past; quit 2019 Review of Systems Review of Systems: Constitutional-no fever or chills ENT-no blurred vision, no double vision, no epistaxis, no sore throat Respiratory-no cough, no wheezing, no shortness of breath Cardiac-no palpitations, no chest pain, no syncope GI-no nausea, vomiting, diarrhea, melena, hematochezia -no urinary retention, no urinary incontinence, no dysuria, no hematuria Musculoskeletal-no joint pain, no muscle tenderness. Weakness of the left arm from the elbow down to the hand Skin-no bruising, no rashes, no pruritus Neuro-no isolated weakness, no paresthesia, no weakness Psych-no depression, no anxiety Physical Exam Physical Exam: General-alert and oriented x3, no fevers, no chills HEENT-head atraumatic and normocephalic, TMs intact bilaterally, pupils equal and reactive to light, extraocular muscles intact Neck-no lymphadenopathy or thyromegaly, trachea midline Chest-clear to auscultation percussion. No rales wheezing or rhonchi Cardiac-regular rate and rhythm, normal S1 and S2, no murmurs Abdomen-normal bowel sounds, nontender, no hepatosplenomegaly Extremities-no cyanosis, clubbing, or edema Neuro-cranial nerves II through XII intact. Fine motor control of the left hand is diminished compared to the right hand. Left [id number] is abnormal. He does have a left arm pronator drift. Somewhat weak left wrist flexion and extension strength compared to the right hand Psych-normal affect, normal mood. He may have mild cognitive deficit Results & Data Vital Signs (Past 12 Hours) Vital Signs Temp Pulse Pulse Resp BP BP Pulse Ox 04/30/19 12:52 80 134/74 97 04/30/19 09:50 67 16 117/57 L 04/30/19 08:18 36.8 C 75 18 129/68 96 Laboratory Results 04/30/19 11:08 04/30/19 11:08 PG Care Time/CCT Total # of Minutes Spent Total Time Spent with Patient: Total time spent is greater than 50% in coordination of care (as documented) at patient's floor/unit and/or counseling patient:
[2019-04-30] MEDS ORDERED: ONDANSETRON INJ 2 MG/ML 2 ML VIAL IV PRN (14:44)
[2019-04-30] MEDS ORDERED: ACETAMINOPHEN 500 MG TAB PO PRN (14:44)
[2019-04-30] MEDS ORDERED: ALBUTEROL HFA 8 GM INHALER INH PRN (14:44)
[2019-04-30] MEDS ORDERED: ALUMINUM/MAGNESIUM SUSP 30 ML UDC PO PRN (14:44)
[2019-04-30] MEDS: predniSONE 10 MG TABLET PO SCH (16:32)
[2019-04-30] MEDS: INSULIN ASPART 100 UNITS/ML 3 ML PEN SC SCH ×2 (18:35→21:47)
[2019-04-30] MEDS ORDERED: LORazepam 1 MG/2 ML VIAL IV STA (19:03)
[2019-04-30] MEDS: PANTOprazole 40 MG TAB PO SCH (21:01)
[2019-04-30] MEDS: FERROUS SULFATE 325 MG TAB PO SCH (21:01)
[2019-04-30] MEDS: AMOXICILLIN SUSP 250 MG/5 ML 100 ML BTL PO SCH (21:01)
[2019-04-30] MEDS: LACTULOSE SYRUP 10 GM/15 ML BTL 473 ML PO SCH (21:01)
--- NOTE | 2019-04-30 21:56 | Magnetic Resonance Report ---
Brain MRI WITHOUT CONTRAST HISTORY: Left arm weakness TECHNIQUE: Multiplanar multisequence MRI of the brain was performed without the use of contrast. COMPARISON STUDY: Head CT 04/30/2019. FINDINGS: Multiple punctate scattered foci of restricted diffusion seen within the posterior right fr ontal lobe, right parietal lobe, and right occipital lobe consistent with acute infarcts. This primar david involves the distal right MCA territory. Suboptimal evaluation of the brain due to motion artifac t. Scattered small focal areas of cortical and subcortical edema within the right parietal and occipi mirtha lobes consistent with a site of acute infarct. There are a few additional scattered foci of T2 hy perintensity seen within the periventricular white matter suggestive of mild microvascular ischemic c hange. There is no definite mass, hematoma, or midline shift. The ventricles are normal in size. Ther e are a few old scattered lacunar infarcts within the white matter. The paranasal sinuses and mastoid air cells are clear. The major vascular flow voids at the skull base are well-maintained. IMPRESSION: Multiple punctate acute infarcts involving the right cerebral hemisphere as described above. Electronically signed by: Alvin Ramirez M.D. 04/30/2019 9:55 PM
[2019-04-30] MEDS ORDERED: PHARMACIST DISCHARGE MED REC CONSULT PRN (22:19)
[2019-05-01] MEDS ORDERED: OPTIRAY 320 125ml IV PRN (01:14)
[2019-05-01 06:22] LABS: Hematocrit (blood only) 29.2 % (42-52); Hemoglobin 9.2 g/dL (14.0-18.0); Mean Corpuscular Hgb Conc 31.5 g/dL (32-36); Mean Corpuscular Volume 97.3 fL (80-100); RDW Coefficient of Variation 18.7 % (11.5-14.5); RDW Standard Deviation 66.3 fL (36.4-46.3); White Blood Count 4.78 K/uL (4.8-10.8)
[2019-05-01 06:36] LABS: INR 1.3 (0.9-1.1); Prothrombin Time 12.7 Seconds (9.0-12.0)
--- NOTE | 2019-05-01 06:39 | CT Scan Report ---
CT angio head w con HISTORY: Mental status change cva TECHNIQUE: Multiaxial CT angiography of the head was performed IV contrast: 100 cc Maximum intensi ty projection images were also obtained. A dose lowering technique was utilized adhering to the prin ciples of DANYEL. COMPARISON: None. FINDINGS: There is no mass, hematoma, midline shift, or acute infarct. Visualized intracranial technical support intern al carotid arteries, distal vertebral arteries, and basilar artery are widely patent. There is no sig nificant stenosis, occlusion, or aneurysm seen within the bilateral ACAs, MCAs, or soil conservation teacher. IMPRESSION: No significant stenosis, occlusion, or aneurysm within the [place]. The above report was generated using voice recognition software. It may contain grammatical, syntax or spelling errors. Electronically signed by: Kam Baldwin M.D. 05/01/2019 6:37 AM
--- NOTE | 2019-05-01 06:42 | CT Scan Report ---
CT angio neck with con HISTORY: Mental status change cva TECHNIQUE: Multiaxial CT angiography of the neck was performed IV contrast: 20 cc All measurements w ere calculated based on NASCET criteria. Maximum intensity projection images were also obtained. A dose lowering technique was utilized adhering to the principles of ALARA. COMPARISON STUDY: None. FINDINGS: The aortic arch and proximal great vessels are widely patent. There is no significant sten osis, occlusion, or dissection identified within the bilateral common carotid, internal carotid, or v ertebral arteries. Considerable plaque formation is identified at the carotid bifurcations. 50% narrowing left carotid bifurcation and left internal carotid artery. 60-70% narrowing proximal ri ght internal carotid artery. Left vertebral artery is dominant. This is an anatomic variant. IMPRESSION: 1. Considerable plaque formation at the carotid bifurcations bilaterally. 2. 60-70% narrowing proximal right internal carotid artery. 3. 50% narrowing left internal carotid artery. 4. Incidental note is made of patchy parenchymal infiltrates of the upper lungs bilaterally. The above report was generated using voice recognition software. It may contain grammatical, syntax or spelling errors. Electronically signed by: Kam Baldwin M.D. 05/01/2019 6:41 AM
[2019-05-01 06:56] LABS: Mean Platelet Volume 9.2 fL (7.4-10.4); Platelet Count 98 K/uL (130-400)
[2019-05-01 06:59] LABS: Anisocytosis Present; Eosinophils # (auto) 0.01 K/uL (0-0.5); Eosinophils % (auto) 0.2 %; Immature Granulocytes # (auto) 0.01 K/uL (0.00-0.02); Immature Granulocytes % (auto) 0.2 %; Lymphocytes # (auto) 0.77 K/uL (1.2-3.4); Lymphocytes % (auto) 16.1 %; Monocytes # (auto) 0.55 K/uL (0.11-0.59); Monocytes % (auto) 11.5 %; Neutrophils # (auto) 3.44 K/uL (1.4-6.5); Polychromasia 1+
[2019-05-01 07:01] LABS: BUN Creatinine Ratio 19.9 (10-20); Calcium 7.9 mg/dl (8.5-10.1); Creatinine Clr Calc Pharmacy 101.2 ml/min; Est GFR (African American) 114.8; Potassium 4.1 mmol/L (3.5-5.1)
[2019-05-01 07:45] LABS: Estimated Average Glucose 97 mg/dl
[2019-05-01] MEDS: FOLIC ACID 400 MCG TAB PO SCH (07:59)
[2019-05-01] MEDS: FERROUS SULFATE 325 MG TAB PO SCH ×2 (07:59→21:23)
[2019-05-01] MEDS: THIAMINE HCL 100 MG TAB PO SCH (07:59)
[2019-05-01] MEDS: POTASSIUM CHLORIDE 10 MEQ TABCR PO SCH (07:59)
[2019-05-01] MEDS: NADOLOL 40 MG TAB PO SCH (07:59)
[2019-05-01] MEDS: AMOXICILLIN SUSP 250 MG/5 ML 100 ML BTL PO SCH ×2 (08:00→21:26)
[2019-05-01] MEDS: FUROSEMIDE 20 MG TAB PO SCH (08:00)
[2019-05-01] MEDS: LACTULOSE SYRUP 10 GM/15 ML BTL 473 ML PO SCH ×2 (08:00→21:21)
[2019-05-01] MEDS: PANTOprazole 40 MG TAB PO SCH ×2 (08:00→21:23)
[2019-05-01] MEDS: INSULIN ASPART 100 UNITS/ML 3 ML PEN SC SCH ×4 (08:25→21:23)
--- NOTE | 2019-05-01 08:27 | Neurology Consultation ---
Date of Consultation May 01, 2019 Assessment & Plan (1) Acute CVA (cerebrovascular accident): Patient has had a new onset of left upper extremity weakness with an MRI consistent with a shower of multiple tiny acute strokes in the right posterior hemisphere in more than 1 vascular territory. After review of the MRI films with Radiology, I suspect an embolic origin from proximal vessels. Transesophageal Echocardiogram March 14, 2019 did not show any valvular issues. CT angiography of the head and neck revealed multiple significant stenoses at the origins of the internal carotid and vertebral arteries (right greater than left side) as well as the right subclavian and common carotid arteries. Emboli from these great vessels could easily go to territories seen on the MRI. Patient does have signs on the MRI of some mild old small vessel ischemic changes and he does have a history of hypertension and chronic alcohol use which increased stroke risk. Clinically he has left arm much greater than leg weakness and left-sided upgoing toes all consistent with his right hemispheric strokes. He has no significant aphasia or dysarthria new vision problems or sensory changes. His gait is affected likely because of the left lower extremity weakness. 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 (3) Cirrhosis of liver: Patient has hepatic cirrhosis chronic alcohol use/abuse as well as hepatitis C. he has thrombocytopenia and anemia. Patient recently had elevated ammonia levels and hepatic encephalopathy which cleared. Currently is mental status is baseline with no dementia or delirium. (4) GI bleed: Patient had a recent upper GI bleed with peptic ulcer disease and esophageal varices. Recommendations: 1. He has a treatment dilemma: With his significant vascular disease noted on CT angiography he is at great risk for further TIA and stroke events. With his MRI pattern of multiple strokes of probable embolic origin, he therefore should be on an anticoagulant. However, he has had a recent upper GI bleed and would be at great risk for bleeding at this time. Antiplatelet medication such as clopidogrel 75 milligrams daily could be considered as well (and would probably work better than aspirin alone), but may not work as well as an anticoagulant in preventing further embolic phenomenon and would still have bleeding risk. GI opinion regarding these treatments and minimizing further bleeding risk would be useful. 2. The patient just had a transesophageal echocardiogram March 14, 2019. I do not believe he needs another echocardiogram at this time. He has no history of cardiac dysrhythmia and he has no signs of sepsis (although he did have sepsis earlier this year). 3. Physical, occupational, and speech therapy consults. Overall, I spent a total of 110 minutes with this case including review of records, review of MRI and CT films with radiologist, direct evaluation the patient at bedside, and discussion of the case with the patient, nursing staff at bedside, and Dr. Chaudhary, including differential diagnosis and treatment options. History of Present Illness Reason for Consultation: Patient is a 63-year-old, who I have been asked to see the request of Dr. Valente, for neurologic consultation regarding stroke. Requesting Physician: Dr. Valente Attending Physician: Hira Chaudhary MD History of Present Illness This patient see longstanding history of use/abuse has alcoholic cirrhosis chronic hepatitis-C. This year he has had issues with hepatic encephalopathy and upper GI bleeding with esophageal varices peptic ulcer disease. 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 On April 26 he was discharged from hospital after having had an upper GI bleed and hepatic encephalopathy an elevated ammonia. He has not had any nausea or vomiting since and he is taking Dexilant. On March 14 he had a transesophageal echocardiogram which was unremarkable showing no significant findings and no valvular disease or endocarditis findings. He has had some positive blood cultures in March since then but he has resolve these with antibiotics. On April 29 in the evening he noted some left upper extremity weakness. He went to bed around 9 p.m.. He slept well and woke up somewhere between 6 and 630 and noticed that his left arm was much weaker. He had no numbness or pain in the arm. He felt that he had slept on his arm and that is why it was weak. He denied leg issues but when he tried to get out of bed he fell to the ground. He denied numbness or weakness of his face, dizziness, speech problems, memory issues, or incontinence. He arrived to the emergency room April 30 818 with a temperature 36.8, pulse 75, respiratory 18, blood pressure 129/68, O2 saturation 96 percent. He was described as having significant left upper extremity weakness distally in the hand and his left eye medial deviation was noted (and this is a chronic finding). Originally, it was thought that this was a compression neuropathy. CBC showed anemia (but slightly better than the day previous) and a platelet count of 105. AST ALT and alkaline phosphatase were elevated as before. CT scan of the head showed no acute changes. Triglyceride 77 total cholesterol 102, LDL 46. Urinalysis was unremarkable. MRI of the brain showed multiple scattered punctate acute infarcts in the right cerebral hemisphere in the parietal occipital lobes crossing vascular territory in the middle and posterior cerebral arteries. Some of the spots looked like watershed between the anterior cerebral and middle cerebral artery territories. There were a few scattered old nonspecific small vessel ischemic changes as well. There were no acute changes on the left. I reviewed this MRI with Dr. Manning. CT angiography of the head and neck were reviewed extensively as well with the radiologist. There was a she greater than 70 percent stenosis in the proximal right internal carotid artery with 50 percent on the left. There was stenosis and plaque at the origin of both vertebral arteries and significant plaque at the origins of the right subclavian and right common carotid artery. Higher up, there was a cut off of the right vertebral artery in the left vertebral cir culation crossed over. The aortic arch seemed unremarkable. This morning the patient feels that his left upper extremity is a little less weak and he has no pain, headache, or other issues. Patient was a heavy alcohol user in the past drinking as much as 2 or 3 quarts of beer per day. He claims to have quit all alcohol in December of this year due to his medical problems. In addition he was a heavy cigarette smoker for many years but since December has been down to 2 cigarettes per day. Allergies Allergy/AdvReac Type Severity Reaction Status Date / Time doxycycline Allergy Intermediate Hives Verified 04/30/19 08:53 codeine AdvReac Mild Gastrointestinal Verified 04/30/19 08:53 Upset Home Medications Home Medications Medication Instructions Recorded Confirmed Type albuterol sulfate 2 puff INHALATION Q4H PRN 06/15/18 04/30/19 History thiamine HCl (vitamin B1) 100 mg PO QAM 06/15/18 04/30/19 History Dexilant 30 mg PO BID 03/10/19 04/30/19 History acetaminophen [Tylenol Extra 500 mg PO Q6H PRN 03/19/19 04/30/19 History Strength] nadolol 40 mg PO QAM 30 Days #30 tab 04/17/19 04/30/19 Rx ferrous sulfate 325 mg PO BID #60 tab 04/26/19 04/30/19 Rx furosemide 20 mg PO QAM #14 tab 04/26/19 04/30/19 Rx prednisone 10 mg PO DIRECTED #15 tab 04/26/19 04/30/19 Rx amoxicillin 875 mg PO BID 04/30/19 04/30/19 History folic acid 0.8 mg PO QAM 04/30/19 04/30/19 History lactulose 20 ml PO DAILY 04/30/19 04/30/19 History metformin 500 mg PO QDB 04/30/19 04/30/19 History potassium chloride [Klor-Con M10] 10 meq PO QAM 04/30/19 04/30/19 History Patient History Medical History Peptic ulcer disease (Chronic) COPD (chronic obstructive pulmonary disease) (Chronic) Cirrhosis of liver (Chronic) Left arm weakness (Acute) SIRS (systemic inflammatory response syndrome) COPD with exacerbation (Acute) Encephalopathy, hepatic (Acute) GI bleed 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) Neutropenic fever (Acute) Coffee ground emesis Cirrhosis of liver (Chronic) Anemia (Acute) Parotiditis Alcohol abuse (Chronic) Hypertension Alcoholism (Acute) Hepatitis C antibody test positive Esophageal varices No significant past surgical history Surgical History H/O endoscopy Loss of teeth due to extraction Family History Mother , age 82 with hypertension, diabetes, and COPD COPD (chronic obstructive pulmonary disease) Diabetes Hypertension Father , age 89 with prostate cancer Prostate cancer Sister Stroke Social History Preferred Language: Kyrgyz Communication Ability: Effective Sole Cutter Required: No Beliefs That Will Affect Care: None marital status: Current Living Situation: Family Current Living Situation Comment: , nephew current occupational status: employed and disabled current occupation: Works multiple jobs at the [employer] Other Information That Helps Us Care for You: No Feels Safe at Home: Yes Safety Concerns: Feels Safe At This Time Smoking Status: Light tobacco smoker Tobacco Type: cigarettes Cigarettes Per Day: 2 Do You Dip or Chew Tobacco: No Second Hand Exposure: Yes Tobacco Cessation Education Requested by Patient: No Hx Alcohol Use: No Hx Substance Use: No Review of Systems Constitutional: no fever, no fatigue and no weakness Eyes: + worsening vision and + problem reported (Patient is legally blind in the left eye and has a chronic left esotropia.); no diplopia and no eye pain Ear, Nose, Mouth, Throat: no ear pain, no tinnitus, no hearing loss, no dizziness, no snoring, no hoarseness and no dysphagia Respiratory: no cough and no dyspnea Cardiovascular: no chest pain, no palpitations and no lightheadedness Gastrointestinal: no abdominal pain, no nausea and no vomiting Genitourinary: no dysuria, no urinary frequency and no urinary incontinence Musculoskeletal: no back pain, no neck pain, no radicular pain, no joint pain and no myalgia Integumentary: no rash and no lesions Neurologic: + localized weakness; no gait abnormality, no generalized weakness, no tingling, no numbness, no tremor(s), no abnormal movements, no headache(s), no abnormal speech, no confusion and no memory loss Psychiatric: no depression, no irritability, no anxiety, no difficulty concentrating, no confusion and no hallucinations Endocrine: no fatigue and no flushing Hematologic / Lymphatic: no easy bleeding and no easy bruising Allergy / Immunological: no urticaria and no problem reported Physical Exam Physical Exam: The patient is left-handed. The patient is awake, alert, and attentive. Speech is slightly slurred because he has no teeth, however, he is without any obvious aphasia or dysarthria. Mentation and thought processes are intact, with full orientation and normal fund of knowledge. Attention and concentration are normal. Mood and affect are normal and appropriate. General appearance and grooming are normal. Short and long-term memory are intact to conversation. The disc is sharp with positive venous pulsations on right. The lenses more opaque and I cannot visualize the disc on the left. There are no exudates, hemorrhages, or blood vessel changes seen. Pupils are 3 mm bilaterally and reactive to light. Extraocular eye muscles are intact without nystagmus although he has a right esotropia. Visual acuity and visual connor seem normal grossly to confrontation in the right eye. There are no deficits to sensation in the face in all 3 distributions of the fifth cranial nerve bilaterally. Corneal reflexes are positive bilaterally. F acial strength and symmetry was normal bilaterally. Hearing seems intact grossly to voice and finger rub bilaterally. Palate moves well without asymmetry. There is normal sternocleidomastoid and trapezius (shoulder shrug) strength bilaterally. Tongue is midline with good strength bilaterally. Neck has a full range of motion without discomfort. There are no cervical bruits bilaterally. There are no cranial or ocular bruits. Heart is without murmur. There is a regular rhythm and rate. Cervical, thoracic, and lumbar spine are nontender to palpation. Gait is narrow based, with some arm swing but he limps because of the left leg and turns are slow. With outstretched arms there is severe drift off. There are no resting, postural, or action tremors. There is no ataxia with finger to nose testing. There is decreased facility in the left hand. No other abnormal involuntary movements are noted. Motor strength is 5/5 diffusely in the right upper extremity both proximally distally with good tone. The left upper extremity he is 4/5 in the deltoid, biceps, triceps, wrist extensors, echometer engineer and intrinsic hand muscles. There is decreased tone in the left upper extremity. Leg strength is symmetrical be close to 5/5 diffusely although there was some 4+/5 weakness proximally on the left. Tone is normal in the legs. The limbs have no spasticity. He is thin throughout his distal musculature, there is no tenderness to palpation, no myotonia to percussion, and no fasciculations seen. Sensory examination is intact to touch and pin throughout all 4 limbs diffusely. Reflexes are 2/4 in the biceps, triceps and quadriceps tendons bilaterally. Brachioradialis and Achilles tendon reflexes are absent bilaterally. There is no clonus. Toes are downgoing with plantar stimulation on the right and upgoing with plantar stimulation on the left. Peripheral pulses are present and of normal quality distally in all 4 limbs. There is some peripheral edema noted in the legs distally. Results & Data Vital Signs (Past 12 Hours) Vital Signs Temp Pulse Resp BP BP Pulse Ox 05/01/19 07:50 36.6 C 74 16 136/71 95 05/01/19 04:16 36.7 C 82 18 117/71 92 04/30/19 23:33 36.7 C 72 18 135/73 97 Diagnostic Findings Brain MRI WITHOUT CONTRAST HISTORY: Left arm weakness TECHNIQUE: Multiplanar multisequence MRI of the brain was performed without the use of contrast. COMPARISON STUDY: Head CT 04/30/2019. FINDINGS: Multiple punctate scattered foci of restricted diffusion seen within the posterior right frontal lobe, right parietal lobe, and right occipital lobe consistent with acute infarcts. This primarily involves the distal right MCA territory. Suboptimal evaluation of the brain due to motion artifact. Scattered small focal areas of cortical and subcortical edema within the right parietal and occipital lobes consistent with a site of acute infarct. There are a few additional scattered foci of T2 hyperintensity seen within the periventricular white matter suggestive of mild microvascular ischemic change. There is no definite mass, hematoma, or midline shift. The ventricles are normal in size. There are a few old scattered lacunar infarcts within the white matter. The paranasal sinuses and mastoid air cells are clear. The major vascular flow voids at the skull base are well-maintained. IMPRESSION: Multiple punctate acute infarcts involving the right cerebral hemisphere as described above. Electronically signed by: Alvin Ramirez M.D. 04/30/2019 9:55 PM
--- NOTE | 2019-05-01 10:53 | Gastrointestinal Consultation ---
Date of Consultation May 01, 2019 Assessment & Plan (1) Cirrhosis of liver: Because of presence of Cirrhosis with large esophageal varices, portal hypertensive gastropathy. low platelet count, any mediation with antiplatelet or anticoagulant effect would create a high bleeding risk situation. If this pt were to bleed on an anticoagulant/antiplatelet medication, though endoscopy can be attempted here, he would likely need IR intervention at a major medical center. If antiplatelet/anticoagulant therapy is deemed absolutely necessary for tx of cerebral vascular disease then ASA 81, warfarin have been used extensively in cirrhosis patients (for cirrhosis pts with portal vein thrombosis are treated with warfarin). Advise against the use of Eliquis as project management intern statement against use in Child's-Haddad class 3 liver disease. Plavix and Xarelto likely safer than Eliquis. Present on Admission?: Yes Supervising Physician Co-Signing Physician Notes I saw and evaluated the patient. We were asked to consult with regard to anticoagulation needs for this patient. He was recently found to have acute embolic stroke and neurology is wondered what medications may be safe given his underlying liver disease. Physical examination Frail-appearing Mild abdominal distention Impression: Patient with advanced liver disease complicated by history of ascites and esophageal varices. Unfortunately no particular anticoagulation would be absolutely safe given his underlying liver disease and esophageal varices. Perhaps the patient would best be served with use of Coumadin as this could be more easily reversed than other medications which are available. These call with any additional questions or concerns. He will continue to follow with his outpatient GI providers which include to have otology service at [facility] and Dr. Neel george History of Present Illness Reason for Consultation: "Is aspirin or anticoagulation ok?" Requesting Physician: Dr. Hira Chaudhary Attending Physician: Hira Chaudhary MD History of Present Illness Mr. Brent Blackwood is a 63 yr old male [facility] patient who presented to the ED on 04/30/19 who presented to the ED yesterday for left hand numbness/weakness. He also carries a hx of ETOH cirrhosis (last drink December 2018), complicated by large EV (on Nadolol 40mg daily), gastric ulcers (EGD in December 2018), also with HTN, COPD. Per neurology today, it appears that he has experienced multifocal acute embolic CVAs, likely caused by carotid and vertebral artery occlusive disease. GI is asked to provide an opinion regarding safety of different anticoagulant and/or antiplatelet therapy in light of hx of cirrhosis with EV and hx of gastric ulcers. Pt denies any current evidence of GI bleeding and no abdominal pain or reflux. Allergies Allergy/AdvReac Type Severity Reaction Status Date / Time doxycycline Allergy Intermediate Hives Verified 04/30/19 08:53 codeine AdvReac Mild Gastrointestinal Verified 04/30/19 08:53 Upset Home Medications Home Medications Medication Instructions Recorded Confirmed Type albuterol sulfate 2 puff INHALATION Q4H PRN 06/15/18 04/30/19 History thiamine HCl (vitamin B1) 100 mg PO QAM 06/15/18 04/30/19 History Dexilant 30 mg PO BID 03/10/19 04/30/19 History acetaminophen [Tylenol Extra 500 mg PO Q6H PRN 03/19/19 04/30/19 History Strength] nadolol 40 mg PO QAM 30 Days #30 tab 04/17/19 04/30/19 Rx ferrous sulfate 325 mg PO BID #60 tab 04/26/19 04/30/19 Rx furosemide 20 mg PO QAM #14 tab 04/26/19 04/30/19 Rx prednisone 10 mg PO DIRECTED #15 tab 04/26/19 04/30/19 Rx amoxicillin 875 mg PO BID 04/30/19 04/30/19 History folic acid 0.8 mg PO QAM 04/30/19 04/30/19 History lactulose 20 ml PO DAILY 04/30/19 04/30/19 History metformin 500 mg PO QDB 04/30/19 04/30/19 History potassium chloride [Klor-Con M10] 10 meq PO QAM 04/30/19 04/30/19 History Patient History Medical History Peptic ulcer disease (Chronic) COPD (chronic obstructive pulmonary disease) (Chronic) Cirrhosis of liver (Chronic) Left arm weakness (Acute) SIRS (systemic inflammatory response syndrome) COPD with exacerbation (Acute) Encephalopathy, hepatic (Acute) GI bleed 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) Neutropenic fever (Acute) Coffee ground emesis Cirrhosis of liver (Chronic) Anemia (Acute) Parotiditis Alcohol abuse (Chronic) Hypertension Alcoholism (Acute) Hepatitis C antibody test positive Esophageal varices No significant past surgical history Surgical History H/O endoscopy Loss of teeth due to extraction Family History Mother , age 82 with hypertension, diabetes, and COPD COPD (chronic obstructive pulmonary disease) Diabetes Hypertension Father , age 89 with prostate cancer Prostate cancer Sister Stroke Social History Preferred Language: Malian Communication Ability: Effective Director Of Reimbursement Required: No Beliefs That Will Affect Care: None marital status: Current Living Situation: Family Current Living Situation Comment: , nephew current occupational status: employed and disabled current occupation: Works multiple jobs at the [employer] Other Information That Helps Us Care for You: No Feels Safe at Home: Yes Safety Concerns: Feels Safe At This Time Smoking Status: Light tobacco smoker Tobacco Type: cigarettes Cigarettes Per Day: 2 Do You Dip or Chew Tobacco: No Second Hand Exposure: Yes Tobacco Cessa tion Education Requested by Patient: No Hx Alcohol Use: No Hx Substance Use: No Review of Systems Review of Systems: ROS: Gen: Denies weakness, fevers, weight loss Eyes: No eye redness, or pain, no recent vision changes Resp: No SOB, no cough Cardio: No palpitations/irregular beats, no chest pain GI: No abdominal pain, no nausea/vomiting : Denies pain on urination Skin: No jaundice, itching or new rashes Neuro: bilateral hand numbness Constitutional: +weakness, weight loss, denies fevers Eyes: No eye redness, no impaired vision or double vision Physical Exam Constitutional: WD/WN, vitals as above + ill appearing and + thin Eyes: PERRL, conjunctivae normal, anicteric sclerae ENMT: external ear and nose normal, oropharynx normal Neck: trachea midline, no thyromegaly Respiratory: normal respiratory effort, lungs clear to auscultation Cardiovascular: RRR, no murmur, no edema Gastrointestinal (Abdomen): normal bowel sounds, soft, nontender, no hepatosplenomegaly no obvious ascites Skin: no rashes, warm and dry Psychiatric: A+Ox3, euthymic affect Speech: normal rate/rhythm/volume of speech Lymphatic: no cervical or axillary lymphadenopathy Results & Data Vital Signs (Past 12 Hours) Vital Signs Temp Pulse Resp BP BP Pulse Ox 07/23/19 07:50 36.6 C 74 16 136/71 95 05/01/19 04:16 36.7 C 82 18 117/71 92 04/30/19 23:33 36.7 C 72 18 135/73 97 Diagnostic Findings MRI brain 04/30/19
--- NOTE | 2019-05-01 11:35 | Hospitalist Progress Note ---
Date of Service May 01, 2019 Assessment & Plan (1) Acute CVA (cerebrovascular accident): MRI brain on 04/30 showed "multiple punctate acute infarcts involving the right cerebral hemisphere." Due to the multiple areas involved, there is concern for embolism. In discussion with Dr. Langford, it is felt this is not a septic emboli picture (no SIRS, no signs of local infection), but possibly a proximal plaque rupture with showering. - GI consulted for possibility of anti-platelet vs. anticoagulation - Blood pressure and cholesterol control as able. (2) Cirrhosis of liver: With esophageal varices and chronic ascites. Currently stable. - Continue medical management - Reports having 1-2 soft BMs (3) COPD (chronic obstructive pulmonary disease): Currently stable. - Continue inhaler therapy as needed (4) Peptic ulcer disease: Currently stable. - Continue PPI therapy (5) DVT prophylaxis: Early ambulation Subjective Still with weakness in the left arm. Less so in the left leg. Review of Systems Review of Systems: All systems reviewed & are unremarkable except as noted in HPI & below Physical Exam Constitutional: WD/WN, vitals as above Eyes: EOM intact bilaterally; no conjunctival abnormality ENMT: external ear and nose normal, oropharynx normal Neck: trachea midline, no thyromegaly normal visual inspection Respiratory: normal respiratory effort, lungs clear to auscultation no respiratory distress Cardiovascular: RRR, no murmur, no edema Gastrointestinal (Abdomen): Inspection/Auscultation: abdomen normal to inspection; abdomen not distended Musculoskeletal: no cyanosis or clubbing, extremities motor strength 5/5 Skin: no rashes, warm and dry Neurologic: moves all extremities (Limited strength in the left arm.) and awake Psychiatric: Orientation: alert, oriented to person and cooperative Results & Data Vital Signs (Past 12 Hours) Vital Signs Temp Pulse Resp BP BP Pulse Ox 05/01/19 11:11 36.6 C 59 L 18 131/69 98 05/01/19 07:50 36.6 C 74 16 136/71 95 05/01/19 04:16 36.7 C 82 18 117/71 92 04/30/19 23:33 36.7 C 72 18 135/73 97 PG Care Time/CCT Total # of Minutes Spent Total Time Spent with Patient: Total time spent is greater than 50% in airport operations coordinator rdination of care (as documented) at patient's floor/unit and/or counseling patient:
[2019-05-01] MEDS: predniSONE 10 MG TABLET PO SCH (17:04)
[2019-05-02 06:47] LABS: Mean Corpuscular Hgb Conc 32.1 g/dL (32-36); Mean Corpuscular Volume 95.9 fL (80-100); RDW Coefficient of Variation 18.8 % (11.5-14.5); RDW Standard Deviation 65.1 fL (36.4-46.3); Red Blood Count 2.92 M/uL (4.7-6.1); White Blood Count 4.78 K/uL (4.8-10.8)
[2019-05-02 06:57] LABS: INR 1.3 (0.9-1.1)
[2019-05-02 07:03] LABS: Mean Platelet Volume 8.7 fL (7.4-10.4); Platelet Count 80 K/uL (130-400)
[2019-05-02 07:14] LABS: Calcium 7.9 mg/dl (8.5-10.1); Est GFR (African American) 111.2; Est GFR (Non-African American) 95.9; Potassium 3.9 mmol/L (3.5-5.1)
[2019-05-02 07:21] LABS: Anisocytosis Present; Basophilic Stippling 1+; Basophils # (auto) 0.01 K/uL (0-0.2); Basophils % (auto) 0.2 %; Eosinophils # (auto) 0.02 K/uL (0-0.5); Eosinophils % (auto) 0.4 %; Immature Granulocytes # (auto) 0.01 K/uL (0.00-0.02); Immature Granulocytes % (auto) 0.2 %; Lymphocytes # (auto) 0.71 K/uL (1.2-3.4); Lymphocytes % (auto) 14.9 %; Monocytes # (auto) 0.59 K/uL (0.11-0.59); Monocytes % (auto) 12.3 %; Neutrophils # (auto) 3.44 K/uL (1.4-6.5); Polychromasia 1+
[2019-05-02] MEDS: POTASSIUM CHLORIDE 10 MEQ TABCR PO SCH (07:45)
[2019-05-02] MEDS: THIAMINE HCL 100 MG TAB PO SCH (07:45)
[2019-05-02] MEDS: FOLIC ACID 400 MCG TAB PO SCH (07:45)
[2019-05-02] MEDS: NADOLOL 40 MG TAB PO SCH (07:45)
[2019-05-02] MEDS: FERROUS SULFATE 325 MG TAB PO SCH (07:45)
[2019-05-02] MEDS: PANTOprazole 40 MG TAB PO SCH (07:45)
[2019-05-02] MEDS: FUROSEMIDE 20 MG TAB PO SCH (07:45)
[2019-05-02] MEDS: LACTULOSE SYRUP 10 GM/15 ML BTL 473 ML PO SCH (07:46)
[2019-05-02] MEDS: INSULIN ASPART 100 UNITS/ML 3 ML PEN SC SCH ×2 (07:46→11:50)
--- NOTE | 2019-05-02 10:11 | Neurology Progress Note ---
Date of Service May 02, 2019 Assessment & Plan (1) Acute CVA (cerebrovascular accident): Patient has had a new onset of left upper extremity weakness with an MRI consistent with a shower of multiple tiny acute strokes in the right posterior hemisphere in more than 1 vascular territory. After review of the MRI films with Radiology, I suspect an embolic origin from proximal vessels. Transesophageal Echocardiogram March 14, 2019 did not show any valvular issues. A repeat echocardiogram yesterday was unremarkable without any valvular issues as well. CT angiography of the head and neck revealed multiple significant stenoses at the origins of the internal carotid and vertebral arteries (right greater than left side) as well as the right subclavian and common carotid arteries. Emboli from these great vessels could easily go to territories seen on the MRI. Patient does have signs on the MRI of some mild old small vessel ischemic changes and he does have a history of hypertension and chronic alcohol use which increased stroke risk. Clinically, his left upper extremity strength is somewhat better than yesterday. The left leg has some circumduction with gait but is otherwise fairly good with strength. There are left-sided upgoing toes all consistent with his right hemispheric strokes. He has no significant aphasia or dysarthria new vision problems or sensory changes. His gait is affected likely because of the left lower extremity weakness. 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 (3) Cirrhosis of liver: Patient has hepatic cirrhosis chronic alcohol use/abuse as well as hepatitis C. he has thrombocytopenia and anemia. Patient recently had elevated ammonia levels and hepatic encephalopathy which cleared. Currently is mental status is baseline with no dementia or delirium. (4) GI bleed: Patient had a recent upper GI bleed with peptic ulcer disease and a large esophageal varice. Recommendations: 1. He is a significant treatment dilemma: -With his significant vascular disease noted on CT angiography he is at great risk for further TIA and stroke events. -His MRI pattern of multiple strokes are of probable embolic origin, and typically this would be treated with an anticoagulant. -However, he has had a recent upper GI bleed and would be at great risk for significant bleeding at this time. -Antiplatelet medication, such as clopidogrel 75 milligrams daily, would probably work better than 81 mg aspirin (may have less GI bleeding risk), but clopidogrel may not work as well in individual with hepatic disease. It is dependent on the CYP-450 pathways for proper metabolizing in order to work. It is uncertain whether this patient is a [id number] poor metabolizer or not. -Therefore, it is probably best (safest?) To initiate 81 milligram enteric- coated aspirin tablet daily and follow closely. 2. Physical, occupational, and speech therapy consults. Increase activity as able. Overall, I spent a total of 35 minutes with this case including review of records, direct evaluation the patient at bedside, and discussion of the case with the patient, nursing staff at bedside, Dr. Ventura, and Dr. Chaudhary, including differential diagnosis and treatment options. Subjective Patient has no complaint of pain or headache. He feels his left upper extremity is getting a little bit better although his hand is still very clumsy and weak. He is not dizzy and has no chest pain or belly pain. His vision is unchanged and his mentation is clear. He has no problem swallowing. Blood pressure is 135/74 CBC shows significant anemia and Chem profile was largely unremarkable although sodium was 135, glucose 125, and calcium 7.9. Echocardiogram was unremarkable with no valvular issues or shunt. I spoke with Dr. Ignacio Ventura, stroke neurologist at via telephone regarding this case this morning. He recommended antiplatelet medication and favored 81 milligram aspirin over Plavix. GI was consulted and I appreciate their opinions regarding risks and treatment options of anticoagulation versus antiplatelet medication. Physical Exam Physical Exam: He is awake and alert. Speech is without aphasia or dysarthria. Mood and affect seem normal and appropriate. Thought processes are intact to conversation. Extraocular eye muscles are intact without nystagmus. He has no facial droop. Left upper extremity strength is 4/5 diffusely with decreased dexterity and criminal justice instructor strength. He can raise his arm up however has reasonable proximal strength. Left lower extremity is fairly strong although he has a mild circumduction of the left leg with gait. Otherwise his gait is narrow based and he has some arm swing on the left. Right side is 5/5 diffusely. He has no abnormal involuntary movements. Results & Data Vital Signs (Past 12 Hours) Vital Signs Temp Pulse Resp BP Pulse Ox 05/02/19 08:06 36.8 C 78 18 135/74 95 05/02/19 04:41 36.7 C 63 18 122/71 95 05/02/19 00:13 36.4 C L 79 20 135/75 96
--- NOTE | 2019-05-02 13:43 | Gastroenterology Progress Note ---
Date of Service May 02, 2019 Assessment & Plan (1) Cirrhosis of liver: Plan for enteric-coated aspirin 81 mg daily is lower risk for bleeding from esophageal varices or portal hypertensive gastropathy then other options. On discharge would resume furosemide, now and lactulose as previous. Pt needs to establish OP GI follow up for management of cirrhosis, ascites/edema, esophageal varices. He has cancelled hospital f/u previously. Our office will call him encouraging him to make a f/u appt. Supervising Physician Co-Signing Physician Notes I saw and evaluated the patient. It appears he was started on aspirin for his neurologic prophylaxis. Please call us with any additional questions or concerns. The patient should continue to follow-up with his regular hepatology provider at [facility] and locally with . Subjective Mr. Blackwood is a 63 yr old male with ETOH cirrhosis (last drink 2018) with large esophageal varices (on Nadolol) and mild ascites and edema who presented on 05/01 with acute stroke. Review of Systems Review of Systems: ROS: Gen: Denies weakness, fevers, weight loss Eyes: No eye redness, or pain, no recent vision changes Resp: No SOB, no cough Cardio: No palpitations/irregular beats, no chest pain GI: No abdominal pain, no nausea/vomiting : Denies pain on urination Skin: No jaundice, itching or new rashes Physical Exam Constitutional: WD/WN, vitals as above + thin Eyes: PERRL, conjunctivae normal, anicteric sclerae ENMT: external ear and nose normal, oropharynx normal Neck: trachea midline, no thyromegaly Respiratory: normal respiratory effort, lungs clear to auscultation Cardiovascular: Extremities: + pedal edema (1+ pitting bilateral both legs) Normal rate, irregular rhythm, no murmurs. Gastrointestinal (Abdomen): normal bowel sounds, soft, nontender, no hepatosplenomegaly Mild to moderate ascites, not tolerant Skin: no rashes, warm and dry Psychiatric: A+Ox3, euthymic affect Lymphatic: no cervical or axillary lymphadenopathy Results & Data Vital Signs (Past 12 Hours) Vital Signs Temp Pulse Pulse Resp BP Pulse Ox 05/02/19 11:21 36.8 C 58 L 16 104/59 L 97 05/02/19 08:06 36.8 C 78 18 135/74 95 05/02/19 08:00 63 05/02/19 04:41 36.7 C 63 18 122/71 95
[2019-05-02] MEDS ORDERED: STROKE PATIENT DISCHARGE STA (13:51)
--- NOTE | 2019-05-02 15:20 | Pharmacy Report ---
Pharmacist Stroke Counseling - Date of Service May 02, 2019 - Scope: Pharmacy has been consulted to provide medication discharge counseling for this patient admitted with ischemic stroke as per the Pharmacist Discharge Counseling for Stroke Patients Protocol. - Medications on Discharge: Home Medications Medication Instructions Recorded Confirmed albuterol sulfate 2 puff INHALATION Q4H PRN 06/15/18 04/30/19 thiamine HCl (vitamin B1) 100 mg PO QAM 06/15/18 04/30/19 Dexilant 30 mg PO BID 03/10/19 04/30/19 acetaminophen [Tylenol Extra 500 mg PO Q6H PRN 03/19/19 04/30/19 Strength] folic acid 0.8 mg PO QAM 04/30/19 04/30/19 lactulose 20 ml PO DAILY 04/30/19 04/30/19 metformin 500 mg PO QDB 04/30/19 04/30/19 potassium chloride [Klor-Con M10] 10 meq PO QAM 04/30/19 04/30/19 nadolol 40 mg qam furosemide 20 mg qam prednisone 10 mg po as directed New Rx's Medication Instructions Recorded aspirin 81 mg PO DAILY #30 tab 05/02/19 ferrous sulfate 325 mg PO DAILY #60 tab (changed from BID) 05/02/19 - Action: The above medications, specifically ones for stroke treatment/prophylaxis, have been reviewed in detail with the patient and/or patient retention representative(s) prior to discharge. This includes indication, common adverse reactions, drug interactions, and medication administration. Medication counseling has been employed using the teach-back method to ensure understanding. - Outcome: The patient and/or patient retention representative(s) have demonstrated understanding of the medications. Please note, they are aware that the pharmacist will call them within 72 hours post-discharge to confirm that the appropriate medications are being taken and answer any further medication related questions the patient might have at that time. Contact information Individual to be contacted: Patient Relationship to patient (if applicable): Phone number: [phone] Best time to call: anytime Additional comments: * Complicated patient admitted for CVA with recent GI bleed and cirrhosis of liver * Med changes discussed w/ provider prior to discharge - d/c amoxicillin (patient finished course this admission), continue prednisone x 2 more days to complete taper, unable to initiate statin in the setting of cirrhosis * Met with patient and reviewed medication list in detail. He is legally blind and has a very high prescription for his glasses but was able to see the writing on the handouts. He is aware of what to watch out for in terms of bruising/bleeding. * He knows to take 2 more doses of prednisone to complete his taper * Discharge instructions noted for him to take Protonix tonight - I instructed him that this would be the Dexilant that he takes at home instead Thank you for allowing pharmacy to be involved in the care of this patient. Please call [phone] or [phone] with any additional questions
--- NOTE | 2019-05-02 16:38 | Discharge Summary ---
Date of Service May 02, 2019 Admission HPI Per Admitting Provider 63-year-old male who was recently hospitalized with hepatic encephalopathy due to underlying cirrhosis. He states that he sleeps on his left side and he awoke this morning with left upper extremity weakness from the elbow to the hand. He had no other associated deficits. He was unable to effectively utilize his left hand hardly at all. At the time of my examination in the ED he has improved but he continues to have left hand weakness and he does have evidence of a pronator drift of the left arm. No other apparent deficits. Again, he sleeps on his left side and he feels as if he just slept on his left arm overnight which caused the current problems. Head CT scan is negative. He will be placed in observation for further assessment. Brain MRI scan and neurological consultation will be requested. Will avoid anticoagulants at this time due to his history of cirrhosis with varices and recent peptic ulcer disease diagnosis with GI bleeding. 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 Platelet count 105,000. Hemoglobin 9.4. Principal Diagnosis Stroke Discharge Exam Constitutional WD/WN, vitals as above Eyes EOM intact bilaterally; no conjunctival abnormality ENMT external ear and nose normal, oropharynx normal Neck trachea midline, no thyromegaly normal visual inspection Respiratory normal respiratory effort, lungs clear to auscultation no respiratory distress Cardiovascular RRR, no murmur, no edema Gastrointestinal (Abdomen) Inspection/Auscultation: abdomen normal to inspection; abdomen not distended Musculoskeletal no cyanosis or clubbing, extremities motor strength 5/5 Skin no rashes, warm and dry Neurologic moves all extremities (Limited strength in the left arm.) and awake Psychiatric Orientation: alert, oriented to person and cooperative Discharge Data Allergies Allergy/AdvReac Type Severity Reaction Status Date / Time doxycycline Allergy Intermediate Hives Verified 04/30/19 08:53 codeine AdvReac Mild Gastrointestinal Verified 04/30/19 08:53 Upset Consultations 04/30/19 11:55 ED Decision to Admit Stat 04/30/19 14:44 Consult Neurology Routine 04/30/19 22:21 Consult Case Management - Discharge Planning Routine 05/01/19 08:46 Consult Gastroenterology Routine Ordered Studies 04/30/19 09:38 CT head/brain wo con Stat 04/30/19 14:44 MR brain wo con Routine 04/30/19 22:22 CT angio head w con Urgent CT angio neck with con Urgent Hospital Course (1) Acute CVA (cerebrovascular accident): MRI brain on 04/30 showed "multiple punctate acute infarcts involving the right cerebral hemisphere." Due to the multiple areas involved, there is concern for embolism. In discussion with Dr. Langford, it is felt this is not a septic emboli picture (no SIRS, no signs of local infection), but possibly a proximal plaque rupture with showering. - GI consulted for possibility of anti-platelet vs. anticoagulation - After group discussion, it was decided that enteric-coated aspirin was the safest choice for him. He is already on a BID PPI, so we are trying to protect his GI system as muc has able. - Not able to start statin given his cirrhosis. His LDL is <50 and total cholesterol is ~100, so risks>benefit in this situation. (2) Cirrhosis of liver: With esophageal varices and chronic ascites. Currently stable. - Continued medical management - Reports having 1-2 soft BMs (3) COPD (chronic obstructive pulmonary disease): Currently stable. - Continue inhaler therapy as needed (4) Peptic ulcer disease: Currently stable. - Continue PPI therapy (5) DVT prophylaxis: Early ambulation Total Time Total Time Spent Total Time Spent (In Minutes): 35 Discharge Plan Discharge Items Patient Disposition: Home - Home Health Services Reason For Visit: LEFT ARM WEAKNESS Discharge Diagnosis: Stroke Discharge Goals: Decrease discomfort and Diagnostic testing Activity: Resume your previous activity Non-emergency contact: Primary Care Provider Call non-emergency contact if: you have any medication questions and your symptoms worsen Follow-up/Referrals: [facility] [Other] (Please, follow up at [facility] Outpatient Physical Therapy Department. *The office is located at [address] [place] [address]. The phone number is [phone]. IF YOU COMPLETE THE [employer] FREE CARE APPLICATION, YOU MEET THE QUALIFACTIONS, THEN THE COST WILL BE COVERED.) [facility],Medicine [Primary Care Provider] - 05/08/19 11:00 am (Please, follow up with Dr. Schwab at [facility] in [facility] on TuesdayMay 08 at 11:00 am. *If you need to change this appointment, call the office at [phone].) Diet: Regular Addtl Provider Instructions: Mr. Blackwood, You were in the hospital for left arm weakness. We did an MRI and this is the result of a stroke. We are starting you on a baby aspirin which the GI doctors were ok with starting. Please take it with a PPI to help prevent any stomach ulcers. Risk Factors for Stroke: You can reduce your chances of stroke by working with your medical provider to adopt a healthy lifestyle. Some specific ways to lower your chance of stroke are: * If you are a smoker, now is the time to stop smoking cigarettes * If you are diabetic, improve the control of your blood sugars * Avoid excessive amounts of alcohol * Control high blood pressure * Lose weight if you are overweight * Be sure to lead an active lifestyle * Eat a healthy diet low in salt, cholesterol and fat You should know about other risk factors for stroke that you are unable to control. These include: * Age 55 years or older * Male gender * Certain racial groups: , or / * Family History of Stroke, Mini stroke or Heart Attack * Sickle Cell Disease Follow Up: It is important for you to keep your follow up appointments with your medical provider. Who to Call and When: Medical Emergencies: Call 911 immediately if you experience any of the following warning signs and symptoms of Stroke: * Sudden numbness or weakness of the face, arm or leg, especially on one side of the body * Sudden confusion, trouble speaking or understanding * Sudden trouble seeing in one or both eyes * Sudden trouble walking, dizziness, loss of balance or coordination * Sudden severe headache with no cause Do not delay calling 911 if you experience any warning signs or symptoms of a stroke. Delay in seeking medical attention may affect what treatments can be given to you. . Prescriptions: New aspirin 81 mg tablet,delayed release (DR/EC) 81 mg PO DAILY Qty: 30 RF: 0 Continued thiamine HCl (vitamin B1) 100 mg Tablet 100 mg PO QAM RF: 0 albuterol sulfate 90 mcg/actuation Hfa Aerosol Inhaler 2 puff Inhalation Q4H PRN (Reason: Wheezing) RF: 0 Dexilant 30 mg Capsule,Biphase Delayed Releas 30 mg PO BID RF: 0 acetaminophen [Tylenol Extra Strength] 500 mg Tablet 500 mg PO Q6H PRN (Reason: pain/ headache) RF: 0 nadolol 40 mg Tablet 40 mg PO QAM 30 Days Qty: 30 RF: 3 furosemide 20 mg Tablet 20 mg PO QAM Qty: 14 RF: 1 prednisone 10 mg tablet 10 mg PO DIRECTED Qty: 15 RF: 0 folic acid 800 mcg Tablet 0.8 mg PO QAM RF: 0 metformin 500 mg tablet 500 mg PO QDB RF: 0 potassium chloride [Klor-Con M10] 10 mEq tablet,ER particles/crystals 10 meq PO QAM RF: 0 lactulose 20 gram/30 mL solution 20 ml PO DAILY RF: 0 Changed ferrous sulfate 325 mg (65 mg iron) Tablet,Delayed Release (Dr/Ec) 325 mg PO DAILY Qty: 60 RF: 2 Discontinued amoxicillin 875 mg tablet 875 mg PO BID RF: 0 Stand-Alone Forms: Medications to Prevent Stroke, [facility] Discharge Orders: Discharge Order (Routine); Ordered 05/02/19 Ordered By: Hira Chaudhary Admission Data Admit Date/Time: 05/01/19 08:46 Attending Provider: Hira Chaudhary Admit Provider: Geo Valente Primary Care Provider: [facility],Medicine Other Providers: Jose Tello ; Leonel Langford III ; Elodia Doherty ; Ignacio Burch ; Hira Chaudhary ; Alex Ramon Service: Telemetry Other Interventions: Discharge Summary Assessment (RN) Last Done: 05/02/19 14:24 DC Date/Time DO NOT enter until pt leaves facility: 05/02/19 15:19
--- NOTE | 2019-05-03 15:28 | Pharmacy Report ---
Pharmacist Post D/C Phone Note - Phone Note: Date of phone call: May 03, 2019. The patient was unable to be reached for a follow-up phone call within the 72 hour time frame. Voicemail box was full, could not leave a message. Discharge counseling pharmacist contact information has already been provided to the patient should questions arise. Thank you for allowing us to be involved in the care of this patient. - Home Medications: Home Medications Medication Instructions Recorded Confirmed albuterol sulfate 2 puff INHALATION Q4H PRN 06/15/18 04/30/19 thiamine HCl (vitamin B1) 100 mg PO QAM 06/15/18 04/30/19 Dexilant 30 mg PO BID 03/10/19 04/30/19 acetaminophen [Tylenol Extra 500 mg PO Q6H PRN 03/19/19 04/30/19 Strength] folic acid 0.8 mg PO QAM 04/30/19 04/30/19 lactulose 20 ml PO DAILY 04/30/19 04/30/19 metformin 500 mg PO QDB 04/30/19 04/30/19 potassium chloride [Klor-Con M10] 10 meq PO QAM 04/30/19 04/30/19 New Rx's Medication Instructions Recorded nadolol 40 mg PO QAM 30 Days #30 tab 04/17/19 furosemide 20 mg PO QAM #14 tab 04/26/19 prednisone 10 mg PO DIRECTED #15 tab 04/26/19 aspirin 81 mg PO DAILY #30 tab 05/02/19 ferrous sulfate 325 mg PO DAILY #60 tab 05/02/19
== END 2019-05-02 15:19 | disposition home or self-care (01) | DRG 65 ==
LOC: ED 08:14 → 3N 08:14 → SUATTDRO 13:29 → 3N 14:25 → 2E 22:32

== ENCOUNTER 2020-01-25 06:00 | Inpatient (IN) ==
[2020-01-25 06:51] LABS: Hematocrit (blood only) 43.2 % (42-52); Mean Corpuscular Hemoglobin 38.4 pg (25-34); Mean Corpuscular Hgb Conc 34.7 g/dL (32-36); Mean Corpuscular Volume 110.5 fL (80-100); Mean Platelet Volume 10.3 fL (7.4-10.4); Platelet Count 87 K/uL (130-400); RDW Coefficient of Variation 19.2 % (11.5-14.5); RDW Standard Deviation 77.8 fL (36.4-46.3); Red Blood Count 3.91 M/uL (4.7-6.1); White Blood Count 7.39 K/uL (4.8-10.8)
[2020-01-25 06:54] LABS: INR 1.4 (0.9-1.1); Prothrombin Time 14.6 Seconds (9.0-12.0)
--- NOTE | 2020-01-25 07:12 | XRay Report ---
XR chest 1V portable HISTORY: 64 years-old Male sob acute shortness of breath with abdominal distention COMPARISON: Chest radiograph 04/30/2019 TECHNIQUE: Portable AP view of the chest FINDINGS: Cardiac silhouette is mildly enlarged. Coronary artery calcification versus stent grafts. Calcified p laque of the thoracic aortic arch. Minimal bibasilar densities. Unchanged mild interstitial coarsenin g which is likely on a chronic basis. Biapical pleural thickening. Mild hypoinflation. No pneumothora x, large pleural effusion or overt pulmonary edema. Degenerative changes of the shoulders and spine. IMPRESSION: 1. Cardiomegaly without overt pulmonary edema. 2. Unchanged interstitial coarsening is likely on a chronic basis. 3. Mild bibasilar opacities suggest probable atelectasis. ACT 112: Negative or not required by law. The above report was generated using voice recognition software. It may contain grammatical, syntax o r spelling errors. Electronically signed by: Larry Dixon M.D. 01/25/2020 7:11 AM
[2020-01-25 07:15] LABS: Basophils # (auto) 0.04 K/uL (0-0.2); Basophils % (auto) 0.5 %; Eosinophils # (auto) 0.06 K/uL (0-0.5); Eosinophils % (auto) 0.8 %; Immature Granulocytes # (auto) 0.03 K/uL (0.00-0.02); Immature Granulocytes % (auto) 0.4 %; Lymphocytes # (auto) 0.69 K/uL (1.2-3.4); Lymphocytes % (auto) 9.3 %; Macrocytosis Present; Monocytes # (auto) 0.73 K/uL (0.11-0.59); Monocytes % (auto) 9.9 %; Neutrophils # (auto) 5.84 K/uL (1.4-6.5); Neutrophils % (auto) 79.1 %; Target Cells 1+
[2020-01-25 07:17] LABS: Alanine Aminotransferase 89 U/L (12-78); Albumin Globulin Ratio 0.4 (0.9-2); Albumin Level 2.3 gm/dl (3.4-5.0); Alkaline Phosphatase 223 U/L (45-117); Aspartate Aminotransferase 196 U/L (15-37); BUN Creatinine Ratio 9.6 (10-20); Bilirubin,Total 7.1 mg/dl (0.2-1); Blood Urea Nitrogen 7 mg/dl (7-18); Calcium 8.8 mg/dl (8.5-10.1); Carbon Dioxide 27 mmol/L (21-32); Chloride 105 mmol/L (98-107); Creatinine Clr Calc Pharmacy 92.5 ml/min; Est GFR (African American) 112.7; Est GFR (Non-African American) 97.3; Globulin 5.4 gm/dl (2.5-4.0); Glucose 141 mg/dl (70-99); Lipase 164 U/L (73-393); Magnesium 1.5 mg/dl (1.8-2.4); NT Pro B Type Natriuretic Pept 286 pg/ml (0-900); Potassium 3.9 mmol/L (3.5-5.1); Sodium 136 mmol/L (136-145); Total Protein 7.7 gm/dl (6.4-8.2); Troponin I < 0.015 ng/ml (0-0.045)
[2020-01-25] MEDS ORDERED: IOVERSOL 100ml IV PRN (07:25)
[2020-01-25] MEDS ORDERED: PIPERACILL/TAZOBAC CONSULT ACTIVE PRN (07:25)
[2020-01-25] MEDS ORDERED: PIPERACILLIN/TAZOBACTAM 4.5 GM/120 ML BAG IV ONE (07:25)
--- NOTE | 2020-01-25 08:03 | Emergency Department Note ---
History of Present Illness General Chief complaint: Shortness of Breath/Dyspnea Stated complaint: short of breath, abdominal distention Time Seen by Provider: 01/25/20 06:46 Source: patient and RN notes reviewed Mode of arrival: EMS Limitations: no limitations History of Present Illness Provider complaint: Epigastric abdominal pain, shortness of breath Onset (ago): day(s) 5 Location: abdomen Radiation: non-radiation Severity: moderate Pain Consistency: + constant Maximum Pain Intensity: 7 Relieved By: + none Exacerbated By: + none Treatments prior to arrival: none This patient is a 64-year-old male who presents to the emergency department with complaints of epigastric abdominal pain and bloating. Patient also complains of some shortness of breath and occasional cough. He denies any fevers although there are reports of 100.4 degrees prior to arrival from family/EMS. Patient is known to have cirrhosis of the liver and a long alcohol history. The patient states he has not had any alcohol in at least 1 year. Patient denies any nausea or vomiting. He denies any blood in his stools. Patient states he did [place] the ambulance [place] 5 days ago but was not transported to the hospital. He states he can no longer be comfortable at home. Patient is asking for something to drink. Home Medications Home Medications Medication Instructions Recorded Confirmed Type albuterol sulfate 2 puff INHALATION Q4H PRN 06/15/18 01/25/20 History thiamine HCl (vitamin B1) 100 mg PO QAM 06/15/18 01/25/20 History Dexilant 30 mg PO BID 03/10/19 01/25/20 History acetaminophen [Tylenol Extra 1,000 mg PO Q6H PRN 03/19/19 01/25/20 History Strength] folic acid 800 mcg PO QAM 04/30/19 01/25/20 History lactulose 15 ml PO BID PRN 04/30/19 01/25/20 History metformin 500 mg PO QDB 04/30/19 01/25/20 History potassium chloride [Klor-Con M10] 10 meq PO QAM 04/30/19 01/25/20 History ferrous sulfate 325 mg PO DAILY #60 tab 05/02/19 01/25/20 Rx aspirin 81 mg PO QAM 06/03/19 01/25/20 History dicyclomine 20 mg PO QID PRN #20 tab 09/15/19 01/25/20 Rx furosemide 40 mg PO QAM 01/25/20 01/25/20 History mometasone-formoterol [Dulera] 2 puff INHALATION BID 01/25/20 01/25/20 History pantoprazole 40 mg PO DAILY 01/25/20 01/25/20 History Allergies Allergy/AdvReac Type Severity Reaction Status Date / Time doxycycline Allergy Intermediate Hives Verified 01/25/20 06:49 codeine AdvReac Mild Gastrointestinal Verified 01/25/20 06:49 Upset Past Med/Surg History Medical History (Updated 01/25/20 @ 13:36 by Herlinda Dash MD) Alcohol abuse (Chronic) Alcoholism (Acute) Anemia (Acute) Cirrhosis of liver (Chronic) Cirrhosis of liver (Chronic) Coffee ground emesis COPD (chronic obstructive pulmonary disease) (Chronic) COPD with exacerbation (Acute) Elevated lactic acid level Encephalopathy, hepatic (Acute) Esophageal varices GI bleed Hepatitis C antibody test positive Hypertension Hypomagnesemia Neutropenic fever (Acute) Parotiditis (Acute) Peptic ulcer disease (Chronic) SIRS (systemic inflammatory response syndrome) 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) Surgical History H/O endoscopy Loss of teeth due to extraction No significant past surgical history Family History Mother , age 82 with hypertension, diabetes, and COPD COPD (chronic obstructive pulmonary disease) Diabetes Hypertension Father , age 89 with prostate cancer Prostate cancer Sister Stroke Social History Preferred Language: Armenian Communication Ability: Effective Credit Card Associate Required: No Beliefs That Will Affect Care: None marital status: Current Living Situation: Family Current Living Situation Comment: nephew and exwife current occupational status: employed and disabled current occupation: Works multiple jobs at the [employer] Other Information That Helps Us Care for You: No Feels Safe at Home: Yes Safety Concerns: Feels Safe At This Time Smoking Status: Current some day smoker Tobacco Type: cigarettes ; Cigarettes Per Day: 2 ; Do You Dip or Chew Tobacco: No ; Second Hand Exposure: No ; Tobacco Cessation Education Requested by Patient: No Hx Alcohol Use: Yes Alcohol type: beer Alcohol Intake Frequency Comment: heavy etoh use in the past; quit 2019 Hx Substance Use: No Review of Systems See HPI for pertinent positives & negatives. and A total of 10 systems reviewed and were otherwise negative Physical Exam Vital Signs Vital Signs - 24 hr 01/25/20 06:11 01/25/20 06:16 01/25/20 06:30 Temperature 37.6 C H Temperature Source Oral Pulse Rate 84 74 74 Pulse Rate from SpO2 Sensor 85 76 Respiratory Rate 24 16 17 Respiratory Effort / Characteristics Non-Labored Spontaneous Respiratory Depth Normal Respiratory Pattern Regular Blood Pressure 173/87 H Blood Pressure Mean 115 Blood Pressure Position Lying Pulse Oximetry 94 94 95 Oxygen Delivery Method Room Air Sepsis Recent Fever Within 48 Hours Yes Sepsis New/Unexplained Change in Mental Status No Sepsis Action Taken by Nursing No Action Required 01/25/20 06:48 01/25/20 06:49 01/25/20 07:00 Temperature Temperature Source Pulse Rate 76 78 80 Pulse Rate from SpO2 Sensor 78 77 81 Respiratory Rate 19 17 20 Respiratory Effort / Characteristics Respiratory Depth Respiratory Pattern Blood Pressure 134/79 148/87 H Blood Pressure Mean 95 141 Blood Pressure Position Pulse Oximetry 94 94 95 Oxygen Delivery Method Sepsis Recent Fever Within 48 Hours Sepsis New/Unexplained Change in Mental Status Sepsis Action Taken by Nursing 01/25/20 07:01 01/25/20 07:30 01/25/20 07:58 Temperature Temperature Source Pulse Rate 75 82 78 Pulse Rate from SpO2 Sensor 75 82 78 Respiratory Rate 17 17 16 Respiratory Effort / Characteristics Respiratory Depth Respiratory Pattern Blood Pressure 164/88 H Blood Pressure Mean 120 Blood Pressure Position Pulse Oximetry 96 93 94 Oxygen Delivery Method Sepsis Recent Fever Within 48 Hours Sepsis New/Unexplained Change in Mental Status Sepsis Action Taken by Nursing 01/25/20 08:00 01/25/20 08:01 01/25/20 08:30 Temperature Temperature Source Pulse Rate 83 89 75 Pulse Rate from SpO2 Sensor 84 83 Respiratory Rate 13 17 15 Respiratory Effort / Characteristics Respiratory Depth Respiratory Pattern Blood Pressure 153/104 H 142/76 H Blood Pressure Mean 117 88 Blood Pressure Position Pulse Oximetry 95 96 Oxygen Delivery Method Sepsis Recent Fever Within 48 Hours Sepsis New/Unexplained Change in Mental Status Sepsis Action Taken by Nursing 01/25/20 08:31 01/25/20 09:00 01/25/20 09:01 Temperature Temperature Source Pulse Rate 80 79 79 Pulse Rate from SpO2 Sensor Respiratory Rate 14 12 16 Respiratory Effort / Characteristics Respiratory Depth Respiratory Pattern Blood Pressure 138/78 Blood Pressure Mean 96 Blood Pressure Position Pulse Oximetry Oxygen Delivery Method Sepsis Recent Fever Within 48 Hours Sepsis New/Unexplained Change in Mental Status Sepsis Action Taken by Nursing 01/25/20 09:30 01/25/20 09:31 01/25/20 10:00 Temperature Temperature Source Pulse Rate 79 83 90 Pulse Rate from SpO2 Sensor Respiratory Rate 18 16 14 Respiratory Effort / Characteristics Respiratory Depth Respiratory Pattern Blood Pressure 131/81 153/83 H Blood Pressure Mean 99 99 Blood Pressure Position Pulse Oximetry Oxygen Delivery Method Sepsis Recent Fever Within 48 Hours Sepsis New/Unexplained Change in Mental Status Sepsis Action Taken by Nursing 01/25/20 10:01 01/25/20 10:30 01/25/20 10:31 Temperature Temperature Source Pulse Rate 91 H 91 H 87 Pulse Rate from SpO2 Sensor Respiratory Rate 16 14 23 Respiratory Effort / Characteristics Respiratory Depth Respiratory Pattern Blood Pressure 149/77 H Blood Pressure Mean 97 Blood Pressure Position Pulse Oximetry Oxygen Delivery Method Sepsis Recent Fever Within 48 Hours Sepsis New/Unexplained Change in Mental Status Sepsis Action Taken by Nursing Vital signs reviewed. General: Chronically ill-appearing 64-year-old male, in no significant distress. HEENT: No scleral icterus, PERRLA, neck supple. Atraumatic. Cardiovascular: Regular rate and rhythm, no extra sounds. Pulmonary: Crackles at the bases bilaterally, normal work of breathing. On room air. Abdomen: Distended abdomen, ? ventral hernia with tenderness over the epigastrium. Musculoskeletal: Atraumatic, minimal peripheral edema. Neurologic: Patient awake alert and oriented x 3 Skin: Warm, dry, no rash Course Administered Medications Sodium Chloride (Nss 1000ml) 1,000 mls @ 125 mls/hr IV .Q8H JOCELYNN Stop: 02/24/20 08:59 Last Admin: 01/25/20 09:13 Dose: 125 mls/hr Documented by: [id number] Ioversol (Optiray 320 100ml) 94 ml IV ONCE PRN PRN Reason: Interaction Checking Stop: 01/29/20 07:24 Last Admin: 01/25/20 07:26 Dose: 94 ml Documented by: [id number] Discontinued Medications Piperacillin Sod/Tazobactam Sod (Zosyn) 4.5 gm in 120 mls @ 240 mls/hr IV NOW ONE Stop: 01/25/20 07:54 Last Infusion: 01/25/20 09:14 Dose: 0 mls/hr Documented by: [id number] Admin: 01/25/20 08:16 Dose: 240 mls/hr Documented by: [id number] Magnesium Sulfate/Dextrose (Magnesium Sulfate / D5w) 1 gm in 100 mls @ 100 mls/hr IV Q1H JOCELYNN Stop: 01/25/20 09:29 Last Infusion: 01/25/20 10:15 Dose: 0 mls/hr Documented by: [id number] Admin: 01/25/20 09:13 Dose: 100 mls/hr Documented by: [id number] Infusion: 01/25/20 09:13 Dose: 100 mls/hr Documented by: [id number] Admin: 01/25/20 08:16 Dose: 100 mls/hr Documented by: [id number] Medical Decision Making Differential Diagnosis Differential diagnosis of this patient's presentation includes pancreatitis, liver mass, gastritis/peptic ulcer disease, renal failure, spontaneous bacterial peritonitis, UTI, cholecystitis Medical Records Attestation: I reviewed the patient's medical records. Home Medications Current Medication List: was personally reviewed by me Laboratory Data Attestation: I reviewed the patient's lab results. Result diagrams: 01/25/20 06:36 01/25/20 06:36 Lab Results 01/25/20 01/25/20 01/25/20 Range/Units 06:36 06:36 06:36 WBC 7.39 (4.8-10.8) K/uL RBC 3.91 L (4.7-6.1) M/uL Hgb 15.0 (14.0-18.0) g/dL Hct 43.2 (42-52) % MCV 110.5 H (80-100) fL MCH 38.4 H (25-34) pg MCHC 34.7 (32-36) g/dL RDW Std Deviation 77.8 H (36.4-46.3) fL RDW Coeff of Gaby 19.2 H (11.5-14.5) % Plt Count 87 L (130-400) K/uL MPV 10.3 (7.4-10.4) fL Immature Gran % (Auto) 0.4 % Neut % (Auto) 79.1 % Lymph % (Auto) 9.3 % Ventura % (Auto) 9.9 % Eos % (Auto) 0.8 % Baso % (Auto) 0.5 % Immature Gran # (Auto) 0.03 H (0.00-0.02) K/uL Neut # (Auto) 5.84 (1.4-6.5) K/uL Lymph # (Auto) 0.69 L (1.2-3.4) K/uL Ventura # (Auto) 0.73 H (0.11-0.59) K/uL Eos # (Auto) 0.06 (0-0.5) K/uL Baso # (Auto) 0.04 (0-0.2) K/uL Macrocytosis Present Target Cells 1+ PT 14.6 H (9.0-12.0) Seconds INR 1.4 H (0.9-1.1) Sodium 136 (136-145) mmol/L Potassium 3.9 (3.5-5.1) mmol/L Chloride 105 (98-107) mmol/L Carbon Dioxide 27 (21-32) mmol/L Anion Gap 4.0 (3-11) BUN 7 (7-18) mg/dl Creatinine 0.77 (0.6-1.4) mg/dl Est Cr Clr Drug Dosing 92.5 ml/min Est GFR ( Amer) 112.7 Est GFR (Non-Af Amer) 97.3 BUN/Creatinine Ratio 9.6 L (10-20) Glucose 141 H (70-99) mg/dl Lactate (0.4-2.0) mmol/L Calcium 8.8 (8.5-10.1) mg/dl Magnesium 1.5 L (1.8-2.4) mg/dl Total Bilirubin 7.1 H (0.2-1) mg/dl AST 196 H (15-37) U/L ALT 89 H (12-78) U/L Alkaline Phosphatase 223 H (45-117) U/L Troponin I < 0.015 (0-0.045) ng/ml NT-Pro-B Natriuret Pep 286 (0-900) pg/ml Total Protein 7.7 (6.4-8.2) gm/dl Albumin 2.3 L (3.4-5.0) gm/dl Globulin 5.4 H (2.5-4.0) gm/dl Albumin/Globulin Ratio 0.4 L (0.9-2) Lipase 164 (73-393) U/L 01/25/20 01/25/20 Range/Units 06:36 09:10 WBC (4.8-10.8) K/uL RBC (4.7-6.1) M/uL Hgb (14.0-18.0) g/dL Hct (42-52) % MCV (80-100) fL MCH (25-34) pg MCHC (32-36) g/dL RDW Std Deviation (36.4-46.3) fL RDW Coeff of Gaby (11.5-14.5) % Plt Count (130-400) K/uL MPV (7.4-10.4) fL Immature Gran % (Auto) % Neut % (Auto) % Lymph % (Auto) % Ventura % (Auto) % Eos % (Auto) % Baso % (Auto) % Immature Gran # (Auto) (0.00-0.02) K/uL Neut # (Auto) (1.4-6.5) K/uL Lymph # (Auto) (1.2-3.4) K/uL Ventura # (Auto) (0.11-0.59) K/uL Eos # (Auto) (0-0.5) K/uL Baso # (Auto) (0-0.2) K/uL Macrocytosis Target Cells PT (9.0-12.0) Seconds INR (0.9-1.1) Sodium (136-145) mmol/L Potassium (3.5-5.1) mmol/L Chloride (98-107) mmol/L Carbon Dioxide (21-32) mmol/L Anion Gap (3-11) BUN (7-18) mg/dl Creatinine (0.6-1.4) mg/dl Est Cr Clr Drug Dosing ml/min Est GFR ( Amer) Est GFR (Non-Af Amer) BUN/Creatinine Ratio (10-20) Glucose (70-99) mg/dl Lactate 2.8 H* 2.1 H* (0.4-2.0) mmol/L Calcium (8.5-10.1) mg/dl Magnesium (1.8-2.4) mg/dl Total Bilirubin (0.2-1) mg/dl AST (15-37) U/L ALT (12-78) U/L Alkaline Phosphatase (45-117) U/L Troponin I (0-0.045) ng/ml NT-Pro-B Natriuret Pep (0-900) pg/ml Total Protein (6.4-8.2) gm/dl Albumin (3.4-5.0) gm/dl Globulin (2.5-4.0) gm/dl Albumin/Globulin Ratio (0.9-2) Lipase (73-393) U/L Imaging Data Radiologist's Impression: XR chest 1V portable HISTORY: 64 years-old Male sob acute shortness of breath with abdominal distention COMPARISON: Chest radiograph 04/30/2019 TECHNIQUE: Portable AP view of the chest FINDINGS: Cardiac silhouette is mildly enlarged. Coronary artery calcification versus stent grafts. Calcified plaque of the thoracic aortic arch. Minimal bibasilar densities. Unchanged mild interstitial coarsening which is likely on a chronic basis. Biapical pleural thickening. Mild hypoinflation. No pneumothorax, large pleural effusion or overt pulmonary edema. Degenerative changes of the shoulders and spine. IMPRESSION: 1. Cardiomegaly without overt pulmonary edema. 2. Unchanged interstitial coarsening is likely on a chronic basis. 3. Mild bibasilar opacities suggest probable atelectasis. ACT 112: Negative or not required by law. The above report was generated using voice recognition software. It may contain grammatical, syntax or spelling errors. Electronically signed by: Laryr Dixon M.D. 01/25/2020 7:11 AM Dictated: 01/25/20 0708 Transcribed: 01/25/20 [address] WITH IV CONTRAST CT DOSE: 896.95 mGycm HISTORY: epigastric pain, ESLD TECHNIQUE: Multiaxial CT images of the abdomen and pelvis were performed following the use of intravenous contrast. A dose lowering technique was utilized adhering to the principles of ALARA. COMPARISON STUDY: Abdomen and pelvis CT 09/15/2019. FINDINGS: Interval development of small bilateral pleural effusions. The heart is normal in size. Bilateral lower lobe densities favor compressive atelectasis from the pleural effusions. No pneumoperitoneum. No pneumatosis. Small fluid containing supraumbilical hernia is. Is also small fluid containing umbilical hernia. Mild body wall edema. Nodular contour to the liver consistent with cirrhosis. A geographic hypodense area within the left hepatic lobe with capsular retraction best seen on image 102. This measures approximately 4.5 cm. This is a nonmasslike appearance and may represent fibrosis. Possible nodule w ithin the left hepatic lobe on image 131 measuring 1.4 cm. A 7 mm hypodense lesion within the left hepatic lobe on image 75. This is technically too small to characterize. Gallbladder wall edema is likely due to the patient's cirrhosis. The spleen is at the upper limits of normal. Multiple upper abdominal varicosities, paraesophageal varicosities, and rectal varicosities consistent with stigmata of portal hypertension. Focal scarring within the lower pole the left kidney. No hydronephrosis. The adrenal glands and pancreas are unremarkable. Moderate ascites. The bladder is unremarkable. Colonic diverticulosis. No evidence for diverticulitis. Decompression of the ascending colon and hepatic flexure of the colon with apparent submucosal edema. This is likely due to the patient's cirrhotic state. There is also thickening within the jejunal loops within the left side the abdomen. Normal appendix. No evidence for bowel obstruction. The main portal vein is patent. Calcified plaque within the normal caliber abdominal aorta. No significant retroperitoneal lymphadenopathy. IMPRESSION: 1. Cirrhotic liver with stigmata of portal hypertension including paraesophageal varices, abdominal varices, moderate ascites, and borderline splenomegaly. 2. Thickening of the proximal jejunal loops and ascending colon. This may also be due to the patient's portal hypertension and therefore favors a portal enteropathy and colopathy, respectively. An enteritis or low-grade colitis could also have a similar appearance in the appropriate clinical setting but are considered less likely. 3. Interval development of small bilateral pleural effusions. 4. Geographic hypodense area within the left hepatic lobe with associated capsular retraction. This favors hepatic fibrosis. 5. Possible 1.4 cm nodule within the left hepatic lobe. Follow-up nonemergent dedicated liver MRI is recommended for further evaluation and to exclude the possibility of a hepatic lesion. 6. Additional findings as described above. ACT 112: Negative or not required by law. Electronically signed by: Alvin Ramirez M.D. 01/25/2020 8:47 AM Dictated: 01/25/20834 Transcribed: 01/25/20834 ECG Data Attestation: I personally reviewed and interpreted this ECG as follows: Indication: + abdominal pain Rate (beats per minute): 81 Rhythm: + normal sinus ECG Intervals/blocks: + Short DC ECG ST segments: + Normal ST segments ECG Findings: no PACs and no PVCs Additional Comments: An order for cardiac monitoring was placed and the patient is found to be in a sinus rhythm at 74 bpm. Blood Pressure Blood Pressure Findings: Elevated blood pressure Blood Pressure Disposition: further management by hospitalist MDM Narrative This patient was evaluated and appeared to be in no significant distress. IV access was obtained and laboratory work was drawn. Patient was placed on the residential monitor. Patient's physical examination is consistent with end-stage liver disease and a markedly distended abdomen. He does have some epigastric abdominal tenderness although patient seems to imply that this is somewhat chron ic. He denies any fevers but was 100.4 prehospital. Laboratory work reveals a normal WBC but an elevated lactic acid at 2.8. Gentle IV hydration was initiated and IV Zosyn was given after blood cultures were obtained. CT imaging of the abdomen and pelvis was performed and is read as above. This is largely consistent with end-stage liver disease in the abdominal ascites with hepatic fibrosis. The patient will be evaluated by the hospitalist service for further management. Impression & Plan Epigastric abdominal pain, Abdominal ascites, Hepatic fibrosis, Nodule on liver, Fever, low grade Discharge Plan Visit Data *Final* Discharge Date/Time: 01/25/20 12:26 Chief Complaint: Shortness of Breath/Dyspnea Stated Complaint: short of breath, abdominal distention ED Provider: Herlinda Dash Discharge Problem: Epigastric abdominal pain, Abdominal ascites, Hepatic fibrosis, Nodule on liver, Fever, low grade Patient Disposition: Admitted As Inpatient Discharge Instructions Interventions: ED Discharge Assessment Last Done: 01/25/20 12:26 Discharge Problem: Abdominal ascites Qualifiers: Ascites type: due to alcoholic cirrhosis Qualified Code(s): K70.31 - Alcoholic cirrhosis of liver with ascites
[2020-01-25] MEDS: MAGNESIUM SULFATE / D5W 1 GM/100 ML BAG IV SCH ×2 (08:16→09:13)
--- NOTE | 2020-01-25 08:48 | CT Scan Report ---
ABDOMEN AND PELVIS CT WITH IV CONTRAST CT DOSE: 896.95 mGycm HISTORY: epigastric pain, ESLD TECHNIQUE: Multiaxial CT images of the abdomen and pelvis were performed following the use of intrave nous contrast. A dose lowering technique was utilized adhering to the principles of ALARA. COMPARISON STUDY: Abdomen and pelvis CT 09/15/2019. FINDINGS: Interval development of small bilateral pleural effusions. The heart is normal in size. Carlos ateral lower lobe densities favor compressive atelectasis from the pleural effusions. No pneumoperito neum. No pneumatosis. Small fluid containing supraumbilical hernia is. Is also small fluid containing umbilical hernia. Mild body wall edema. Nodular contour to the liver consistent with cirrhosis. A ge ographic hypodense area within the left hepatic lobe with capsular retraction best seen on image 102. This measures approximately 4.5 cm. This is a nonmasslike appearance and may represent fibrosis. Pos sible nodule within the left hepatic lobe on image 131 measuring 1.4 cm. A 7 mm hypodense lesion with in the left hepatic lobe on image 75. This is technically too small to characterize. Gallbladder wall edema is likely due to the patient's cirrhosis. The spleen is at the upper limits of normal. Multipl e upper abdominal varicosities, paraesophageal varicosities, and rectal varicosities consistent with stigmata of portal hypertension. Focal scarring within the lower pole the left kidney. No hydronephro sis. The adrenal glands and pancreas are unremarkable. Moderate ascites. The bladder is unremarkable. Colonic diverticulosis. No evidence for diverticulitis. Decompression of the ascending colon and hep atic flexure of the colon with apparent submucosal edema. This is likely due to the patient's cirrhot ic state. There is also thickening within the jejunal loops within the left side the abdomen. Normal appendix. No evidence for bowel obstruction. The main portal vein is patent. Calcified plaque within the normal caliber abdominal aorta. No significant retroperitoneal lymphadenopathy. IMPRESSION: 1. Cirrhotic liver with stigmata of portal hypertension including paraesophageal varices, abdominal v arices, moderate ascites, and borderline splenomegaly. 2. Thickening of the proximal jejunal loops and ascending colon. This may also be due to the patient' s portal hypertension and therefore favors a portal enteropathy and colopathy, respectively. An enter itis or low-grade colitis could also have a similar appearance in the appropriate clinical setting bu t are considered less likely. 3. Interval development of small bilateral pleural effusions. 4. Geographic hypodense area within the left hepatic lobe with associated capsular retraction. This f avors hepatic fibrosis. 5. Possible 1.4 cm nodule within the left hepatic lobe. Follow-up nonemergent dedicated liver MRI is recommended for further evaluation and to exclude the possibility of a hepatic lesion. 6. Additional findings as described above. ACT 112: Negative or not required by law. Electronically signed by: Alvin Ramirez M.D. 01/25/2020 8:47 AM
[2020-01-25] MEDS ORDERED: SODIUM CHLORIDE 0.9% 1000ML 1,000 ML IV SCH (09:00)
--- NOTE | 2020-01-25 10:50 | History & Physical Report ---
Date of Service January 25, 2020 Assessment & Plan (1) Whe[age]in64 year old male with history of alcoholic cirrhosis and hepatitis C admitted presenting with increase wheezing and abdominal discomfort. Patient is still smoking 2 cigarettes a day. He lives with his nephew who works at [employer]. Due to cirrhosis, temp of 100.4 and nephew working patient will be put on contact and airborne precautions. Will check SARS -COV2, and biofire panel. (2) COPD (chronic obstructive pulmonary disease): Will place patient on combivent. Continue dulera. (3) Ascites: Patient has significant Ascites and abdominal discomfort. Will put patient on rocephin until COVID is cleared. Patient will need diagnostic and therapeutic paracentesis. Maddrey score is 19.2 so patient does not require glucocosteroids at this time. (4) Hypomagnesemia: patient given 2 gm magnesium in ER. Will monitor BMP (5) Elevated lactic acid level: Down to 2.1. Would avoid aggressive hydration at this time due to massive ascites. (6) Alcohol abuse: Patient denies any recent use of alcohol. Will order alcohol withdrawal protocol to monitor and prn ativan. (7) Cirrhosis of liver: (8) Hepatitis C: History of Present Illness Chief Complaint: sob / abd pain Primary Care Provider: [facility] This is a 64 year old male with history alcoholic cirrhosis, CVA, peptic ulcer disease, hepatitis C, COPD, HTN and diabetes who presents with SOB and abdominal pain. Patient is inconsistent with his history. Patient had called EMS 5 days ago for similar symptoms but states he didnt got to the ED at that time because he didnt have a ride home. Patient states he started to feel better. Tuesday he began to have increasing wheezes and some belly discomfort and came to ED. Patients family / EMS mention that patient had a temp of 100.4. At bedside patient is denying abdominal pain and says it is not significantly bigger then baseline. Patient reports he has not had any alcohol in 1 year. Patient lives with his nephew who is working at [employer]. Patient requested we update his sister Geno, [phone]. She reports that she has been by to bring him food. Allergies Allergy/AdvReac Type Severity Reaction Status Date / Time doxycycline Allergy Intermediate Hives Verified 01/25/20 06:49 codeine AdvReac Mild Gastrointestinal Verified 01/25/20 06:49 Upset Home Medications Home Medications Medication Instructions Recorded Confirmed Type albuterol sulfate 2 puff INHALATION Q4H PRN 06/15/18 01/25/20 History thiamine HCl (vitamin B1) 100 mg PO QAM 06/15/18 01/25/20 History Dexilant 30 mg PO BID 03/10/19 01/25/20 History acetaminophen [Tylenol Extra 1,000 mg PO Q6H PRN 03/19/19 01/25/20 History Strength] folic acid 800 mcg PO QAM 04/30/19 01/25/20 History lactulose 15 ml PO BID PRN 04/30/19 01/25/20 History metformin 500 mg PO QDB 04/30/19 01/25/20 History potassium chloride [Klor-Con M10] 10 meq PO QAM 04/30/19 01/25/20 History ferrous sulfate 325 mg PO DAILY #60 tab 05/02/19 01/25/20 Rx aspirin 81 mg PO QAM 06/03/19 01/25/20 History dicyclomine 20 mg PO QID PRN #20 tab 09/15/19 01/25/20 Rx furosemide 40 mg PO QAM 01/25/20 01/25/20 History mometasone-formoterol [Dulera] 2 puff INHALATION BID 01/25/20 01/25/20 History pantoprazole 40 mg PO DAILY 01/25/20 01/25/20 History Past Med/Surg History Medical History (Updated 01/25/20 @ 13:36 by Herlinda Dash MD) Alcohol abuse (Chronic) Alcoholism (Acute) Anemia (Acute) Cirrhosis of liver (Chronic) Cirrhosis of liver (Chronic) Coffee ground emesis COPD (chronic obstructive pulmonary disease) (Chronic) COPD with exacerbation (Acute) Elevated lactic acid level Encephalopathy, hepatic (Acute) Esophageal varices GI bleed Hepatitis C antibody test positive Hypertension Hypomagnesemia Neutropenic fever (Acute) Parotiditis (Acute) Peptic ulcer disease (Chronic) SIRS (systemic inflammatory response syndrome) 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) Surgical History H/O endoscopy Loss of teeth due to extraction No significant past surgical history Family History (Updated 01/25/20 @ 14:23 by Nahum Nicole) Mother , age 82 with hypertension, diabetes, and COPD COPD (chronic obstructive pulmonary disease) Diabetes Hypertension Father , age 89 with prostate cancer Prostate cancer Sister Stroke Cirrhosis Brother Cirrhosis Social History Preferred Language: [place] Communication Ability: Effective Baby Doctor Required: No Beliefs That Will Affect Care: None marital status: Current Living Situation: Family Current Living Situation Comment: nephew and exwife current occupational status: employed and disabled current occupation: Works multiple jobs at the [employer] Other Information That Helps Us Care for You: No Feels Safe at Home: Yes Safety Concerns: Feels Safe At This Time Smoking Status: Current some day smoker Tobacco Type: cigarettes ; Cigarettes Per Day: 2 ; Do You Dip or Chew Tobacco: No ; Second Hand Exposure: No ; Tobacco Cessation Education Requested by Patient: No Hx Alcohol Use: Yes Alcohol type: beer Alcohol Intake Frequency Comment: heavy etoh use in the past; quit 2018 Hx Substance Use: No Review of Systems Review of Systems: All systems reviewed & are unremarkable except as noted in HPI & below Physical Exam Constitutional: + ill appearing and + disheveled Eyes: PERRL; sclerae not anicteric ENMT: external ear and nose normal, oropharynx normal Neck: trachea midline Respiratory: normal respiratory effort Auscultation: + crackles and + wheezes Cardiovascular: RRR, no murmur, no edema Gastrointestinal (Abdomen): Inspection/Auscultation: + abdomen distended and normal bowel sounds Percussion/Palpation: + hepatosplenomegaly, + dullness to percussion and + fluid wave Neurologic: awake; not confused Psychiatric: A+Ox3, euthymic affect Results & Data Results & Data ([facility]) Vital Signs (Past 12 Hours) Vital Signs Temp Pulse Resp BP Pulse Ox 01/25/20 10:31 87 23 01/25/20 10:30 91 H 14 149/77 H 01/25/20 10:01 91 H 16 01/25/20 10:00 90 14 153/83 H 01/25/20 09:31 83 16 01/25/20 09:30 79 18 131/81 01/25/20 09:01 79 16 01/25/20 09:00 79 12 138/78 01/25/20 08:31 80 14 01/25/20 08:30 75 15 142/76 H 01/25/20 08:01 89 17 96 01/25/20 08:00 83 13 153/104 H 95 01/25/20 07:58 78 16 164/88 H 94 01/25/20 07:30 82 17 93 01/25/20 07:01 75 17 96 01/25/20 07:00 80 20 148/87 H 95 01/25/20 06:49 78 17 94 01/25/20 06:48 76 19 134/79 94 01/25/20 06:30 74 17 95 01/25/20 06:16 37.6 C H 74 16 173/87 H 94 01/25/20 06:11 84 24 94 Laboratory Results 01/25/20 01/25/20 01/25/20 Range/Units 11:07 09:10 06:36 WBC (4.8-10.8) K/uL RBC (4.7-6.1) M/uL Hgb (14.0-18.0) g/dL Hct (42-52) % MCV (80-100) fL MCH (25-34) pg MCHC (32-36) g/dL RDW Std Deviation (36.4-46.3) fL RDW Coeff of Gaby (11.5-14.5) % Plt Count (130-400) K/uL MPV (7.4-10.4) fL Immature Gran % (Auto) % Neut % (Auto) % Lymph % (Auto) % [place] % (Auto) % Eos % (Auto) % Baso % (Auto) % Immature Gran # (Auto) (0.00-0.02) K/uL Neut # (Auto) (1.4-6.5) K/uL Lymph # (Auto) (1.2-3.4) K/uL [place] # (Auto) (0.11-0.59) K/uL Eos # (Auto) (0-0.5) K/uL Baso # (Auto) (0-0.2) K/uL Macrocytosis Target Cells PT (9.0-12.0) Seconds INR (0.9-1.1) Sodium (136-145) mmol/L Potassium (3.5-5.1) mmol/L Chloride (98-107) mmol/L Carbon Dioxide (21-32) mmol/L Anion Gap (3-11) BUN (7-18) mg/dl Creatinine (0.6-1.4) mg/dl Est Cr Clr Drug Dosing ml/min Est GFR ( Amer) Est GFR (Non-Af Amer) BUN/Creatinine Ratio (10-20) Glucose (70-99) mg/dl Lactate Pending 2.1 H* 2.8 H* (0.4-2.0) mmol/L Calcium (8.5-10.1) mg/dl Magnesium (1.8-2.4) mg/dl Total Bilirubin (0.2-1) mg/dl AST (15-37) U/L ALT (12-78) U/L Alkaline Phosphatase (45-117) U/L Troponin I (0-0.045) ng/ml NT-Pro-B Natriuret Pep (0-900) pg/ml Total Protein (6.4-8.2) gm/dl Albumin (3.4-5.0) gm/dl Globulin (2.5-4.0) gm/dl Albumin/Globulin Ratio (0.9-2) Lipase (73-393) U/L 01/25/20 01/25/20 01/25/20 Range/Units 06:36 06:36 06:36 WBC 7.39 (4.8-10.8) K/uL RBC 3.91 L (4.7-6.1) M/uL Hgb 15.0 (14.0-18.0) g/dL Hct 43.2 (42-52) % MCV 110.5 H (80-100) fL MCH 38.4 H (25-34) pg MCHC 34.7 (32-36) g/dL RDW Std Deviation 77.8 H (36.4-46.3) fL RDW Coeff of Gaby 19.2 H (11.5-14.5) % Plt Count 87 L (130-400) K/uL MPV 10.3 (7.4-10.4) fL Immature Gran % (Auto) 0.4 % Neut % (Auto) 79.1 % Lymph % (Auto) 9.3 % [place] % (Auto) 9.9 % Eos % (Auto) 0.8 % Baso % (Auto) 0.5 % Immature Gran # (Auto) 0.03 H (0.00-0.02) K/uL Neut # (Auto) 5.84 (1.4-6.5) K/uL Lymph # (Auto) 0.69 L (1.2-3.4) K/uL [place] # (Auto) 0.73 H (0.11-0.59) K/uL Eos # (Auto) 0.06 (0-0.5) K/uL Baso # (Auto) 0.04 (0-0.2) K/uL Macrocytosis Present Target Cells 1+ PT 14.6 H (9.0-12.0) Seconds INR 1.4 H (0.9-1.1) Sodium 136 (136-145) mmol/L Potassium 3.9 (3.5-5.1) mmol/L Chloride 105 (98-107) mmol/L Carbon Dioxide 27 (21-32) mmol/L Anion Gap 4.0 (3-11) BUN 7 (7-18) mg/dl Creatinine 0.77 (0.6-1.4) mg/dl Est Cr Clr Drug Dosing 92.5 ml/min Est GFR ( Amer) 112.7 Est GFR (Non-Af Amer) 97.3 BUN/Creatinine Ratio 9.6 L (10-20) Glucose 141 H (70-99) mg/dl Lactate (0.4-2.0) mmol/L Calcium 8.8 (8.5-10.1) mg/dl Magnesium 1.5 L (1.8-2.4) mg/dl Total Bilirubin 7.1 H (0.2-1) mg/dl AST 196 H (15-37) U/L ALT 89 H (12-78) U/L Alkaline Phosphatase 223 H (45-117) U/L Troponin I < 0.015 (0-0.045) ng/ml NT-Pro-B Natriuret Pep 286 (0-900) pg/ml Total Protein 7.7 (6.4-8.2) gm/dl Albumin 2.3 L (3.4-5.0) gm/dl Globulin 5.4 H (2.5-4.0) gm/dl Albumin/Globulin Ratio 0.4 L (0.9-2) Lipase 164 (73-393) U/L Diagnostic Findings CT Abd / Pelvis 1. Cirrhotic liver with stigmata of portal hypertension including paraesophageal varices, abdominal varices, moderate ascites, and borderline splenomegaly. 2. Thickening of the proximal jejunal loops and ascending colon. This may also be due to the patient's portal hypertension and therefore favors a portal enteropathy and colopathy, respectively. An enteritis or low-grade colitis could also have a similar appearance in the appropriate clinical setting but are considered less likely. 3. Interval development of small bilateral pleural effusions. 4. Geographic hypodense area within the left hepatic lobe with associated capsular retraction. This favors hepatic fibrosis. 5. Possible 1.4 cm nodule within the left hepatic lobe. Follow-up nonemergent dedicated liver MRI is recommended for further evaluation and to exclude the possibility of a hepatic lesion. CXR 1. Cardiomegaly without overt pulmonary edema. 2. Unchanged interstitial coarsening is likely on a chronic basis. 3. Mild bibasilar opacities suggest probable atelectasis. Code Status & VTE Plan Code Status Full code VTE Prophylaxis Plan VTE Prophylaxis will be ordered: Yes Supervising Physician Co-Signing Physician Notes Attending Attestation and Admission Note: Pt seen & examined, chart reviewed, care plan d/w Dr Kyler Santa. I agree w/ the dunn components of his documentation. 64yo male with cirrhosis 2nd to alcohol & chronic Hepatitis C, COPD, h/o stroke, esophageal varices, and ongoing tobacco dependence who presents with low-grade fever (report of 100.4 at home prior to arrival), cough, wheezing, mild dyspnea, and upper abdominal discomfort. The patient is a poor historian and was argumentative at times during the visit. Had 1 episode of diarrhea this am before coming to the hospital. No vomiting. Some loss of appetite. No loss of smell or taste. He denies alcohol use (none in 1 year). He lives with his nephew who is a worker at [employer] and the nephew has been coming/going to his job. No other COVID risk factors. When asked if his abdominal girth had been worsening he couldn't say. PMH, PSH, allergies, meds, sochx, famhx, ros - reviewed Temp 37.6, VSS otherwise gen - thin, disheveled, no distress, coughing HEENT - MM dry; PERRl neck - mild JVD present; muscle wasting of head and neck muscles heart - RRR, s1 s2 lungs - wheezes b/l, bibasilar rales, no distress abd - marked distension from ascites, NT, BS+, umbilical hernia present, supraumbilical hernia also present in midline ext - edema b/l, RLE>LLE, about 1-2+ on right; pulses 1+ b/l skin - no rash neuro - no asterixis labs - WBC 7.3 Cr 0.77 lactate 2.8 LFTs with t.bili of 7.1 CT abd/pelvis - noted cxr - noted EKG - baseline artifact; no ST changes A/P: 1. febrile illness/probable early sepsis - source: lung vs GI (SBP, enteritis, etc) vs other. Check biofire. Send COVID-19 PCR given his respiratory symptoms. Follow blood cx's. Send u/a and urine cx. If COVID test is negative then proceed with paracentesis to r/o SBP. Received zosyn in ER; will transition to rocephin - this will cover lungs and for SBP. Add zithromax for atypical coverage for the lungs (doxy allergy). If diarrhea persists -- c. diff testing. 2. COPD with exacerbation - combivent, abx, mucinex, defer on steroids for now. 3. ascites - see #1 above. 4. abnormal LFTs - baseline abnormalities 2nd to alcohol/hepC cirrhosis. However, LFTs are much higher today - especially bilirubin. Discriminant function is <32. Defer on steroids. Strongly consider GI consultation ([facility] saw during a previous admission). 5. tobacco dependence - nicoderm patch. 6. h/o alcohol abuse - none in 1 year per patient. Thiamine, folate, MVI. 7. decompensated cirrhosis - avoid IV fluids/hydration. If needs volume - albumin IV. 8. liver nodule - will ultimately need additional w/u for this (MRI liver, etc). HCC will need to be ruled out. Nahum Nicole MD PG Care Time/CCT Total # of Minutes Spent Total Time Spent with Patient: Total time spent is greater than 50% in coordination of care (as documented) at patient's floor/unit and/or counseling patient: 60 min Coding Level of Care Code 42734 Initial Inpt Care Lvl 3 Diagnoses Wheezing R06.2 COPD (chronic obstructive pulmonary disease) J44.9 Ascites K70.31 Ascites type: due to alcoholic cirrhosis Hypomagnesemia E83.42 Elevated lactic acid level R79.89 Alcohol abuse F10.10 Cirrhosis of liver K74.60 Hepatitis C B18.2 Hepatic coma status: with hepatic coma Viral hepatitis chronicity: chronic (1) Ascites Ascites type: due to alcoholic cirrhosis Qualified Code(s): K70.31 - Alcoholic cirrhosis of liver with ascites (2) Hepatitis C Hepatic coma status: with hepatic coma Viral hepatitis chronicity: chronic Qualified Code(s): B18.2 - Chronic viral hepatitis C
[2020-01-25 11:59] LABS: Appearance Urine Clear (Clear); Bacteria Urine Automated Negative (Negative); Blood Urine Negative (Negative); Color Urine Dark Yellow; Glucose Urine UA Negative (Negative); Ketones Urine Negative (Negative); Leukocyte Esterase Urine Trace (Negative); Nitrite Urine Positive (Negative); Protein Urine Negative (Negative); RBC Urine Automated 0-4 /hpf (0-4); Specific Gravity Urine > 1.045 (1.000-1.030); Urobilinogen Urine Positive (Negative)
[2020-01-25 12:02] LABS: Bilirubin Urine 2+ (Negative)
[2020-01-25 12:03] LABS: Ictotest Urine Positive (Negative)
[2020-01-25 12:45] LABS: Adenovirus PCR Not Detected (NotDetected); Bordetella parapertussis PCR Not Detected (NotDetected); Bordetella pertussis PCR Not Detected (NotDetected); Chlamydia pneumoniae PCR Not Detected (NotDetected); Coronavirus 229E PCR Not Detected (NotDetected); Coronavirus HKU1 PCR Not Detected (NotDetected); Coronavirus NL63 PCR Not Detected (NotDetected); Coronavirus OC43PCR Not Detected (NotDetected); Human Metapneumovirus PCR Not Detected (NotDetected); Influenza A PCR Not Detected (NotDetected); Influenza B PCR Not Detected (NotDetected); Mycoplasma pneumoniae PCR Not Detected (NotDetected); Parainfluenza Virus 1 PCR Not Detected (NotDetected); Parainfluenza Virus 2 PCR Not Detected (NotDetected); Parainfluenza Virus 3 PCR Not Detected (NotDetected); Parainfluenza Virus 4 PCR Not Detected (NotDetected); Respiratory Syncytial VirusPCR Not Detected (NotDetected); Rhinovirus/Enterovirus PCR Not Detected (NotDetected)
[2020-01-25] MEDS ORDERED: PNEUMOCOCCAL ADMINISTRATION CHARGE ONE (13:30)
[2020-01-25] MEDS ORDERED: PNEUMOCOCCAL POLYSACCHARIDES 25 MCG/0.5 ML VIAL/SYR IM ONE (13:30)
[2020-01-25] MEDS ORDERED: DICYCLOMINE HCL 20 MG TAB PO PRN (13:46)
[2020-01-25] MEDS ORDERED: LORazepam 1 MG TAB PO PRN (13:46)
[2020-01-25] MEDS ORDERED: ATIVAN IV ALCOHOL WITHDRAWL IV PRN (13:46)
[2020-01-25] MEDS ORDERED: ONDANSETRON INJ 2 MG/ML 2 ML VIAL IV PRN (13:46)
[2020-01-25] MEDS ORDERED: LORazepam 2 MG/4 ML VIAL IV PRN (13:46)
[2020-01-25] MEDS ORDERED: LORazepam 3 MG/6 ML VIAL IV PRN (13:46)
[2020-01-25] MEDS ORDERED: POLYETHYLENE (MIRALAX) 17 GM PACK PO PRN (13:46)
[2020-01-25] MEDS ORDERED: LORazepam 1 MG/2 ML VIAL IV PRN (13:46)
[2020-01-25] MEDS: HYDROmorphone INJ 0.5 MG/0.5 ML SYR IV PRN ×2 (13:58→22:43)
[2020-01-25] MEDS ORDERED: AZITHROMYCIN 250 MG TAB PO ONE (15:32)
[2020-01-25] MEDS ORDERED: HEPARIN SOD 5,000 UNIT/0.5 ML VIAL SQ SCH (16:00)
[2020-01-25] MEDS ORDERED: cefTRIAXone SODIUM 2,000 MG in DEXTROSE 5% 50 ML IV SCH (16:00)
[2020-01-25] MEDS: IPRATROPIUM BROMIDE/ALBUTEROL respimat INH INH SCH ×2 (16:20→20:21)
[2020-01-25] MEDS ORDERED: LIDOCAINE HCL 1% 20 ML VIAL ONE (16:35)
--- NOTE | 2020-01-25 17:31 | Ultrasound Report ---
Study: Limited abdominal ultrasound HISTORY: Ascites. Preparacentesis. FINDINGS: Mild to moderate abdominal and pelvic ascites. The left lower quadrant was marked for poten tial later paracentesis. IMPRESSION: 1. Moderate ascites. 2. The left lower quadrant was marked for potential later paracentesis. Electronically signed by: Kam Baldwin M.D. 01/25/2020 5:30 PM
--- NOTE | 2020-01-25 17:33 | Electrocardiogram Report ---
Test Reason : Blood Pressure : / mmHG Vent. Rate : 081 BPM Atrial Rate : 081 BPM P-R Int : 100 ms QRS Dur : 082 ms QT Int : 390 ms P-R-T Axes : 062 011 030 degrees QTc Int : 453 ms Poor data quality, interpretation may be adversely affected Sinus rhythm with short RI Otherwise normal ECG When compared with ECG of 30-APR-2019 09:43, No significant change was found Confirmed by Kamaljit Waldron ([id number]) on 01/25/2020 5:33:06 PM Referred By: REFERRED SELF Confirmed By:Kamaljit Waldron
--- NOTE | 2020-01-25 18:20 | Procedure Note ---
Procedure Note Date of Service January 25, 2020 Note Consent for operation or procedure: Risks and benefits discussed with patient and consent obtained A time-out was performed with ADRIENNE Muniz as well as Drs. Nicole and Arian. Anesthesia: 2 cc of Lidocaine Patient positioned supine. Site had been marked under ultrasound by survey and mapping technician. Prepared with chlorhexidine. Site draped with sterile dressing. Wheel of lidocaine placed. Lidocaine then introduced deep to the peritoneum. Skin punctured with a blade scalpel. Paracentesis needle was placed through the skin into the abdominal cavity. Mildly sanguinous, serous fluid returned initially with then clean, yellow paracentesis fluid after. Fluid put into test tubes and sent to the lab. Amount of fluid removed: 4.7L Catheter was then removed and tip examined and confirmed to be whole. Estimated Blood Loss: minimal Complications: The patient tolerated the procedure well without complications. He reported no pain and was more comfortable after fluid removal. Blood pressure was checked after the procedure and found to be 125/65. Coding CPT Codes Abdomen - Abdominal: 97549 Abdominal Paracentesis (diagnostic or therapeutic); W/O imaging ([id number]) [facility] [place] Procedure Codes (Charges) Abdomen Abdominal: 76593 Abdominal Paracentesis (diagnostic or therapeutic); W/O imaging
[2020-01-25 18:27] LABS: Appearance Peritoneal Fluid CLEAR; Color Peritoneal Fluid YELLOW; RBC Peritoneal Fluid (A) < 3000 /uL; WBC Peritoneal Fluid (A) 304 /ul (0-300)
[2020-01-25 18:42] LABS: Albumin Peritoneal Fluid < 0.6 g/dl; Total Protein Peritoneal Fluid 0.5 g/dl
[2020-01-25 18:48] LABS: Lymphocytes, Fluid 2 %; Neutrophils, Fluid 77 %
[2020-01-25 18:49] LABS: Basophils, Fluid 0 %; Eosinophils, Fluid 0 %; Mono,Macrophage,Mesothelial 21 %
[2020-01-25] MEDS: ALBUMIN 25% 50 ML IV SCH ×3 (19:17→21:12)
[2020-01-25] MEDS: HEPARIN SOD 5,000 UNIT/0.5 ML VIAL SQ SCH (19:21)
[2020-01-25] MEDS: guaiFENesin 600 MG TABCR PO SCH (20:21)
[2020-01-25] MEDS: THIAMINE HCL 100 MG TAB PO SCH (20:21)
[2020-01-26] MEDS: HEPARIN SOD 5,000 UNIT/0.5 ML VIAL SQ SCH ×3 (00:19→16:34)
[2020-01-26] MEDS: AZITHROMYCIN 250 MG TAB PO SCH (07:28)
[2020-01-26] MEDS: POTASSIUM CHLORIDE 10 MEQ TABCR PO SCH (07:28)
[2020-01-26] MEDS: NICOTINE 7 MG/24 HR TDSY TD SCH (07:29)
[2020-01-26] MEDS: THIAMINE HCL 100 MG TAB PO SCH ×2 (07:29→21:12)
[2020-01-26] MEDS: FERROUS SULFATE 325 MG TAB PO SCH (07:30)
[2020-01-26] MEDS: PANTOprazole 40 MG TAB PO SCH (07:30)
[2020-01-26] MEDS: FOLIC ACID 400 MCG TAB PO SCH (07:30)
[2020-01-26] MEDS: guaiFENesin 600 MG TABCR PO SCH ×2 (07:30→21:11)
[2020-01-26] MEDS: FLUTICASONE/VILANTEROL 100/25MCG 14 PUFFS/INHALER INH SCH (07:31)
[2020-01-26] MEDS: IPRATROPIUM BROMIDE/ALBUTEROL respimat INH INH SCH ×4 (07:31→21:12)
[2020-01-26] MEDS: ASPIRIN 81 MG ECTAB PO SCH (07:31)
[2020-01-26 07:43] LABS: Hematocrit (blood only) 39.5 % (42-52); Hemoglobin 13.3 g/dL (14.0-18.0); Mean Corpuscular Hemoglobin 37.7 pg (25-34); Mean Corpuscular Hgb Conc 33.7 g/dL (32-36); Mean Corpuscular Volume 111.9 fL (80-100); RDW Coefficient of Variation 19.2 % (11.5-14.5); RDW Standard Deviation 77.9 fL (36.4-46.3); Red Blood Count 3.53 M/uL (4.7-6.1); White Blood Count 7.17 K/uL (4.8-10.8)
[2020-01-26 07:46] LABS: Mean Platelet Volume 10.5 fL (7.4-10.4); Platelet Count 73 K/uL (130-400)
[2020-01-26 07:58] LABS: INR 1.5 (0.9-1.1); Prothrombin Time 15.9 Seconds (9.0-12.0)
[2020-01-26 08:20] LABS: Albumin Level 2.3 gm/dl (3.4-5.0); BUN Creatinine Ratio 15.8 (10-20); Calcium 8.9 mg/dl (8.5-10.1); Creatinine Clr Calc Pharmacy 108.3 ml/min; Est GFR (African American) 117.9; Est GFR (Non-African American) 101.7; Magnesium 1.8 mg/dl (1.8-2.4); Potassium 4.2 mmol/L (3.5-5.1)
[2020-01-26 08:34] LABS: Albumin Globulin Ratio 0.6 (0.9-2); Bilirubin,Total 5.2 mg/dl (0.2-1); Total Protein 6.3 gm/dl (6.4-8.2)
[2020-01-26] MEDS ORDERED: ASPIRIN 81 MG ECTAB PO SCH (09:00)
[2020-01-26] MEDS ORDERED: NICOTINE 7 MG/24 HR TDSY TD SCH (09:00)
--- NOTE | 2020-01-26 10:01 | Hospitalist Progress Note ---
Date of Service January 26, 2020 Assessment & Plan (1) Positive blood culture: one of two sets positive no fever, WBC normal, no clear source has a h/o MRSA in 2019 but that was also only one of two sets change to Daptomycin empirically would place on Doxycycline but he has true allergy to Doxy, gets bad hives follow up final blood culture results, repeat CBC in the morning (2) Ascites: Patient has significant Ascites and abdominal discomfort. s/p paracentesis on 01/24 for 4.7 liters WBC is 304, 77% PMN for a calcuated number of 234, thus below the threshold for SBP gram stain of fluid positive for WBC but no organisms stop Rocephin, no suspicion for SBP at this point (3) Wheezing: lungs clear, no wheezing, no distress, no cough continue Zithromax, continue home inhalers COVID 19 negative, biofire negative, CXR clear he says that his breathing improved greatly after paracentesis, was likely just restricting inspiratory capacity making him short of breath (4) COPD (chronic obstructive pulmonary disease): continue combivent. Continue dulera. no need for steroids as he is not wheezing, no distress, no hypoxia (5) Hypomagnesemia: resolved after IV replacement (6) Elevated lactic acid level: Down to 2.1. no need to follow further (7) Alcohol abuse: Patient denies any recent use of alcohol. Will order alcohol withdrawal protocol to monitor and prn ativan. (8) Cirrhosis of liver: follows with [facility] GI worsening hepatic function with bilirubin of 5, INR 1.5 Cr is stable now with ascites and peripheral edema will need to follow up closely with GI liver lesion on CT, radiology recommends liver MR, will order to be done while here to rule out HCC (9) Hepatitis C: follows with [facility] GI Admission and Anticipated Discharge Date Admission Date: January 25, 2020 Subjective patient says he is feeling better this morning, less abdominal pain, less distension this morning he is eating well, moving his bowels says that his breathing is much much better, no wheezing this morning, says his breathing was better after fluid removed reviewed chart, admission from yesterday reviewed labs, WBC normal, Hb stable, plts stable Cr is at baseline INR elevated at 1.5, bili up at 5.2 peritoneal fluid shows 304 WBC with 77% PMN which equals 234 PMN, less than the 250 PMN to suspect SBP one of two blood cultures positive, feel that it is likely a contaminant h/o MRSA in the blood last year, was only one of two sets at that time as well, unfortunately he is allergic to Doxycycline Review of Systems Review of Systems: All systems reviewed & are unremarkable except as noted in HPI & below Constitutional: + fatigue and + weakness; no fever, no chills and no sweats Respiratory: no cough, no dyspnea and no wheezing Cardiovascular: + edema; no chest pain Gastrointestinal: + bloating; no abdominal pain, no nausea, no vomiting, no constipation and no diarrhea/loose stools Genitourinary: no dysuria Physical Exam Constitutional: well developed, + thin and comfortable; no acute distress Eyes: PERRL, conjunctivae normal, anicteric sclerae ENMT: external ear and nose normal, oropharynx normal Neck: trachea midline, no thyromegaly Respiratory: normal respiratory effort, lungs clear to auscultation Cardiovascular: Rate/Rhythm: regular rate and regular rhythm Heart Sounds: normal S1 and normal S2; no murmur Extremities: + edema Gastrointestinal (Abdomen): Inspection/Auscultation: + abdomen distended and normal bowel sounds Percussion/Palpation: + abdomen tender (minimal), abdomen soft and + ascites; no guarding and abdomen not rigid Musculoskeletal: no cyanosis or clubbing, extremities motor strength 5/5 Skin: no rashes, warm and dry Neurologic: patellar DTR's 2+ bilat, sensation intact and PERRL, EOMI, accommodation nl, no face palsy, no dysarthria Psychiatric: A+Ox3, euthymic affect Lymphatic: no cervical or axillary lymphadenopathy Results & Data Results & Data ([facility]) Vital Signs (Past 12 Hours) Vital Signs Temp Pulse Resp BP BP Pulse Ox 01/26/20 07:47 36.6 C 77 20 122/76 92 01/26/20 04:31 37 C 75 18 129/74 93 01/25/20 23:21 36.4 C L 74 20 128/68 94 Laboratory Results Laboratory Results - last 24 hr 01/25/20 01/25/20 01/25/20 11:07 11:15 11:18 WBC RBC Hgb Hct MCV MCH MCHC RDW Std Deviation RDW Coeff of Gaby Plt Count MPV PT INR Sodium Potassium Chloride Carbon Dioxide Anion Gap BUN Creatinine Est Cr Clr Drug Dosing Est GFR ( Amer) Est GFR (Non-Af Amer) BUN/Creatinine Ratio Glucose Lactate 2.1 H* Calcium Magnesium Total Bilirubin AST ALT Alkaline Phosphatase Total Protein Albumin Globulin Albumin/Globulin Ratio Urine Color Dark Yellow Urine Appearance Clear Urine pH 5.0 Ur Specific [place] > 1.045 H Urine Protein Negative Urine Glucose (UA) Negative Urine Ketones Negative Urine Blood Negative Urine Nitrite Positive A Urine Bilirubin 2+ H Urine Urobilinogen Positive H Ur Leukocyte Esterase Trace H Urine WBC (Auto) 1-5 Urine RBC (Auto) 0-4 U Hyaline Cast (Auto) 1-5 U Epithel Cells (Auto) 5-10 H Urine Bacteria (Auto) Negative Fluid Neutrophils % Fluid Lymphocytes % Fluid Eosinophils % Fluid Basophils % Fluid [place] % Peritoneal Color Peritoneal Appearance Peritoneal WBC Peritoneal RBC Peritoneal Tot Protein Peritoneal Albumin Adenovirus (PCR) B. pertussis DNA (PCR) B.parapertussis DNA PCR C. pneumoniae DNA (PCR) Coronavirus OC43 (PCR) Coronavirus HKU1 (PCR) Coronavirus 229E (PCR) COVID-19 PCR Coronavirus NL63 (PCR) Human Metapneumovir PCR Influenza Type A (PCR) Influenza Type B (PCR) M. pneumoniae (PCR) Parainfluenza 1 (PCR) Parainfluenza 2 (PCR) Parainfluenza 3 (PCR) Parainfluenza 4 (PCR) RSV (PCR) Entero/Rhino (PCR) SARS-CoV-2 RNA (RT-PCR) Cancelled 01/25/20 01/25/20 01/25/20 11:18 11:18 18:00 WBC RBC Hgb Hct MCV MCH MCHC RDW Std Deviation RDW Coeff of Gaby Plt Count MPV PT INR Sodium Potassium Chloride Carbon Dioxide Anion Gap BUN Creatinine Est Cr Clr Drug Dosing Est GFR ( Amer) Est GFR (Non-Af Amer) BUN/Creatinine Ratio Glucose Lactate Calcium Magnesium Total Bilirubin AST ALT Alkaline Phosphatase Total Protein Albumin Globulin Albumin/Globulin Ratio Urine Color Urine Appearance Urine pH Ur Specific [place] Urine Protein Urine Glucose (UA) Urine Ketones Urine Blood Urine Nitrite Urine Bilirubin Urine Urobilinogen Ur Leukocyte Esterase Urine WBC (Auto) Urine RBC (Auto) U Hyaline Cast (Auto) U Epithel Cells (Auto) Urine Bacteria (Auto) Fluid Neutrophils % 77 Fluid Lymphocytes % 2 Fluid Eosinophils % 0 Fluid Basophils % 0 Fluid [place] % 21 Peritoneal Color YELLOW Peritoneal Appearance CLEAR Peritoneal WBC 304 H Peritoneal RBC < 3000 Peritoneal Tot Protein Peritoneal Albumin Adenovirus (PCR) Not Detected B. pertussis DNA (PCR) Not Detected B.parapertussis DNA PCR Not Detected C. pneumoniae DNA (PCR) Not Detected Coronavirus OC43 (PCR) Not Detected Coronavirus HKU1 (PCR) Not Detected Coronavirus 229E (PCR) Not Detected COVID-19 PCR NEGATIVE Coronavirus NL63 (PCR) Not Detected Human Metapneumovir PCR Not Detected Influenza Type A (PCR) Not Detected Influenza Type B (PCR) Not Detected M. pneumoniae (PCR) Not Detected Parainfluenza 1 (PCR) Not Detected Parainfluenza 2 (PCR) Not Detected Parainfluenza 3 (PCR) Not Detected Parainfluenza 4 (PCR) Not Detected RSV (PCR) Not Detected Entero/Rhino (PCR) Not Detected SARS-CoV-2 RNA (RT-PCR) 01/25/20 01/26/20 01/26/20 18:00 07:02 07:02 WBC 7.17 RBC 3.53 L Hgb 13.3 L Hct 39.5 L MCV 111.9 H MCH 37.7 H MCHC 33.7 RDW Std Deviation 77.9 H RDW Coeff of Gaby 19.2 H Plt Count 73 L MPV 10.5 H PT 15.9 H INR 1.5 H Sodium Potassium Chloride Carbon Dioxide Anion Gap BUN Creatinine Est Cr Clr Drug Dosing Est GFR ( Amer) Est GFR (Non-Af Amer) BUN/Creatinine Ratio Glucose Lactate Calcium Magnesium Total Bilirubin AST ALT Alkaline Phosphatase Total Protein Albumin Globulin Albumin/Globulin Ratio Urine Color Urine Appearance Urine pH Ur Specific [place] Urine Protein Urine Glucose (UA) Urine Ketones Urine Blood Urine Nitrite Urine Bilirubin Urine Urobilinogen Ur Leukocyte Esterase Urine WBC (Auto) Urine RBC (Auto) U Hyaline Cast (Auto) U Epithel Cells (Auto) Urine Bacteria (Auto) Fluid Neutrophils % Fluid Lymphocytes % Fluid Eosinophils % Fluid Basophils % Fluid [place] % Peritoneal Color Peritoneal Appearance Peritoneal WBC Peritoneal RBC Peritoneal Tot Protein 0.5 Peritoneal Albumin < 0.6 Adenovirus (PCR) B. pertussis DNA (PCR) B.parapertussis DNA PCR C. pneumoniae DNA (PCR) Coronavirus OC43 (PCR) Coronavirus HKU1 (PCR) Coronavirus 229E (PCR) COVID-19 PCR Coronavirus NL63 (PCR) Human Metapneumovir PCR Influenza Type A (PCR) Influenza Type B (PCR) M. pneumoniae (PCR) Parainfluenza 1 (PCR) Parainfluenza 2 (PCR) Parainfluenza 3 (PCR) Parainfluenza 4 (PCR) RSV (PCR) Entero/Rhino (PCR) SARS-CoV-2 RNA (RT-PCR) 01/26/20 07:02 WBC RBC Hgb Hct MCV MCH MCHC RDW Std Deviation RDW Coeff of Gaby Plt Count MPV PT INR Sodium 136 Potassium 4.2 Chloride 101 Carbon Dioxide 31 Anion Gap 4.0 BUN 11 D Creatinine 0.69 Est Cr Clr Drug Dosing 108.3 Est GFR ( Amer) 117.9 Est GFR (Non-Af Amer) 101.7 BUN/Creatinine Ratio 15.8 Glucose 100 H Lactate Calcium 8.9 Magnesium 1.8 Total Bilirubin 5.2 H AST 137 H ALT 59 Alkaline Phosphatase 156 H Total Protein 6.3 L Albumin 2.3 L Globulin 4.0 Albumin/Globulin Ratio 0.6 L Urine Color Urine Appearance Urine pH Ur Specific [place] Urine Protein Urine Glucose (UA) Urine Ketones Urine Blood Urine Nitrite Urine Bilirubin Urine Urobilinogen Ur Leukocyte Esterase Urine WBC (Auto) Urine RBC (Auto) U Hyaline Cast (Auto) U Epithel Cells (Auto) Urine Bacteria (Auto) Fluid Neutrophils % Fluid Lymphocytes % Fluid Eosinophils % Fluid Basophils % Fluid [place] % Peritoneal Color Peritoneal Appearance Peritoneal WBC Peritoneal RBC Peritoneal Tot Protein Peritoneal Albumin Adenovirus (PCR) B. pertussis DNA (PCR) B.parapertussis DNA PCR C. pneumoniae DNA (PCR) Coronavirus OC43 (PCR) Coronavirus HKU1 (PCR) Coronavirus 229E (PCR) COVID-19 PCR Coronavirus NL63 (PCR) Human Metapneumovir PCR Influenza Type A (PCR) Influenza Type B (PCR) M. pneumoniae (PCR) Parainfluenza 1 (PCR) Parainfluenza 2 (PCR) Parainfluenza 3 (PCR) Parainfluenza 4 (PCR) RSV (PCR) Entero/Rhino (PCR) SARS-CoV-2 RNA (RT-PCR) Medications Administered Current Inpatient Medications Albuterol (Combivent Respimat) 1 puffs INH 0800,1200,1600,2000 [facility] Stop: 02/24/20 15:59 Last Admin: 01/26/20 07:31 Dose: 1 puffs Documented by: Aspirin (Ecotrin Ectab) 81 mg PO DAILY@0800 [facility] Stop: 02/25/20 07:59 Last Admin: 01/26/20 07:31 Dose: 81 mg Documented by: Azithromycin (Zithromax) 250 mg PO QAM [facility] Stop: 01/29/20 08:59 Last Admin: 01/26/20 07:28 Dose: 250 mg Documented by: Dicyclomine HCl (Bentyl) 20 mg PO QID PRN PRN Reason: pain Stop: 02/24/20 13:45 Ferrous Sulfate (Feosol) 325 mg PO DAILY@0800 [facility] Stop: 02/25/20 07:59 Last Admin: 01/26/20 07:30 Dose: 325 mg Documented by: Fluticasone/Vilanterol (Breo Ellipta 100/25 Mcg Inh) 1 puffs INH DAILY@0800 [facility] Stop: 02/25/20 07:59 Last Admin: 01/26/20 07:31 Dose: 1 puffs Documented by: Folic Acid (Folvite) 800 mcg PO DAILY@0800 [facility] Stop: 02/25/20 07:59 Last Admin: 01/26/20 07:30 Dose: 800 mcg Documented by: Guaifenesin (Mucinex) 1,200 mg PO Q12@0800,2000 [facility] Stop: 02/24/20 19:59 Last Admin: 01/26/20 07:30 Dose: 1,200 mg Documented by: Heparin Sodium (Porcine) (Heparin Sodium (Porcine)) 5,000 units SQ Q8H [facility] Stop: 02/24/20 15:59 Last Admin: 01/26/20 07:32 Dose: 5,000 units Documented by: Hydromorphone HCl (Dilaudid) 0.25 mg IV Q6H PRN PRN Reason: Pain Stop: 02/08/20 10:53 Last Admin: 01/25/20 22:43 Dose: 0.25 mg Documented by: Lorazepam (Ativan) 1 mg in 2 mls @ 2 mls/min IV UD PRN; Protocol PRN Reason: EtOH Withdrawl AWSS Score 6,7 Stop: 02/24/20 13:45 Lorazepam (Ativan) 2 mg in 4 mls @ 4 mls/min IV UD PRN; Protocol PRN Reason: EtOH Withdrawl AWSS Score 8,9 Stop: 02/24/20 13:45 Lorazepam (Ativan) 3 mg in 6 mls @ 4 mls/min IV ONCE PRN; Protocol PRN Reason: EtOH Withdrawl AWSS Score >=10 Stop: 02/24/20 13:45 Daptomycin 425 mg/ Syringe 8.5 mls @ 4.25 mls/min IV NOW ONE; Protocol Stop: 01/26/20 10:06 Lorazepam (Ativan) 1 - 3 mg PO UD PRN; Protocol PRN Reason: EtoH Withdrawal AWSS 6-10+ Stop: 02/24/20 13:45 Miscellaneous (Remove Nicoderm Patch) 1 ea N/A DAILY@0759 [facility] Stop: 02/25/20 07:58 Last Admin: 01/26/20 07:29 Dose: 1 ea Documented by: Miscellaneous Information (Consult) 1 ea N/A UD PRN PRN Reason: Consult Stop: 02/25/20 10:04 Nicotine (Nicoderm Cq) 7 mg TD DAILY@0800 [facility] Stop: 02/25/20 07:59 Last Admin: 01/26/20 07:29 Dose: Not Given Documented by: Ondansetron HCl (Zofran) 4 mg IV Q6H PRN PRN Reason: Nausea Stop: 02/24/20 13:45 Pantoprazole Sodium (Protonix) 40 mg PO DAILY@0800 [facility] Stop: 02/25/20 07:59 Last Admin: 01/26/20 07:30 Dose: 40 mg Documented by: Polyethylene Glycol (Miralax Powder Packet) 17 gm PO DAILY PRN PRN Reason: Constipation Stop: 02/24/20 13:45 Potassium Chloride (Klor-Con M10) 10 meq PO DAILY@0800 [facility] Stop: 02/25/20 07:59 Last Admin: 01/26/20 07:28 Dose: 10 meq Documented by: Thiamine HCl (Vitamin B-1) 200 mg PO BID@0800,1999 [facility] Stop: 02/24/20 19:59 Last Admin: 01/26/20 07:29 Dose: 200 mg Documented by: PG Care Time/CCT Total # of Minutes Spent Total Time Spent with Patient: Total time spent is greater than 50% in coordination of care (as documented) at patient's floor/unit and/or counseling patient: Coding Level of Care Code 65206 Subseq Hosp Care Lvl 3 Diagnoses Positive blood culture R78.81 Ascites K70.31 Ascites type: due to alcoholic cirrhosis Wheezing R06.2 COPD (chronic obstructive pulmonary disease) J44.9 Hypomagnesemia E83.42 Elevated lactic acid level R79.89 Alcohol abuse F10.10 Cirrhosis of liver K74.60 Hepatitis C B18.2 Viral hepatitis chronicity: chronic Hepatic coma status: with hepatic coma (1) Ascites Ascites type: due to alcoholic cirrhosis Qualified Code(s): K70.31 - Alcoholic cirrhosis of liver with ascites (2) Hepatitis C Viral hepatitis chronicity: chronic Hepatic coma status: with hepatic coma Qualified Code(s): B18.2 - Chronic viral hepatitis C
[2020-01-26] MEDS ORDERED: DAPTOMYCIN CONSULT ACTIVE PRN (10:05)
[2020-01-26] MEDS ORDERED: DAPTOmycin 425 MG in SYRINGE 0 ML IV SCH (11:00)
[2020-01-27 00:12] LABS: Cdiff Antigen Positive; Cdiff Toxin A+B Negative Cdiff Toxin (Negative)
[2020-01-27] MEDS: HEPARIN SOD 5,000 UNIT/0.5 ML VIAL SQ SCH ×2 (00:34→08:39)
[2020-01-27 06:58] LABS: Hematocrit (blood only) 37.6 % (42-52); Hemoglobin 12.7 g/dL (14.0-18.0); Mean Corpuscular Hemoglobin 37.4 pg (25-34); Mean Corpuscular Hgb Conc 33.8 g/dL (32-36); Mean Corpuscular Volume 110.6 fL (80-100); RDW Coefficient of Variation 18.5 % (11.5-14.5); RDW Standard Deviation 74.5 fL (36.4-46.3); White Blood Count 5.94 K/uL (4.8-10.8)
[2020-01-27 07:05] LABS: Platelet Count 74 K/uL (130-400)
[2020-01-27 07:14] LABS: INR 1.6 (0.9-1.1); Prothrombin Time 16.3 Seconds (9.0-12.0)
[2020-01-27 07:28] LABS: Albumin Level 2.1 gm/dl (3.4-5.0); BUN Creatinine Ratio 19.6 (10-20); Calcium 8.3 mg/dl (8.5-10.1); Est GFR (African American) 125.8; Est GFR (Non-African American) 108.5; Potassium 3.8 mmol/L (3.5-5.1)
[2020-01-27 07:31] LABS: Albumin Globulin Ratio 0.5 (0.9-2); Bilirubin,Total 4.9 mg/dl (0.2-1); Globulin 3.9 gm/dl (2.5-4.0)
[2020-01-27] MEDS: IPRATROPIUM BROMIDE/ALBUTEROL respimat INH INH SCH (08:37)
[2020-01-27] MEDS: FLUTICASONE/VILANTEROL 100/25MCG 14 PUFFS/INHALER INH SCH (08:37)
[2020-01-27] MEDS: PANTOprazole 40 MG TAB PO SCH (08:40)
[2020-01-27] MEDS: NICOTINE 7 MG/24 HR TDSY TD SCH (08:40)
[2020-01-27] MEDS: FOLIC ACID 400 MCG TAB PO SCH (08:40)
[2020-01-27] MEDS: guaiFENesin 600 MG TABCR PO SCH (08:40)
[2020-01-27] MEDS: AZITHROMYCIN 250 MG TAB PO SCH (08:41)
[2020-01-27] MEDS: THIAMINE HCL 100 MG TAB PO SCH (08:41)
[2020-01-27] MEDS: ASPIRIN 81 MG ECTAB PO SCH (08:42)
[2020-01-27] MEDS: FERROUS SULFATE 325 MG TAB PO SCH (08:42)
[2020-01-27] MEDS: POTASSIUM CHLORIDE 10 MEQ TABCR PO SCH (08:43)
--- NOTE | 2020-01-27 09:38 | Discharge Summary ---
Date of Service January 27, 2020 Admission HPI Per Admitting Provider This is a 64 year old male with history alcoholic cirrhosis, CVA, peptic ulcer disease, hepatitis C, COPD, HTN and diabetes who presents with SOB and abdominal pain. Patient is inconsistent with his history. Patient had called EMS 5 days ago for similar symptoms but states he didnt got to the ED at that time because he didnt have a ride home. Patient states he started to feel better. Tuesday he began to have increasing wheezes and some belly discomfort and came to ED. Patients family / EMS mention that patient had a temp of 100.4. At bedside patient is denying abdominal pain and says it is not significantly bigger then baseline. Patient reports he has not had any alcohol in 1 year. Patient lives with his nephew who is working at [employer]. Patient requested we update his sister Geno, [phone]. She reports that she has been by to bring him food. Principal Diagnosis Symptomatic ascites Discharge Exam Constitutional well developed, + thin and comfortable; no acute distress Eyes PERRL, conjunctivae normal, anicteric sclerae ENMT external ear and nose normal, oropharynx normal Neck trachea midline, no thyromegaly Respiratory normal respiratory effort, lungs clear to auscultation Cardiovascular Rate/Rhythm: regular rate and regular rhythm Heart Sounds: normal S1 and normal S2; no murmur Extremities: + edema Gastrointestinal (Abdomen) Inspection/Auscultation: + abdomen distended and normal bowel sounds Percussion/Palpation: abdomen soft and + ascites; abdomen nontender, no guarding and abdomen not rigid Musculoskeletal no cyanosis or clubbing, extremities motor strength 5/5 Skin no rashes, warm and dry Neurologic patellar DTR's 2+ bilat, sensation intact and PERRL, EOMI, accommodation nl, no face palsy, no dysarthria Psychiatric A+Ox3, euthymic affect Lymphatic no cervical or axillary lymphadenopathy Discharge Data Allergies Allergy/AdvReac Type Severity Reaction Status Date / Time doxycycline Allergy Intermediate Hives Verified 01/25/20 06:49 codeine AdvReac Mild Gastrointestinal Verified 01/25/20 06:49 Upset Consultations 01/25/20 09:48 ED Decision to Admit Stat Ordered Studies 01/25/20 06:59 CT abd pelvis IV con only Stat 01/25/20 16:08 US abdomen ltd ascites Urgent Hospital Course (1) Positive blood culture: one of two sets positive no fever, WBC normal, no clear source has a h/o MRSA in 2019 but that was also only one of two sets covered with Daptomycin empirically final blood cultures show Alpha strep, no need for treatment, will d/c home (2) Ascites: Patient has significant Ascites and abdominal discomfort. s/p paracentesis on 01/24 for 4.7 liters WBC is 304, 77% PMN for a calcuated number of 234, thus below the threshold for SBP gram stain of fluid positive for WBC but no organisms no growth on fluid culture will increase Lasix to 40mg twice a day and add Spironolactone 25mg daily follow up with Arturo STEELE, he says he has an appt on Tuesday (3) Wheezing: lungs clear, no wheezing, no distress, no cough continue home inhalers COVID 19 negative, biofire negative, CXR clear he says that his breathing improved greatly after paracentesis, was likely just restricting inspiratory capacity making him short of breath (4) COPD (chronic obstructive pulmonary disease): continue combivent. Continue dulera. no need for steroids as he is not wheezing, no distress, no hypoxia (5) Hypomagnesemia: resolved after IV replacement (6) Elevated lactic acid level: Down to 2.1. no need to follow further (7) Alcohol abuse: Patient denies any recent use of alcohol. Will order alcohol withdrawal protocol to monitor and prn ativan. (8) Cirrhosis of liver: follows with [facility] worsening hepatic function with bilirubin of 4, INR 1.7 Cr is stable now with ascites and peripheral edema will need to follow up closely with GI liver lesion on CT, radiology recommends liver MR -- patient refused to have MRI while here, order cancelled (9) Hepatitis C: follows with [email or web address] Total Time Total Time Spent Total Time Spent (In Minutes): 33 minutes Total Time Includes: Examination of the Patient, Discharge Planning and Medication Reconciliation Discharge Plan Discharge Items Patient Disposition: Home - Self-Care Reason For Visit: SOB, ABD PAIN Discharge Diagnosis: Symptomatic ascites Cirrhosis Condition on Discharge: Good Goals: follow sodium and fluid restriction use Lasix, Spironolactone to keep fluid down improve strength and nutrition Activity: Resume your previous activity Driving/Machine Use: No limitations Weightbearing: Full weightbearing Non-emergency contact: Primary Care Provider Call non-emergency contact if: you have any medication questions, your symptoms worsen and you have a fever Follow-up/Referrals: [facility],Medicine [Primary Care Provider] - (one week) Diet: Low Sodium (2gm) Fluids: 2000ml (8 cups) Addtl Attending Provider Instructions: Medications: note the following changes - FUROSEMIDE: dose increased to 40mg twice a day, take in the morning and then in the afternoon, around 3 or 4 pm - SPIRONOLACTONE: 25mg every morning, can start tomorrow as you got a dose here in the hospital Ascites, cirrhosis you are rapidly developing fluid in the abdomen called ascites you had 4.7 liters drained but it re-accumulated quickly, could tap it again but it will accumulate again in 2 days so really draining it would not be benefitial the fluid was analyzed, no evidence of infection, culture negative will use Lasix, but increase to 40mg twice a day, add Spironolactone 25mg daily follow a sodium restriction of less than 2gm a day, follow a fluid restriction of less than 2 liters a day please follow up with Arturo STEELE your INR and bilirubin are slightly higher than values in the past, indicating a decline in liver function Shortness of breath: due to ascites, continue home inhalers for COPD Pending Studies at Discharge: No Stand-Alone Forms: [facility] Cess[facility] Medications and DC Order Prescriptions: New furosemide [Lasix] 40 mg tablet 40 mg PO BID Qty: 60 RF: 1 spironolactone 25 mg tablet 25 mg PO DAILY Qty: 30 RF: 1 Continued thiamine HCl (vitamin B1) 100 mg Tablet 100 mg PO QAM RF: 0 albuterol sulfate 90 mcg/actuation Hfa Aerosol Inhaler 2 puff Inhalation Q4H PRN (Reason: Wheezing) RF: 0 Dexilant 30 mg Capsule,Biphase Delayed Releas 30 mg PO BID RF: 0 acetaminophen [Tylenol Extra Strength] 500 mg Tablet 1,000 mg PO Q6H PRN (Reason: pain/ headache) RF: 0 aspirin 81 mg tablet,delayed release (DR/EC) 81 mg PO QAM RF: 0 dicyclomine 20 mg tablet 20 mg PO QID PRN (Reason: pain) Qty: 20 RF: 0 folic acid 800 mcg Tablet 800 mcg PO QAM RF: 0 metformin 500 mg tablet 500 mg PO QDB RF: 0 potassium chloride [Klor-Con M10] 10 mEq tablet,ER particles/crystals 10 meq PO QAM RF: 0 lactulose 20 gram/30 mL solution 15 ml PO BID PRN (Reason: Constipation) RF: 0 ferrous sulfate 325 mg (65 mg iron) Tablet,Delayed Release (Dr/Ec) 325 mg PO DAILY Qty: 60 RF: 2 pantoprazole 40 mg Tablet,Delayed Release (Dr/Ec) 40 mg PO DAILY RF: 0 Dulera 200-5 mcg/actuation Hfa Aerosol Inhaler 2 puff INHALATION BID RF: 0 Discontinued furosemide 20 mg tablet 40 mg PO QAM RF: 0 Discharge Orders: Discharge Order (Routine); Ordered 01/27/20 Ordered By: Shadi Lee Admission Data Admit Date/Time: 01/25/20 10:33 Attending Provider: Shadi Lee Admit Provider: Nahum Nicole Primary Care Provider: [facility],Medicine Other Providers: Nahum Nicole Coding Level of Care Code D/C Day Management >30 mins Diagnoses Positive blood culture R78.81 Ascites K70.31 Ascites type: due to alcoholic cirrhosis Wheezing R06.2 COPD (chronic obstructive pulmonary disease) J44.9 Hypomagnesemia E83.42 Elevated lactic acid level R79.89 Alcohol abuse F10.10 Cirrhosis of liver K74.60 Hepatitis C B18.2 Viral hepatitis chronicity: chronic Hepatic coma status: with hepatic coma
== END 2020-01-27 10:55 | disposition home or self-care (01) | DRG 434 ==
LOC: ED 06:00 → 2S 10:33 → SUATTDRO 10:33 → 2S 12:26

== ENCOUNTER 2020-01-31 07:29 | Inpatient (IN) ==
[2020-01-31] MEDS ORDERED: PANTOprazole 40 MG in SYRINGE 0 ML IV ONE (07:37)
[2020-01-31] MEDS ORDERED: SODIUM CHLORIDE 0.9% 250 ML IV PRN ×2 (07:52→10:37)
--- NOTE | 2020-01-31 07:52 | Emergency Department Note ---
Impression & Plan Gastrointestinal hemorrhage with hematemesis, Anemia, Bleeding esophageal varices, Abdominal pain ED Provider Note NAME: EMILY PINZON AGE: 64 SEX: M : 1955 ARRIVES VIA: Ambulance INFORMANT: Patient, prehospital personnel ED PROVIDER(S): David Moran DO CHIEF COMPLAINT: Hematemesis HPI: The patient is a 64-year-old male who presented to the emergency department after having multiple episodes of hematemesis. The patient does have a history of alcoholic cirrhosis as well as esophageal varices. He presented to the emergency department after having an episode of epigastric pain followed by hematemesis. The patient arrived via ALS. Additional history was obtained from the prehospital personnel. The patient had one episode of emesis at home which appeared to be gross blood and clots. The patient also had another episode on route to the emergency department. There was approximately 100 mL's of gross blood at that time. The patient states that he feels much better now. He has no chest pain or trouble breathing. He denies having any lower extremity pain. He recently was seen in our facility after a paracentesis site continued to leak ascitic fluid but this seems to have resolved according to the patient. He denies having any recent falls. He started on no new medications. He states he has been compliant with his medications and has not had any alcohol since last year in December. The patient states that he has not seen his family doctor recently but he was seen by the gastroenterology group. The patient states his symptoms were moderate earlier today but have improved. The patient has not had a recent blood transfusion. ROS: See above HPI for pertinent positives & negatives. A total of 10 systems reviewed and were otherwise negative. PAST MEDICAL HISTORY: See Below PAST SURGICAL HISTORY: See Below FAMILY HISTORY: See Below SOCIAL HISTORY: See Below HOME MEDICATIONS: See Below ALLERGIES: See Below VITALS: See Below PHYSICAL EXAMINATION: GENERAL: The patient is awake and alert. He is somewhat anxious appearing but overall comfortable. EYES: The conjunctivae are icteric. The pupils are round and reactive. EARS, NOSE, MOUTH AND THROAT: The nose is without any evidence of any deformity. Mucous membranes are dry. There is dried blood around his mouth as well as in his oropharynx. NECK: The neck is nontender and supple. RESPIRATORY: Diminished breath sounds are noted throughout. There is scattered wheezing in all connor. CARDIOVASCULAR: Tachycardic rate with regular rhythm was noted. There is no definite murmur. GASTROINTESTINAL: The abdomen is moderately distended but nontender. There is no specific guarding or rigidity. Significant ascites was noted. MUSCULOSKELETAL/EXTREMITIES: There is no evidence of gross deformity full range of motion is noted in the hips and shoulders. SKIN: Skin was jaundiced in appearance. Skin was warm and dry. There is pedal edema bilaterally. NEUROLOGIC: Patient is awake alert and oriented x3. MEDICAL DECISION MAKING: The patient is a 64-year-old male who presented to the emergency department for an evaluation of upper GI bleeding. The patient has a history of esophageal varices. He had bright red blood noted on multiple episodes of emesis. The patient's hemoglobin was noted to be low compared to his baseline as well as his recent evaluation in our emergency department. The patient's vital signs were stable. Blood products were ordered. I consented the patient for blood while in the emergency department. The patient was given IV fluids and IV pain medication. He was also treated with IV antiemetics and placed on an octreotide drip. The patient was reevaluated multiple times. I discussed his case with the on-call traffic recorder for the patient's primary group. They have agreed to evaluate the patient in the emergency department for further management and disposition. The patient has a history of esophageal varices and it was felt that he would require emergent upper endoscopy. The patient was agreeable with this plan. Triage Nursing notes reviewed. Prior medical records reviewed. I reviewed the patient's most recent upper endoscopy from last summer. Vital Signs: reviewed and remarkable for no significant abnormalities Differential diagnosis: Diverticulosis, AVM, coagulopathy, colitis, inflammatory bowel disease, mal ignancy, [place] tear, esophagitis, peptic ulcer disease, variceal bleed, gastritis, epistaxis, fissure, hemorrhoids, as well as other pathologies. ER treatment provided: See below Diagnostics interpreted by me: ECG: EKG was obtained in the emergency department. My interpretation is normal sinus rhythm at 78 bpm. There is no ectopy. There is no acute ST segment ab normalities. This was compared to a tracing from January 25, 2020. No significant change was noted. Cardiac Monitoring: An order was placed for continuous cardiac monitoring. The monitor shows a rate of 82 with sinus rhythm. Laboratory studies: As stated above and show below. Imaging studies: XR KUB/Abdomen 1 view CLINICAL HISTORY: UGIB pain. Nausea. COMPARISON STUDY: 12/20/2018 FINDINGS: Nonobstructive bowel pattern. Possible ascites. Degenerative change lumbar spine. IMPRESSION: 1. Nonobstructive bowel pattern. 2. Potential ascites. ACT 112: Negative or not required by law. The above report was generated using voice recognition software. It may contain grammatical, syntax or spelling errors. Electronically signed by: Kam Baldwin M.D. 01/31/2020 7:55 AM Dictated: 01/31/20 0754 Transcribed: 01/31/20 0754 XR chest 1V portable CLINICAL HISTORY: UGIB chest pain COMPARISON STUDY: 01/25/2020 FINDINGS: Lungs are considered clear. There is slight chronic interstitial change at both lung bases. This is unaltered. There is no evidence for new or interval process. Pulmonary apices are clear. IMPRESSION: Chronic change. No acute process. ACT 112: Negative or not required by law. The above report was generated using voice recognition software. It may contain grammatical, syntax or spelling errors. Electronically signed by: Kam Baldwin M.D. 01/31/2020 7:54 AM Dictated: 01/31/20 0753 Transcribed: 01/31/20 0753 Consultation(s): 0805: I discussed this case with Dr. Kimble who was covering for the patient's primary gastroenterology group. 0850: Dr. Mcgraw was notified about the patient's condition. He was covering for the [facility] [place] [facility] group. Critical Care: I have personally spent greater than 45 minutes of critical care time in the direct management of this patient. This includes bedside care, interpretation of diagnostic studies, and testing, discussion with consultants, patient, and family members, and other required patient management activities. This 45 minutes is in excess of all separately billable procedures. 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) Surgical History H/O endoscopy Loss of teeth due to extraction No significant past surgical history Family History Mother , age 82 with hypertension, diabetes, and COPD COPD (chronic obstructive pulmonary disease) Diabetes Hypertension Father , age 89 with prostate cancer Prostate cancer Sister Stroke Cirrhosis Brother Cirrhosis Social History Preferred Language: Serbian Communication Ability: Effective Implementation Specialist Payroll Required: No Beliefs That Will Affect Care: None marital status: Current Living Situation: Family Current Living Situation Comment: nephew and exwife current occupational status: employed and disabled current occupation: Works multiple jobs at the [employer] Feels Safe at Home: Yes Smoking Status: Unknown if ever smoked Hx Alcohol Use: Yes Alcohol type: beer Alcohol Intake Frequency Comment: heavy etoh use in the past; quit 2018 Hx Substance Use: No Allergies Allergies Allergy/AdvReac Type Severity Reaction Status Date / Time doxycycline Allergy Intermediate Hives Verified 01/31/20 08:45 codeine AdvReac Mild Gastrointestinal Verified 01/31/20 08:45 Upset Home Meds Home Medications Medication Instructions Recorded Confirmed albuterol sulfate 2 puff INHALATION Q4H PRN 06/15/18 01/31/20 thiamine HCl (vitamin B1) 100 mg PO QAM 06/15/18 01/31/20 Dexilant 30 mg PO BID 03/10/19 01/31/20 acetaminophen [Tylenol Extra 1,000 mg PO Q6H PRN 03/19/19 01/31/20 Strength] folic acid 800 mcg PO QAM 04/30/19 01/31/20 lactulose 15 ml PO BID PRN 04/30/19 01/31/20 metformin 500 mg PO QDB 04/30/19 01/31/20 potassium chloride [Klor-Con M10] 10 meq PO QAM 04/30/19 01/31/20 aspirin 81 mg PO QAM 06/03/19 01/31/20 Dulera 2 puff INHALATION BID 01/25/20 01/31/20 pantoprazole 40 mg PO DAILY 01/25/20 01/31/20 Previous Rx's Medication Instructions Recorded ferrous sulfate 325 mg PO DAILY #60 tab 05/02/19 dicyclomine 20 mg PO QID PRN #20 tab 09/15/19 furosemide [Lasix] 40 mg PO BID #60 tab 01/27/20 spironolactone 25 mg PO DAILY #30 tab 01/27/20 Results & Data (ED) Vital Signs Vital Signs - 24 hr 01/31/20 07:33 01/31/20 08:10 01/31/20 08:15 Temperature 36.4 C L Temperature Source Oral Pulse Rate 79 Pulse Rate [Apical] 82 Pulse Rhythm [Apical] Pulse Strength [Apical] Respiratory Rate 16 16 Respiratory Effort / Characteristics Respiratory Depth Respiratory Pattern Blood Pressure 135/84 Blood Pressure [Left Arm] 128/74 Blood Pressure Mean 101 Blood Pressure Mean [Left Arm] 92 Blood Pressure Position [Left Arm] Pulse Oximetry 88 L 97 97 Oxygen Delivery Method Room Air Nasal Cannula Nasal Cannula Oxygen Flow Rate 2 2 Sepsis Recent Fever Within 48 Hours No Sepsis New/Unexplained Change in Mental Status No Sepsis Action Taken by Nursing No Action Required 01/31/20 08:30 01/31/20 08:47 Temperature 36.3 C L Temperature Source Oral Pulse Rate Pulse Rate [Apical] 84 80 Pulse Rhythm [Apical] Regular Pulse Strength [Apical] Normal Respiratory Rate 16 18 Respiratory Effort / Characteristics Non-Labored Spontaneous Respiratory Depth Normal Respiratory Pattern Regular Blood Pressure Blood Pressure [Left Arm] 103/70 106/61 Blood Pressure Mean Blood Pressure Mean [Left Arm] 81 76 Blood Pressure Position [Left Arm] Semi-fowlers Pulse Oximetry 93 96 Oxygen Delivery Method Nasal Cannula Nasal Cannula Oxygen Flow Rate 2 4 Sepsis Recent Fever Within 48 Hours Sepsis New/Unexplained Change in Mental Status Sepsis Action Taken by Nursing Laboratory Data Result diagrams: 01/31/20 07:59 01/31/20 07:59 Lab Results 01/31/20 01/31/20 01/31/20 Range/Units 07:59 07:59 07:59 WBC (4.8-10.8) K/uL RBC (4.7-6.1) M/uL Hgb (14.0-18.0) g/dL Hct (42-52) % MCV (80-100) fL MCH (25-34) pg MCHC (32-36) g/dL RDW Std Deviation (36.4-46.3) fL RDW Coeff of Gaby (11.5-14.5) % Plt Count (130-400) K/uL MPV (7.4-10.4) fL Immature Gran % (Auto) % Neut % (Auto) % Lymph % (Auto) % [place] % (Auto) % Eos % (Auto) % Baso % (Auto) % Immature Gran # (Auto) (0.00-0.02) K/uL Neut # (Auto) (1.4-6.5) K/uL Lymph # (Auto) (1.2-3.4) K/uL [place] # (Auto) (0.11-0.59) K/uL Eos # (Auto) (0-0.5) K/uL Baso # (Auto) (0-0.2) K/uL Macrocytosis PT 16.9 H (9.0-12.0) Seconds INR 1.6 H (0.9-1.1) APTT 30.5 (21.0-31.0) Seconds PTT Ratio 1.1 Sodium 139 (136-145) mmol/L Potassium 4.0 (3.5-5.1) mmol/L Chloride 107 (98-107) mmol/L Carbon Dioxide 28 (21-32) mmol/L Anion Gap 4.0 (3-11) BUN 9 (7-18) mg/dl Creatinine 0.66 (0.6-1.4) mg/dl Est Cr Clr Drug Dosing 116.0 ml/min Est GFR ( Amer) 120.1 Est GFR (Non-Af Amer) 103.6 BUN/Creatinine Ratio 13.9 (10-20) Glucose 201 H (70-99) mg/dl Calcium 7.4 L (8.5-10.1) mg/dl Total Bilirubin 3.5 H (0.2-1) mg/dl AST 209 H (15-37) U/L ALT 79 H (12-78) U/L Alkaline Phosphatase 210 H (45-117) U/L Troponin I < 0.015 (0-0.045) ng/ml Total Protein 5.3 L (6.4-8.2) gm/dl Albumin 1.7 L (3.4-5.0) gm/dl Globulin 3.6 (2.5-4.0) gm/dl Albumin/Globulin Ratio 0.5 L (0.9-2) Lipase 324 (73-393) U/L Blood Type O Positive Antibody Screen NEGATIVE Crossmatch See Detail 01/31/20 Range/Units 07:59 WBC 7.55 (4.8-10.8) K/uL RBC 2.84 L (4.7-6.1) M/uL Hgb 10.9 L (14.0-18.0) g/dL Hct 32.1 L (42-52) % MCV 113.0 H (80-100) fL MCH 38.4 H (25-34) pg MCHC 34.0 (32-36) g/dL RDW Std Deviation 77.4 H (36.4-46.3) fL RDW Coeff of Gaby 18.7 H (11.5-14.5) % Plt Count 101 L (130-400) K/uL MPV 10.6 H (7.4-10.4) fL Immature Gran % (Auto) 1.2 % Neut % (Auto) 66.4 % Lymph % (Auto) 16.0 % [place] % (Auto) 11.3 % Eos % (Auto) 3.6 % Baso % (Auto) 1.5 % Immature Gran # (Auto) 0.09 H (0.00-0.02) K/uL Neut # (Auto) 5.02 (1.4-6.5) K/uL Lymph # (Auto) 1.21 (1.2-3.4) K/uL [place] # (Auto) 0.85 H (0.11-0.59) K/uL Eos # (Auto) 0.27 (0-0.5) K/uL Baso # (Auto) 0.11 (0-0.2) K/uL Macrocytosis Present PT (9.0-12.0) Seconds INR (0.9-1.1) APTT (21.0-31.0) Seconds PTT Ratio Sodium (136-145) mmol/L Potassium (3.5-5.1) mmol/L Chloride (98-107) mmol/L Carbon Dioxide (21-32) mmol/L Anion Gap (3-11) BUN (7-18) mg/dl Creatinine (0.6-1.4) mg/dl Est Cr Clr Drug Dosing ml/min Est GFR ( Amer) Est GFR (Non-Af Amer) BUN/Creatinine Ratio (10-20) Glucose (70-99) mg/dl Calcium (8.5-10.1) mg/dl Total Bilirubin (0.2-1) mg/dl AST (15-37) U/L ALT (12-78) U/L Alkaline Phosphatase (45-117) U/L Troponin I (0-0.045) ng/ml Total Protein (6.4-8.2) gm/dl Albumin (3.4-5.0) gm/dl Globulin (2.5-4.0) gm/dl Albumin/Globulin Ratio (0.9-2) Lipase (73-393) U/L Blood Type Antibody Screen Crossmatch Administered Medications Fentanyl Citrate (Fentanyl Citrate) 50 mcg IV Q15M PRN PRN Reason: Pain Stop: 02/14/20 08:23 Last Admin: 01/31/20 08:30 Dose: 50 mcg Documented by: [id number] Sodium Chloride (Nss) 250 mls @ 15 mls/hr IV .[id number] PRN PRN Reason: For Transfusion Stop: 01/31/20 17:53 Last Infusion: 01/31/20 09:18 Dose: 0 mls/hr Documented by: [id number] Infusion: 01/31/20 08:31 Dose: 50 mls/hr Documented by: [id number] Admin: 01/31/20 08:09 Dose: 15 mls/hr Documented by: [id number] Discontinued Medications Pantoprazole Sodium 40 mg/ (Syringe) 10 mls @ 5 mls/min IV NOW ONE Stop: 01/31/20 07:38 Last Admin: 01/31/20 08:08 Dose: 5 mls/min Documented by: [id number] Ondansetron HCl (Zofran) 4 mg IV NOW STA Stop: 01/31/20 08:25 Last Admin: 01/31/20 08:30 Dose: 4 mg Documented by: [id number] Discharge Plan Visit Data *Final* Discharge Date/Time: 01/31/20 08:33 Chief Complaint: GI Assessment ED Provider: David Moran Discharge Problem: Gastrointestinal hemorrhage with hematemesis, Anemia, Bleeding esophageal varices, Abdominal pain Patient Disposition: Still a Patient Condition: Serious Discharge Instructions Interventions: ED Discharge Assessment Last Done: 01/31/20 08:33 Discharge Problem: Anemia Qualifiers: Anemia type: unspecified type Qualified Code(s): D64.9 - Anemia, unspecified Bleeding esophageal varices Qualifiers: Esophageal varices type: unspecified type Qualified Code(s): I85.01 - Esophageal varices with bleeding Abdominal pain Qualifiers: Abdominal location: upper abdomen, unspecified Qualified Code(s): R10.10 - Upper abdominal pain, unspecified
--- NOTE | 2020-01-31 07:56 | XRay Report ---
XR chest 1V portable CLINICAL HISTORY: UGIB chest pain COMPARISON STUDY: 01/25/2020 FINDINGS: Lungs are considered clear. There is slight chronic interstitial change at both lung bases. This is unaltered. There is no evidence for new or interval process. Pulmonary apices are clear. IMPRESSION: Chronic change. No acute process. ACT 112: Negative or not required by law. The above report was generated using voice recognition software. It may contain grammatical, syntax or spelling errors. Electronically signed by: Kam Baldwin M.D. 01/31/2020 7:54 AM
--- NOTE | 2020-01-31 07:57 | XRay Report ---
XR KUB/Abdomen 1 view CLINICAL HISTORY: UGIB pain. Nausea. COMPARISON STUDY: 12/20/2018 FINDINGS: Nonobstructive bowel pattern. Possible ascites. Degenerative change lumbar spine. IMPRESSION: 1. Nonobstructive bowel pattern. 2. Potential ascites. ACT 112: Negative or not required by law. The above report was generated using voice recognition software. It may contain grammatical, syntax or spelling errors. Electronically signed by: Kam Baldwin M.D. 01/31/2020 7:55 AM
[2020-01-31] MEDS ORDERED: OCTREOTIDE ACETATE 100 MCG in SYRINGE 9 ML IV STA (08:04)
[2020-01-31 08:11] LABS: Basophils # (auto) 0.11 K/uL (0-0.2); Basophils % (auto) 1.5 %; Eosinophils # (auto) 0.27 K/uL (0-0.5); Eosinophils % (auto) 3.6 %; Hematocrit (blood only) 32.1 % (42-52); Hemoglobin 10.9 g/dL (14.0-18.0); Immature Granulocytes # (auto) 0.09 K/uL (0.00-0.02); Immature Granulocytes % (auto) 1.2 %; Lymphocytes # (auto) 1.21 K/uL (1.2-3.4); Mean Corpuscular Hemoglobin 38.4 pg (25-34); Mean Platelet Volume 10.6 fL (7.4-10.4); Monocytes # (auto) 0.85 K/uL (0.11-0.59); Monocytes % (auto) 11.3 %; Neutrophils # (auto) 5.02 K/uL (1.4-6.5); Neutrophils % (auto) 66.4 %; Platelet Count 101 K/uL (130-400); RDW Coefficient of Variation 18.7 % (11.5-14.5); RDW Standard Deviation 77.4 fL (36.4-46.3); Red Blood Count 2.84 M/uL (4.7-6.1); White Blood Count 7.55 K/uL (4.8-10.8)
[2020-01-31] MEDS ORDERED: OCTREOTIDE ACETATE 500 MCG in 0.9 % SODIUM CHLORIDE 100 ML IV SCH ×2 (08:15→10:45)
[2020-01-31] MEDS ORDERED: ONDANSETRON INJ 2 MG/ML 2 ML VIAL IV STA (08:24)
[2020-01-31] MEDS ORDERED: PROPOFOL IV EMULSION 10 MG/ML 20 ML VIAL IV ONE (08:27)
[2020-01-31] MEDS ORDERED: ONDANSETRON INJ 2 MG/ML 2 ML VIAL ONE (08:27)
[2020-01-31] MEDS ORDERED: fentaNYL citrate 100 MCG/2 ML VIAL ONE (08:27)
[2020-01-31] MEDS ORDERED: SUCCINYLCHOLINE 100MG/5ML SYR ONE (08:27)
[2020-01-31] MEDS ORDERED: LIDOCAINE HCL 2% 2 ML VIAL/AMP(20MG/ML) INFIL ONE (08:27)
[2020-01-31 08:28] LABS: Alanine Aminotransferase 79 U/L (12-78); Albumin Level 1.7 gm/dl (3.4-5.0); Aspartate Aminotransferase 209 U/L (15-37); BUN Creatinine Ratio 13.9 (10-20); Blood Urea Nitrogen 9 mg/dl (7-18); Calcium 7.4 mg/dl (8.5-10.1); Carbon Dioxide 28 mmol/L (21-32); Chloride 107 mmol/L (98-107); Est GFR (African American) 120.1; Est GFR (Non-African American) 103.6; Glucose 201 mg/dl (70-99); INR 1.6 (0.9-1.1); Lipase 324 U/L (73-393); Partial Thromboplastin Ratio 1.1; Partial Thromboplastin Time 30.5 Seconds (21.0-31.0); Prothrombin Time 16.9 Seconds (9.0-12.0); Sodium 139 mmol/L (136-145)
[2020-01-31] MEDS: fentaNYL citrate 100 MCG/2 ML VIAL IV PRN ×2 (08:30→10:55)
[2020-01-31 08:33] LABS: Albumin Globulin Ratio 0.5 (0.9-2); Alkaline Phosphatase 210 U/L (45-117); Bilirubin,Total 3.5 mg/dl (0.2-1); Globulin 3.6 gm/dl (2.5-4.0); Total Protein 5.3 gm/dl (6.4-8.2); Troponin I < 0.015 ng/ml (0-0.045)
[2020-01-31] MEDS ORDERED: ALBUMIN HUMAN 5% 12.5 GM/250 ML VIAL IV ONE (08:36)
[2020-01-31 08:39] LABS: Macrocytosis Present
--- NOTE | 2020-01-31 09:11 | Gastrointestinal Consultation ---
Date of Consultation January 31, 2020 Assessment & Plan (1) Gastrointestinal hemorrhage with hematemesis: Strick NPO IV Fluids Octreotide and Protonix Drips Cipro Urgent EGD by Dr. Kimble Further recommendations to follow EGD Present on Admission?: Yes (2) Cirrhosis of liver: Will consider paracentesis in 1-2 days after stabilized. Hold diuretics during acute GI bleeding. Present on Admission?: Yes Supervising Physician Co-Signing Physician Notes I have seen and examined the patient with Rizwan Lee whose note reflects our findings and plan. Patient with ETOH cirrhosis sober since 02/2019. He has decompensated cirrhosis with ascites requiring paracentesis. Has known varices. Last ED 04/2019 - large varices. Not banded as patient had just had a CVA. Started on b-[place] at that time. Was to have a repeat EGD but did not. Now with 2-3 episodes of hematemesis at home. Hemodynamically stable. Tense ascites on exam. EGD to be done in the OR this AM. History of Present Illness Reason for Consultation: GI bleed, hematemesis Requesting Physician: Dr. Mcgraw Attending Physician: Loren Kimble History of Present Illness Mr. Brent Blackwood is a 64 yr old male pt of Dr. leal with a hx of ACOPD, HTN, increased alcohol intake (pt reports last drink December 23, 2019) with ETOH cirrhosis and esophageal varices as well as ascites and prior hx of hepatic encephalopathy. He experienced nausea and vomited blood with clots. He was brought to the ED where Hb was 10, down from 12 three days ago. He reports his most recent BM was yesterday, formed, brown. He has not vomited since arrival but there is clear evidence of hematemesis as there is some red blood staining his mouth and a small amt on his patient gown. He is awake, alert, oriented. Receiving O2 at 4L/min by NC. BP 106/61, HR 80. Afebrile and no leukocytosis. He denies abdominal pain. Abdomen with taunt ascites. Allergies Allergy/AdvReac Type Severity Reaction Status Date / Time doxycycline Allergy Intermediate Hives Verified 01/31/20 08:45 codeine AdvReac Mild Gastrointestinal Verified 01/31/20 08:45 Upset Home Medications Home Medications Medication Instructions Recorded Confirmed Type albuterol sulfate 2 puff INHALATION Q4H PRN 09/06/18 04/23/20 History thiamine HCl (vitamin B1) 100 mg PO QAM 06/15/18 01/31/20 History Dexilant 30 mg PO BID 03/10/19 01/31/20 History acetaminophen [Tylenol Extra 1,000 mg PO Q6H PRN 03/19/19 01/31/20 History Strength] folic acid 800 mcg PO QAM 04/30/19 01/31/20 History lactulose 15 ml PO BID PRN 04/30/19 01/31/20 History metformin 500 mg PO QDB 04/30/19 01/31/20 History potassium chloride [Klor-Con M10] 10 meq PO QAM 04/30/19 01/31/20 History ferrous sulfate 325 mg PO DAILY #60 tab 05/02/19 01/31/20 Rx aspirin 81 mg PO QAM 06/03/19 01/31/20 History dicyclomine 20 mg PO QID PRN #20 tab 09/15/19 01/31/20 Rx Dulera 2 puff INHALATION BID 01/25/20 01/31/20 History pantoprazole 40 mg PO DAILY 01/25/20 01/31/20 History furosemide [Lasix] 40 mg PO BID #60 tab 01/27/20 01/31/20 Rx spironolactone 25 mg PO DAILY #30 tab 01/27/20 01/31/20 Rx Patient History Medical History Alcohol abuse (Chronic) Alcoholism (Acute) Anemia (Acute) Cirrhosis of liver (Chronic) Cirrhosis of liver (Chronic) Coffee ground emesis COPD (chronic obstructive pulmonary disease) (Chronic) COPD with exacerbation (Acute) Elevated lactic acid level Encephalopathy, hepatic (Acute) Esophageal varices GI bleed Hepatitis C antibody test positive Hypertension Hypomagnesemia Neutropenic fever (Acute) Parotiditis (Acute) Peptic ulcer disease (Chronic) SIRS (systemic inflammatory response syndrome) 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) Surgical History H/O endoscopy Loss of teeth due to extraction No significant past surgical history Family History Mother , age 82 with hypertension, diabetes, and COPD COPD (chronic obstructive pulmonary disease) Diabetes Hypertension Father , age 89 with prostate cancer Prostate cancer Sister Stroke Cirrhosis Brother Cirrhosis Social History Preferred Language: Mozambican Communication Ability: Effective 5Th Grade Teacher Required: No Beliefs That Will Affect Care: None marital status: Current Living Situation: Family Current Living Situation Comment: nephew and exwife current occupational status: employed and disabled current occupation: Works multiple jobs at the [employer] Feels Safe at Home: Yes Smoking Status: Unknown if ever smoked Hx Alcohol Use: Yes Alcohol type: beer Alcohol Intake Frequency Comment: heavy etoh use in the past; quit 2019 Hx Substance Use: No Review of Systems Review of Systems: ROS: Gen: + weakness, no fevers, no weight loss Eyes: No eye redness, or pain, no recent vision changes Resp: No SOB, no cough Cardio: No palpitations/irregular beats, no chest pain GI: See HPI : Denies pain on urination Skin: No jaundice, itching or new rashes Physical Exam Constitutional: + ill appearing and + thin alert, oriented Eyes: PERRL, conjunctivae normal, anicteric sclerae ENMT: external ear and nose normal, oropharynx normal Neck: trachea midline, no thyromegaly Respiratory: normal respiratory effort, lungs clear to auscultation Cardiovascular: RRR, no murmur, no edema Gastrointestinal (Abdomen): Inspection/Auscultation: + abdomen distended (with ascites) Percussion/Palpation: abdomen nontender umbilical hernia, reducible; otherwise no palpable masses Musculoskeletal: Extremities: strength 5/5 throughout + clubbing of fingers; no cyanosis Skin: no rashes, warm and dry no jaundice Neurologic: PERRL, EOMI, accommodation nl, no face palsy, no dysarthria Psychiatric: A+Ox3, euthymic affect Lymphatic: no cervical or axillary lymphadenopathy Results & Data ([facility]) Vital Signs (Past 12 Hours) Vital Signs Temp Pulse Pulse Resp BP BP Pulse Ox 01/31/20 08:47 36.3 C L 80 18 106/61 96 01/31/20 08:30 84 16 103/70 93 01/31/20 08:15 97 01/31/20 08:10 82 16 128/74 97 01/31/20 07:33 36.4 C L 79 16 135/84 88 L Diagnostic Findings KUB 01/31/20: 1. Nonobstructive bowel pattern. 2. Potential ascites. CXR 01/31/20: 1. Lungs are considered clear. There is slight chronic interstitial change at both lung bases. This is unaltered. 2. There is no evidence for new or interval process. Pulmonary apices are clear Medications Administered Recieved a Protonix Bolus and Octreotide bolus in ED. Drips pending
--- NOTE | 2020-01-31 09:12 | History & Physical Report ---
Date of Service January 31, 2020 Assessment & Plan (1) Cirrhosis of liver: Emergent EGD in the or today octreotide PPI gtt NPO (2) Gastrointestinal hemorrhage with hematemesis: (3) Anemia: History of Present Illness Chief Complaint: hematemesis Primary Care Provider: Ruperto Schwab MD cirrhotic with hematemesis at home Known ascites and varices Allergies Allergy/AdvReac Type Severity Reaction Status Date / Time doxycycline Allergy Intermediate Hives Verified 01/31/20 08:45 codeine AdvReac Mild Gastrointestinal Verified 01/31/20 08:45 Upset Home Medications Home Medications Medication Instructions Recorded Confirmed Type albuterol sulfate 2 puff INHALATION Q4H PRN 06/15/18 01/31/20 History thiamine HCl (vitamin B1) 100 mg PO QAM 06/15/18 01/31/20 History Dexilant 30 mg PO BID 03/10/19 01/31/20 History acetaminophen [Tylenol Extra 1,000 mg PO Q6H PRN 03/19/19 01/31/20 History Strength] folic acid 800 mcg PO QAM 04/30/19 01/31/20 History lactulose 15 ml PO BID PRN 04/30/19 01/31/20 History metformin 500 mg PO QDB 04/30/19 01/31/20 History potassium chloride [Klor-Con M10] 10 meq PO QAM 04/30/19 01/31/20 History ferrous sulfate 325 mg PO DAILY #60 tab 05/02/19 01/31/20 Rx aspirin 81 mg PO QAM 06/03/19 01/31/20 History dicyclomine 20 mg PO QID PRN #20 tab 09/15/19 01/31/20 Rx Dulera 2 puff INHALATION BID 01/25/20 01/31/20 History pantoprazole 40 mg PO DAILY 01/25/20 01/31/20 History furosemide [Lasix] 40 mg PO BID #60 tab 01/27/20 01/31/20 Rx spironolactone 25 mg PO DAILY #30 tab 01/27/20 01/31/20 Rx 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) Surgical History H/O endoscopy Loss of teeth due to extraction No significant past surgical history Family History Mother , age 82 with hypertension, diabetes, and COPD COPD (chronic obstructive pulmonary disease) Diabetes Hypertension Father , age 89 with prostate cancer Prostate cancer Sister Stroke Cirrhosis Brother Cirrhosis Social History Preferred Language: Amharic Communication Ability: Effective 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 Beliefs That Will Affect Care: None marital status: Current Living Situation: Family Current Living Situation Comment: nephew and exwife current occupational status: employed and disabled current occupation: Works multiple jobs at the [employer] Feels Safe at Home: Yes Smoking Status: Unknown if ever smoked Hx Alcohol Use: Yes Alcohol type: beer Alcohol Intake Frequency Comment: heavy etoh use in the past; quit 2019 Hx Substance Use: No Review of Systems All systems reviewed & are unremarkable except as noted in HPI & below Physical Exam Constitutional: WD/WN, vitals as above Respiratory: normal respiratory effort, lungs clear to auscultation Cardiovascular: RRR, no murmur, no edema Gastrointestinal (Abdomen): normal bowel sounds, soft, nontender, no hepatosplenomegaly Results & Data Vital Signs (Past 12 Hours) Vital Signs Temp Pulse Pulse Resp BP BP Pulse Ox 01/31/20 08:47 36.3 C L 80 18 106/61 96 01/31/20 08:30 84 16 103/70 93 01/31/20 08:15 97 01/31/20 08:10 82 16 128/74 97 01/31/20 07:33 36.4 C L 79 16 135/84 88 L (1) Anemia Anemia type: unspecified type Qualified Code(s): D64.9 - Anemia, unspecified
[2020-01-31] MEDS ORDERED: CIPROFLOXACIN 400MG / 200ML D5W IV ONE (09:16)
[2020-01-31] MEDS ORDERED: PANTOprazole 40 MG in SYRINGE 0 ML IV STA (09:22)
[2020-01-31] MEDS ORDERED: METOCLOPRAMIDE HCL INJ 5 MG/ML 2 ML VIAL IV STA (09:26)
[2020-01-31] MEDS ORDERED: CIPROFLOXACIN / D5W 400 MG/200 ML BAG IV SCH (09:30)
[2020-01-31] MEDS ORDERED: PANTOprazole 40 MG in DEXTROSE 5% 100 ML IV SCH ×2 (09:30→10:45)
[2020-01-31] MEDS ORDERED: PHENYLEPHRINE HCL 10 MG/ML VIAL ONE (09:37)
--- NOTE | 2020-01-31 10:03 | GI REPORT ---
Patient Name: Brent Blackwood Procedure Date: 01/31/2020 8:40 AM Date of : 1955 Admit Type: Emergency Department Age: 64 Gender: Male Attending MD: Loren Kimble DO Procedure: Upper GI endoscopy Providers: Loren Kimble DO Referring MD: Jesus Tavares Indications: Acute post hemorrhagic anemia, Hematemesis, Cirrhosis with UGI bleeding suspected esophageal varices Medicines: General Anesthesia Complications: No immediate complications. Estimated Blood Loss: Estimated blood loss: none. Procedure: Pre-Anesthesia Assessment: - Prior to the procedure, a History and Physical was performed, and patient medications, allergies and sensitivities were reviewed. The patient's tolerance of previous anesthesia was reviewed. - The risks and benefits of the procedure and the sedation options and risks were discussed with the patient. All questions were answered and informed consent was obtained. - Patient identification and proposed procedure were verified prior to the procedure by the physician and the nurse. The procedure was verified in the pre-procedure area in the procedure room. - Mental Status Examination: alert and oriented. Airway Examination: normal oropharyngeal airway and neck mobility. Respiratory Examination: clear to auscultation. CV Examination: normal. Abdominal Examination: abdomen firm and ascites noted. - ASA Grade Assessment: E - Emergency. After obtaining informed consent, the endoscope was passed under direct vision. Throughout the procedure, the patient's blood pressure, pulse, and oxygen saturations were monitored continuously. The Endoscope was introduced through the mouth, and advanced to the second part of duodenum. The upper GI endoscopy was accomplished without difficulty. The patient tolerated the procedure well. Findings: Red blood was found in the entire esophagus. Large (> 5 mm) varices were found in the middle third of the esophagus and in the lower third of the esophagus. There is a non bleeding varix with clot and fibrin plug visible. Two bands were successfully placed with incomplete eradication of varices. Bright red and Clotted blood was found in the cardia, in the gastric fundus and in the gastric body. Over 700ml of blood and clot suctioned. unable to clear completely. Suspect underlying gastric varices with oozing. The examined duodenum was normal. Impression: - Red blood in the esophagus. THis cleared with irrigation. There is no active bleeding in the esophagus. - Large (> 5 mm) esophageal varices. One varix with clot and fibrin plug not actively bleeding. Banded. - Clotted blood in the cardia, in the gastric fundus and in the gastric body. Concern for underlying gastri varices (see findings above for details) - No gastric antral ulcers noted. - Normal examined duodenum. - No specimens collected. Recommendation: - Continue Octreotide gtt - PPI gtt to be continued as well. - PRBC to be transfused. - Patient to remain intubated and transfer to tertiary care center for possible TIPS. - [facility] care. Loren Kimble D.O. Loren Kimble DO 01/31/2020 10:03:22 AM This report has been signed electronically. Note Initiated On: 01/31/2020 8:40 AM Number of Addenda: 0 I attest to the content of the Intraoperative Record and orders documented therein, exceptions below {[id number]}
--- NOTE | 2020-01-31 10:16 | Communication Note ---
Date of Service: January 31, 2020 Patient underwent emergent EGD in the OR. Noted to have a large amount of clotted and red blood throughout the UGI tract. Esophagus flushed and no active bleeding. He has large vraices. There was one with a clot and vessel visible which I banded. The stomach was suctioned copiously (approx 1 L). Clotted as well as red blood pooling in the cardia. I am concerned that he has bleeding from gastric varices. Patient left intubated. On octreotide and PPI gtt. Cipro. Getting PRBC as well. [facility], appears patient had TIPS in [place] in 02/2019. US doppler in October questions functioning. Recent worsening ascites requiring paracentesis. Non-compliance has been an issue in the past. - Patient to be transferred to tertiary care center.
[2020-01-31] MEDS ORDERED: ICU PROTOCOL FOR HYPERGLYCEMIA PRN (10:38)
[2020-01-31] MEDS ORDERED: PROPOFOL IV EMULSION 10 MG/ML 100 ML VIAL IV ONE (10:43)
[2020-01-31] MEDS ORDERED: fentaNYL citrate 100 MCG/2 ML VIAL IV STA (10:43)
[2020-01-31] MEDS ORDERED: STAT IV Infusion **Titration per Protocol STA (10:44)
[2020-01-31] MEDS ORDERED: FENTANYL BOLUS FROM BAG IV PRN (10:44)
[2020-01-31] MEDS ORDERED: PROPOFOL BOLUS FROM BAG IV PRN (10:44)
[2020-01-31] MEDS ORDERED: fentaNYL DRIP 1,250 MCG/250 ML BAG IV SCH (10:45)
[2020-01-31] MEDS ORDERED: propofoL 1,000 MG/100 ML VIAL IV SCH (10:45)
--- NOTE | 2020-01-31 10:51 | Anesthesiology Progress Note ---
Date of Service January 31, 2020 Anesthesia Post Procedure Vital Signs Vital Signs: Temp Pulse Pulse Resp BP BP Pulse Ox 01/31/20 10:15 36.6 C 73 30 H 81/50 L 100 01/31/20 08:47 36.3 C L 80 18 106/61 96 01/31/20 08:30 84 16 103/70 93 01/31/20 08:15 97 01/31/20 08:10 82 16 128/74 97 01/31/20 07:33 36.4 C L 79 16 135/84 88 L Pain Intensity Abdomen: Pain Intensity: 4 Transfer of Care Handoff Completed per policy Notes Mental Status: see notes below Patient Amnestic to Procedure: Yes Nausea / Vomiting: adequately controlled Pain: adequately controlled Airway Patency, RR, SpO2: see Notes below BP & HR: stable & adequate and see Notes below Hydration State: stable & adequate Anesthetic Complications: no major complications apparent Notes: Active bleeding found in esophagus. Banded by endoscopist, blood products started in OR. Plan is for transfer of patient to a higher level of care for TIPS evaluation. Given this, he was left intubated and sedated and transferred to ICU for management until such time as he can be transferrred. Full report given directly to bowl attendant.
[2020-01-31] MEDS ORDERED: cefTRIAXone SODIUM 1,000 MG in DEXTROSE 5% 50 ML IV SCH (11:00)
--- NOTE | 2020-01-31 11:07 | History & Physical Report ---
Date of Service January 31, 2020 Assessment & Plan (1) Gastrointestinal hemorrhage with hematemesis: Patient s/p emergent endoscopy with banding of esophogeal variceal. Suspicious for gastric variceal bleed. Needs transfer to tertiary center. - protonix and octreotide drips, getting cipro - Transfuse 2 units of blood, additional unit for tansfer - patient to remain intubated for transfer - check fibrinogen level - I did speak with patients sister, Geno, . I updated her on pa tiejameys status and the plan to transfer to [facility]. (2) Bleeding esophageal varices: see above (3) Cirrhosis of liver: Patient with history of alcoholic cirrhosis and history of hepatitis C. Denies alcohol consumption in over 1 year. S/P paracentesis with removal of 4.75 L 01/26/2020. Patient was given albumin after procedure. Ascites has reaccumulated. Per records patient had a TIPS in [place] in 02/2019. Ultrasound in October showed questionable functioning. (4) Anemia: Anemia of chronic disease with acute blood loss anemia. Patient currently being transfused and will continue to monitor. Will likely require interventional radiology. (5) Positive blood culture: / blood cultures positive within 12 hours on 01/25/2020. This was initially thought to be a contaminant. In retrospect, this may have been pathogenic and may require treatment and additional monitoring (6) COPD (chronic obstructive pulmonary disease): Patient currently intubated. (7) Hepatitis C: (8) Hypoalbuminemia: (9) GERD (gastroesophageal reflux disease): on protonix drip (10) Alcoholism: Patient had denied alcohol consumption in over 1 year (11) Acute blood loss anemia: (12) Coagulopathy: History of Present Illness Chief Complaint: hematemesis Primary Care Provider: Ruperto Schwab MD This is a 64 year old male know to us from last week when he was admitted with cough nd SBP rule out. After ruling out COVID, paracentesis was done with removal of 4.75L on 01/25/2020. He was given albumin post procedure. Cell count was not consistent with SBP. He was brought in this AM with coughing up blood. He had 1 episode prior to calling EMS. En route he had another episode vomiting approximately 100ml bright red blood and clots. Patient was taken for emergent endoscopy and was intubated. Bright blood and clots found throughout UGI. There was 1 esophogeal varicies that was banded. After irrigating stomach there was still large amount of blood. There is concern that patient is bleeding from gastric varicies and may require interventional radiology. Allergies Allergy/AdvReac Type Severity Reaction Status Date / Time doxycycline Allergy Intermediate Hives Verified 01/31/20 08:45 codeine AdvReac Mild Gastrointestinal Verified 01/31/20 08:45 Upset Home Medications Home Medications Medication Instructions Recorded Confirmed Type albuterol sulfate 2 puff INHALATION Q4H PRN 06/15/18 01/31/20 History thiamine HCl (vitamin B1) 100 mg PO QAM 06/15/18 01/31/20 History Dexilant 30 mg PO BID 03/10/19 01/31/20 History acetaminophen [Tylenol Extra 1,000 mg PO Q6H PRN 03/19/19 01/31/20 History Strength] folic acid 800 mcg PO QAM 04/30/19 01/31/20 History lactulose 15 ml PO BID PRN 04/30/19 01/31/20 History metformin 500 mg PO QDB 04/30/19 01/31/20 History potassium chloride [Klor-Con M10] 10 meq PO QAM 04/30/19 01/31/20 History ferrous sulfate 325 mg PO DAILY #60 tab 05/02/19 01/31/20 Rx aspirin 81 mg PO QAM 06/03/19 01/31/20 History dicyclomine 20 mg PO QID PRN #20 tab 09/15/19 01/31/20 Rx Dulera 2 puff INHALATION BID 01/25/20 01/31/20 History pantoprazole 40 mg PO DAILY 01/25/20 01/31/20 History furosemide [Lasix] 40 mg PO BID #60 tab 01/27/20 01/31/20 Rx spironolactone 25 mg PO DAILY #30 tab 01/27/20 01/31/20 Rx Past Med/Surg History Medical History (Updated 01/31/20 @ 13:08 by Nahum Nicole) Alcohol abuse (Chronic) Alcoholism (Acute) Anemia (Acute) Cirrhosis of liver (Chronic) Cirrhosis of liver (Chronic) Coffee ground emesis COPD (chronic obstructive pulmonary disease) (Chronic) COPD with exacerbation (Acute) Elevated lactic acid level Encephalopathy, hepatic (Acute) Esophageal varices GI bleed Hepatitis C antibody test positive Hypertension Hypomagnesemia Neutropenic fever (Acute) Parotiditis (Acute) Peptic ulcer disease (Chronic) S/P admission to ICU (intensive care unit) SIRS (systemic inflammatory response syndrome) 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) Surgical History H/O endoscopy Loss of teeth due to extraction No significant past surgical history Family History Mother , age 82 with hypertension, diabetes, and COPD COPD (chronic obstructive pulmonary disease) Diabetes Hypertension Father , age 89 with prostate cancer Prostate cancer Sister Stroke Cirrhosis Brother Cirrhosis Social History Preferred Language: Irish Communication Ability: Effective 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 Beliefs That Will Affect Care: None marital status: Current Living Situation: Family Current Living Situation Comment: nephew and exwife current occupational status: employed and disabled current occupation: Works multiple jobs at the [employer] Feels Safe at Home: Yes Smoking Status: Unknown if ever smoked Hx Alcohol Use: Yes Alcohol type: beer Alcohol Intake Frequency Comment: heavy etoh use in the past; quit 2019 Hx Substance Use: No Review of Systems Review of Systems: Unobtainable due to endotracheal tube Physical Exam Constitutional: WD/WN, vitals as above Eyes: PERRL Respiratory: Auscultation: + rhonchi on ventilator Cardiovascular: Rate/Rhythm: regular rate and regular rhythm Gastrointestinal (Abdomen): Inspection/Auscultation: + abdomen distended, + abdominal wall ecchymosis and + abdominal edema Psychiatric: intubated Results & Data Results & Data ([facility]) Vital Signs (Past 12 Hours) Vital Signs Temp Pulse Pulse Resp BP BP Pulse Ox 01/31/20 08:47 36.3 C L 80 18 106/61 96 01/31/20 08:30 84 16 103/70 93 01/31/20 08:15 97 01/31/20 08:10 82 16 128/74 97 01/31/20 07:33 36.4 C L 79 16 135/84 88 L Laboratory Results Laboratory Results - last 24 hr 01/31/20 01/31/20 01/31/20 07:59 07:59 07:59 WBC RBC Hgb Hct MCV MCH MCHC RDW Std Deviation RDW Coeff of Gaby Plt Count MPV Immature Gran % (Auto) Neut % (Auto) Lymph % (Auto) Howell % (Auto) Eos % (Auto) Baso % (Auto) Immature Gran # (Auto) Neut # (Auto) Lymph # (Auto) Howell # (Auto) Eos # (Auto) Baso # (Auto) Macrocytosis PT 16.9 H INR 1.6 H APTT 30.5 PTT Ratio 1.1 Fibrinogen Sample Site POC pH POC pCO2 POC pO2 POC HCO3 POC Total CO2 POC Base Excess POC ABG O2 Sat Felipe Test O2 Delivery Device POC O2 Rate POC FiO2 Tidal Volume PEEP Sodium 139 Potassium 4.0 Chloride 107 Carbon Dioxide 28 Anion Gap 4.0 BUN 9 Creatinine 0.66 Est Cr Clr Drug Dosing 116.0 Est GFR ( Amer) 120.1 Est GFR (Non-Af Amer) 103.6 BUN/Creatinine Ratio 13.9 Glucose 201 H Lactate Calcium 7.4 L Total Bilirubin 3.5 H AST 209 H ALT 79 H Alkaline Phosphatase 210 H Troponin I < 0.015 Total Protein 5.3 L Albumin 1.7 L Globulin 3.6 Albumin/Globulin Ratio 0.5 L Lipase 324 Blood Type O Positive Antibody Screen NEGATIVE Crossmatch See Detail 01/31/20 01/31/20 01/31/20 07:59 11:00 11:00 WBC 7.55 Pending RBC 2.84 L Pending Hgb 10.9 L Pending Hct 32.1 L Pending MCV 113.0 H Pending MCH 38.4 H Pending MCHC 34.0 Pending RDW Std Deviation 77.4 H RDW Coeff of Gaby 18.7 H Plt Count 101 L Pending MPV 10.6 H Immature Gran % (Auto) 1.2 Neut % (Auto) 66.4 Lymph % (Auto) 16.0 Howell % (Auto) 11.3 Eos % (Auto) 3.6 Baso % (Auto) 1.5 Immature Gran # (Auto) 0.09 H Neut # (Auto) 5.02 Lymph # (Auto) 1.21 Howell # (Auto) 0.85 H Eos # (Auto) 0.27 Baso # (Auto) 0.11 Macrocytosis Present PT INR APTT PTT Ratio Fibrinogen 83 L* Sample Site POC pH POC pCO2 POC pO2 POC HCO3 POC Total CO2 POC Base Excess POC ABG O2 Sat Felipe Test O2 Delivery Device POC O2 Rate POC FiO2 Tidal Volume PEEP Sodium Potassium Chloride Carbon Dioxide Anion Gap BUN Creatinine Est Cr Clr Drug Dosing Est GFR ( Amer) Est GFR (Non-Af Amer) BUN/Creatinine Ratio Glucose Lactate Calcium Total Bilirubin AST ALT Alkaline Phosphatase Troponin I Total Protein Albumin Globulin Albumin/Globulin Ratio Lipase Blood Type Antibody Screen Crossmatch 01/31/20 01/31/20 11:00 11:22 WBC RBC Hgb Hct MCV MCH MCHC RDW Std Deviation RDW Coeff of Gaby Plt Count MPV Immature Gran % (Auto) Neut % (Auto) Lymph % (Auto) Howell % (Auto) Eos % (Auto) Baso % (Auto) Immature Gran # (Auto) Neut # (Auto) Lymph # (Auto) Howell # (Auto) Eos # (Auto) Baso # (Auto) Macrocytosis PT INR APTT PTT Ratio Fibrinogen Sample Site R Radial POC pH 7.40 POC pCO2 36 POC pO2 112 H POC HCO3 22 POC Total CO2 23 L POC Base Excess -2.0 POC ABG O2 Sat 98.0 H Felipe Test Pass O2 Delivery Device Ventilator POC O2 Rate 16 POC FiO2 50 Tidal Volume 450 PEEP 5 Sodium Potassium Chloride Carbon Dioxide Anion Gap BUN Creatinine Est Cr Clr Drug Dosing Est GFR ( Amer) Est GFR (Non-Af Amer) BUN/Creatinine Ratio Glucose Lactate 4.5 H* Calcium Total Bilirubin AST ALT Alkaline Phosphatase Troponin I Total Protein Albumin Globulin Albumin/Globulin Ratio Lipase Blood Type Antibody Screen Crossmatch Diagnostic Findings EGD findings - see Dr Kimble's documentation from GI Code Status & VTE Plan Code Status full code as of 1 week ago. Could not verify on this admission VTE Prophylaxis Plan VTE Prophylaxis will be ordered: No Reason for no VTE drug order: Contraindicated Critical Care Time Critical Care Time: Yes Total Critical Care Time: 60 Supervising Physician Co-Signing Physician Notes Attending Attestation and Admission Note: Pt seen & examined, chart reviewed, admission care plan d/w Dr Kyler Santa. I agree w/ the dunn components of his admission documentation. 64yo male with advanced alcoholic & hepC cirrhosis along with COPD - recent admission for fever/cough. (admit 01/24, d/c home 01/26). COVID-19 was ruled out during that stay. Underwent diagnostic/therapeutic paracentesis with removal of nearly 5 liters of fluid. Cell counts and culture not c/w SBP. Cytologies neg. Received albumin IV post- paracentesis. 10/13 blood cx's + for alpha strep - thought to be contaminant. Presents this am with hematemesis and acute blood loss anemia. Went to OR with [facility] - nearly 1 L of BRB in stomach. multiple esophageal varices seen; 1 was banded but not felt to be cause of bleeding. Gastric varices were suspected but could not be visualized. GI advised transfer to tertiary care for possibel IR intervention. Patient intubated for procedure; I saw patient in the ICU while on the vent. PMH, PSH, allergies, meds, sochx, famhx - reviewed exam: gen - frail appearing, pale; intubated; sedated HEENT - PERRL; dried blood on face; ETT in place neck - no JVD heart - RRR, s1s2 lungs - wheezes b/l abd - distended, ascites present; ecchymoses present on abd wall; hernia umbilical region reducible; ?mild tenderness epigastric region ext - cool, mottled, pulses <1+ b/l; no edema musculo - muscle wasting of arms, legs labs - INR 1.6; Hb 10.9; BMP wnl; LFTs elevated A/P: 1. acute blood loss anemia 2. upper GI bleeding - concern for gastric variceal in origin s/p EGD today 3. advanced cirrhosis with coagulopathy 4. refractory ascites 5. hepC+ 6. COPD 7. recent admission for fever, cough - COVID 19 was ruled out 8. s/p recent paracentesis - fluid analysis not c/w SBP 9. recent 10/13 + blood cx's 10. s/p intubation for airway protection Tx 2 units PRBCs; keep 2 units on hold PPI drip Octreotide drip Fibrinogen level; Tx cryoprecipitate if needed vent management per ICU serial labs will call tertiary care and arrange for transfer to possible IR intervention as recommended by [facility] GI critical care time -- 60 minutes appreciate GI and critical care support Nahum Nicole MD PG Care Time/CCT Total # of Minutes Spent Total Time Spent with Patient: Total time spent is greater than 50% in coordination of care (as documented) at patient's floor/unit and/or counseling patient: Critical Care Time: Yes Total Critical Care Time: 60 Coding Level of Care Code None Diagnoses Gastrointestinal hemorrhage with hematemesis K92.0 Bleeding esophageal varices I85.01 Esophageal varices type: unspecified type Cirrhosis of liver K74.60 Anemia D64.9 Anemia type: unspecified type Positive blood culture R78.81 COPD (chronic obstructive pulmonary disease) J44.9 Hepatitis C B18.2 Hepatic coma status: with hepatic coma Viral hepatitis chronicity: chronic Hypoalbuminemia E88.09 GERD (gastroesophageal reflux disease) K21.9 Alcoholism F10.20 Acute blood loss anemia D62 Coagulopathy D68.9 Additional Codes Critical Care Time - Critical Care Time: Yes ([id number]) (1) Anemia Anemia type: unspecified type Qualified Code(s): D64.9 - Anemia, unspecified (2) Hepatitis C Hepatic coma status: with hepatic coma Viral hepatitis chronicity: chronic Qualified Code(s): B18.2 - Chronic viral hepatitis C (3) Bleeding esophageal varices Esophageal varices type: unspecified type Qualified Code(s): I85.01 - Esophageal varices with bleeding
--- NOTE | 2020-01-31 11:08 | Critical Care Consultation ---
Date of Consultation January 31, 2020 Assessment & Plan (1) S/P admission to ICU (intensive care unit): 64-year-old male with a past medical history of cirrhosis who presents with an upper GI bleed that is variceal in origin. He is currently intubated for airway protection. Status post EGD with variceal banding. Currently on octreotide and a PPI drip. Receiving 1 unit of packed red blood cells. Platelet count above 100,000. Will give platelets if platelet count drops below 50,000. We are giving 10 mg IV vitamin K for an INR 1.6. Checking a fibrinogen level to evaluate for possible DIC. Giving 1 g of ceftriaxone for prophylaxis related to his upper GI bleed. If he demonstrates further evidence of bleeding, we will give him tranexamic acid. He will likely need to TIPS or a BRTO. He is going to urgently be transferred to [facility] for their interventional radiology services. He does have a large amount of ascites, but I will hold on tapping this given that he is going to be transferred to [facility] very soon. He has 2 large-bore IVs and 1 20-gauge IV. Trend hemoglobin every 6 hours. Obtain lactic acid level. Maintain mean arterial pressures above 65. Patient is at risk for developing ATN versus HRS. Resuscitate with albumin. Avoid volume overload so as not to expand his varices. Goal hemoglobin level greater than 7 unless overt signs of bleeding or other concomitant issues such as myocardial infarction. Obtain ABG. Endotracheal tube is a 20 cm at the lip. We are obtaining a chest x-ray to make sure that it is appropriately positioned. CRITICAL CARE TIME - I have personally spent 40 minutes of critical care time in the direct m anagement of this patient. This is a life/limb threatening event. This includes time spent evaluating patient, direct bedside care, chart review, placing orders, interpretation of diagnostic studies, discussion with consultants, patient, and family members, as well as other required patient management activities. This time is exclusive of all separately billable procedures, and teaching time and separate from and in addition to any other critical care service time. (2) Gastrointestinal hemorrhage with hematemesis: (3) Bleeding esophageal varices: (4) Abdominal ascites: (5) Hepatic fibrosis: (6) COPD (chronic obstructive pulmonary disease): (7) Encephalopathy, hepatic: History of Present Illness Reason for Consultation: Variceal GI bleed and hypoxemic respiratory failure Requesting Physician: Hospitalist team Attending Physician: Nahum Nicole History of Present Illness 64-year-old male with a history of hepatitis C, cirrhosis with ascites and varices, alcoholism, presumptive COPD and cachexia who presented to the hospital due to nausea and vomiting. History is unobtainable from the patient as he is currently intubated. I did speak with the hospitalist and the anesthesiologist involved in the care. Apparently he experienced nausea and vomiting and had a significant amount of hematemesis. His hemoglobin in the emergency department was found to be 10. When they spoke with the patient he apparently had well formed brown bowel movements the day prior. He underwent an EGD today which demonstrated large greater than 5 mm esophageal varices and one varix with clot and fibrin plug not actively bleeding. These were banded. There is also clotted blood in the gastric fundus and the cardia. Patient is currently on octreotide drip, PPI and received 1 unit of blood. The recommendation by gastroenterology was transfer to a tertiary care center for possible TIPS procedure. He has been accepted by a [facility] tv host in [place]. INR is 1.6. He is currently receiving a unit of blood. Platelets are above 100,000. Morales catheter in place. He has [address] Endotracheal tube is in place. Allergies Allergy/AdvReac Type Severity Reaction Status Date / Time doxycycline Allergy Intermediate Hives Verified 01/31/20 08:45 codeine AdvReac Mild Gastrointestinal Verified 01/31/20 08:45 Upset Home Medications Home Medications Medication Instructions Recorded Confirmed Type albuterol sulfate 2 puff INHALATION Q4H PRN 06/15/18 01/31/20 History thiamine HCl (vitamin B1) 100 mg PO QAM 06/15/18 01/31/20 History Dexilant 30 mg PO BID 03/10/19 01/31/20 History acetaminophen [Tylenol Extra 1,000 mg PO Q6H PRN 03/19/19 01/31/20 History Strength] folic acid 800 mcg PO QAM 04/30/19 01/31/20 History lactulose 15 ml PO BID PRN 04/30/19 01/31/20 History metformin 500 mg PO QDB 04/30/19 01/31/20 History potassium chloride [Klor-Con M10] 10 meq PO QAM 04/30/19 01/31/20 History ferrous sulfate 325 mg PO DAILY #60 tab 05/02/19 01/31/20 Rx aspirin 81 mg PO QAM 06/03/19 01/31/20 History dicyclomine 20 mg PO QID PRN #20 tab 09/15/19 01/31/20 Rx Dulera 2 puff INHALATION BID 01/25/20 01/31/20 History pantoprazole 40 mg PO DAILY 01/25/20 01/31/20 History furosemide [Lasix] 40 mg PO BID #60 tab 01/27/20 01/31/20 Rx spironolactone 25 mg PO DAILY #30 tab 01/27/20 01/31/20 Rx Patient History Medical History Alcohol abuse (Chronic) Alcoholism (Acute) Anemia (Acute) Cirrhosis of liver (Chronic) Cirrhosis of liver (Chronic) Coffee ground emesis COPD (chronic obstructive pulmonary disease) (Chronic) COPD with exacerbation (Acute) Elevated lactic acid level Encephalopathy, hepatic (Acute) Esophageal varices GI bleed Hepatitis C antibody test positive Hypertension Hypomagnesemia Neutropenic fever (Acute) Parotiditis (Acute) Peptic ulcer disease (Chronic) SIRS (systemic inflammatory response syndrome) 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) Surgical History H/O endoscopy Loss of teeth due to extraction No significant past surgical history Family History Mother , age 82 with hypertension, diabetes, and COPD COPD (chronic obstructive pulmonary disease) Diabetes Hypertension Father , age 89 with prostate cancer Prostate cancer Sister Stroke Cirrhosis Brother Cirrhosis Social History Preferred Language: Jordanian Communication Ability: Effective Field Agent Required: No Beliefs That Will Affect Care: None marital status: Current Living Situation: Family Current Living Situation Comment: nephew and exwife current occupational status: employed and disabled current occupation: Works multiple jobs at the [employer] Feels Safe at Home: Yes Smoking Status: Unknown if ever smoked Hx Alcohol Use: Yes Alcohol type: beer Alcohol Intake Frequency Comment: heavy etoh use in the past; quit 2019 Hx Substance Use: No Review of Systems Review of Systems: Unobtainable due to endotracheal tube Physical Exam Constitutional: Patient appears older than stated age. He is intubated. He is thrashing around. Endotracheal tube is in place and is at 20 cm at the lip. Eyes: PERRL, conjunctivae normal, anicteric sclerae ENMT: external ear and nose normal, oropharynx normal Neck: normal visual inspection Respiratory: Coarse breath sounds on the vent. No wheezing or rhonchi. Cardiovascular: RRR, no murmur, no edema Gastrointestinal (Abdomen): Distended abdomen with evidence of fluid wave. Protuberant umbilicus. Does not appear tender on palpation. Musculoskeletal: no cyanosis or clubbing, extremities motor strength 5/5 Skin: no rashes, warm and dry Neurologic: No gross deficits. Unable to adequately assess given that he is intubated. Moving all limbs spontaneously. Psychiatric: Unable to assess due to intubation. Results & Data Results & Data ([facility]) Vital Signs (Past 12 Hours) Vital Signs Temp Pulse Pulse Resp BP BP Pulse Ox 01/31/20 10:45 68 30 H 118/78 100 01/31/20 10:35 70 30 H 94/61 L 100 01/31/20 10:25 65 30 H 113/70 100 01/31/20 10:15 97.9 F 73 30 H 81/50 L 100 01/31/20 08:47 97.3 F L 80 18 106/61 96 01/31/20 08:30 84 16 103/70 93 01/31/20 08:15 97 01/31/20 08:10 82 16 128/74 97 01/31/20 07:33 97.5 F L 79 16 135/84 88 L I personally reviewed his laboratory data, chest imaging and previous notes. Coding Level of Care Code Critical Care 1st 30-74 mins Diagnoses S/P admission to ICU (intensive care unit) Gastrointestinal hemorrhage with hematemesis K92.0 Bleeding esophageal varices I85.01 Esophageal varices type: unspecified type Abdominal ascites K70.31 Ascites type: due to alcoholic cirrhosis Hepatic fibrosis K74.0 COPD (chronic obstructive pulmonary disease) J44.9 Encephalopathy, hepatic K72.90 Time Spent (min) 40 (1) Bleeding esophageal varices Esophageal varices type: unspecified type Qualified Code(s): I85.01 - Esophag eal varices with bleeding (2) Abdominal ascites Ascites type: due to alcoholic cirrhosis Qualified Code(s): K70.31 - Alcoholic cirrhosis of liver with ascites
[2020-01-31] MEDS ORDERED: PHYTONADIONE 10 MG in SODIUM CHLORIDE 0.9% 50 ML IV ONE (11:30)
--- NOTE | 2020-01-31 11:30 | XRay Report ---
XR chest 1V portable CLINICAL HISTORY: s/p intubation, upper GI bleeding COMPARISON STUDY: 01/31/2020 7:40 AM FINDINGS: Interval placement of an endotracheal tube 4 cm above the rob. The examination is otherw ise unchanged. Slight chronic interstitial prominence is unaltered. IMPRESSION: Interval placement of an endotracheal tube 4 cm above the rob. Study is otherwise unc hanged. ACT 112: Negative or not required by law. The above report was generated using voice recognition software. It may contain grammatical, syntax or spelling errors. Electronically signed by: Kam Baldwin M.D. 01/31/2020 11:29 AM
[2020-01-31 11:34] LABS: Fibrinogen 83 mg/dl (184-400)
[2020-01-31 11:36] LABS: iSTAT Allen Test Pass; iSTAT Arterial Blood Gas HCO3 22 meg/L (19-24); iSTAT Arterial Blood Gas pCO2 36 mmHg (35-46); iSTAT Arterial Blood Gas pO2 112 mmHg (80-95); iSTAT Carbon Dioxide 23 mmol/L (24-31); iSTAT FiO2 50 %; iSTAT Site R Radial
--- NOTE | 2020-01-31 12:47 | Discharge Summary ---
Date of Service January 31, 2020 Admission HPI Per Admitting Provider This is a 64 year old male know to us from last week when he was admitted with cough nd SBP rule out. After ruling out COVID, paracentesis was done with removal of 4.75L on 01/25/2020. He was given albumin post procedure. Cell count was not consistent with SBP. He was brought in this AM with coughing up blood. He had 1 episode prior to calling EMS. En route he had another episode vomiting approximately 100ml bright red blood and clots. Patient was taken for emergent endoscopy and was intubated. Bright blood and clots found throughout UGI. There was 1 esophogeal varicies that was banded. After irrigating stomach there was still large amount of blood. There is concern that patient is bleeding from gastric varicies and may require interventional radiology. Admission Exam Per Admitting Provider Constitutional: WD/WN, vitals as above Eyes: PERRL Respiratory: Auscultation: + rhonchi on ventilator Cardiovascular: Rate/Rhythm: regular rate and regular rhythm Gastrointestinal (Abdomen): Inspection/Auscultation: + abdomen distended, + abdominal wall ecchymosis and + abdominal edema Psychiatric: intubated Neurologic: reflexes symmetric Principal Diagnosis Upper GI bleed, Acute blood loss anemia Discharge Exam Constitutional WD/WN, vitals as above Eyes PERRL ENMT external ear and nose normal, oropharynx normal (patient is intubated. Blood noted in mouth) Respiratory coarse breath sounds on vent Cardiovascular RRR, no murmur, no edema Gastrointestinal (Abdomen) Inspection/Auscultation: + abdomen distended (visible fluid wave) and + abdominal edema Musculoskeletal no cyanosis or clubbing, extremities motor strength 5/5 Skin no rashes, warm and dry Neurologic moving all limbs spontaneously, unable to assess in depth due to being intubated Psychiatric unable to asses due to intubation Discharge Data Allergies Allergy/AdvReac Type Severity Reaction Status Date / Time doxycycline Allergy Intermediate Hives Verified 01/31/20 08:45 codeine AdvReac Mild Gastrointestinal Verified 01/31/20 08:45 Upset Consultations 01/31/20 08:25 Consult Gastroenterology Stat 01/31/20 08:50 ED Decision to Admit Stat 01/31/20 10:38 Consult Forms Examiner Routine Procedures Performed Operation Date: 01/31/20 09:00 Actual Procedures p Esophagogastroduodenoscopy with Esophageal Banding - [facility] (1) Gastrointestinal hemorrhage with hematemesis: Patient s/p emergent endoscopy with banding of esophogeal variceal. Suspicious for gastric variceal bleed. Needs transfer to tertiary center. - protonix and octreotide drips, getting cipro - Transfuse 2 units of blood, additional unit for tansfer - patient to remain intubated for transfer - check fibrinogen level - I did speak with patients sister Geno Pederson, . Thank you Dr. Rakesh Greenwood, Forms Examiner at [facility] for taking this patient in transfer. (2) Bleeding esophageal varices: see above (3) Cirrhosis of liver: Patient with history of alcoholic cirrhosis and history of hepatitis C. Denies alcohol consumption in over 1 year. (4) Anemia: Anemia of chronic disease with acute blood loss anemia. Patient currently being transfused and will continue to monitor. Will likely require interventional radiology. (5) Positive blood culture: 1/ blood cultures positive within 12 hours on 01/25/2020. This was initially thought to be a contaminant. In retrospect, this may have been pathogenic and may require treatment and additional monitoring (6) COPD (chronic obstructive pulmonary disease): Patient will remain intubated to protect airway during transport. (7) Hepatitis C: (8) Hypoalbuminemia: (9) GERD (gastroesophageal reflux disease): On protonix drip (10) Alcoholism: Patient had denied alcohol consumption in over a year (11) Acute blood loss anemia: (12) Coagulopathy: Total Time Total Time Spent Total Time Spent (In Minutes): total critical care time on day of admission / discharge was 60 minutes Total Time Includes: Medication Reconciliation Discharge Plan Discharge Items Patient Disposition: Transfer Acute Care Hospital Reason For Visit: UPPER GI BLEEDING, ACUTE BLOOD LOSS ANEMIA Discharge Diagnosis: 1. upper GI bleeding 2. acute blood loss anemia 3. cirrhosis 4. esophageal varices 5. suspected gastric varices Condition on Discharge: Serious Activity: As commented below Activity Comment: bedrest Non-emergency contact: Primary Care Provider Call non-emergency contact if: you have any medication questions Follow-up/Referrals: Ruperto Schwab MD [Primary Care Provider] - Diet: Nothing by Mouth Addtl Attending Provider Instructions: follow-up, etc to be determined after hospitalization at [facility] Pending Studies at Discharge: No Stand-Alone Forms: My [facility] Skilled Items Patient informed of condition?: No DNR: No Discharge Level of Care: Other Communicable Disease: No Discharge Prognosis: Deteriorating Lines: Peripheral IV Urinary Catheter: Yes Medications and DC Order Prescriptions: Continued thiamine HCl (vitamin B1) 100 mg Tablet 100 mg PO QAM RF: 0 albuterol sulfate 90 mcg/actuation Hfa Aerosol Inhaler 2 puff Inhalation Q4H PRN (Reason: Wheezing) RF: 0 Dexilant 30 mg Capsule,Biphase Delayed Releas 30 mg PO BID RF: 0 dicyclomine 20 mg tablet 20 mg PO QID PRN (Reason: pain) Qty: 20 RF: 0 folic acid 800 mcg Tablet 800 mcg PO QAM RF: 0 potassium chloride [Klor-Con M10] 10 mEq tablet,ER particles/crystals 10 meq PO QAM RF: 0 lactulose 20 gram/30 mL solution 15 ml PO BID PRN (Reason: Constipation) RF: 0 ferrous sulfate 325 mg (65 mg iron) Tablet,Delayed Release (Dr/Ec) 325 mg PO DAILY Qty: 60 RF: 2 pantoprazole 40 mg Tablet,Delayed Release (Dr/Ec) 40 mg PO DAILY RF: 0 Dulera 200-5 mcg/actuation Hfa Aerosol Inhaler 2 puff INHALATION BID RF: 0 furosemide [Lasix] 40 mg tablet 40 mg PO BID Qty: 60 RF: 1 spironolactone 25 mg tablet 25 mg PO DAILY Qty: 30 RF: 1 Discontinued acetaminophen [Tylenol Extra Strength] 500 mg Tablet 1,000 mg PO Q6H PRN (Reason: pain/ headache) RF: 0 aspirin 81 mg tablet,delayed release (DR/EC) 81 mg PO QAM RF: 0 metformin 500 mg tablet 500 mg PO QDB RF: 0 Discharge Orders: Discharge Order (Routine); Ordered 01/31/20 Ordered By: Nahum Nicole Admission Data Admit Date/Time: 01/31/20 10:38 Attending Provider: Nahum Nicole Admit Provider: Nahum Nicole Primary Care Provider: Ruperto Schwab Other Providers: Loren Kimble ; Jesus Mcgraw ; Israel Washington Other Interventions: Discharge Summary Assessment (RN) Last Done: 01/31/20 12:03 Supervising Physician Co-Signing Physician Notes Attending Attestation and Discharge Note: Pt seen & examined, chart reviewed, discharge care plan d/w Dr Kyler Santa. I agree w/ the dunn components of his discharge documentation. 64yo male with advanced alcoholic & hepC cirrhosis along with COPD - recent admission for fever/cough. (admit 01/24, d/c home 01/26). COVID-19 was ruled out during that stay. Underwent diagnostic/therapeutic paracentesis with removal of nearly 5 liters of fluid. Cell counts and culture not c/w SBP. Cytologies neg. Received albumin IV post- paracentesis. 10/13 blood cx's + for alpha strep - thought to be contaminant. Presented with hematemesis and acute blood loss anemia. Went to OR with [facility] - nearly 1 L of BRB in stomach. multiple esophageal varices seen; 1 was banded but not felt to be cause of bleeding. Gastric varices were suspected but could not be visualized. Gastric varices suspected to be the cause of his GI bleeding. GI advised transfer to tertiary care for possible IR intervention (TIPS, etc). Patient intubated for procedure and then admitted to ICU thereafter. Dr Greenwood from [facility] Forms Examiner service was contacted for possible transfer & ongoing care. Dr Greenwood accepted patient in transfer. Prior to transfer patient received 2 units PRBCs and cryoprecipitate (fibrinogen level <100). BPs remained stable prior to transfer; patient did not need pressor support. Also received 1 dose of rocephin for SBP prophylaxis. Patient transferred on PPI drip and Octreotide drip. Discharge exam: gen - frail appearing, pale; intubated; sedated HEENT - PERRL; dried blood on face; ETT in place neck - no JVD heart - RRR, s1s2 lungs - wheezes b/l abd - distended, ascites present; ecchymoses present on abd wall; hernia umbilical region reducible; ?mild tenderness epigastric region ext - cool, mottled, pulses <1+ b/l; no edema musculo - muscle wasting of arms, legs neuro - was moving arms/legs spontaneously total critical care time on day of admission/discharge -- 60 minutes; included discussing care with GI & ICU attendings; calling family; calling [facility]; med management; etc. Nahum Nicole MD Coding Level of Care Code None Diagnoses Gastrointestinal hemorrhage with hematemesis K92.0 Bleeding esophageal varices I85.01 Esophageal varices type: unspecified type Cirrhosis of liver K74.60 Anemia D64.9 Anemia type: unspecified type Positive blood culture R78.81 COPD (chronic obstructive pulmonary disease) J44.9 Hepatitis C B18.2 Hepatic coma status: with hepatic coma Viral hepatitis chronicity: chronic Hypoalbuminemia E88.09 GERD (gastroesophageal reflux disease) K21.9 Alcoholism F10.20 Acute blood loss anemia D62 Coagulopathy D68.9
--- NOTE | 2020-01-31 14:30 | Electrocardiogram Report ---
Test Reason : Blood Pressure : / mmHG Vent. Rate : 078 BPM Atrial Rate : 078 BPM P-R Int : 114 ms QRS Dur : 078 ms QT Int : 400 ms P-R-T Axes : 024 039 047 degrees QTc Int : 456 ms Normal sinus rhythm Nonspecific ST and T wave abnormality Abnormal ECG When compared with ECG of 25-JAN-2020 06:11, Nonspecific T wave abnormality now evident in Anterolateral leads Confirmed by Margarito Griffith ([id number]) on 01/31/2020 2:29:30 PM Referred By: Confirmed By:Bj Griffith
== END 2020-01-31 13:00 | disposition short-term general hospital (02) | DRG 432 ==
LOC: ED 07:29 → OR 08:33 → 1E 10:38